=== PATIENT | female | born 1945 | race African-American/Black ===

== ENCOUNTER 2017-11-04 08:04 | Day surgery (SDC) | payer OTHER, BC, MEDICARE ==
--- NOTE | 2017-10-29 10:33 | RAD REPORT ---
EXAM DESCRIPTION: RADOP - Outpt Chest Pa/Lat (2 Views) - 10/29/2017 10:19 am CLINICAL HISTORY: Preop for knee surgery COMPARISON: 2016 FINDINGS: The lungs appear clear of acute infiltrate. The heart is normal size. IMPRESSION: No acute abnormality is displayed
--- NOTE | 2017-10-29 11:24 | EKG ---
Test Date: 2017-10-29 Test Time: 10:21:08 Contact Worker: KARLA MEASUREMENT RESULTS: Intervals: Rate: 76 OH: 154 QRSD: 70 QT: 360 QTc: 405 [place]: P: 81 OH: 154 QRS: 48 T: 43 INTERPRETIVE STATEMENTS: Normal sinus rhythm Normal ECG Compared to ECG 04/16/2016 12:24:43 No significant changes Electronically Signed On 10-29-17 11:24:19 CDT by Stepan Boateng
[2017-10-29 12:06] LABS: Urine Appearance CLEAR; Urine Bilirubin NEGATIVE (NEG); Urine Blood NEGATIVE (NEG); Urine Color YELLOW; Urine Glucose NEGATIVE (NEG); Urine Protein NEGATIVE (NEG); Urine Specific Gravity >=1.030 (1.005-1.030); Urine Urobilinogen 0.2 mg/dL (0.2-1.0)
[2017-10-29 12:08] LABS: Urine Microscopic Reflex NO UMIC
[2017-10-29 12:13] LABS: Absolute Lymphocytes (CBC) 2.2 K/uL (0.7-4.9); Absolute Monocytes 0.7 K/uL (0.1-1.3); Absolute Neutrophil 2.1 K/uL (1.8-8.0); Basophils % 0.9 % (0-1.3); Eosinophils % 2.4 % (0-4.4); Hematocrit 37.1 % (36.0-45.0); Lymphocytes % 42.2 % (15.3-44.8); MCV 85.3 fL (80-100); MPV 9.5 fL (7.6-11.3); Monocytes % 13.4 % (3.3-12.3); RBC Red Blood Cell Count 4.35 M/uL (3.86-4.86)
[2017-10-29 12:19] LABS: Albumin 4.1 g/dL (3.2-5.5); Bilirubin Total 0.6 mg/dL (0.3-1.2); Protein, Total 7.1 g/dL (6.0-8.3)
[2017-10-29 12:58] LABS: A1c Component 0.47 mg/dL; Hemoglobin A1c 5.7 % (4-6.0)
[2017-11-04] MEDS ORDERED: CEFAZOLIN/SWI 1gm 1 GM/10 ML SYR ONE (08:07)
[2017-11-04] MEDS ORDERED: NA CHLORIDE 0.9% 1,000 ML ONE (08:07)
[2017-11-04] MEDS ORDERED: DEPO-MEDROL 40 MG/ML IM ONE (08:10)
[2017-11-04] MEDS ORDERED: BUPIVACAINE 0.25% PF 10 ML VIAL ONE (08:11)
[2017-11-04] MEDS ORDERED: FENTANYL CITR 100 MCG/2 ML ONE (08:30)
[2017-11-04] MEDS ORDERED: MIDAZOLAM HCL 2 MG/2 ML INJ ONE (08:30)
[2017-11-04] MEDS ORDERED: PROPOFOL 200 MG/20 ML VIAL IV ONE (08:30)
[2017-11-04] MEDS ORDERED: LIDOCAINE 2% MPF 5 ML VIAL ONE (08:30)
[2017-11-04] MEDS ORDERED: MORPHINE 10 MG/ML VIAL ONE (09:16)
[2017-11-04] MEDS ORDERED: KETOROLAC 30 MG/ML INJ ONE (09:41)
--- NOTE | 2017-11-04 09:59 | P.BOP ---
Preoperative diagnosis: RIGHT KNEE INTERNAL DERANGEMENT WITH COMPLEX MED.MENISC.TEAR Postoperative diagnosis: COMPLEX MED. MENISC.TEAR GRADE 3&4 MED.COMPARTMENT DJD Primary procedure: DIAGNOSTIC ARTHROSC.R.KNEEw/PARTIAL MED. MENISECTOMY&SHAVE G3 /4 Secondary procedure: CHONDROMALACIA MEDIAL COOMPARTMENT Regional Construction Manager: Lele Preciado Estimated blood loss: <5mL Specimen: SHAVINGS Findings: COMPLEX MED. MENISCAL TEAR ASSOC.w/GR.3/4CHONDROMAL. MED. COMPT. Anesthesia: General Complications: None Implants: NONE Fluids & blood products: INJ. 10 mL 0.25%MARCAINE PLAIN; 1mL [id number] Transferred to: Recovery Room Condition: Good
[2017-11-04] MEDS ORDERED: ONDANSETRON 4 MG/2 ML VIAL ONE (10:16)
[2017-11-04] MEDS ORDERED: HYDROCODONE/APAP 5/325 MG TAB ONE (11:13)
--- NOTE | 2017-11-06 05:55 | OP ---
Date of Procedure: 11/04/2017 Surgeon: Lele Preciado MD Managed Care Provider: Lele Preciado M.D. Preoperative Diagnosis: Right knee internal derangement with complex medial meniscal tear. Postoperative Diagnosis: Complex medial meniscal tear and grade 3 and 4 medial compartment degenerat dior joint disease. Primary Procedure: Diagnostic arthroscopy of the right knee with partial medial meniscectomy and sha ving of grade 3 and 4 chondromalacia, medial compartment. Indications: This patient has had intense and limiting symptoms since early June of last year. 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 She describes right knee mechanical symptoms of frequent popping, occasional giving way episodes, recurrent episod es of swelling and most importantly frequent locking episodes when turning over in bed, which require d her to place a pillow under the knee and work it, twisting the foot and ankle until a pop would occ ur that allowed normal motion to resume. The patient after discussing risks and benefits at length w ith all questions answered, has elected to proceed with diagnostic arthroscopy and indicated procedur es for her left knee. Technique: The patient was taken to the operating room and given a general anesthesia. She was then placed on the operative table with a tourniquet for the proximal thigh and the limb hyaes around th e tourniquet approximately. The foot of the bed was dropped after prepping and draping and a support of a trough cushion was placed under the left proximal thigh to support that leg while the right kne e was allowed to dangle in the knee hayes. The limb was exsanguinated with an Esmarch bandage and t he tourniquet was elevated to 250 mmHg. This was kept up during the procedure, which involved releas e of the tourniquet 43 minutes later. The scope was introduced initially through the distal lateral portal and the instrumentation was inserted in the distal medial portal. The inspection of the track ing of the patella showed smooth surfaces and middle of the trochlear groove tracking for the patella . The scope was moved into the medial gutter, no loose bodies were encountered, and it was moved edgar n to the medial compartment where a large and very complex meniscal tear of the medial meniscus was n oted to extend from the mid body all the way around to the insertion of the posterior horn. The suct ion shaver and right biting basket forceps were used to trim and remove loose meniscal tissue until t here was a stable remnant extending from the posterior horn insertion all the way around to the anter ior aspect of the midbody. The transition to remaining normal meniscus was trimmed and smoothed to p revent clicking and popping and chondral surfaces that were noted to have grade 3 and 4 chondromalaci a mostly focused at the midportion of the tear where there was some eburnated bone. The chondromalac ia was smoothed and shaved as possible for the medial femoral condyle and medial tibial plateau. Ins pection in the intracondylar notch showed the ACL and origin of the PCL to be intact, passing the sco pe into the lateral compartment. There was mild fraying of the margin of the lateral meniscus, but i t was stable to probing and did not warrant any further action in that compartment as chondral surfac es were also smoothed and pristine. Passing into the suprapatellar pouch and lateral gutter, no jena tional loose bodies or problems were encountered. The knee was observed moving from extension into f ull flexion as the patella would seat itself and track in the trochlear groove. The knee was again i nspected in all compartments and the scope and other instrumentation was then withdrawn. The punctur e wounds were closed with interrupted sutures of 4-0 nylon. The puncture wounds were then injected w ith a total of 10 mL of 0.25% Marcaine plain and 1 mL of Depo-Medrol 40 mg was instilled into the int ra-articular space. The sterile bandage was applied using Xeroform gauze, 4x4 flats, and an ABD cove red with soft roll and an Roge bandage. The tourniquet was released at 43 minutes and the estimated b lood loss was less than 5 mL. Damage was concentrated in the medial compartment of this knee. It wa s expected that debridement of the meniscal tissues would allow the patient to proceed without lockin g and severe pain symptoms with effusions. HONORIO/EARL Voice ID: [id number] Report ID: [id number]
== END 2017-11-04 12:45 | disposition home or self-care (01) ==
LOC: OR 08:04
PROVIDERS: ATTEND Orthopaedic Surgery
PROC: 0SBC4ZZ Excision of Right Knee Joint, Percutaneous Endoscopic Approach (ICD-10-PCS; principal; 2017-11-04 11:45)
DX: S83.231A Complex tear of medial meniscus, current injury, right knee, initial encounter (principal); M17.11 Unilateral primary osteoarthritis, right knee; M94.261 Chondromalacia, right knee; M54.31 Sciatica, right side; I10 Essential (primary) hypertension; Z83.3 Family history of diabetes mellitus
CPT/HCPCS: 29881; 36415; 71046; 80053; 81003; 83036; 85025; 88304; 93005; J0690; J1030; J2250; J2405; J3010; J7030; 88305; 88311

== ENCOUNTER 2019-05-17 07:34 | Emergency (ER) | payer OTHER, BC, MEDICARE ==
--- NOTE | 2019-05-17 09:40 | RAD REPORT ---
EXAM DESCRIPTION: RADTib Fib Left05/17/2019 8:41 am CLINICAL HISTORY: Left leg pain FINDINGS: No fracture is seen. Bones appear osteoporotic.
--- NOTE | 2019-05-17 10:12 | ER ---
Nurse's Notes [facility] Name: Laila Haddad Age: 73 yrs Sex: Female : 1945 Arrival Date: 05/17/2019 Time: 07:37 Bed 8 Private MD: Stevie Hollingsworth R Diagnosis: Pain in left leg;Osteoarthritis, unspecified site;Osteoporosis without current pathological fracture Presentation: 05/17 07:52 Presenting complaint: Patient states: Left ankle pain that radiates to left knee, jl7 started this morning. Transition of care: patient was not received from another setting of care. Onset of symptoms was May 17, 2019. Risk Assessment: Do you want to hurt yourself or someone else? Patient reports no desire to harm self or others. Initial Sepsis Screen: Does the patient meet any 2 criteria? No. Patient's initial sepsis screen is negative. Does the patient have a suspected source of infection? No. Patient's initial sepsis screen is negative. Care prior to arrival: None. 07:52 Method Of Arrival: Ambulatory jl7 07:52 Acuity: HENRY 4 jl7 Triage Assessment: 07:54 General: Appears in no apparent distress. uncomfortable, Behavior is calm, cooperative, jl7 appropriate for age. Pain: Complains of pain in left ankle Pain radiates to left knee Pain currently is 10 out of 10 on a pain scale. Quality of pain is described as sharp, Pain began 1 hour ago. Is continuous. Neuro: Level of Consciousness is awake, alert, obeys commands, Oriented to person, place, time, situation. Cardiovascular: Patient's skin is warm and dry. Respiratory: Airway is patent Respiratory effort is even, unlabored, Respiratory pattern is regular, symmetrical. Derm: Skin is pink, warm \T\ dry. Musculoskeletal: Range of motion: limited in left knee. Historical: - Allergies: 07:54 No Known Allergies; jl7 - Home Meds: 07:54 lisinopril Oral [Active]; jl7 - PMHx: 07:54 Hypertension; jl7 - PSHx: 07:54 wisdom teeth; ; Hernia repair; jl7 - Immunization history:: Adult Immunizations up to date. - Social history:: Smoking status: Patient/guardian denies using tobacco. - Ebola Screening: : No symptoms or risks identified at this time. - Family history:: not pertinent. - Hospitalizations: : No recent hospitalization is reported. Screenin:58 Abuse screen: Denies threats or abuse. Denies injuries from another. Nutritional jl7 screening: No deficits noted. Tuberculosis screening: No symptoms or risk factors identified. Fall Risk No fall in past 12 months (0 pts). No secondary diagnosis (0 pts). No IV (0 pts). Ambulatory Aid- Crutches/Cane/Walker (15 pts). Gait- Impaired (20 pts.). Mental Status- Oriented to own ability (0 pts). Total Pantoja Fall Scale indicates Low Risk Score (25-44 pts). Fall prevention measures have been instituted. Side Rails Up X 2 Placed close to Nursing Station Frequent Obs/Assesments occuring As available Patient and Family Educated on Fall Prevention Program and strategies. Assessment: 07:58 General: See triage assessment. jl7 08:49 Reassessment: Patient appears in no apparent distress at this time. No changes from 7 previously documented assessment. Patient and/or family updated on plan of care and expected duration. Pain level reassessed. Patient is alert, oriented x 3, equal unlabored respirations, skin warm/dry/pink. 09:35 Reassessment: Patient appears in no apparent distress at this time. No changes from 7 previously documented assessment. Patient and/or family updated on plan of care and expected duration. Pain level reassessed. Patient is alert, oriented x 3, equal unlabored respirations, skin warm/dry/pink. 10:15 Reassessment: Patient appears in no apparent distress at this time. Patient and/or sg family updated on plan of care and expected duration. Pain level reassessed. at bedside upating pt on results and discharge instructions, pt stated understanding, will continue to monitor. Vital Signs: 07:54 BP 128 / 65; Pulse 79; Resp 17 S; Temp 97.1(TE); Pulse Ox 100% on R/A; Pain 10/10; jl7 09:35 BP 116 / 68; Pulse 75; Resp 16 S; Pulse Ox 100% on R/A; jl7 ED Course: 07:37 Patient arrived in ED. rg4 07:37 Stevie Hollingsworth MD is Private Physician. rg4 07:40 Juan Mazariegos MD is Attending Physician. rn 07:52 Castillo Feldman, RN is Primary Nurse. jl7 07:53 Triage completed. jl7 07:54 Arm band placed on right wrist. jl7 07:58 Patient has correct armband on for positive identification. Bed in low position. Call robbin light in reach. Side rails up X 1. Pulse ox on. NIBP on. Warm blanket given. 08:30 Assisted to bathroom. jl7 08:42 XRAY Tib Fib LEFT In Process Unspecified. EDMS 09:00 Awaiting: Ultra Sound. jl7 09:48 Primary Nurse role handed off by Castillo Feldman, RN sg 09:48 Javier Cr, RN is Primary Nurse. sg 10:10 Extremity Venous Uni Ltd US In Process Unspecified. EDMS Administered Medications: No medications were administered Outcome: 10:12 Discharge ordered by . rn 10:33 Patient left the ED. Signatures: Dispatcher [employer] EDMS Javier Cr, LUIS ALBERTO SAHU Lilliana Da Silva RN RN Juan Mazariegos MD MD rn Garcia, Rubi rg4 Castillo Feldman, RN RN [facility]
--- NOTE | 2019-05-17 10:12 | EDPHYS ---
Physician Documentation [facility] Name: Laila Hadadd Age: 73 yrs Sex: Female : 1945 Arrival Date: 05/17/2019 Time: 07:37 Bed 8 Private MD: Stevie Hollingsworth R ED Physician Juan Mazariegos HPI: 05/17 08:32 This 73 yrs old Black Female presents to ER via Ambulatory with complaints of Leg Pain. rn 08:32 The patient presents with pain, that is acute. The complaints affect the left knee and rn left bowers. Onset: The symptoms/episode began/occurred this morning. Modifying factors: The symptoms are alleviated by OTC meds, the symptoms are aggravated by weight bearing. Severity of symptoms: At their worst the symptoms were mild, in the emergency department the symptoms are unchanged. The patient has experienced similar episodes in the past. Reports has a bad right knee has been taking care of her , lifting and caring for him, is supposed to have surgery on right knee soon, now left knee bothering her at times, but worse this morning. No injury. Reports pain from knee down tibia. No foot or ankle pain. No fever. Reports worse with weight bearing, no swelling or discoloration.. Historical: - Allergies: 07:54 No Known Allergies; jl7 - Home Meds: 07:54 lisinopril Oral [Active]; jl7 - PMHx: 07:54 Hypertension; jl7 - PSHx: 07:54 wisdom teeth; ; Hernia repair; jl7 - Immunization history:: Adult Immunizations up to date. - Social history:: Smoking status: Patient/guardian denies using tobacco. - Ebola Screening: : No symptoms or risks identified at this time. - Family history:: not pertinent. - Hospitalizations: : No recent hospitalization is reported. ROS: 08:32 Constitutional: Negative for fever, chills, and weight loss, Eyes: Negative for injury, rn pain, redness, and discharge, Neck: Negative for injury, pain, and swelling, Cardiovascular: Negative for chest pain, palpitations, and edema, Respiratory: Negative for shortness of breath, cough, wheezing, and pleuritic chest pain, Abdomen/GI: Negative for abdominal pain, nausea, vomiting, diarrhea, and constipation, Back: Negative for injury and pain, MS/Extremity: Negative for injury and deformity, Skin: Negative for injury, rash, and discoloration, Neuro: Negative for headache, weakness, numbness, tingling, and seizure. Exam: 08:32 Constitutional: This is a well developed, well nourished patient who is awake, alert, rn and in no acute distress. Skin: Warm, dry with normal turgor. Normal color with no rashes, no lesions, and no evidence of cellulitis. MS/ Extremity: Pulses equal, no cyanosis. Neurovascular intact. Full, normal range of motion. Equal circumference. No knee effusion. No focal tenderness. Neuro: Awake and alert, GCS 15. Motor strength 5/5 in all extremities. Sensory grossly intact. Cerebellar exam normal. Vital Signs: 07:54 BP 128 / 65; Pulse 79; Resp 17 S; Temp 97.1(TE); Pulse Ox 100% on R/A; Pain 10/10; jl7 09:35 BP 116 / 68; Pulse 75; Resp 16 S; Pulse Ox 100% on R/A; jl7 MDM: 07:40 Patient medically screened. rn 09:03 Test interpretation: by ED physician or midlevel provider: plain radiologic studies, rn Xray left tib/fib neg for acute fracture/dislocation.. 09:04 ED course: Delay due to radiology, ultrasound still has not been performed. . rn 10:10 Differential diagnosis: tendonitis, arthritis, over-compensation and stress due to rn right knee pain. Data reviewed: vital signs, nurses notes, radiologic studies, doppler, plain films, and as a result, I will discharge patient. Counseling: I had a detailed discussion with the patient and/or guardian regarding: the historical points, exam findings, and any diagnostic results supporting the discharge/admit diagnosis, radiology results, the need for outpatient follow up, to return to the emergency department if symptoms worsen or persist or if there are any questions or concerns that arise at home. Special discussion: I discussed with the patient/guardian in detail that at this point there is no indication for admission to the hospital. It is understood, however, that if the symptoms persist or worsen the patient needs to return immediately for re-evaluation. Based on the history and exam findings, there is no indication for further emergent testing or inpatient evaluation. I discussed with the patient/guardian the need to see the orthopedic surgeon for further evaluation of the symptoms. 10:10 ED course: U/S neg for DVT as well, Recommend continuation of brace, OTC pain meds, and rn invasive f/u. . 05/17 07:59 Order name: XRAY Tib Fib LEFT; Complete Time: 10:10 rn 05/17 07:59 Order name: Extremity Venous Uni Ltd US rn Administered Medications: No medications were administered Disposition: 05/17/19 10:12 Discharged to Home. Impression: Pain in left leg, Osteoarthritis, unspecified site, Osteoporosis without current pathological fracture. - Condition is Stable. - Discharge Instructions: Arthritis, Musculoskeletal Pain. - Medication Reconciliation Form, Thank You Letter, Antibiotic Education, Prescription Opioid Use form. - Follow up: Private Physician; When: As needed; Reason: Recheck today's complaints, Re-evaluation by your physician. - Problem is an ongoing problem. - Symptoms have improved. Signatures: Dispatcher [employer] EDMS Lilliana Da Silva RN RN iw Juan Mazariegos MD MD rn Leal, Jahala, RN RN jl7 Corrections: (The following items were deleted from the chart) 08:34 08:32 Constitutional: Negative for fever, chills, and weight loss, Eyes: Negative for rn injury, pain, redness, and discharge, Neck: Negative for injury, pain, and swelling, Cardiovascular: Negative for chest pain, palpitations, and edema, Respiratory: Negative for shortness of breath, cough, wheezing, and pleuritic chest pain, Abdomen/GI: Negative for abdominal pain, nausea, vomiting, diarrhea, and constipation, MS/Extremity: Negative for injury and deformity, Skin: Negative for injury, rash, and discoloration, Neuro: Negative for headache, weakness, numbness, tingling, and seizure, rn 10:33 10:12 05/17/2019 10:12 Discharged to Home. Impression: Pain in left leg; iw Osteoarthritis, unspecified site; Osteoporosis without current pathological fracture. Condition is Stable. Forms are Medication Reconciliation Form, Thank You Letter, Antibiotic Education, Prescription Opioid Use. Follow up: Private Physician; When: As needed; Reason: Recheck today's complaints, Re-evaluation by your physician. Problem is an ongoing problem. Symptoms have improved. rn
[2019-05-17 10:38] VITALS: TEMP 97.1; O2SAT 100
[2019-05-17 10:40] VITALS: BP 116/68
--- NOTE | 2019-05-17 10:45 | RAD REPORT ---
[facility] DES[facility]/17/2019 10:30 am CLINICAL HISTORY: left leg pain COMPARISON: None. FINDINGS: Left common femoral, superficial femoral, popliteal and posterior tibial veins are compre ssible and demonstrate augmentation. Doppler demonstrates good flow. IMPRESSION: No evidence of deep venous thrombosis involving the left lower extremity.
== END 2019-05-17 10:33 | disposition home or self-care (01) ==
LOC: ER 07:34
DX: M19.90 Unspecified osteoarthritis, unspecified site (principal); M81.0 Age-related osteoporosis without current pathological fracture; I10 Essential (primary) hypertension
CPT/HCPCS: 93971; 99283

== ENCOUNTER 2019-12-04 06:16 | Emergency (ER) | payer OTHER, BC, MEDICARE ==
--- OUTSIDE RECORDS SUMMARY | 2019-12-04 06:18 | XMS REPORT | Summary of Care ---
:1945 Author Organization [facility] Address [address] [place] [address] Care Team Providers Name Role Phone Pcp, Does Not Have A Primary Care Provider Encounter Details Date Type Department Care Team Description 09/07/2019 [facility] Rad[facility] [address] [place] [address] [place], [place] [phone] Allergies No Known Allergiesdocumented as of this encounter (statuses as of 09/08/2019) Medications Medication Sig Dispensed Refills Start Date End Date Status pravastatin Take 40 mg by 0 Acti ve (PRAVACHOL) 40 mg mouth. tablet Fluocinolone-Hydroq.- Apply to area(s) 2 30 g 1 06/22/20 14 Active Tretinoin (TRI-ALEXIA) (two) times daily. 0.01-4-0.05 % For 8 weeks then CreaIndications: discontinue Protect Other dyschromia skin from sun mometasone (NASONEX) Use 2 Sprays in 1 Bottle 5 10/02/2015 Active 50 mcg/actuation each nostril daily. nasal spray lisinopril-hydrochlor 0 12/22/2015 Active othiazide (PRINZIDE,ZESTORETIC) 20-25 mg per tablet triamcinolone 0 11/23/2015 Activ e (KENALOG) 0.025 % cream lisinopril-hydrochlor TAKE 1 TABLET BY 0 04/27/2019 Active othiazide 20-12.5 mg MOUTH ONCE DAILY IN per tablet THE MORNING acetaminophen-codeine Take 1 tablet by 40 tablet 0 08/24/2019 Active (TYLENOL-CODEINE #3) mouth every 4 300-30 mg (four) hours as tabletIndications: needed for Pain Status post total (scale 4-6) or Pain right knee (scale 7-10). replacement documented as of this encounter (statuses as of 09/08/2019) Active Problems Problem Noted Date Total knee replacement status 08/23/2019 Primary osteoarthritis of right knee 06/07/2019 Overview: Added automatically from request for henry knott [id number] Dental caries 12/07/2013 Overview: ICD10 Diagnosis Term Purchasing Intern Utility documented as of this encounter (statuses as of 09/08/2019) Social History Tobacco Use Types Packs/Day Years Used Date Never Smoker Smokeless Tobacco: Never Used Alcohol Use Drinks/Week oz/Week Comments No Sex Assigned at Date Recorded Not on file Job Start Date Occupation Industry Not on file Not on file Not on file Travel History Travel Start Travel End No recent travel history available. documented as of this encounter Last Filed Vital Signs Not on filedocumented in this encounter Plan of Treatment Date Type Specialty Care Team Description 10/06/2019 Office Visit Orthopedic Surgery Glenn Villasenor S, PAC [address] [phone] Health Maintenance Due Date Last Done Comments HEPATITIS C (HCV) SCREEN 1945 DTaP,Tdap,and Td Vaccines (1 - Tdap) 1956 COLONOSCOPY 10/25/1995 Zoster Recombinant Vaccine (SHINGRIX) (1 10/25/1995 of 2) Medicare Wellness Visit 2010 Osteoporosis Screening 2010 PNEUMOCOCCAL VACCINES 65+ (1 of 2 - PCV13) 2010 Breast Cancer Screening (MAMMOGRAM) 08/31/2016 08/31/2015, 08/17/2014 INFLUENZA VACCINE (#1) 2019 documented as of this encounter Implants Implanted Type Area Drycleaner Device Shelf Model / Identifier Expiration Serial / Date Lot Cement Simplex Hv #[id number] - S0 CEMENT Right: Sam 09/24/2020 [id number] / Implanted: Qty: 2 on 08/23/2019 by Cayden Hamilton MD at [facility] Knee 0 / [id number] Bearing Tibial 12 X 71/75 Mm #[id number] - S0 KNEE Right: Biomet 07/02/2024 [id number] / Implanted: Qty: 1 on 08/23/2019 by Cayden Hamilton MD at [facility] Knee 0 / [id number] Tibial Tray Cemented 71mm Biomet #[id number] - S0 Knee Insert Right: Biomet 06/28/2029 [id number] / Implanted: Qty: 1 on 08/23/2019 by Cayden Hamilton MD at [facility] Knee 0 / [id number] Component Cr Femoral - Right 71mm Biomet Ref#[id number] Knee Stem Right: Biomet 04/08/2029 [id number] / Implanted: Qty: 1 on 08/23/2019 by Cayden Hamilton MD at [facility] Knee 0 / [id number] Patella 8 X 31mm Biomet#[id number] - S0 PATELLA Right: Biomet 07/14/2024 [id number] / Implanted: Qty: 1 on 08/23/2019 by Cayden Hamilton MD at [facility] Knee 0 / [id number] documented as of this encounter Procedures Procedure Name Priority Date/Time Associated Diagnosis Comme nts XR KNEE <3 VW Routine 09/07/2019 2:08 Primary osteoarthritis Results for this RIGHT PM LEAD OPERATOR of right knee procedure are in the results section. documented in this encounter Results XR KNEE <3 VW RIGHT (09/07/2019 2:08 PM LEAD OPERATOR) Specimen Narrative Performed At This result has an attachment that is no t available. Status post total knee replacement implants in good alignment cemented PACS femur and tibia Performing Organization Address City/State/Zipcode Phone Number PACS documented in this encounter Visit Diagnoses Diagnosis Primary osteoarthritis of right knee Primary localized osteoarthrosis, lower leg documented in this encounter Insurance Payer Benefit Plan / Subscriber ID Effective Dates Phone Addre ss Type Group MEDICARE MEDICARE PART xxxxxxxxxxx 2010-Paola [phone] Medicare A & B t 2 [id number] [place] [id number] [phone] [id number] (Work) documented as of this encounter
--- OUTSIDE RECORDS SUMMARY | 2019-12-04 06:18 | XMS REPORT ---
:1945 Author Organization [facility] t Address [address] [place] [address] Dr. Encinas [address] [place] [id number] Care Team Providers Name Role Phone Unavailable Unavailable Unavailable Problems This patient has no known problems. Allergies, Adverse Reactions, Alerts This patient has no known allergies or adverse reactions. Medications This patient has no known medications.
--- OUTSIDE RECORDS SUMMARY | 2019-12-04 06:19 | XMS REPORT | Summary of Care ---
:1945 Author Organization [facility] - Health Address [address] [place] [address] Care Team Providers Name Role Phone Pcp, Does Not Have A Primary Care Provider Encounter Details Date Type Department Care Team Description 07/29/2019 Orders Only [facility] Doctor Unassigned, No [address] [facility] [place] [address] [address] [place] [address] Allergies No Known Allergiesdocumented as of this encounter (statuses as of 08/11/2019) Medications Medication Sig Dispensed Refills Start Date [...] 11/23/2015 Activ e (KENALOG) 0.025 % cream ibuprofen (MOTRIN) Take 1 tab PO every 50 tablet 0 02/19/2016 Active 600 mg tablet 8 hours x 7 days then PRN pain acetaminophen-codeine Take 1 tablet by 0 10/28/2016 Active 300-30 mg tablet mouth every 6 (six) hours as needed. 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 documented as of this encounter (statuses as of 08/11/2019) Social History Tobacco Use Types Packs/Day Years [...] Treatment Date Type Specialty Care Team Description 08/23/2019 Prep For Surgery Orthopedic Surgery Gayatri Cordovaa ry osteoarthritis of right knee (Primary Dx); Cayden Villanueva MD Congestive heart failure, unspecified HF chronicity, unspecified heart failure type [address] [place] [address] [phone] 08/23/2019 Hospital Encounter Surgery Art, Primary o steoarthritis Cayden Villanueva MD of right knee [address] [place] [address] [phone] 08/23/2019 Surgery Surgery Art, TOTAL KNEE ARTH ROPLASTY Cayden Villanueva MD [address] [place] [address] [phone] Health Maintenance Due Date Last Done Comments HEPATITIS C (HCV) SCREEN 1945 DTaP,Tdap,and Td Vaccines (1 - Tdap) 1956 COLONOSCOPY 10/25/1995 Zoster Recombinant Vaccine (SHINGRIX) (1 10/25/1995 of 2) Medicare Wellness Visit 2010 Osteoporosis Screening 2010 PNEUMOCOCCAL VACCINES 65+ (1 of 2 - PCV13) 2010 Breast Cancer Screening (MAMMOGRAM) 08/31/2016 08/31/2015, 08/17/2014 INFLUENZA VACCINE (#1) 2019 documented as of this encounter Procedures Procedure Name Priority Date/Time Associated Diagnosis Comme nts MEDICAL Routine 07/29/2019 12:01 AM 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 Medicare A & B nt 82 [id number] ZACHARY SILVERIO [id number] DELTA DELTA DENTAL [id number] 2012-Prese [phone] DENTAL-[facility] nt [id number] [address] [place] [id number] DELTA DELTA DENTAL [id number] 2012-Prese [phone] DENTAL-[facility] nt [id number] [address] [place] [id number] documented as of this encounter
--- OUTSIDE RECORDS SUMMARY | 2019-12-04 06:19 | XMS REPORT | Summary of Care ---
:1945 Author Organization [facility] Address [address] [place] [id number] Care Team Providers Name Role Phone Pcp, Does Not Have A Primary Care Provider Reason for Visit Reason Comments LAB WORK Auth/Cert Status Reason Specialty Diagnoses / Referred By Referred To Procedures Contact Contact Clinical Medical Diagnoses Unilateral primary osteoarthritis, right knee Unilateral primary osteoarthritis, right knee [M17.11] [facility] Laboratory Procedures URINALYSIS COMP. 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 [facility] Cayden Cordova MD [address] [place] [address] Congestive heart failure, unspecified HF chronicity, unspecified heart failure type ; Phlebotomy 1, [facility] Primary osteoarthritis of right knee Lab-Carlotta [address] [facility] [place] [address] Allergies No Known Allergiesdocumented as of this encounter (statuses as of 08/19/2019) Medications Medication Sig Dispensed Refills Start Date [...] ONCE DAILY IN per tablet THE MORNING ibuprofen (ADVIL) 200 Take 200 mg by 0 Active mg tablet mouth as needed. 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 documented as of this encounter (statuses as of 08/19/2019) Social History Tobacco Use Types Packs/Day Years [...] Treatment Date Type Specialty Care Team Description 08/19/2019 Hospital Encounter [facility] Jayda Cordova MD [address] [place] [phone] [facility] 08/23/2019 Prep For Surgery Orthopedic Surgery Cayden Cordova Pr imary osteoarthritis of right knee (Primary Dx); MD Rich Congestive heart failure, unspecified HF chronicity, unspecified heart failure type [address] [place] [address] 08/23/2019 Hospital Encounter Surgery Cayden Cordova Primar y osteoarthritis MD Rich of right knee [address] [place] [address] 08/23/2019 Anesthesia Event Surgery KochMelvin R, PHOTOENGRAVING PRINTER [address] [place] [address] 08/23/2019 Surgery Surgery Cayden Cordova TOTAL KNEE MD Rich ARTHROPLASTY [address] [place] [address] Name Type Priority Associated Diagnoses Date/Ti me aPTT LAB Routine Congestive heart failure, 8:42 AM unspecified HF chronicity, C ST unspecified heart failure type Primary osteoarthritis of right knee PT / INR LAB Routine Congestive heart failure, 8:42 AM unspecified HF chronicity, C ST unspecified heart failure type Primary osteoarthritis of right knee COMP. 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 Health Maintenance Due Date Last Done Comments HEPATITIS C (HCV) SCREEN 1945 DTaP,Tdap,and Td Vaccines (1 - Tdap) 1956 COLONOSCOPY 10/25/1995 Zoster Recombinant Vaccine (SHINGRIX) (1 10/25/1995 of 2) Medicare Wellness Visit 2010 Osteoporosis Screening 2010 PNEUMOCOCCAL VACCINES 65+ (1 of 2 - PCV13) 2010 Breast Cancer Screening (MAMMOGRAM) 08/31/2016 08/31/2015, 08/17/2014 INFLUENZA VACCINE (#1) 2019 documented as of this encounter Results Not on filedocumented in this encounter Visit Diagnoses Diagnosis Congestive heart failure, unspecified HF chronicity, unspecified heart failure type Primary osteoarthritis of right knee Primary localized osteoarthrosis, lower leg documented in this encounter Insurance Payer Benefit Plan / Subscriber ID Effective Dates Phone Addre ss Type Group MEDICARE MEDICARE PART xxxxxxxxxxx 2010-Paola [phone] Medicare A & B t 2 [id number] ZACHARY SILVERIO [id number] [phone] [id number] (Work) documented as of this encounter
--- OUTSIDE RECORDS SUMMARY | 2019-12-04 06:19 | XMS REPORT | Summary of Care ---
:1945 Author Organization [facility] - Health Address [address] [place] [address] Care Team Providers Name Role Phone Pcp, Does Not Have A Primary Care Provider Encounter Details Date Type Department Care Team Description 08/04/2019 Orders Only [facility] Doctor Unassigned, No 301 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 documented as of this encounter (statuses [...] Description 08/23/2019 Prep For Surgery Orthopedic Surgery Cayden Cordova Pr imary osteoarthritis of right knee (Primary Dx); MD Rich Congestive heart failure, unspecified HF chronicity, unspecified heart failure type [address] [place] [address] [phone] 08/23/2019 Hospital Encounter Surgery Cayden Cordova Primar y osteoarthritis MD Rich of right knee [address] [place] [address] [phone] 08/23/2019 Anesthesia Event Surgery KochMelvin siegel, FAN ENGINE ENGINEER [address] [place] [address] 08/23/2019 Surgery Surgery Cayden Cordova TOTAL KNEE MD Rich ARTHROPLASTY [address] [place] [address] Health Maintenance Due Date Last Done Comments [...] Name Priority Date/Time Associated Diagnosis Comme nts DISCLOSURE AND CONSENT, Routine 08/04/2019 12:01 AM 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 Medicare A & B nt 82 [id number] ZACHARY SILVERIO [id number] DELTA DELTA DENTAL [id number] 2012-Prese [phone] DENTAL-[facility] nt [id number] [address] [place] [id number] DELTA DELTA DENTAL [id number] 2012-Prese [phone] DENTAL-[facility] nt [id number] [address] [place] [id number] documented as of this encounter
--- OUTSIDE RECORDS SUMMARY | 2019-12-04 06:20 | XMS REPORT | Summary of Care ---
:1945 Author Organization [facility] Address [address] [place] [address] Care Team Providers Name Role Phone Pcp, Does Not Have A Primary Care Provider Reason for Referral (Routine) Status Reason Specialty Diagnoses / Referred By Referred To Procedures Contact Contact New Request Location Physical Diagnoses Status post total right knee replacement Glenn Villasenor Preference Therapy Procedures CONSULT/REFERRAL PHYSICAL THERAPY S, PAC [address] [place] [address] (Routine) Status Reason Specialty Diagnoses / Referred By Referred To Procedures Contact Contact New Request ORT-ORTHOPAEDIC Diagnoses Status post total right knee replacement Glenn Villasenor S, SURGERY Procedures Discharge Follow-Up: Specialty Service ORT-ORTHOPAEDIC SURGERY; 2 Weeks PAC [address] [place] [address] Radiology Services (SHERI) Status Reason Specialty Diagnoses / Referred By Referred To Procedures Contact Contact New Request Diagnostic Diagnoses Status post total right knee replacement Cayden Cordova Radiology Procedures XR KNEE <3 VW RIGHT Rich MD [address] [place] [address] Reason for Visit Auth/Cert Status Reason Specialty Diagnoses / Procedures Referred By Homar eferred To Contact Contact Surgery Diagnoses Unilateral primary osteoarthritis, right knee Primary osteoarthritis of right knee [M17.11] Adc Pre/ Pacu/Post Procedures [place] TOTAL KNEE ARTHROPLASTY TOTAL KNEE ARTHROPLASTY [id number] - [place] TOTAL KNEE ARTHROPLASTY [address] [facility] [address] [place], [place] [phone] Fax: Encounter Details Date Type Department Care Team Description 08/23/2019 - Hospital Encounter ADC Intensive Care Ahsly Cordova osteoarthritis 08/24/2019 Unit Cayden Villanueva MD of right knee [address] [facility] [facility] [address] [place] [address] [address] [phone] [place] [address] Allergies No Known Allergiesdocumented as of this encounter (statuses as of 08/24/2019) Medications Medication Sig Dispensed Refills Start Date End Date Status pravastatin Take 40 mg by 0 Acti ve (PRAVACHOL) 40 mg mouth. tablet Fluocinolone-Hydroq Apply to 30 g 1 06/22/2014 Active .-Tretinoin area(s) 2 (two) (TRI-ALEXIA) times daily. For 0.01-4-0.05 % 8 weeks then CreaIndications: discontinue Other dyschromia Protect skin from sun mometasone Use 2 Sprays in 1 Bottle 5 10/02/2015 Ac tive (NASONEX) 50 each nostril mcg/actuation nasal daily. spray lisinopril-hydrochl 0 12/22/2015 Active orothiazide (PRINZIDE,ZESTORETI C) 20-25 mg per tablet triamcinolone 0 11/23/2015 Activ e (KENALOG) 0.025 % cream lisinopril-hydrochl TAKE 1 TABLET BY 0 04/27/2019 Active orothiazide 20-12.5 MOUTH ONCE DAILY mg per tablet IN THE MORNING acetaminophen-codei Take 1 tablet by 40 tablet 0 08/24/2019 Active ne (TYLENOL-CODEINE mouth every 4 #3) 300-30 mg (four) hours as tabletIndications: needed for Pain Status post total (scale 4-6) or right knee Pain (scale replacement 7-10). rivaroxaban Take 1 tablet by 10 tablet 0 08/24/2019 Active (XARELTO) mouth daily for 0 tabletIndications: 10 days. knee replacement Indications: deep vein deep vein thrombosis thrombosis prevention prevention in knee replacement ibuprofen (MOTRIN) Take 1 tab PO 50 tablet 0 02/19/2016 Discontinued 600 mg tablet every 8 hours x 0 7 days then PRN pain acetaminophen-codei Take 1 tablet by 0 10/28/2016 Discontinued ne 300-30 mg tablet mouth every 6 0 (six) hours as needed. ibuprofen (ADVIL) Take 200 mg by 0 02 Discontinued 200 mg tablet mouth as needed. 0 documented as of this encounter (statuses as of 08/24/2019) Active Problems Problem Noted Date Total knee replacement status 08/23/2019 Primary osteoarthritis of right knee 06/07/2019 Overview: Added automatically from request for henry knott [id number] Dental caries 12/07/2013 Overview: ICD10 Diagnosis Term Rivet Hole Puncher Utility documented as of this encounter (statuses as of 08/24/2019) Social History Tobacco Use Types Packs/Day Years Used Date Never Smoker Smokeless Tobacco: Never Used Alcohol Use Drinks/Week oz/Week Comments No Sex Assigned at Date Recorded Not on file Job Start Date Occupation Industry Not on file Not on file Not on file Travel History Travel Start Travel End No recent travel history available. documented as of this encounter Last Filed Vital Signs Vital Sign Reading Time Taken Comments Blood Pressure 118/57 08/24/2019 12:00 PM BINDERY PRODUCTION MANAGER Pulse 91 08/24/2019 12:00 PM BINDERY PRODUCTION MANAGER Temperature 36.9 C (98.4 F) 08/24/2019 12:00 PM BINDERY PRODUCTION MANAGER Respiratory Rate 18 08/24/2019 8:00 AM BINDERY PRODUCTION MANAGER Oxygen Saturation 100% 08/24/2019 12:00 PM BINDERY PRODUCTION MANAGER Inhaled Oxygen Concentration - - Weight 62.1 kg (137 lb) 08/11/2019 2:00 PM BINDERY PRODUCTION MANAGER Height 157.5 cm (5' 2") 08/11/2019 2:00 PM BINDERY PRODUCTION MANAGER Body Mass Index 25.06 08/11/2019 2:00 PM BINDERY PRODUCTION MANAGER documented in this encounter Discharge Instructions AttachmentsThe following attachments cannot be sent through Care Everywhere.Knee Replacement, Total (Kosovan)Wound Care, Discharge Instructions (Kosovan) Incision Care (Kosovan)Acetaminophen; Codeine tablets (Kosovan)Rivaroxaban oral tablets (Kosovan)documented in this encounter Progress Notes Hardy Fonseca RN - 08/24/2019 2:45 PM BINDERY PRODUCTION MANAGER Care Management Social Functional Assessment Patient Name: Laila Haddad Age: [age] year old Sex: female Previous admit date: N/A Current diagnosis and co-morbidities: Primary osteoarthritis of right knee [M17.11] Readmission Questions: Was patient discharged from any acute care hospital within the last 30 days: No Social Functional Assessment: Primary language spoken/preferred: Kosovan Mental Status: Alert & Oriented to Person,Place & Time Information given by: Self Patient's support system: Child Name and number of support system: Taylor Sabillon son [phone] Primary Mercantile Agent: Self MPOA: Same as support system Living Arrangement: Home Address of living arrangement : [id number] [place] [address] Persons living in home: Same as support system Barriers to returning home: None Baseline functional status- ambulation: Independent Functional status-baseline personal care: Independent Baseline functional status- driving: Independent Baseline functional status- grocery shopping: Independent Functional status-baseline housekeeping: Independent Functional status-baseline meal prep: Independent Current functional status same as prior: No Current functional status- ambulation: Requires minimal to moderate assistance Current functional status- personal care: Requires minimal to moderate assistance Current functional status- driving: Dependent Current functional status- grocery shopping: Requires minimal to moderate assistance Current functional status-house keeping: Requires minimal to moderate assistance Current functional status- meal preparation: Requires minimal to moderate assistance Do you have a PCP?: Yes Name of PCP: [facility] Agency: No Provider Services: No DME Company: No Equipment: Rollator;Walker;Crutches;Bedside Commode Hemodialysis: No Community resources utilized: None Funding Resources: Medicare A & B Prescription coverage plan: Medicare Part D Pharmacy where meds are filled: Other Other pharmacy: [facility] Anticipated services prior to disharge: None Expected mode of discharge transportation: Same as support system Additional Recommendations for DC: no Additional info required for discharge planning: Pending medical evaluation Recommended discharge plan: Home with new Home Health SFA Complete: Social Functional Assessment complete: Yes Alcohol Use Screening (AUDIT-C) How often do you have a drink containing alcohol?: Never SCORE: 0 Actions taken: Provided support Role of Care Management explained. Yes Any issues or concerns with obtaining/affording your medications at home: no. Are you or your support system able to molded goods spot picker medications at discharge: yes. Describe: Hardy Fonseca RN, BSN [facility] Roll Mill Operator O [phone] Hardy Obrien RN - 08/24/2019 2:30 PM CSTCare Management Social Functional Assessment Patient Name: Laila Haddad Age: [age] year old Sex: female Previous admit date: N/A Current diagnosis and co-morbidities: Primary osteoarthritis of right knee [M17.11] Readmission Questions: Was patient discharged from any acute care hospital within the last 30 days: No Social Functional Assessment: Primary language spoken/preferred: Kosovan Mental Status: Alert & Oriented to Person,Place & Time Information given by: Self Patient's support system: Child Name and number of support system: Kamlesh Haddad child [phone] Primary Mercantile Agent: Self MPOA: Same as support system Living Arrangement: Apartment: [facility] Address of living arrangement : [address] [place] [address] Persons living in home: Same as support system Barriers to returning home: None Baseline functional status- ambulation: Independent Functional status-baseline personal care: Independent Baseline functional status- driving: Independent Baseline functional status- grocery shopping: Independent Functional status-baseline housekeeping: Independent Functional status-baseline meal prep: Independent Current functional status same as prior: No Current functional status- ambulation: Requires minimal to moderate assistance Current functional status- personal care: Requires minimal to moderate assistance Current functional status- driving: Dependent Current functional status- grocery shopping: Requires minimal to moderate assistance Current functional status-house keeping: Requires minimal to moderate assistance Current functional status- meal preparation: Requires minimal to moderate assistance Do you have a PCP?: Yes Name of PCP: [facility] Agency: No Provider Services: No DME Company: No Equipment: CPAP;Walker;Cane Hemodialysis: No Community resources utilized: None Funding Resources: Medicare A & B;Supplement/Secondary Prescription coverage plan: Medicare Part D Pharmacy where meds are filled: [facility] Anticipated services prior to disharge: None Expected mode of discharge transportation: Same as support system Additional info required for discharge planning: Pending medical evaluation Recommended discharge plan: Home with new Home Health SFA Complete: Social Functional Assessment complete: No Alcohol Use Screening (AUDIT-C) How often do you have a drink containing alcohol?: Never SCORE: 0 Actions taken: Provided support Role of Care Management explained. Yes Any issues or concerns with obtaining/affording your medications at home: no. Are you or your support system able to molded goods spot picker medications at discharge: yes. Describe: Hardy Fonseca RN, BSN [facility] Roll Mill Operator O [phone] F [phone] Hardy Obrien RN - 08/24/2019 2:17 PM BINDERY PRODUCTION MANAGER Care Management Discharge Disposition Note (DCDN) -2-1 Interventions: Teach back -2-1 Providers: Roll Mill Operator/Recovery Analyst -2-1 Patient Capacity Improvements: Transportation arrangements Discharge Plan for ongoing care and services: Home Health (HH) Is this a new referral: Yes Patient Choice completed for referred services: Yes DME location: Other DME location: Durable Medical Equipment: Home Health location: Other Discharge location(s): Home Health location: Other Other Home Health location: [facility] Patient choice completed for referred services: Yes Discussed with patient/patients family involved in decision making: Yes Patient or family caregiver understands, and agrees with discharge plan. Community resources/referrals made or provided to patient: No Resources/Referrals: Transportation: Private Vehicle Mental Status: Alert & Oriented to Person,Place & Time Living Arrangement: Home Other living arrangement: Address of living arrangement: Funding Resources: Medicare A & B Nursing informed of discharge plan: Yes Name of RN informed: Mary Estimated discharge date: 08/24/19 Time: 1445 Additional Information: no CM/SW Name & Contact number: Hardy Fonseca RN Ph. Hardy Fonseca RN, BSN [facility] Roll Mill Operator O [phone] F [phone] The following information has been provided to the facility noted above: reason for the patient discharge or transfer; patients physical and psychosocial status; summary of care, treatment, servicesprovided to patient; and the patient progress toward goals. Karen Nova FNP - 08/24/2019 12:34 PM CST [facility] Hospitalist Progress Note SUBJECTIVE: Patient sitting up to chair no distress, all questions answered patient with an uneventful night CURRENT MEDICATIONS - reviewed. Current Facility-Administered Medications Medication Dose Route Frequency Last Rate Last Dose docusate (COLACE) capsule 100 mg 100 mg Oral Q12H 100 mg at 08/24/19 0845 enoxaparin (LOVENOX) injection 30 mg 30 mg Subcutaneous Q12H 30 mg at 08/24/19 0845 HYDROcodone-acetaminophen (NORCO 5) 5-325 mg tablet 1 tablet 1 tablet Oral Q6HPRN HYDROcodone-acetaminophen (NORCO) 10-325 mg tablet 1 tablet 1 tablet Oral Q4HPRN 1 tablet at 08/24/19 0848 morpHINE 30 mg/30 mL (fixed dose) PIE CUTTER injection IV Infusion TITRATE 30 mg at 08/23/19 1304 naloxone (NARCAN) injection 0.4 mg 0.4 mg Slow IV Push SEE-INSTRUCTIONS ondansetron (ZOFRAN (PF)) injection 4 mg 4 mg Slow IV Push Q6HPRN PHYSICAL EXAM: BP 118/57 | Pulse 91 | Temp 36.9 C (98.4 F) (Temporal Artery) | Resp 18 | Ht 1.575 m (5' 2") | Wt 62.1 kg (137 lb) | SpO2 100% | BMI 25.06 kg/m General: NAD HEENT: Anicteric sclerae, NCAT Lungs: CTAB Cardio: RRR, strong symmetric pulses Abdomen: Soft, NTND Genitourinary: No lesions Musculoskeletal: Normal muscle mass except right knee with dressing in place Skin: No rash or lesions, normal turgor Neuro: AAOx3, no focal deficits Psych: Normal affect LABS/IMAGING - reviewed, pertinent results as below: CBC BMP PT/INR WBC (10*3/L) Date Value 08/24/2019 12.64 (H) NA (mmol/L) Date Value 08/24/2019 137 No results found for: PT RBC (10*6/L) Date Value 08/24/2019 3.51 (L) K (mmol/L) Date Value 08/24/2019 4.0 INR (no units) Date Value 08/19/2019 1.0 PLT (10*3/L) Date Value 08/24/2019 196 CALCIUM (mg/dL) Date Value 08/24/2019 9.0 HGB (g/dL) Date Value 08/24/2019 9.7 (L) CL (mmol/L) Date Value 08/24/2019 105 aPTT HCT (%) Date Value 08/24/2019 29.5 (L) BUN (mg/dL) Date Value 08/24/2019 21 APTT Patient (Seconds) Date Value 08/19/2019 31 CREATININE (mg/dL) Date Value 08/24/2019 1.16 (H) IMAGING- Hospital Encounter on 08/23/19 XR KNEE <3 VW RIGHT Narrative EXAM: XR KNEE <3 VW RIGHT HISTORY: post op COMPARISON: R KNEE 3 VW BILATERAL, 05/20/2019. FINDINGS: Radiographs of the right knee demonstrate postsurgical changes of right knee total arthroplasty and patellar resurfacing. No guy hardware lucency or acute combination are noted. Overlying soft tissue swelling, gini, and subcutaneous gas are noted, consistent with postsurgical changes. Alignment is within normal limits. Impression Post surgical changes of right knee total arthroplasty and patellar resurfacing without acute complications. Preliminary Report Dictated by Resident: Lele Patrick I, Giacomo Graham MD., have reviewed this study and agree with the above report. ASSESSMENT/PLAN Laila Haddad is a 73 year old female with PMH as listed above, admitted to the hospital with: S/p right knee arthroplasty by Dr. Cordova on 08/23/2019 Discharge instructions, DVT prophylaxis, orthro pain management will be done by Dr. Cordova in his team. Hypertension Continue lisinopril/ HCTZ 20/12.5 as per home dose Monitor closely Keep followup appointments Hyperlipidemia patient doesn't take any statins at this time was discontinued over 3 to 4 years ago stated patient Mild AK I likely reactive, encourage fluids and no NSIADS Patient receiving mild hydration Will trend BMP Prophylaxis: DVT- enoxaparin Stress Ulcer: no indication for prophylaxis Code Status: addressed: full code DAISHA Burton ERY PRODUCTION MANAGER Associated attestation - Jacky Gonzalez MD - 08/24/2019 3:03 PM CSTPatient was seen and physically examined. I agree with the findings and documentation provided in the above note from the nurse practitioner, Karen Davis. Medicine team will continue to provide daily care. Glenn Villasenor PAC - 08/24/2019 9:44 AM CST Orthopedic Surgery Post Operative Note Date of Service: 08/24/2019 Procedure: Patient Active Problem List Diagnosis Dental caries Primary osteoarthritis of right knee Total knee replacement status Post-operative Day: 1 Patient is resting comfortably. Patient Range of motion is unchanged. Vitals: BP (!) 142/75 | Pulse 99 | Temp 36.6 C (97.9 F) (Temporal Artery) | Resp 18 | Ht 1.575 m (5'2") | Wt 62.1 kg (137 lb) | SpO2 99% | BMI 25.06 kg/m Wound status: clean, dry and intact Neovascular status: neurovascularly intact Labs: CBC BMP PT/INR WBC (10*3/L) Date Value 08/24/2019 12.64 (H) NA (mmol/L) Date Value 08/24/2019 137 No results found for: PT RBC (10*6/L) Date Value 08/24/2019 3.51 (L) K (mmol/L) Date Value 08/24/2019 4.0 INR (no units) Date Value 08/19/2019 1.0 PLT (10*3/L) Date Value 08/24/2019 196 CALCIUM (mg/dL) Date Value 08/24/2019 9.0 HGB (g/dL) Date Value 08/24/2019 9.7 (L) CL (mmol/L) Date Value 08/24/2019 105 aPTT HCT (%) Date Value 08/24/2019 29.5 (L) BUN (mg/dL) Date Value 08/24/2019 21 APTT Patient (Seconds) Date Value 08/19/2019 31 CREATININE (mg/dL) Date Value 08/24/2019 1.16 (H) Assessment and Plan: Laila Haddad is a 73 year old female with PMH as listed above, admitted to the hospital on 08/23/2019 with: Principal Problem: Active Problems: Total knee replacement status (08/23/2019) POA: Yes Assessment: doing well Plan: d/c home this evening Zeynep William MD - 08/23/2019 4:40 PM CSTUTILIZATION REVIEW COMMITTEE PHYSICIAN ADVISOR NOTE After reviewing this case and the PSYCHIATRIC chart information, it has been determined that this case doesnot meet medical necessity guidelines for an inpatient admission. I concur with the resident care manager rn and attending physician review that this episode of care should be changed to outpatient status using Medicare Condition Code 44. This decision is made by one of the Physician Advisors on the [facility] Utilization Review Committee. Decision of the attending physician is/will be documented in the patient's medical record. Zeynep Bacon MD 08/23/2019 4:41 PM Horse Racer, Dept of Internal Medicine Soledad Figueroa RN - 08/23/2019 4:24 PM CSTCARE MANAGEMENT CONDITION CODE 44 After reviewing this case with the Roll Mill Operator it has been determined that this case doesnot meet medical necessity guidelines for an inpatient admission. I concur that this case should bechanged to outpatient, using Medicare Condition Code 44. Patient name: Laila Haddad Service: [facility] Attending:Cayden Cordova MD Dx: medical management Hospital Course: HTN, HLD who presents with s/p total right knee arthroplasty by Dr. Cordova on 08/23/2019. Patient denies pain at this time. Patient also denies chest pain, shortness of breath, abdominal pain, dysuria, hematuria, hallucinations, fever or chills SKIN DIVING TEACHER spoke with Dr. Cordova , who agrees with status change. Soledad Hamilton, RN, BSN Utilization Review [facility] Office: [phone] Argentina Wilson, PT - 08/23/2019 12:08 PM CST08/23/2019 12:29 PM CPM Initial Set-up S: Orders received. Pt asleep but able to wake up when called. Patient reports pain but no number given, RN aware and already administered medication. O: CPM adjusted for proper fit and padded for comfort. Set-up for R knee with ROM at 0-30 degrees. A: Patient tolerated ROM without adverse reaction. P: Therapy will monitor CPM and will increase ROM of CPM while patient is in the hospital per MD orders as patient tolerates. PT will return for functional evaluation later today or early tomorrow. Thank you. Argentina Recinos, PT [place] PT License [id number] Counts include 234 beds at the [facility] Rehabilitation Services Department (phone) (fax) Total Timed Treatment Codes in Minutes: 15 Total Treatment Time in Minutes: 15 ERY PRODUCTION MANAGER documented in this encounter Plan of Treatment Date Type Specialty Care Team Description 09/07/2019 Office Visit Orthopedic Surgery Glenn Villasenor S, PAC [address], [place] [phone] Name Type Priority Associated Diagnoses Order S chedule CBC WITH DIFF LAB Routine EVERY MORNING AT 0400 for 2 Days starting 2019 until 08/25/2019, 1 c ompleted Health Maintenance Due Date Last Done Comments [...] of this encounter Implants Implanted Type Area Marketing Research Coordinator Device Shelf Model / Identifier Expiration Serial / Date Lot Cement Simplex Hv #[id number] - S0 CEMENT Right: Sam 09/24/2020 [id number] / Implanted: Qty: 2 on 08/23/2019 by Cayden Hamilton MD at [facility] Knee 0 / [id number] Bearing Tibial 12 X 71/75 Mm #[id number] - S0 KNEE Right: Biomet 07/02/2024 [id number] / Implanted: Qty: 1 on 08/23/2019 by Cayden Hamilton MD at [facility] Knee 0 / [id number] Tibial Tray Cemented 71mm Biomet #[id number] - S0 Knee Insert Right: Biomet 06/28/2029 [id number] / Implanted: Qty: 1 on 08/23/2019 by Cayden Hamilton MD at [facility] Knee 0 / [id number] Component Cr Femoral - Right 71mm Biomet Ref#[id number] Knee Stem Right: Biomet 04/08/2029 [id number] / Implanted: Qty: 1 on 08/23/2019 by Cayden Hamilton MD at [facility] Knee 0 / [id number] Patella 8 X 31mm Biomet#[id number] - S0 PATELLA Right: Biomet 07/14/2024 [id number] / Implanted: Qty: 1 on 08/23/2019 by Cayden Hamilton MD at [facility] Knee 0 / [id number] documented as of this encounter Procedures Procedure Name Priority Date/Time Associated Diagnosis Comme nts CBC WITH Routine 08/24/2019 5:42 Results for DIFFERENTIAL AM BINDERY PRODUCTION MANAGER this procedure are in the results section. CBC WITH Routine 08/24/2019 5:42 Results for DIFFERENTIAL AM BINDERY PRODUCTION MANAGER this procedure are in the results section. BASIC METABOLIC Routine 08/24/2019 5:42 Results for PANEL (NA, K, CL, AM BINDERY PRODUCTION MANAGER this proce dure CO2, GLUCOSE, BUN, are in th e CREATININE, CA) results section. XR KNEE <3 VW RIGHT SHERI 08/23/2019 12:13 Status post total Results for PM BINDERY PRODUCTION MANAGER right knee this procedure replacement are in the results section. TOTAL KNEE Level 5 08/23/2019 9:09 Primary ARTHROPLASTY (greater than 5 AM BINDERY PRODUCTION MANAGER osteoarthritis of days) right knee Special Needs biomet notified 08/07/2019 (s m) ABORH CONFIRMATION Routine 08/23/2019 7:17 AM BINDERY PRODUCTION MANAGER HB ABO GROUPING Routine 08/23/2019 7:09 AM BINDERY PRODUCTION MANAGER R esults for this procedure are in the results section. documented in this encounter Results CBC WITH DIFFERENTIAL (08/24/2019 5:42 AM BINDERY PRODUCTION MANAGER) [facility] nature WBC 12.64 (H) 4.30 - 11.10 [facility] 10*3/L [facility] RBC 3.51 (L) 3.93 - 5.25 [facility] 10*6/L [facility] HGB 9.7 (L) 11.6 - 15.0 [facility] g/dL [facility] HCT 29.5 (L) 35.7 - 45.2 % [facility] MCV 84.0 80.6 - 95.5 fL [facility] MCH 27.6 25.9 - 32.8 pg [facility] MCHC 32.9 31.6 - 35.1 [facility] g/dL [facility] RDW-SD 42.4 39.0 - 49.9 fL [facility] RDW-CV 13.7 12.0 - 15.5 % [facility] PLT 196 166 - 358 [facility] 10*3/L [facility] MPV 10.5 9.5 - 12.9 fL [facility] NRBC/100 WBC 0.0 0.0 - 10.0 /100 [facility] WBCs [facility] NRBC x10^3 <0.01 10*3/L [facility] GRAN MAT (NEUT) % 79.3 % [facility] IMM GRAN % 0.60 % [facility] LYMPH % 11.7 % [facility] MONO % 8.2 % [facility] EOS % 0.0 % [facility] BASO % 0.2 % [facility] GRAN MAT x10^3(ANC) 10.01 (H) 1.88 - 7.09 [facility] 10*3/uL HOSPITAL LABORATORY IMM GRAN x10^3 0.08 (H) 0.00 - 0.06 [facility] 10*3/uL HOSPITAL LABORATORY LYMPH x10^3 1.48 1.32 - 3.29 [facility] 10*3/uL HOSPITAL LABORATORY MONO x10^3 1.04 (H) 0.33 - 0.92 [facility] 10*3/uL HOSPITAL LABORATORY EOS x10^3 <0.03 (L) 0.03 - 0.39 [facility] 10*3/uL HOSPITAL LABORATORY BASO x10^3 0.03 0.01 - 0.07 [facility] 10*3/uL [facility] Specimen Blood - ARM, RIGHT Performing Organization Address City/State/Zipcode Phone Number [facility] CLIA: [id number], [address] [place], [place] [address] BASIC METABOLIC PANEL (NA, K, CL, CO2, GLUCOSE, BUN, CREATININE, CA) (08/24/2019 5:42 AM BINDERY PRODUCTION MANAGER) NA 137 135 - 145 [facility] mmol/L [facility] K 4.0 3.5 - 5.0 [facility] mmol/L [facility] CL 105 98 - 108 mmol/L [facility] CO2 TOTAL 26 23 - 31 mmol/L [facility] AGAP 6 2 - 16 [facility] BUN 21 7 - 23 mg/dL [facility] GLUCOSE 106 70 - 110 mg/dL [facility] CREATININE 1.16 (H) 0.50 - 1.04 [facility] mg/dL [facility] CALCIUM 9.0 8.6 - 10.6 [facility] mg/dL [facility] eGFR Calculation 45.8 mL/min/1.73m2 [facility] (Non[facility] LABORATORY Macedonian) eGFR Calculation 55.5 mL/min/1.73m2 [facility] () [facility] Specimen Blood - ARM, RIGHT Narrative Performed At Association of Glomerular Filtration Rate (GFR) [facility] and Staging of Kidney Disease* + + +- + | GFR (mL/min/1.73 m2) | With Kidney Damage | Without Kidney Damage + + +- + | >90 | Stage one | Normal + + +- + | 60-89 | Stage two | Decreased GFR + + +- + | 30-59 | Stage three | Stage three + + +- + | 15-29 | Stage four | Stage four + + +- + | <15 (or dialysis) | Stage five | Stage five + + +- + *Each stage assumes the associated GFR level has been in effect for at least three months. Stages 1 to 5, with or without kidney disease, indicate chronic kidney disease. Notes: Determination of stages one and two (with eGFR >59mL/min/1.73 m2) requires estimation of kidney damage for at least three months as defined by structural or functional abnormalities of the kidney, manifested by either: Pathological abnormalities or Markers of kidney damage (including abnormalities in the composition of the blood or urine or abnormalities in imaging tests). Performing Organization Address City/State/Zipcode Phone Number [facility] CLIA: [id number], [address] XR KNEE <3 VW RIGHT (08/23/2019 12:13 PM BINDERY PRODUCTION MANAGER) Specimen Impressions Performed At PACS/VR/DOSE Post surgical changes of right knee tota l arthroplasty and patellar resurfacing without acute complications. Preliminary Report Dictated by Resident: Giacomo Salazar MD., have reviewed this study and agree with the above report. Narrative Performed At EXAM: XR KNEE <3 VW RIGHT PACS/VR/DOSE HISTORY: post op COMPARISON: R KNEE 3 VW BILATERAL, 05/20. FINDINGS: Radiographs of the right knee demonstrat e postsurgical changes of right knee total arthroplasty and patellar resurfacing. No p barbara hardware lucency or acute combination are noted. Overlyin g soft tissue swelling, gini, and subcutaneous gas are noted, consiste nt with postsurgical changes. Alignment is within normal limits. Procedure Note [facility], Radiant Results Inft User - 2019 1:09 PM BINDERY PRODUCTION MANAGER EXAM: XR KNEE <3 VW RIGHT HISTORY: post op COMPARISON: R KNEE 3 VW BILATERAL, 05/20. FINDINGS: Radiographs of the right knee demonstrat e postsurgical changes of right knee total arthroplasty and patellar res urfacing. No guy hardware lucency or acute combination are noted. Overlyin g soft tissue swelling, gini, and subcutaneous gas are noted, consiste nt with postsurgical changes. Alignment is within normal limits. IMPRESSION Post surgical changes of right knee tota l arthroplasty and patellar resurfacing without acute complications. Preliminary Report Dictated by Resident: Giacomo Salazar MD., have reviewed th is study and agree with the above report. Performing Organization Address City/State/Zipcode Phone Number PACS/VR/DOSE ABORH CONFIRMATION (08/23/2019 7:17 AM BINDERY PRODUCTION MANAGER) Pathologist Sig nature ABO & RH O Positive LAB Comment: Performed at [facility] Laboratory Services - [facility] [address] [place], [place] [address] Toll Free: [phone] CLIA No. [id number] Specimen Performing Organization Address City/State/Zipcode Phone Number [facility] Type and Screen - The Type and Screen expires at midnight on the 3rd day after it was drawn. A current Type and Screen is required when RBCs are requested. For all other blood products, a Type and Screen performed during the current hospitalizati... (08/23/2019 7:09 AM BINDERY PRODUCTION MANAGER) Pathologist Jean koch ABO & RH O Positive LAB Comment: Performed at [facility] Laboratory Services - [facility] Blood Bank [address] [place] [address] Toll Free: [phone] CLIA No. [id number] IAT Negative LAB Comment: Performed at [facility] Laboratory [facility] Blood Bank [address] [place], [place] [phone] Toll Free: [phone] CLIA No. [id number] Specimen Blood - VENOUS Performing Organization Address City/[facility] Phone Number [facility] documented in this encounter Visit Diagnoses Diagnosis Status post total right knee replacement - Primary Primary osteoarthritis of right knee Primary localized osteoarthrosis, lower leg documented in this encounter Administered Medications Medication Order MAR Action Action Date Dose Rate Site docusate (COLACE) capsule 100 mg Given 08/24/2019 8:45 AM BINDERY PRODUCTION MANAGER 100 mg 100 mg, Oral, Q12H, First dose on Fri08/23/19 at 0800, Until Discontinued, Routine Given 08/23/2019 6:37 PM BINDERY PRODUCTION MANAGER 100 mg enoxaparin (LOVENOX) injection 30 mg Given 08/24/2019 8:45 AM BINDERY PRODUCTION MANAGER 30 mg Abdo men 30 mg, Subcutaneous, Q12H, First dose on Fri08/24/19 at 0900, Until Discontinued, Routine HYDROcodone-acetaminophen (NORCO) 10-325 Given 08/24/2019 1 :30 PM BINDERY PRODUCTION MANAGER 1 tablet mg tablet 1 tablet 1 tablet, Oral, Q4HPRN, Starting Fri08/23/19 at 0739, Until Discontinued, Routine, Pain (scale 7-10) Given 08/24/2019 8:48 AM BINDERY PRODUCTION MANAGER 1 tablet morpHINE 30 mg/30 mL (fixed dose) PIE CUTTER New Bag 08/23/2019 1:04 PM BINDERY PRODUCTION MANAGER 30 mg injection Medication Order MAR Action Action Date Dose Rate Site ceFAZolin (ANCEF) 1 g in NaCl 0.9% Given 08/24/2019 1:24 AM BINDERY PRODUCTION MANAGER 1 g (NS) 50 mL MINI-BAG 1 g, IV Piggyback, Q8H ABX, 2 doses, First dose on Fri08/23/19 at 1730, Last dose on Fri08/24/19 at 0130, 50 mL, Reason for Anti-Infective: Surgical Prophylaxis, Surgical Prophylaxis: Orthopaedic, Duration of therapy: within 24 hours of surgery Given 08/23/2019 6:37 PM BINDERY PRODUCTION MANAGER 1 g celecoxib (CELEBREX) capsule 400 mg Given 08/23/2019 7:14 AM BINDERY PRODUCTION MANAGER 400 mg 400 mg, Oral, ONCE, 1 dose, Fri08/23/19 at 0700, Routine, DSU Pre-op FENTanyl PF (SUBLIMAZE (PF)) injection 50 Given 08/23/2019 12:03 PM BINDERY PRODUCTION MANAGER 50 mcg mcg 50 mcg, Slow IV Push, Q5MIN PRN, 2 doses, Starting Fri08/23/19 at 1139, Until Fri08/23/19 at 1203, Routine, Pain (scale 4-6), PACU Given 08/23/2019 11:56 AM BINDERY PRODUCTION MANAGER 50 mcg gabapentin (NEURONTIN) capsule 300 mg Given 08/23/2019 7:13 AM BINDERY PRODUCTION MANAGER 300 mg 300 mg, Oral, ONCE, 1 dose, Fri08/23/19 at 0700, Routine, DSU Pre-op lactated ringers IV infusion New Bag 08/23/2019 7:13 AM BINDERY PRODUCTION MANAGER 1,000 mL 20 mL/hr 1,000 mL at 20 mL/hr, 1,000 mL, IV Infusion, ONCE, 1 dose, Fri08/23/19 at 0700, Routine, DSU Pre-op oxyCODONE-acetaminophen (PERCOCET) 5-325 Given 020 7:14 AM BINDERY PRODUCTION MANAGER 2 tablets mg per tablet 2 tablet 2 tablet, Oral, ONCE, 1 dose, Fri08/23/19 at 0730, Routine, DSU Pre-op documented in this encounter Insurance Payer Benefit Plan / Subscriber ID Effective Dates Phone Addre ss Type Group MEDICARE MEDICARE PART xxxxxxxxxxx 2010-Paola [phone] [facility] Medicare A & B t 2 [id number] ZACHARY SILVERIO [id number] [phone] [id number] (Work) documented as of this encounter
--- OUTSIDE RECORDS SUMMARY | 2019-12-04 06:20 | XMS REPORT | Summary of Care ---
:1945 Author Organization [facility] Address [address] [place] [address] Care Team Providers Name Role Phone Pcp, Does Not Have A Primary Care Provider Reason for Visit Auth/Cert Status Reason Specialty Diagnoses / Referred By Referred To Procedures Contact Contact Clinical Medical Diagnoses Unilateral primary osteoarthritis, right knee Unilateral primary osteoarthritis, right knee [M17.11] [facility] Laboratory Procedures URINALYSIS COMP. METABOLIC PANEL (67488) BASIC METABOLIC PANEL (NA, K, CL, CO2, GLUCOSE, BUN, CREATININE, CA) PROTHROMBIN TIME / INR EKG-12 LEAD UA CMP BMP PT/INR EKG 12 LEAD [address] [facility] [place] [address] Encounter Details Date Type Department Care Team Description 08/19/2019 Hospital Encounter formerly [facility] Miah Cordova Unilateral primary Beatrice Mira Villanueva MD osteoarthritis, 132 [facility] [address] right knee [place], [place] [address] [address] [place], [place] [phone] Allergies No Known Allergiesdocumented as of this encounter (statuses as of 08/20/2019) Medications Medication Sig Dispensed Refills Start Date [...] as of this encounter (statuses as of 08/20/2019) Active Problems Problem Noted Date Primary osteoarthritis of right knee 06/07/2019 Overview: Added automatically from request for henry knott [id number] Dental caries 12/07/2013 Overview: ICD10 Diagnosis Term 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 Utility documented as of this encounter (statuses as of 08/20/2019) Social History Tobacco Use Types Packs/Day Years [...] chronicity, unspecified heart failure type [address] [place] [phone] 08/23/2019 Hospital Encounter Surgery Cayden Cordova Primar y osteoarthritis MD Rich of right knee [address] [place] [phone] 08/23/2019 Anesthesia Event Surgery KochMelvin, PIPELINE TECHNICIAN [address] [place] [address] 08/23/2019 Surgery Surgery Cayden Cordova TOTAL KNEE MD Rich ARTHROPLASTY [address] [place] [phone] Health Maintenance Due Date Last Done Comments [...] Priority Date/Time Associated Diagnosis Comme nts XR CHEST 1 VW Routine 08/19/2019 9:08 Primary osteoarthritis Results for this AM SENIOR ELECTRICAL PROJECT MANAGER of right knee procedure are in the results section. CONSENT/REFUSAL FOR Routine 08/19/2019 8:25 DIAGNOSIS AND AM SENIOR ELECTRICAL PROJECT MANAGER TREATMENT ASSIGNMENT OF Routine 08/19/2019 8:24 BENEFITS AM SENIOR ELECTRICAL PROJECT MANAGER documented in this encounter Results XR CHEST 1 VW (08/19/2019 9:08 AM SENIOR ELECTRICAL PROJECT MANAGER) Specimen Narrative Performed At HISTORY: Surgery. PACS/VR/DOSE FINDINGS: AP view of the chest showed normal appearance of the cardiomediastinal silhouette. Mild hyper inflation of the lungs noted. No acute pneumonia, pleural effusion, pulmo nary congestion detected. CONCLUSIONS: No radiographic signs of ac michelle cardiopulmonary disease. Procedure Note [facility], Radiant Results Inft User - 2019 9:11 AM SENIOR ELECTRICAL PROJECT MANAGER HISTORY: Surgery. FINDINGS: AP view of the chest showed n ormal appearance of the cardiomediastinal silhouette. Mild hyper inflation of the lungs noted. No acute pneumonia, pleural effusion, pulmo nary congestion detected. CONCLUSIONS: No radiographic signs of ac michelle cardiopulmonary disease. Performing Organization Address City/State/Zipcode Phone Number PACS/VR/DOSE documented in this encounter Visit Diagnoses Diagnosis Primary osteoarthritis of right knee Primary localized osteoarthrosis, lower leg documented in this encounter Insurance Payer Benefit Plan / Subscriber ID Effective Dates Phone Addre ss Type Group MEDICARE MEDICARE PART xxxxxxxxxxx 2010-Paola [phone] [address] Medicare A & B t 2 [id number] ZACHARY SILVERIO [phone] [phone] (Home) [place], [place] [phone] [id number] (Work) documented as of this encounter
--- OUTSIDE RECORDS SUMMARY | 2019-12-04 06:21 | XMS REPORT | Summary of Care ---
:1945 Author Organization [facility] Address [address] [place] [address] Care Team Providers Name Role Phone Pcp, Does Not Have A Primary Care Provider Reason for Referral (Routine) Status Reason Specialty Diagnoses / Referred By Referred To Procedures Contact Contact New Request Location Physical Diagnoses S/P TKR (total knee replacement) using cement, right Glenn Villasenor Preference Therapy Procedures CONSULT/REFERRAL PHYSICAL THERAPY S, PAC [address] [place] [address] Radiology Services (Routine) Status Reason Specialty Diagnoses / Referred By Referred To Procedures Contact Contact New Request Diagnostic Diagnoses S/P TKR (total knee replacement) using cement, right Glenn Villasenor, Radiology Procedures XR KNEE <3 VW RIGHT PAC [address] [place] [address] Reason for Visit Reason Comments POST-OP 1st Post Op Right TKR DOS: - 15 days out. removal of gini in office. (Routine) Status Reason Specialty Diagnoses / Referred By Referred To Procedures Contact Contact Closed ORT-ORTHOPAEDIC Diagnoses Status post total right knee replacement Glenn Villasenor, SURGERY / Procedures Discharge Follow-Up: Specialty Service ORT-ORTHOPAEDIC SURGERY; 2 Weeks PAC Orthopedic Surgery [address] [place] [address] Encounter Details Date Type Department Care Team Description 09/07/2019 Office Visit [facility] Orthopaedic Glenn Villasenor S, S /P TKR (total knee Surgery- [place] PAC replacement) using [address], [address] cement, right (Primary [address] [place]) [place] [address] [place], [place] [phone] Allergies No Known Allergiesdocumented as of this encounter (statuses as of 09/07/2019) Medications Medication Sig Dispensed Refills Start Date [...] as of this encounter (statuses as of 09/07/2019) Active Problems Problem Noted Date Total knee replacement status 08/23/2019 Primary osteoarthritis of right knee 06/07/2019 Overview: Added automatically from request for henry knott [id number] Dental caries 12/07/2013 Overview: ICD10 Diagnosis Term Reading Teacher Utility documented as of this encounter (statuses as of 09/07/2019) Social History Tobacco Use Types Packs/Day Years [...] Sign Reading Time Taken Comments Blood Pressure - - Pulse - - Temperature - - Respiratory Rate - - Oxygen Saturation - - Inhaled Oxygen Concentration - - Weight 62.1 kg (137 lb) 09/07/2019 2:07 PM PARALEGAL LEGAL SECRETARY Height 157.5 cm (5' 2") 09/07/2019 2:07 PM PARALEGAL LEGAL SECRETARY Body Mass Index 25.06 09/07/2019 2:07 PM PARALEGAL LEGAL SECRETARY documented in this encounter Progress Notes Glenn Villasenor, PAC - 09/07/2019 2:45 PM CST Cc: Chief Complaint Patient presents with POST-OP 1st Post Op Right TKR DOS:08/23/2019 - 15 days out. removal of gini in office. Laila Haddad is a 73 year old female. Follow-up status post right total knee replacement 08/23/2019 Allergies Laila has No Known Allergies. Medications Outpatient Medications Prior to Visit Medication Sig Dispense Refill acetaminophen-codeine (TYLENOL-CODEINE #3) 300-30 mg tablet Take 1 tablet by mouth every 4 (four) hours as needed for Pain (scale 4-6) or Pain (scale 7-10). 40 tablet 0 lisinopril-hydrochlorothiazide 20-12.5 mg per tablet TAKE 1 TABLET BY MOUTH ONCE DAILY IN THE MORNING 0 lisinopril-hydrochlorothiazide (PRINZIDE,ZESTORETIC) 20-25 mg per tablet triamcinolone (KENALOG) 0.025 % cream mometasone (NASONEX) 50 mcg/actuation nasal spray Use 2 Sprays in each nostril daily. 1 Bottle 5 Fluocinolone-Hydroq.-Tretinoin (TRI-ALEXIA) 0.01-4-0.05 % Crea Apply to area(s) 2 (two) times daily. For 8 weeks then discontinue Protect skin from sun 30 g 1 pravastatin (PRAVACHOL) 40 mg tablet Take 40 mg by mouth. No facility-administered medications prior to visit. Histories Past Medical History: Diagnosis Date HTN (hypertension) Hyperlipidemia Past Surgical History: Procedure Laterality Date SECTION HERNIA REPAIR 2012 TOTAL KNEE ARTHROPLASTY Right 08/23/2019 Surgeon: Cayden Cordova MD; [place] [facility] [place] Socioeconomic History Marital status: Spouse name: Not on file Number of children: Not on file Years of education: Not on file Highest education level: Not on file Occupational History Not on file Social Needs Financial resource strain: Not on file Food insecurity: Worry: Not on file Inability: Not on file Transportation needs: Medical: Not on file Non-medical: Not on file Tobacco Use Smoking status: Never Smoker Smokeless tobacco: Never Used Substance and Sexual Activity Alcohol use: No Drug use: Never Sexual activity: Not on file Lifestyle Physical activity: Days per week: Not on file Minutes per session: Not on file Stress: Not on file Relationships Social connections: Talks on phone: Not on file Gets together: Not on file Attends adventism service: Not on file Active member of club or organization: Not on file Attends meetings of clubs or organizations: Not on file Relationship status: Not on file Intimate partner violence: Fear of current or ex partner: Not on file Emotionally abused: Not on file Physically abused: Not on file Forced sexual activity: Not on file Other Topics Concern Not on file Social History Narrative Not on file Family History Problem Relation Age of Onset Diabetes Maternal Grandmother Asthma Maternal Grandfather Cancer Mother Stroke Father Review of Systems Constitutional: Negative. HENT: Negative. Eyes: Negative. Respiratory: Negative. Breasts: Negative. Cardiovascular: Negative. Gastrointestinal: Negative. Genitourinary: Negative. Musculoskeletal: Negative. Skin: Negative. Neurological: Negative. Psychiatric/Behavioral: Negative. Endocrine: Endocrine negative Vital Signs Ht 62" (157.5 cm) | Wt 62.1 kg (137 lb) | BMI 25.06 kg/m Physical Exam Musculoskeletal: Wound is well approximated there is no erythema edema or ecchymosis there is no drainage. Assessment/Plan Diagnosis: 1. Primary osteoarthritis of right knee XR KNEE <3 VW RIGHT Plan: We will give her prescription for outpatient physical therapy today and she can follow-up in one month She can wash her knee with plain soap and water as of tomorrow vitamin E oil as needed for scar cosmesis. LEGAL LEGAL SECRETARY documented in this encounter Plan of Treatment Health Maintenance Due Date Last Done Comments [...] of this encounter Implants Implanted Type Area Chalk Cutter Device Shelf Model / Identifier Expiration Serial / Date Lot Cement Simplex Hv #[id number] - S0 CEMENT Right: Sam 09/24/2020 [id number] / Implanted: Qty: 2 on 08/23/2019 by Cayden Hamilton MD at [facility] Knee 0 / [id number] Bearing Tibial 12 X 71/75 Mm #[id number] - S0 KNEE Right: Biomet 07/02/2024 [id number] / Implanted: Qty: 1 on 08/23/2019 by Cayden Hamilton MD at [facility] Knee 0 / [id number] Tibial Tray Cemented 71mm [employer] #[id number] - S0 Knee Insert Right: [employer] 06/28/2029 [id number] / Implanted: Qty: 1 on 08/23/2019 by Cayden Hamilton MD at [facility] Knee 0 / [id number] Component Cr Femoral - Right 71mm [employer]omet Ref#[id number] Knee Stem Right: [employer] 04/08/2029 [id number] / Implanted: Qty: 1 on 08/23/2019 by Cayden Hamilton MD at [facility] Knee 0 / [id number] Patella 8 X 31mm Biomet#[id number] - S0 PATELLA Right: Biomet 07/14/2024 [id number] / Implanted: Qty: 1 on 08/23/2019 by Cayden Hamilton MD at [facility] Knee 0 / [id number] documented as of this encounter Results XR KNEE <3 VW RIGHT (09/07/2019 2:08 PM PARALEGAL LEGAL SECRETARY) Specimen Narrative Performed At This result has an attachment that is no t available. Status post total knee replacement implants in good alignment cemented PACS femur and tibia Performing Organization Address City/State/Zipcode Phone Number PACS documented in this encounter Visit Diagnoses Diagnosis S/P TKR (total knee replacement) using c ement, right - Primary documented in this encounter Insurance Payer Benefit Plan / Subscriber ID Effective Dates Phone Addre ss Type Group MEDICARE MEDICARE PART xxxxxxxxxxx 2010-Paola [phone] [address] Medicare A & B t 2 [id number] ZACHARY SILVERIO [phone] (Work) documented as of this encounter
--- OUTSIDE RECORDS SUMMARY | 2019-12-04 06:21 | XMS REPORT | Summary of Care ---
:1945 Author Organization [facility] Address [address] [place] [address] Care Team Providers Name Role Phone Pcp, Does Not Have A Primary Care Provider Reason for Referral (Routine) Status Reason Specialty Diagnoses / Referred By Referred To Procedures Contact Contact New Request Location Physical Diagnoses S/P TKR (total knee replacement) using cement, right Glenn Villasenor Preference Therapy Procedures CONSULT/REFERRAL PHYSICAL THERAPY S, PAC [address] [place] [phone] Radiology Services (Routine) Status Reason Specialty Diagnoses / Referred By Referred To Procedures Contact Contact New Request Diagnostic Diagnoses S/P TKR (total knee replacement) using cement, right Glenn Villasenor, Radiology Procedures XR KNEE <3 VW RIGHT PAC [address] [place] [address] Reason for Visit Reason Comments POST-OP 1st Post Op Right TKR DOS: - 15 days out. removal of gini in office. (Routine) Status Reason Specialty Diagnoses / Referred By Referred To Procedures Contact Contact Closed ORT-ORTHOPAEDIC Diagnoses Status post total right knee replacement Glenn Villasenor, SURGERY / Procedures Discharge Follow-Up: Specialty Service ORT-ORTHOPAEDIC SURGERY; 2 Weeks PAC Orthopedic Surgery [address] [place] [address] Encounter Details Date Type Department Care Team Description 09/07/2019 Office Visit [facility] Orthopaedic Glenn Villasenor S, S /P TKR (total knee Surgery- [place] PAC replacement) using [address], [address], right (Primary [address]) [place] [address] [address], [place] [phone] Allergies No Known Allergiesdocumented as of this [...] Added automatically from request for henry knott [id number] Dental caries 12/07/2013 Overview: ICD10 Diagnosis Term Director Of Oncology Utility documented as of this encounter (statuses [...] 62.1 kg (137 lb) 09/07/2019 2:07 PM [facility] Height 157.5 cm (5' 2") 09/07/2019 2:07 PM [facility] Body Mass Index 25.06 09/07/2019 2:07 PM [facility] documented in this encounter Progress Notes Glenn [...] Right 08/23/2019 Surgeon: Cayden Cordova MD; Location: [facility] [place] Social History Socioeconomic History [...] file Gets together: Not on file Attends quaker service: Not on file Active member of [...] E oil as needed for scar cosmesis. ITAL COOK documented in this encounter Plan of Treatment [...] of this encounter Implants Implanted Type Area Blood Bank Manager Device Shelf Model / Identifier Expiration Serial / Date Lot Cement Simplex Hv #6194-1-001 - S0 CEMENT Right: Sam 09/24/2020 6194-1-001 / Implanted: Qty: 2 on 08/23/2019 by Cayden Hamilton MD at [facility] Knee 0 / [id number] Bearing Tibial 12 X 71/75 Mm #[id number] - S0 KNEE Right: Biomet 07/02/2024 [id number] / Implanted: Qty: 1 on 08/23/2019 by Cayden Hamilton MD at [facility] Knee 0 / [id number] Tibial Tray Cemented 71mm Biomet #[id number] - S0 Knee Insert Right: Biomet 06/28/2029 [id number] / Implanted: Qty: 1 on 08/23/2019 by Cayden Hamilton MD at [facility] Knee 0 / [id number] Component Cr Femoral - Right 71mm Biomet Ref#[id number] Knee Stem Right: Biomet 04/08/2029 [id number] / Implanted: Qty: 1 on 08/23/2019 by Cayden Hamilton MD at [facility] Knee 0 / [id number] Patella 8 X 31mm Biomet#[id number] - S0 PATELLA Right: Biomet 07/14/2024 [id number] / Implanted: Qty: 1 on 08/23/2019 by Cayden Hamilton MD at [facility] Knee 0 / [id number] documented as of this encounter Results XR KNEE <3 VW RIGHT (09/07/2019 2:08 PM [facility]) Specimen Narrative Performed At This result has [...] BOX Medicare A & B t 2 [id number] ZACHARY SILVERIO [address] (Work) documented as of this encounter
--- OUTSIDE RECORDS SUMMARY | 2019-12-04 06:21 | XMS REPORT | Summary of Care ---
:1945 Author Organization [facility] - Health Address [address] [place] [address] Care Team Providers Name Role Phone Pcp, Does Not Have A Primary Care Provider Encounter Details Date Type Department Care Team Description 08/23/2019 Orders Only [facility] Doctor Unassigned, No [address] [facility] [place] [facility] [place] [address] [address] [place] [address] Allergies No Known Allergiesdocumented as of this encounter (statuses as of 08/25/2019) Medications Medication Sig Dispensed Refills Start Date End Date Status pravastatin Take 40 mg by 0 Acti ve (PRAVACHOL) 40 mg mouth. tablet Fluocinolone-Hydroq. Apply to area(s) 30 g 1 06/22/2014 Active -Tretinoin 2 (two) times (TRI-ALEXIA) daily. For 8 weeks 0.01-4-0.05 % then discontinue CreaIndications: Protect skin from Other dyschromia sun mometasone (NASONEX) Use 2 Sprays in 1 Bottle 5 10/02/2015 Active 50 mcg/actuation each nostril nasal spray daily. lisinopril-hydrochlo 0 12/22/2015 Active rothiazide (PRINZIDE,ZESTORETIC ) 20-25 mg per tablet triamcinolone 0 11/23/2015 Activ e (KENALOG) 0.025 % cream lisinopril-hydrochlo TAKE 1 TABLET BY 0 04/27/2019 Active rothiazide 20-12.5 MOUTH ONCE DAILY mg per tablet IN THE MORNING acetaminophen-codein Take 1 tablet by 40 tablet 0 08/24/2019 Active e (TYLENOL-CODEINE mouth every 4 #3) 300-30 mg (four) hours as tabletIndications: needed for Pain Status post total (scale 4-6) or right knee Pain (scale 7-10). replacement rivaroxaban Take 1 tablet by 10 tablet 0 08/24/2019 09/03/2019 Active (XARELTO) mouth daily for 10 tabletIndications: days. 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 documented as of this encounter (statuses as of 08/25/2019) Social History Tobacco Use Types Packs/Day Years [...] Description 09/07/2019 Office Visit Orthopedic Surgery Glenn Villasenor, PAC [address] [phone] Health Maintenance Due Date Last Done [...] of this encounter Implants Implanted Type Area Burlap Roll Coverer Device Shelf Model / Identifier Expiration Serial / Date Lot Cement Simplex Hv #6194-1-001 - S0 CEMENT Right: Sam 09/24/2020 6194-1-001 / Implanted: Qty: 2 on 08/23/2019 by Cayden Hamilton MD at [facility] Knee 0 / [id number] Bearing Tibial 12 X 71/75 Mm #[id number] - S0 KNEE Right: Biomet 07/02/2024 [id number] / Implanted: Qty: 1 on 08/23/2019 by Cayden Hamilton MD at [facility] Knee 0 / [id number] Tibial Tray Cemented 71mm Biomet #[id number] - S0 Knee Insert Right: Biomet 06/28/2029 [id number] / Implanted: Qty: 1 on 08/23/2019 by Cayden Hamilton MD at [facility] Knee 0 / [id number] Component Cr Femoral - Right 71mm Biomet Ref#[id number] Knee Stem Right: Biomet 04/08/2029 [id number] / Implanted: Qty: 1 on 08/23/2019 by Cayden Hamilton MD at [facility] Knee 0 / [id number] Patella 8 X 31mm Biomet#[id number] - S0 PATELLA Right: Biomet 07/14/2024 [id number] / Implanted: Qty: 1 on 08/23/2019 by Cayden Hamilton MD at [facility] Knee 0 / [id number] documented as of this encounter Procedures Procedure Name Priority Date/Time Associated Diagnosis Comme nts HOSPITAL ADMISSION Routine 08/23/2019 12:01 AM LIQUEFIER documented in this encounter Results Not on filedocumented in this encounter Insurance Payer Benefit Plan Subscriber ID Effective Phone Address Typ e / Group Dates MEDICARE MEDICARE PART xxxxxxxxxxx 2010-Prese [phone] [address] Medicare A & B nt 82 [id number] ZACHARY SILVERIO [address] [place] [employer] [id number] 2012-Prese [phone] DENTAL-[facility] nt [address] [id number] [address] [place] [id number] [place] [employer] [id number] 2012-Prese [phone] DENTAL-[facility] nt 23 [id number] [address] [place], [place] [id number] documented as of this encounter
--- OUTSIDE RECORDS SUMMARY | 2019-12-04 06:21 | XMS REPORT | Summary of Care ---
:1945 Author Organization [facility] - Health Address [address] [place] [address] Care Team Providers Name Role Phone Pcp, Does Not Have A Primary Care Provider Reason for Visit Auth/Cert Status Reason Specialty Diagnoses / Procedures Referred By R eferred To Contact Contact Surgery Diagnoses Unilateral primary osteoarthritis, right knee Primary osteoarthritis of right knee [M17.11] Adc Pre/ Pacu/Post Procedures IN TOTAL KNEE ARTHROPLASTY TOTAL KNEE ARTHROPLASTY [id number] - IN TOTAL KNEE ARTHROPLASTY [address] [place] [address] [place], [place] 1 [address] Fax: Encounter Details Date Type Department Care Team Description 08/23/2019 Anesthesia [facility] Ledy Vo CRNA [address] [place], [place] [id number] [facility] Melvin Koch CRNA [address] [place] [address] [place] [address] [phone] [place] [address] Dr [place], [place] [phone] Allergies No Known Allergiesdocumented as of this encounter (statuses as of 08/23/2019) Medications Medication Sig Dispensed Refills Start Date End Date Status pravastatin Take 40 mg by 0 Susp ended (PRAVACHOL) 40 mg mouth. tablet Fluocinolone-Hydroq Apply to area(s) 30 g 1 06/22/2014 Suspended .-Tretinoin 2 (two) times (TRI-ALEXIA) daily. For 8 weeks 0.01-4-0.05 % then discontinue CreaIndications: Protect skin from Other dyschromia sun Additional information mometasone (NASONEX) 50 Use 2 Sprays in each 1 Bottle 5 10/01 Suspended mcg/actuation nasal spray nostril daily. Additional information lisinopril-hydrochlorothiazide 0 6 Suspended (PRINZIDE,ZESTORETIC) 20-25 mg per tablet triamcinolone (KENALOG) 0.025 % cream 0 Suspended ibuprofen (MOTRIN) 600 mg tablet Take 1 tab 50 tablet 0 2015 Suspended PO every 8 hours x 7 days then PRN pain Additional information acetaminophen-codeine 300-30 mg Take 1 tablet by mouth 0 10/28/2016 Suspended tablet every 6 (six) hours as needed. lisinopril-hydrochlorothiazide TAKE 1 TABLET BY MOUTH 0 04/27/2019 Suspended 20-12.5 mg per tablet ONCE DAILY IN THE MORNING ibuprofen (ADVIL) 200 mg tablet Take 200 mg by mouth 0 Suspended as needed. 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 documented as of this encounter (statuses as of 08/23/2019) Social History Tobacco Use Types Packs/Day Years [...] filedocumented in this encounter Plan of Treatment Health [...] of this encounter Implants Implanted Type Area Back Shoe Cutter Device Shelf Model / Identifier Expiration Serial / Date Lot Cement Simplex Hv #6194-1-001 - S0 CEMENT Right: Sam 09/24/2020 6194-1-001 / Implanted: Qty: 2 on 08/23/2019 by Cayden Hamilton MD at [facility] Knee 0 / [id number] Bearing Tibial 12 X 71/75 Mm #[id number] - S0 KNEE Right: Biomet 07/02/2024 [id number] / Implanted: Qty: 1 on 08/23/2019 by Cayden Hamilton MD at [facility] Knee 0 / [id number] Tibial Tray Cemented 71mm Biomet #[id number] - S0 Knee Insert Right: Biomet 06/28/2029 [id number] / Implanted: Qty: 1 on 08/23/2019 by Cayden Hamilton MD at [facility] Knee 0 / [id number] Cr Femoral - Right Knee Stem Right: Biomet 04/08/2029 [id number] / Implanted: Qty: 1 on 08/23/2019 by Cayden Hamilton MD at [facility] Knee 0 / [id number] Patella 8 X 31mm Biomet#[id number] - S0 PATELLA Right: Biomet 07/14/2024 [id number] / Implanted: Qty: 1 on 08/23/2019 by Cayden Hamilton MD at [facility] Knee 0 / [id number] documented as of this encounter Procedures Procedure Name Priority Date/Time Associated Diagnosis Comme nts NERVE BLOCK Routine 08/23/2019 8:39 AM Results for this CONSULTING PROPERTY MANAGER procedure are i n the results section . documented in this encounter Results Right Adductor Canal/iPACK Block (08/23/2019 8:39 AM CONSULTING PROPERTY MANAGER) Narrative Performed At Melvin Koch CRNA 08/23/2019 8:45 AM Nerve Block Laterality: Right Surgical Anesthesia: no Start Time: 08/23/2019 8:20 AM End Time: 08/23/2019 8:37 AM Post Op Pain Management requested by surgeon per surgi katherine: Other (Post op pain management requested by surgeon per surgical Pre Anesthesia Consult) Resident/EHS MANAGER: Melvin Koch CRNAPerformed by: sage her anesthesia staff and resident/EHS MANAGER Preanesthetic timeout completed prior to procedure: mansoor stephens identified,IV checked, site marked, risks and benefits discussed, surgical consent, monitors and equipment checked, pre-op e valuation, timeout performed Informed consent obtained patient wishes to proceed: yes Patient position: Supine. Sterile Prep/Drape: Yes Monitoring: continuous pulse ox, blood p ressure and ECG Injection Technique: single-shot Needle Type: Stimuplex Nerve Block Needle Gauge: 20 GA. Needle Length: 4.0 Number of Attempts: 1 Technique: Ultrasound guided, Negative a spiration and Intermittent aspiration during injection Sensory Effect: Adequate Events: Patient tolerated procedure well , Negative Aspiration, No paresthesia on incremental injection, No symptoms of intraneural or IV injection and Local anesthetic solution visualized around nerve Medications Given: Regional: Ropiv 0.5% 30 mL Ropiv 0.2% 30 mL Sedation: Midazolam 2 mg Additional Notes:Right Adductor Canal Block performed by Last Koch CRNA, assisted by Ledy Bailon CRNA. Informed consent obtained from patient w ith risks, benefits and options explained.. Time out was performed at bedside. Stand kathleen ASA monitors were placed and patient was sedated as needed . Relevant structures/landmarks were located and visualized using ultrasound (Sartoriu s, vastus medialis and adductor longus muscles clearly visu alized) n relationship to the saphenous nerve. Skin prepped with alc ohol/betadine/CHG. Skin localized with 2 ml 1% Lido plain. A 20 Ga 4 inch stimuplex needle was used and advanced under hubert nuous ultrasound guidance to visualize the needle in close proxity to the Saphenous nerve(s). A mixture of 20 ml 0.5% Ropivacaine and 10 ml 0.2% Ropia ziggy with Decadron 5 mg injected slowly and incrementally with negative r epeated aspiration every 5ml. U/S was used to visualize excellent sprea d of local anesthetic in close proximity to the above nerves s beck. Negative paresthesia, negative heme, negative pain on injection, or other co mplications noted. Aseptic technique maintained. Tolerate d well with no subsequent side effects noted after procedure. VSS. A permanent before and after image was taken and attached to document the above information. Right iPACK Block performed by Last Koch CRNA, assist ed by Ledy Veliz CRNA Informed consent obtained from patient w ith risks, benefits and options explained.. Time out was performed at bedside. Stand kathleen ASA monitors were placed and patient was sedated as needed. Relevant structures/landmarks were located and visualized using ultrasound (Vastus m edialis, intermedius and lateralis muscles and the hyperechoi c surface of the femur). Skin prepped with alcohol/betadine/CHG. Pt in supine position with operative leg externally ro tated and slightly flexed at the knee (frog leg position). Curved Transducer placed in a trensverse position along the medial aspect of the thi gh, just above the medial condyle of the femur. The pulsating popliteal artery and the femur were identified. Surface of femur appearing hyperechoi c linearly deep to the popliteal artery. Lidocaine 1% 2 ml used for ski n anesthesia about 2 cm medially to the transducer. A 20 GA 4 inch Stimuplex needle was inserted through the skinand advanced in plane using a medial to lateral direction. The needle was advanced withi n the interspace between the popliteal artery and femur until needle tip was visualized about 2 cm beyond the lateral border of the artery. After negat dior aspiration, began injecting local anesthetic and slowly withdrawing need le. A total of 30 ml (20 ml .2% Naropin + 10 ml .5% Naropin, Dexamethasone 5 mg) injected with negative aspiration every 3-5 ml of inje ction. Patient tolerated procedure well, no signs of local toxicity noted. VSS throughout procedure ___ __ documented in this encounter Administered Medications Medication Order MAR Action Action Date Dose Rate Site dexamethasone sod phos PF Given 08/23/2019 8:30 AM CONSULTING PROPERTY MANAGER 10 mg injection ONCE INTRA PROCEDURE, Starting Fri08/23/19 at 0830, Until Fri08/23/19 at 1646, Routine, Intra-op lidocaine 1% (XYLOCAINE) 100 mg/10 mL (1 %) Given 08/23/2019 8: 30 AM CONSULTING PROPERTY MANAGER 5 mL injection ONCE INTRA PROCEDURE, Starting 08/23/19 at 0830, Until Fri08/23/19 at 1646, Routine, Intra-op midazolam (VERSED) injection Given 08/23/2019 8:27 AM CONSULTING PROPERTY MANAGER 2 mg IV Push, ONCE INTRA PROCEDURE, Starting Fri08/23/19 at 0827, Until Fri08/23/19 at 1646, Routine, Intra-op ropivacaine 0.2 % (NAROPIN (PF)) epidural Given 08/23/2019 8:30 AM CONSULTING PROPERTY MANAGER 30 mL infusion ONCE INTRA PROCEDURE, Starting Fri08/23/19 at 0830, Until Fri08/23/19 at 1646, Routine, Intra-op ropivacaine 0.5 % (NAROPIN (PF)) injecti on Given 08/23/2019 8:30 AM CONSULTING PROPERTY MANAGER 30 mL ONCE INTRA PROCEDURE, Starting Fri08/23/19 at 0830, Until Fri08/23/19 at 1646, Routine, Intra-op documented in this encounter Insurance Payer Benefit Plan / Subscriber ID Effective Dates Phone Addre ss Type Group MEDICARE MEDICARE PART xxxxxxxxxxx 2010-Paola [phone] [address] Medicare A & B t 2 [id number] [place] SILVERIO [address] (Work) documented as of this encounter
--- OUTSIDE RECORDS SUMMARY | 2019-12-04 06:22 | XMS REPORT | Summary of Care ---
:1945 Author Organization [facility] Address [address] [place] [address] Care Team Providers Name Role Phone Pcp, Does Not Have A Primary Care Provider Reason for Visit Reason Comments Follow-up S/P Right TKR DOS:08/23/2019 Encounter Details Date Type Department Care Team Description 10/06/2019 Office Visit [facility] Orthopaedic Glenn Villasenor S, S /P TKR (total knee Surgery- [place] PAC replacement) using [address], [address] cement, right (Primary [address]) [place] [address] [address] [place], [place] [phone] Allergies No Known Allergiesdocumented as of this encounter (statuses as of 10/06/2019) Medications Medication Sig Dispensed Refills Start Date [...] as of this encounter (statuses as of 10/06/2019) Active Problems Problem Noted Date Total knee replacement status 08/23/2019 Primary osteoarthritis of right knee 06/07/2019 Overview: Added automatically from request for henry knott [id number] Dental caries 12/07/2013 Overview: ICD10 Diagnosis 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 as of this encounter (statuses as of 10/06/2019) Social History Tobacco Use Types Packs/Day Years [...] Sign Reading Time Taken Comments Blood Pressure 108/69 10/06/2019 8:46 AM CDT Pulse 92 10/06/2019 8:46 AM CDT Temperature - - Respiratory Rate - - Oxygen Saturation - - Inhaled Oxygen Concentration - - Weight 62.1 kg (137 lb) 10/06/2019 8:46 AM CDT Height 157.5 cm (5' 2") 10/06/2019 8:46 AM CDT Body Mass Index 25.06 10/06/2019 8:46 AM CDT documented in this encounter Progress Notes Glenn Villasenor S, PAC - 10/06/2019 9:00 AM CDT Cc: Chief Complaint Patient presents with Follow-up S/P Right TKR DOS:08/23/2019 Laila aHddad is a 73 year old female. Status post right total knee replacement 08/23/2019, Allergies Laila has No Known Allergies. Medications [...] Right 08/23/2019 Surgeon: Cayden Cordova MD; [place] [facility] [place] Social History Socioeconomic [...] file Gets together: Not on file Attends mormonism service: Not on file Active member of [...] Review of Systems Constitutional: Negative. HENT: Negative. Respiratory: Negative. Cardiovascular: Negative. Gastrointestinal: Negative. Genitourinary: Negative. Musculoskeletal: Positive for joint swelling. Skin: Negative. Neurological: Negative. Psychiatric/Behavioral: Negative. Endocrine: Endocrine negative Vital Signs BP 108/69 | Pulse 92 | Ht 62" (157.5 cm) | Wt 62.1 kg (137 lb) | BMI 25.06 kg/m Physical Exam Musculoskeletal: Physical Exam Constitutional: oriented to person, place, and time. appears well-developed and well-nourished. HENT: Head: Normocephalic and atraumatic. Right Ear: External ear normal. Left Ear: External ear normal. Eyes: Conjunctivae are normal. Neck: Normal range of motion. No strabismus Neck supple. Cardiovascular: Normal rate and regular rhythm. Pulmonary/Chest: Normal respiratory rate equal chest rise and fall in no apparent distress Abdominal: Abdomen nondistended nontender Neurological: alert and oriented to person, place, and time. No asymmetry Skin: Skin is warm and dry. Psychiatric: normal mood and affect. behavior is normal. Judgment and thought content normal. Nursing note and vitals reviewed. Her incision is nicely healed she has full range of motion flexion 123 full extension Assessment/Plan 1. S/P TKR (total knee replacement) using cement, right Follow up every 3 years for x-rays documented in this encounter Plan of Treatment [...] of this encounter Implants Implanted Type Area Supervisor Mechanic Boilermaking Device Shelf Model / Identifier Expiration Serial / Date Lot Cement Simplex Hv #6194-1-001 - S0 CEMENT Right: Asm 09/24/2020 6194-1-001 / Implanted: Qty: 2 on 08/23/2019 by Cayden Hamilton MD at [facility] Knee 0 / [id number] Bearing Tibial 12 X 71/75 Mm #[id number] - S0 KNEE Right: Biomet 07/02/2024 [id number] / Implanted: Qty: 1 on 08/23/2019 by Cayden Hamilton MD at [facility] Knee 0 / [id number] Tibial Tray Cemented 71mm Biomet #[id number] - S0 Knee Insert Right: Biomet 06/28/2029 [id number] / Implanted: Qty: 1 on 08/23/2019 by Cayden Hamilton MD at [facility] Knee 0 / [id number] Component Cr Femoral - Right 71mm Biomet Ref#[id number] Knee Stem Right: Biomet 04/08/2029 [id number] / Implanted: Qty: 1 on 08/23/2019 by Cayden Hamilton MD at [facility] Knee 0 / [id number] Patella 8 X 31mm Biomet#[id number] - S0 PATELLA Right: Biomet 07/14/2024 [id number] / Implanted: Qty: 1 on 08/23/2019 by Cayden Hamilton MD at [facility] Knee 0 / [id number] documented as of this encounter Results Not on filedocumented in this encounter Visit Diagnoses Diagnosis S/P TKR (total knee replacement) using c ement, right - Primary documented in this encounter Insurance Payer Benefit Plan / Subscriber ID Effective Dates Phone Addre ss Type Group MEDICARE MEDICARE PART xxxxxxxxxxx 2010-Paola [phone] [facility] Medicare A & B t 2 [id number] ZACHARY SILVERIO [id number] [phone] [id number] (Work) documented as of this encounter
--- OUTSIDE RECORDS SUMMARY | 2019-12-04 06:22 | XMS REPORT | Summary of Care ---
:1945 Author Organization [facility] Address [address] [place] [address] Care Team Providers Name Role Phone Pcp, Does Not Have A Primary Care Provider Reason for Visit Reason Comments Follow-up S/P Right TKR DOS:08/23/2019 Encounter Details Date Type Department Care Team Description 10/06/2019 Office Visit [facility] Glenn Villasenor S, S /P TKR (total knee Surgery- [place] PAC replacement) using [address], [address] cement, right (Primary [address]) [place] [address] [address] [place], [place] [phone] Allergies No Known Allergiesdocumented as of this [...] Added automatically from request for henry knott [id number] Dental caries 12/07/2013 Overview: ICD10 Diagnosis 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 Status [...] Right 08/23/2019 Surgeon: Cayden Cordova MD; Location: [facility] Social History Socioeconomic History Marital status: Spouse [...] file Gets together: Not on file Attends druze service: Not on file Active member of [...] of this encounter Implants Implanted Type Area Simonizer Device Shelf Model / Identifier Expiration Serial / Date Lot Cement Simplex Hv #6194-1-001 - S0 CEMENT Right: Sam 09/24/2020 6194-1-001 / Implanted: Qty: 2 on 08/23/2019 by Cayden Hamilton MD at [facility] Knee 0 / [id number] Bearing Tibial 12 X 71/75 Mm #[id number] - S0 KNEE Right: Biomet 07/02/2024 [id number] / Implanted: Qty: 1 on 08/23/2019 by Cayden Hamilton MD at [facility] Knee 0 / [id number] Tibial Tray Cemented 71mm Biomet #[id number] - S0 Knee Insert Right: Biomet 06/28/2029 [id number] / Implanted: Qty: 1 on 08/23/2019 by Cayden Hamilton MD at [facility] Knee 0 / [id number] Component Cr Femoral - Right 71mm Biomet Ref#[id number] Knee Stem Right: Biomet 04/08/2029 [id number] / Implanted: Qty: 1 on 08/23/2019 by Cayden Hamilton MD at [facility] Knee 0 / [id number] Patella 8 X 31mm Biomet#[id number] - S0 PATELLA Right: Biomet 07/14/2024 [id number] / Implanted: Qty: 1 on 08/23/2019 by Cayden Hamilton MD at [facility] Knee 0 / [id number] documented as of this encounter Results Not on filedocumented in this encounter Visit Diagnoses Diagnosis S/P TKR (total knee replacement) using c ement, right - Primary documented in this encounter Insurance Payer Benefit Plan / Subscriber ID Effective Dates Phone Addre ss Type Group MEDICARE MEDICARE PART xxxxxxxxxxx 2010-Paola [phone] [facility] Medicare A & B t 2 [id number] [place] [id number] [phone] [id number] (Work) documented as of this encounter
--- OUTSIDE RECORDS SUMMARY | 2019-12-04 06:22 | XMS REPORT | Summary of Care ---
:1945 Author Organization [facility] - Health Address [address] [place] [address] Care Team Providers Name Role Phone Pcp, Does Not Have A Primary Care Provider Encounter Details Date Type Department Care Team Description 09/20/2019 Orders Only [facility] Doctor Unassigned, No [address] [facility] [address] [address] [place] [address] Allergies No Known Allergiesdocumented as of this encounter (statuses as of 10/19/2019) Medications Medication Sig Dispensed Refills Start Date [...] as of this encounter (statuses as of 10/19/2019) Active Problems Problem Noted Date Total knee replacement status 08/23/2019 Primary osteoarthritis of right knee 06/07/2019 Overview: Added automatically from request for henry knott [id number] Dental caries 12/07/2013 Overview: ICD10 Diagnosis 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 documented as of this encounter (statuses as of 10/19/2019) Social History Tobacco Use Types Packs/Day Years [...] of this encounter Implants Implanted Type Area Overnight Caregiver Device Shelf Model / Identifier Expiration Serial / Date Lot Cement Simplex Hv #6194-1-001 - S0 CEMENT Right: Sam 09/24/2020 6194-1-001 / Implanted: Qty: 2 on 08/23/2019 by Cyaden Hamilton MD at [facility] Knee 0 / [id number] Bearing Tibial 12 X 71/75 Mm #[id number] - S0 KNEE Right: Biomet 07/02/2024 [id number] / Implanted: Qty: 1 on 08/23/2019 by Cayden Hamilton MD at [facility] Knee 0 / [id number] Tibial Tray Cemented 71mm Biomet #[id number] - S0 Knee Insert Right: Biomet 06/28/2029 [id number] / Implanted: Qty: 1 on 08/23/2019 by Cayden Hamilton MD at [facility] Knee 0 / [id number] Component Cr Femoral - Right 71mm Biomet Ref#[id number] Knee Stem Right: Biomet 04/08/2029 [id number] / Implanted: Qty: 1 on 08/23/2019 by Cayden Hamilton MD at [facility] Knee 0 / [id number] Patella 8 X 31mm Biomet#877693 - S0 PATELLA Right: Biomet 07/14/2024 [id number] / Implanted: Qty: 1 on 08/23/2019 by Cayden Hamilton MD at [facility] Knee 0 / [id number] documented as of this encounter Procedures Procedure Name Priority Date/Time Associated Diagnosis Comme nts HOME HEALTH - OTHER Routine 09/20/2019 12:01 AM 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 Medicare A & B nt 82 [id number] [place] [id number] DELTA DELTA DENTAL [id number] 2012-Prese [phone] DENTAL-[facility] nt [id number] [place] [id number] DEL[place] DEL[place] DENTAL [id number] 2012-Prese [phone] DENTAL-[facility] nt [id number] [address] [place] [id number] documented as of this encounter
--- OUTSIDE RECORDS SUMMARY | 2019-12-04 06:23 | XMS REPORT | Summary of Care ---
:1945 Author Organization [facility] - Health Address [address] [place] [address] Care Team Providers Name Role Phone Pcp, Does Not Have A Primary Care Provider Encounter Details Date Type Department Care Team Description 11/11/2019 Orders Only [facility] Doctor Unassigned, No 301 [facility] [place] [address] [address] [place] [address] Allergies No Known Allergiesdocumented as of this encounter (statuses as of 11/29/2019) Medications Medication Sig Dispensed Refills Start Date [...] as of this encounter (statuses as of 11/29/2019) Active Problems Problem Noted Date Total knee replacement status 08/23/2019 Primary osteoarthritis of right knee 06/07/2019 Overview: Added automatically from request for henry knott [id number] Dental caries 12/07/2013 Overview: ICD10 Diagnosis 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 documented as of this encounter (statuses as of 11/29/2019) Social History Tobacco Use Types Packs/Day Years [...] of this encounter Implants Implanted Type Area Military Nurse Device Shelf Model / Identifier Expiration Serial / Date Lot Cement Simplex Hv #6194-1-001 - S0 CEMENT Right: Sam 09/24/2020 6194-1-001 / Implanted: Qty: 2 on 08/23/2019 by Cayden Hamilton MD at [facility] Knee 0 / [id number] Bearing Tibial 12 X 71/75 Mm #[id number] - S0 KNEE Right: Biomet 07/02/2024 [id number] / Implanted: Qty: 1 on 08/23/2019 by Cayden Hamilton MD at [facility] Knee 0 / [id number] Tibial Tray Cemented 71mm Biomet #[id number] - S0 Knee Insert Right: Biomet 06/28/2029 [id number] / Implanted: Qty: 1 on 08/23/2019 by Cayden Hamilton MD at [facility] Knee 0 / [id number] Component Cr Femoral - Right 71mm Biomet Ref#[id number] Knee Stem Right: Biomet 04/08/2029 [id number] / Implanted: Qty: 1 on 08/23/2019 by Cayden Hamilton MD at [facility] Knee 0 / [id number] Patella 8 X 31mm Biomet#193830 - S0 PATELLA Right: Biomet 07/14/2024 [id number] / Implanted: Qty: 1 on 08/23/2019 by Cayden Hamilton MD at [facility] Knee 0 / [id number] documented as of this encounter Procedures Procedure Name Priority Date/Time Associated Diagnosis Comme nts HOME HEALTH - OTHER Routine 11/11/2019 12:01 AM CDT documented in this encounter Results Not on filedocumented in this encounter Insurance Payer Benefit Plan Subscriber ID Effective Phone Address Typ e / Group Dates MEDICARE MEDICARE PART xxxxxxxxxxx 2010-Prese [phone] [address] X Medicare A & B nt 82 [id number] [place] [id number] DELTA DELTA DENTAL [id number] 2012-Prese [phone] DENTAL-[facility] nt [id number] [place] [id number] DELTA DELTA DENTAL [id number] 2012-Prese [phone] [address] DENTAL-[facility] nt 23 [id number] [address] [place] [id number] documented as of this encounter
--- OUTSIDE RECORDS SUMMARY | 2019-12-04 06:23 | XMS REPORT | Summary of Care ---
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 (statuses [...] of this encounter Implants Implanted Type Area Building Maintenance Worker Device Shelf Model / Identifier Expiration Serial / Date Lot Cement Simplex Hv #6194-1-001 - S0 CEMENT Right: Sam 09/24/2020 6194-1-001 / Implanted: Qty: 2 on 08/23/2019 by Cayden Hamiltno MD at [facility] Knee 0 / [id number] Bearing Tibial 12 X 71/75 Mm #[id number] - S0 KNEE Right: Biomet 07/02/2024 [id number] / Implanted: Qty: 1 on 08/23/2019 by Cayden Hamilton MD at [facility] Knee 0 / [id number] Tibial Tray Cemented 71mm Biomet #954559 - S0 Knee Insert Right: Biomet 06/28/2029 [id number] / Implanted: Qty: 1 on 08/23/2019 by Cayden Hamilton MD at [facility] Knee 0 / [id number] Component Cr Femoral - Right 71mm Biomet Ref#212509 Knee Stem Right: Biomet 04/08/2029 226340 / Implanted: Qty: 1 on 08/23/2019 by Cayden Hamilton MD at [facility] Knee 0 / [id number] Patella 8 X 31mm Biomet#254511 - S0 PATELLA Right: Biomet 07/14/2024 [id number] / Implanted: Qty: 1 on 08/23/2019 by Cayden Hamilton MD at [facility] Knee 0 / [id number] documented as of this encounter Procedures Procedure Name Priority Date/Time Associated Diagnosis Comme [facility] HOME HEALTH 485 Routine 08/25/2019 12: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 X Medicare A & B nt 82 [id number] [place] [id number] DELTA DELTA DENTAL [id number] 2012-Prese [phone] DENTAL-[facility] nt [id number] [place] [id number] DEL[place] DELTA DENTAL [id number] 2012-Prese [phone] DENTAL-[facility] nt 23 [id number] [address] [place] [id number] documented as of this encounter
--- OUTSIDE RECORDS SUMMARY | 2019-12-04 06:23 | XMS REPORT | Summary of Care ---
:1945 Author Organization [facility] - Health Address [address] [place] [address] Care Team Providers Name Role Phone Pcp, Does Not Have A Primary Care Provider Encounter Details Date Type Department Care Team Description 10/11/2019 Orders Only [facility] Doctor Unassigned, No 301 [facility] [place] [address] [address] [place] [address] Allergies No Known Allergiesdocumented as of this encounter (statuses as of 10/25/2019) Medications Medication Sig Dispensed Refills Start Date [...] as of this encounter (statuses as of 10/25/2019) Active Problems Problem Noted Date Total knee replacement status 08/23/2019 Primary osteoarthritis of right knee 06/07/2019 Overview: Added automatically from request for henry knott [id number] Dental caries 12/07/2013 Overview: ICD10 Diagnosis 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 documented as of this encounter (statuses as of 10/25/2019) Social History Tobacco Use Types Packs/Day Years [...] of this encounter Implants Implanted Type Area Fast Foods Worker Device Shelf Model / Identifier Expiration Serial / Date Lot Cement Simplex Hv #6194-1-001 - S0 CEMENT Right: Sam 09/24/2020 6194-1-001 / Implanted: Qty: 2 on 08/23/2019 by Cayden Hamilton MD at [facility] Knee 0 / [id number] Bearing Tibial 12 X 71/75 Mm #[id number] - S0 KNEE Right: Biomet 07/02/2024 [id number] / Implanted: Qty: 1 on 08/23/2019 by Cayden Hamilton MD at [facility] Knee 0 / [id number] Tibial Tray Cemented 71mm Biomet #467749 - S0 Knee Insert Right: Biomet 06/28/2029 448706 / Implanted: Qty: 1 on 08/23/2019 by Cayden Hamilton MD at [facility] Knee 0 / [id number] Component Cr Femoral - Right 71mm Biomet Ref#[id number] Knee Stem Right: Biomet 04/08/2029 164540 / Implanted: Qty: 1 on 08/23/2019 by Cayden Hamilton MD at [facility] Knee 0 / [id number] Patella 8 X 31mm Biomet#994527 - S0 PATELLA Right: Biomet 07/14/2024 [id number] / Implanted: Qty: 1 on 08/23/2019 by Cayden Hamilton MD at [facility] Knee 0 / [id number] documented as of this encounter Procedures Procedure Name Priority Date/Time Associated Diagnosis Comme nts REFERRAL- Routine 10/11/2019 12:01 AM CDT REQUEST/RESPONSE documented in this encounter Results Not on filedocumented in this encounter Insurance Payer Benefit Plan Subscriber ID Effective Phone Address Typ e / Group Dates MEDICARE MEDICARE PART xxxxxxxxxxx 2010-Prese [phone] [address] Medicare A & B nt 82 [id number] [place] [id number] DELTA DELTA DENTAL [id number] 2012-Prese [phone] DENTAL-[facility] nt 23 [id number] [address] [place] [id number] DEL[place] DELTA DENTAL [id number] 2012-Prese [phone] [address] DENTAL-[facility] [address] [id number] [place] [id number] documented as of this encounter
--- NOTE | 2019-12-04 06:44 | EDPHYS ---
Physician Documentation [facility] Name: Laila Haddad Age: 74 yrs Sex: Female : 1945 Arrival Date: 12/04/2019 Time: 06:20 Bed 7 Private MD: ED Physician Mingo Mazariegos HPI: 12/03 06:37 This 74 yrs old Black Female presents to ER via Ambulatory with complaints of Shoulder pm1 Pain, Hand Swelling, Rash. 06:37 The patient's rash thought to be caused by Contact allergy. The rash is located on the pm1 right forearm and right hand. The rash can be described as vesicular. Onset: The symptoms/episode began/occurred 1 week(s) ago. Associated signs and symptoms: Pertinent positives: itching, Pain swelling, Pertinent negatives: burning sensation, difficulty breathing, fever. Severity of symptoms: in the emergency department the symptoms are worse. Treatment given at home: OTC lotion/cream. It is unknown whether or not the patient has recently seen a physician. Patient with onset of rash after working on the yard. She initially felt some pain to right shoulder area. That pain has resolved. Patient with rash to right forearm and rash. Onset after working on the yard and fence. Historical: - Allergies: 06:33 No Known Allergies; lp1 - Home Meds: 06:33 lisinopril Oral [Active]; lp1 - PMHx: 06:33 Hypertension; lp1 - PSHx: 06:33 Knee surgery; lp1 - Immunization history:: Adult Immunizations up to date, Adult Immunizations up to date. - Social history:: Smoking status: Patient denies any tobacco usage or history of. Smoking status: unknown. ROS: 06:37 Constitutional: Negative for fever, chills, and weight loss, Cardiovascular: Negative pm1 for chest pain, palpitations, and edema, Respiratory: Negative for shortness of breath, cough, wheezing, and pleuritic chest pain, Abdomen/GI: Negative for abdominal pain, nausea, vomiting, diarrhea, and constipation, Back: Negative for injury and pain. 06:37 Neuro: Negative for headache, weakness, numbness, tingling, and seizure. 06:37 MS/extremity: Positive for swelling, of the right hand, Negative for decreased range of motion, deformity, pain, paresthesias. 06:37 Skin: Positive for rash, of the right hand and right forearm. Exam: 06:37 Constitutional: This is a well developed, well nourished patient who is awake, alert, pm1 and in no acute distress. Head/Face: Normocephalic, atraumatic. Chest/axilla: Normal chest wall appearance and motion. Nontender with no deformity. No lesions are appreciated. 06:37 Cardiovascular: Rate: normal, Rhythm: regular, Pulses: no pulse deficits are appreciated, Edema: is not appreciated. 06:37 Respiratory: Exam negative for acute changes, respiratory distress, shortness of breath. 06:37 Skin: Appearance: normal except for affected area, consistent with contact dermatitis, on the right forearm and right hand. 06:37 Neuro: Exam negative for acute changes, Orientation: is normal, Mentation: is normal, Motor: moves all fours, Gait: is steady, at a normal pace, without difficulty. Vital Signs: 06:31 BP 124 / 81; Pulse 93; Resp 18; Temp 97.6; Pulse Ox 100% on R/A; Weight 62.14 kg (R); lp1 Height 5 ft. 2 in. (157.48 cm); Pain 8/10; 06:31 Body Mass Index 25.06 (62.14 kg, 157.48 cm) lp1 MDM: 06:25 Patient medically screened. pm1 06:41 Data reviewed: vital signs. Data interpreted: Pulse oximetry: on room air is 100 %. pm1 Interpretation: normal. Counseling: I had a detailed discussion with the patient and/or guardian regarding: the historical points, exam findings, and any diagnostic results supporting the discharge/admit diagnosis, the need for outpatient follow up, for definitive care, a family practitioner, to return to the emergency department if symptoms worsen or persist or if there are any questions or concerns that arise at home. 06:41 Differential diagnosis: Contact dermatitis due to plant - poison marivel/sumac/oak, pm1 herpetic jalyn, shingles. Administered Medications: 06:57 Drug: predniSONE 60 mg Route: PO; ea 06:59 Follow up: Response: No adverse reaction ea Disposition: 06:47 Co-signature as Attending Physician, Mingo Mazariegos MD. yuliya Disposition: 12/04/19 06:43 Discharged to Home. Impression: Allergic contact dermatitis. - Condition is Stable. - Discharge Instructions: Contact Dermatitis, Poison [place] Dermatitis. - Prescriptions for Keflex 500 mg Oral Capsule - take 1 capsule by ORAL route every 8 hours for 10 days; 30 capsule. Medrol (Melvin) 4 mg Oral Tablets, Dose Pack - take 1 tablet by ORAL route as directed - follow package instructions; 1 packet. - Medication Reconciliation Form, Thank You Letter, Antibiotic Education, Prescription Opioid Use form. - Follow up: Emergency Department; When: As needed; Reason: Worsening of condition. Follow up: Private Physician; When: 2 - 3 days; Reason: Recheck today's complaints, Continuance of care, Re-evaluation by your physician. - Problem is new. - Symptoms have improved. Signatures: Mingo Mazariegos MD MD pkl Neha Ferrell RN RN lp1 Fran Mejia NP PALS NURSE pm1 Ute Champion RN RN ea Corrections: (The following items were deleted from the chart) 06:59 06:43 12/04/2019 06:43 Discharged to Home. Impression: Allergic contact dermatitis. ea Condition is Stable. Forms are Medication Reconciliation Form, Thank You Letter, Antibiotic Education, Prescription Opioid Use. Follow up: Emergency Department; When: As needed; Reason: Worsening of condition. Follow up: Private Physician; When: 2 - 3 days; Reason: Recheck today's complaints, Continuance of care, Re-evaluation by your physician. Problem is new. Symptoms have improved. pm1
--- NOTE | 2019-12-04 06:44 | ER ---
Nurse's Notes [facility] Name: Laila Haddad Age: 74 yrs Sex: Female : 1945 Arrival Date: 12/04/2019 Time: 06:20 Bed 7 Private MD: Diagnosis: Allergic contact dermatitis Presentation: 12/03 06:31 Chief complaint: Patient states: Right shoulder pain after working in her yard last lp1 week; States rash to right forearm x 1 week that has not resolved after using OTC creams, has now spread to right hand causing some swelling to fingers. Coronavirus screen: Proceed with normal triage. Ebola Screen: No symptoms or risks identified at this time. Initial Sepsis Screen: Does the patient meet any 2 criteria? No. Patient's initial sepsis screen is negative. Does the patient have a suspected source of infection? No. Patient's initial sepsis screen is negative. Risk Assessment: Do you want to hurt yourself or someone else? Patient reports no desire to harm self or others. Onset of symptoms was December 04, 2019. 06:31 Method Of Arrival: Ambulatory lp1 06:31 Acuity: HENRY 4 lp1 Historical: - Allergies: 06:33 No Known Allergies; lp1 - Home Meds: 06:33 lisinopril Oral [Active]; lp1 - PMHx: 06:33 Hypertension; lp1 - PSHx: 06:33 Knee surgery; lp1 - Immunization history:: Adult Immunizations up to date, Adult Immunizations up to date. - Social history:: Smoking status: Patient denies any tobacco usage or history of. Smoking status: unknown. Screenin:33 Abuse screen: Denies threats or abuse. Tuberculosis screening: No symptoms or risk ea factors identified. Fall Risk None identified. 06:33 Nutritional screening: No deficits noted. ea Assessment: 06:32 General: Appears uncomfortable, Behavior is appropriate for age. Pain: Complains of ea pain in right arm. Neuro: Level of Consciousness is awake, alert, obeys commands, Oriented to person, place, time, situation. Cardiovascular: Patient's skin is warm and dry. Respiratory: Airway is patent Respiratory effort is even, unlabored, Respiratory pattern is regular, symmetrical. Derm: Rash noted that is raised. Vital Signs: 06:31 BP 124 / 81; Pulse 93; Resp 18; Temp 97.6; Pulse Ox 100% on R/A; Weight 62.14 kg (R); lp1 Height 5 ft. 2 in. (157.48 cm); Pain 8/10; 06:31 Body Mass Index 25.06 (62.14 kg, 157.48 cm) lp1 ED Course: 06:20 Patient arrived in ED. bp1 06:24 Fran Mejia NP is PHCP. pm1 06:24 Mingo Mazariegos MD is Attending Physician. pm1 06:32 Triage completed. lp1 06:32 Arm band placed on. lp1 06:33 Patient has correct armband on for positive identification. Bed in low position. Call ea light in reach. Side rails up X 1. 06:57 No provider procedures requiring assistance completed. Patient did not have IV access ea during this emergency room visit. Administered Medications: 06:57 Drug: predniSONE 60 mg Route: PO; ea 06:59 Follow up: Response: No adverse reaction ea Outcome: 06:43 Discharge ordered by . pm1 06:57 Discharged to home ambulatory. ea 06:57 Condition: stable 06:57 Discharge instructions given to patient, Instructed on discharge instructions, follow up and referral plans. medication usage, Demonstrated understanding of instructions, follow-up care, medications, Prescriptions given X 2. 06:59 Patient left the ED. ea Signatures: Neha Ferrell RN RN lp1 Fran Mejia NP OPERATIONS SUPERVISOR CHEMICAL CLEANING pm1 Ute Champion RN RN ea [place], Brittany bp1
[2019-12-04] MEDS ORDERED: predniSONE 20 MG TAB ONE (06:57)
[2019-12-04 07:06] VITALS: BP 124/81; TEMP 97.6; O2SAT 100
== END 2019-12-04 06:59 | disposition home or self-care (01) ==
LOC: ER 06:16
DX: L23.9 Allergic contact dermatitis, unspecified cause (principal); M25.511 Pain in right shoulder; I10 Essential (primary) hypertension
CPT/HCPCS: 99283; J7512

== ENCOUNTER 2021-09-04 13:51 | Emergency (ER) | payer OTHER, BC ==
--- OUTSIDE RECORDS SUMMARY | 2021-09-04 13:54 | XMS REPORT | Continuity of Care Document ---
:1945 Author Organization [facility] t Address [address] [place] [address] [address] [place] [address] Care Team Providers Name Role Phone PCP, DOES NOT HAVE A Primary Care Physician Unavailable Rich BRYANT Attending Clinician Unavailable Cindy BALLARD Attending Clinician Unavailable PENNY FRANCE Attending Clinician Unavailable THUAN Attending Clinician Unavailable Elio OLVERA, K.H. Attending Clinician Doctor Unassigned, Name Attending Clinician Unavailable DONNA Attending Clinician Unavailable JUAN Attending Clinician Unavailable PACO Attending Clinician Unavailable Duy ANDRES Attending Clinician Unavailable Dalton DE LA TORRE Attending Clinician Unavailable Rich BRYANT Admitting Clinician Unavailable PENNY FRANCE Admitting Clinician Unavailable Payers Payer Name Policy Type Policy Number Effective Date Expiration Date Duy bland MEDICARE PART A [id number] 2010 \T\ B 00:00:00 [facility] [id number] 2019 00:00:00 [employer]BS [facility] [id number] 2019 EMPLOYEE PLAN 00:00:00 Problems Condition Condition Condition Status Onset Resolution Last Treating Co mments Source Name Details Category Date Date Treatment Clinician Date 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 Added automatic ally from request for surgery [id number] Total knee Total knee Disease Active U nivers replacemen replacemen 4-05 it y of t status, [place], [place] 00 [facility] [place] Primary Primary Disease Active Overview: Univ ers osteoarthr osteoarthr 3-24 Formattin ity of itis of itis of 00:00: g of this [place] left knee left knee 00 note [facility] katherine might be Branch different from the original. Added automatic ally from request for surgery [id number] Total knee Total knee Disease Active U nivers replacemen replacemen 1-27 it y of t status t status 00:00: [place] 00 [facility] Primary Primary Disease Active 2018-07 Overview: Univ ers osteoarthr osteoarthr 1-11 Formattin ity of itis of itis of 00:00: g of this [place] right knee right knee 00 note Me dical might be Branch different from the original. Added automatic ally from request for surgery [id number] Dental Dental Disease Active Overview: Univer s caries caries 5-13 Formattin ity of 00:00: g of this [place] 00 note Medical might be Branch different from the original. 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 Allergies, Adverse Reactions, Alerts Allergy Allergy Status Severity Reaction(s) Onset Inactive Treating Comm ents Source Name Type Date Date Clinician NO KNOWN Drug Active Univers ALLERGIE Class ity of S [facility] Social History Social Habit Start Date Stop Date Quantity Comments Source Alcohol intake 2021-05-03 2021-05-03 Current [facility] 00:00:00 00:00:00 non-drinker of [facility] alcohol Branch (finding) Sex Ass[birth year] Universit y of 00:00:00 00:00:00 [facility] Smoking Status Start Date Stop Date Source Never smoker [facility] Medications Ordered Filled Start Stop Current Ordering Indication Dosage Frequency Signature Comments Components Source Medication Medication Date Date Medication? Clinician (SIG) Name Name prednisoLON Yes [id number] 1[drp] Place 1 Univers E acetate 1 8- 9108 Drop in ity o f % 00:00: left eye 4 [place] ophthalmic 00 (four) Medical suspension times Branch drops daily. ketorolac Yes [id number] 1[drp] Place 1 Univers (ACULAR) 8- 9108 Drop in ity of 0.5 % 00:00: left eye 4 [place] ophthalmic 00 (four) Medical solution times Branch daily. moxifloxaci Yes [id number] 1[drp] Place 1 Univers n (VIGAMOX) 8-19 9108 Drop in ity o f 0.5 % 00:00: left eye 4 [place] ophthalmic 00 (four) Medical drops times Branch daily. prednisoLON Yes [id number] 1[drp] Place 1 Univers E acetate 1 8-19 9108 Drop in ity o f % 00:00: left eye 4 [place] ophthalmic 00 (four) Medical suspension times Branch drops daily. ketorolac Yes [id number] 1[drp] Place 1 Univers (ACULAR) 8-19 9108 Drop in ity of 0.5 % 00:00: left eye 4 [place] ophthalmic 00 (four) Medical solution times Branch daily. moxifloxaci Yes [id number] 1[drp] Place 1 Univers n (VIGAMOX) 8-19 9108 Drop in ity o f 0.5 % 00:00: left eye 4 [place] ophthalmic 00 (four) Medical drops times Branch daily. pravastatin Yes 40mg Take 40 mg Univers (PRAVACHOL) 7-19 by mouth. ity of 40 mg 10:21: [place] tablet 13 Medical Branch pravastatin Yes 40mg Take 40 mg Univers (PRAVACHOL) 7-19 by mouth. ity of 40 mg 10:21: [place] tablet 13 Medical Branch lisinopril- Yes Univer s hydrochloro 5-27 ity of thiazide 00:00: [place] (PRINZIDE,Z 00 Medical ESTORETIC) Branch 20-25 mg per tablet lisinopril- Yes Univer s hydrochloro 5-27 ity of thiazide 00:00: [place] (PRINZIDE,Z 00 Medical ESTORETIC) Branch 20-25 mg per tablet Immunizations Ordered Filled Immunization Date Status Comments [facility] e Immunization Name Name SARS-COV-2 COVID-19 2020-10-26 Completed Unive rsity of MODERNA VACCINE 00:00:00 [facility] ical Branch SARS-COV-2 COVID-19 2020-10-26 Completed Unive rsity of MODERNA VACCINE 00:00:00 [facility] Branch SARS-COV-2 COVID-19 2020-09-25 Completed Unive rsity of MODERNA VACCINE 00:00:00 [facility] SARS-COV-2 COVID-19 2020-09-25 Completed Unive rsity of MODERNA VACCINE 00:00:00 [facility] Zoster Vaccine 2019-12-26 Completed University of Recombinant 00:00:00 [facility] Zoster Vaccine 2019-12-26 Completed University of Recombinant 00:00:00 [facility] Vital Signs Vital Name Observation Time Observation Value Comments Source Systolic blood 2021-05-03 18:01:00 110 mm[Hg] Univer sity [facility] [place] [facility] pressure [facility] Diastolic blood 2021-05-03 18:01:00 69 mm[facility]Hg] [facility] [place] Heart rate 2021-05-03 18:01:00 82 /min [facility] Body height 2021-05-03 18:01:00 157.5 cm [facility] Body weight 2021-05-03 18:01:00 61.236 kg [facility] BMI 2021-05-03 18:01:00 24.69 kg/m2 [facility] Oxygen saturation 2021-05-03 18:01:00 98 /min [facility] in Arterial blood [facility] by Pulse oximetry Procedures Procedure Date / Time Performing Clinician Source Performed AUTHORIZATION TO RELEASE 2021-05-03 05:01:00 Doctor Unassigned, No [facility] PHI TO [facility] Name [facility] Branch Encounters Start End Encounter Admission Attending Care Care Encounter Source Date/Time Date/Time Type Type Clinicians Facility Department ID 2021-05-27 Inpatient R MANNY [facility] SOR [id number] Univers 08:17:10 CATRINA [facility] 2021-05-24 Emergency [facility] [id number] Univers 20:51:27 [facility] 2021-11-01 2021-11-01 Outpatient R ELIO [facility] [id number] Univers 10:30:00 10:30:00 SENDIL [id number] [facility] 2021-07-12 2021-07-12 Outpatient R ROMÁN [facility] [id number] Univers 13:00:00 13:00:00 AISDEMETRIUS [facility] 2021-07-12 2021-07-12 Outpatient R ROMÁN [facility] [id number] Univers 10:15:00 10:15:00 AIST [id number] [facility] 2021-07-12 2021-07-12 Outpatient R ROMÁN [facility] [id number] Univers 10:15:00 10:15:00 [facility] 2021-07-03 2021-07-03 Outpatient R ROMÁN [facility] [id number] Univers 13:00:00 13:00:00 [facility] 2021-07-03 2021-07-03 Outpatient R ROMÁN [facility] [id number] Univers 10:15:00 10:15:00 [facility] [id number] [facility] 2021-07-03 2021-07-03 Outpatient R ROMÁN, [facility] [id number] Univers 10:15:00 10:15:00 [facility] 2021-07-02 2021-07-02 Outpatient R ROMÁN [facility] OPH [id number] Univers 08:29:00 08:29:00 [facility] 2021-05-31 2021-05-31 Outpatient R THUAN [facility] [id number] Univers 14:15:00 14:15:00 [facility] [id number] [facility] 2021-05-31 2021-05-31 Outpatient R THUAN [facility] [id number] Univers 14:15:00 14:15:00 DILLAN [facility] 2021-05-03 2021-05-03 Outpatient R ELIO [facility] [id number] Univers 14:30:00 14:30:00 SENDIL [id number] [facility] 2021-05-03 2021-05-03 Outpatient R ELIO [facility] [id number] Univers 14:30:00 14:30:00 SENDIL [facility] 2021-05-03 2021-05-03 [facility] [id number] Univers 12:52:40 13:16:27 Visit Sebastian WanValJaysonVal Jordan [id number] ity of [place] [id number] [place] Profess[id number] [place] [facility] 2021-05-03 2021-05-03 Orders Doctor BLAIR [id number] Univers 00:00:00 00:00:00 Only Unassigned, JENY [id number] ity of [facility] [id number] Brigido as [id number] [address] 2021-04-25 2021-04-25 Outpatient R ROMÁN [facility] [id number] Univers 10:00:00 10:00:00 AISHAT [id number] ity [facility] 2021-04-18 2021-04-18 Outpatient R ROMÁN [facility] [id number] Univers 13:00:00 13:00:00 AISHAT [id number] ity [facility] 2021-03-15 2021-03-15 Outpatient R ROMÁN [facility] [id number] Univers 13:45:00 13:45:00 AISHAT [id number] ity [facility] 2021-03-15 2021-03-15 Outpatient R ROMÁN [facility] [id number] Univers 13:45:00 13:45:00 AISHAT ity [facility] 2021-02-21 2021-02-21 Outpatient R LUIS DANIEL THOMPSON [facility] [id number] Univers 09:40:00 09:40:00 [id number] ity [facility] 2021-02-21 2021-02-21 Outpatient R LUIS DANIEL THOMPSON [facility] [id number] Univers 00:00:00 00:00:00 ity [facility] 2021-02-19 2021-02-19 Outpatient R LUIS DANIEL THOMPSON [facility] [id number] Univers 10:00:00 10:00:00 [id number] ity [facility] 2021-02-19 2021-02-19 Outpatient R LUIS DANIEL THOMPSON [facility] [id number] Univers 10:00:00 10:00:00 ity [facility] 2021-02-12 2021-02-12 Outpatient R LUIS DANIEL THOMPSON [facility] [id number] Univers 10:00:00 10:00:00 [id number] ity [facility] 2021-02-12 2021-02-12 Outpatient R LUIS DANIEL THOMPSON [facility] [id number] Univers [facility]:00[facility] 2021-02-07 2021-02-07 Outpatient R JUAN [facility] [id number] Univers 13:45:00 13:45:00 NAWAF [id number] [facility] 2021-02-07 2021-02-07 Outpatient R JUAN [facility] [id number] Univers 13:45:00 13:45:00 NAWAF [facility] 2021-01-12 2021-01-12 Outpatient R ROMÁN [facility] [id number] Univers 13:45:00 13:45:00 AISHAT [id number] [facility] 2021-01-12 2021-01-12 Outpatient R ROMÁN, [facility] [id number] Univers 13:45:00 13:45:00 AISHAT [facility] 2020-12-15 2020-12-15 Outpatient R ROMÁN, [facility] [id number] Univers 13:45:00 13:45:00 AISHAT [id number] [facility] 2020-12-15 2020-12-15 Outpatient R ROMÁN [facility] [id number] Univers 13:45:00 13:45:00 AISHAT [facility] 2020-12-13 2020-12-13 Outpatient R ROMÁN [facility] [id number] Univers 09:30:00 09:30:00 AISHAT [id number] [facility] 2020-11-29 2020-11-29 Outpatient R THUAN [facility] [id number] Univers 11:15:00 11:15:00 DILLAN [id number] [facility] 2020-11-29 2020-11-29 Outpatient R THUAN [facility] [id number] Univers 11:15:00 11:15:00 DILLAN [facility] 2020-11-29 2020-11-29 Outpatient R THUAN [facility] [id number] Univers 10:15:00 10:15:00 DILLAN [facility] 2020-11-24 2020-11-24 Outpatient R PACO [facility] [id number] Univers 15:00:00 15:00:00 MARK [id number] [facility] 2020-11-24 2020-11-24 Outpatient R PACO [facility] [id number] Univers 15:00:00 15:00:00 MARK [facility] 2020-11-14 2020-11-14 Outpatient R MCKENNA [facility] [id number] Univers 10:00:00 10:00:00 MITESH [facility] 2020-10-27 2020-10-27 Outpatient R [facility] [id number] Univers 09:45:00 09:45:00 [id number] [facility] 2020-10-27 2020-10-27 Outpatient R MANNY [facility] [id number] Univers [facility]:45[facility] 2020-10-26 Outpatient R [facility] [id number] Univers 13:00:00 13:00:00 [id number] [facility] 2020-10-26 2020-10-26 [facility] [id number] Univers 13:00:00 13:00:00 CATRINA [facility] 2020-10-23 2020-10-23 Outpatient R MANNY [facility] [id number] Univers 14:00:00 14:00:00 CATRINA [id number] [facility] 2020-10-23 2020-10-23 Outpatient R MANNY [facility] [id number] Univers 14:00:00 14:00:00 CATRINA [facility] 2020-09-22 2020-09-22 [facility] [id number] Univers 10:00:00 10:00:00 CATRINA [id number] [facility] 2020-09-22 2020-09-22 Outpatient Homar MANNY [facility] [id number] Univers 10:00:00 10:00:00 CATRINA myers [facility] 2019-12-29 2019-12-29 Outpatient Homar BRITT [facility] [id number] Univers 14:45:00 14:45:00 MICHELLE [id number] [facility] 2019-12-29 2019-12-29 Outpatient Homar BRITT [facility] [id number] Univers 14:45:00 14:45:00 MICHELLE josef [facility] 2019-12-03 2019-12-03 Outpatient Homar PACO [facility] [id number] Univers 16:15:00 16:15:00 MARK [id number] [facility] 2019-12-03 2019-12-03 [facility] [id number] Univers 16:15:00 16:15:00 MARK [facility] 2019-10-06 2019-10-06 [facility] [id number] Univers 09:00:00 09:00:00 MITESH [facility] 2019-09-07 2019-09-07 Outpatient Norbert ANDRES [facility] [id number] Univers 14:08:12 23:59:00 MITESH [facility] 2019-08-19 2019-08-19 [facility] [id number] Univers 08:45:00 08:45:00 CATRINA josef [facility] 2019-06-07 2019-06-07 [facility] [id number] Univers 10:45:00 10:45:00 [facility] Results This patient has no known results.
[2021-09-04 16:23] LABS: Urine Blood Negative (Negative); Urine Glucose Negative (Negative); Urine Protein Negative (Negative); Urine Specific Gravity >=1.030 (1.005-1.030); Urine pH 5.5 (5.0-7.0)
[2021-09-04 16:29] LABS: Absolute Lymphocytes (CBC) 1.3 K/uL (0.7-4.9); Hematocrit 37.9 % (36.0-45.0); Lymphocytes % 22.4 % (15.3-44.8); MPV 7.8 fL (7.6-11.3); RBC Red Blood Cell Count 4.55 M/uL (3.86-4.86)
[2021-09-04 16:47] LABS: Urine Bacteria <20 /HPF (<20); Urine Mucus LIGHT /HPF (NONE SEEN); Urine RBC NONE SEEN /HPF (NONE SEEN)
[2021-09-04 16:50] LABS: ALT/SGPT 32 U/L (12-78); AST/SGOT 30 U/L (15-37); Albumin 3.5 g/dL (3.4-5.0); Alkaline Phosphatase 121 U/L (45-117); BUN Blood Urea Nitrogen 17 mg/dL (7-18); Bicarbonate 27 mmol/L (21-32); Bilirubin Direct < 0.1 mg/dL (0-0.2); Bilirubin Total 0.2 mg/dL (0.2-1.0); Glucose Level 98 mg/dL (74-106); Lipase 182 U/L (73-393); Potassium 3.9 mmol/L (3.5-5.1); Protein, Total 7.6 g/dL (6.4-8.2); Sodium Level 140 mmol/L (136-145)
--- NOTE | 2021-09-04 17:32 | RAD REPORT ---
EXAM DESCRIPTION: CT - Abdomen Pelvis W Contrast - 09/04/2021 5:06 pm CLINICAL HISTORY: FLANK PAIN COMPARISON: No comparisons TECHNIQUE: Biphasic, helical CT imaging of the abdomen and pelvis was performed following 100 ml non -ionic IV contrast. No oral contrast administered. All CT scans are performed using dose optimization technique as appropriate and may include automated exposure control or mA/KV adjustment according to patient size. FINDINGS: No suspicious findings in the lung bases. Liver size is normal. There are few small 10 mm or less round fluid attenuation masses. These are dif ficult to fully characterize but are believed to be incidental hepatic cysts. Spleen and pancreas gelacio w no suspicious findings. Gallbladder and biliary tree are also without suspicious finding. Symmetric renal function is seen with no hydronephrosis or suspicious renal mass. An 8 mm right renal cortex calcification is present. No pyelonephritis or acute parenchymal process. No bladder abnormal ities. No adrenal abnormalities. Several phleboliths are identifiable. Uterine size within normal range for patient age. No ovarian or adnexal suspicious finding. Endometri al thickness in the fundus is greater than expected for age. CT sensitivity is limited in regards to endometrial evaluation. No gastric dilatation or wall thickening. No gastric mass identified. No acute small bowel findings. Appendix within range of normal. No acute colon process seen. Diverticulosis is minimal. No free air , free fluid or inflammatory stranding. No hernia, mass or bulky lymphadenopathy. No suspicious bony findings. IMPRESSION: No pyelonephritis, hydronephrosis or other acute finding. Appendix within range of normal with no acute GI process seen. Endometrium in the fundal portion of the uterus appears prominent for age. CT sensitivity is limited. No ovarian or adnexal abnormality. Follow-up outpatient pelvic ultrasound could be performed to all ow for more sensitive assessment.
--- NOTE | 2021-09-04 17:47 | ER ---
Nurse's Notes [facility] Name: Laila Haddad Age: 75 yrs Sex: Female : 1945 Arrival Date: 09/04/2021 Time: 13:55 Bed 14 Private MD: Diagnosis: Low back pain Presentation: 09/04 14:05 Chief complaint: Patient states: Right flank pain x 3 days, denies urinary symptoms. jl7 Coronavirus screen: At this time, the client does not indicate any symptoms associated with coronavirus-19. Ebola Screen: No symptoms or risks identified at this time. Initial Sepsis Screen: Does the patient meet any 2 criteria? No. Patient's initial sepsis screen is negative. Does the patient have a suspected source of infection? No. Patient's initial sepsis screen is negative. Risk Assessment: Do you want to hurt yourself or someone else? Patient reports no desire to harm self or others. Onset of symptoms was September 01, 2021. 14:05 Method Of Arrival: Ambulatory [facility] 14:05 Acuity: HENRY 3 jl7 Triage Assessment: 14:07 General: Appears in no apparent distress. uncomfortable, Behavior is calm, cooperative, jl7 appropriate for age. Pain: Complains of pain in right flank Pain currently is 7 out of 10 on a pain scale. GI: Patient currently denies constipation, diarrhea, nausea, vomiting. Historical: - Allergies: 14:07 Aspirin; jl7 - Home Meds: 14:07 lisinopril Oral [Active]; jl7 - PMHx: 14:07 Hypertension; jl7 - Immunization history:: Client reports receiving the 2nd dose of the Covid vaccine, Moderna. - Social history:: Smoking status: Patient denies any tobacco usage or history of. Screenin:08 Abuse screen: Denies threats or abuse. Denies injuries from another. Nutritional jg9 screening: No deficits noted. Tuberculosis screening: No symptoms or risk factors identified. Fall Risk None identified. Assessment: 16:00 General: Appears in no apparent distress. Behavior is calm. Pain: Complains of pain in jg9 back-r hip/flank pain. 17:15 GI: Bowel sounds present X 4 quads. Abd is soft and non tender X 4 quads. jg9 Vital Signs: 14:05 BP 151 / 83; Pulse 88; Resp 17; Temp 97.3; Pulse Ox 100% ; Weight 62.14 kg; Height 5 jl7 ft. 2 in. (157.48 cm); Pain 7/10; 16:30 BP 120 / 66; Pulse 72; Resp 18 S; Pulse Ox 95% on R/A; jg9 17:00 BP 133 / 68; Pulse 64; Resp 17 S; Pulse Ox 96% on R/A; jg9 14:05 Body Mass Index 25.06 (62.14 kg, 157.48 cm) jl7 ED Course: 13:55 Patient arrived in ED. as 14:07 Triage completed. jl7 14:07 Arm band placed on right wrist. Patient placed in waiting room, Patient notified of [facility] wait time. 16:00 Fran Mejia NP is PHCP. pm1 16:01 Ramiro Stewart MD is Attending Physician. pm1 16:09 India Thomason RN is Primary Nurse. jg9 16:15 Inserted saline lock: 20 gauge in right antecubital area, using aseptic technique. jg9 Blood collected. 16:23 Urine Microscopic Only Sent. 5 16:23 Basic Metabolic Panel Sent. 5 16:23 CBC with Diff Sent. 5 16:23 Hepatic Function Sent. 5 16:23 Lipase Sent. 5 16:23 Initial lab(s) drawn, by ED staff, sent to lab. Urine collected: clean catch specimen, mh5 clear. 16:30 No apparent distress. Resting quietly. jg9 17:00 Patient has correct armband on for positive identification. Bed in low position. Call jg9 light in reach. Side rails up X 1. 17:06 CT Abd/Pelvis - IV Contrast Only In Process Unspecified. EDMS 18:00 No provider procedures requiring assistance completed. jg9 18:01 IV discontinued. jg9 Administered Medications: No medications were administered Outcome: 17:46 Discharge ordered by . pm1 18:00 Discharged to home ambulatory. jg9 18:00 Condition: stable 18:00 Discharge instructions given to patient, Instructed on discharge instructions, follow up and referral plans. Demonstrated understanding of instructions, follow-up care. 18:01 Patient left the ED. jg9 Signatures: Dispatcher [employer] EDIN Sofia Ramesh as Fran Mejia NP [employer] pm1 Eulalia Ramesh mh5 Castillo Feldman, RN RN jl7 India Thomason, RN RN jg9
--- NOTE | 2021-09-04 17:47 | EDPHYS ---
Physician Documentation [facility] Name: Laila Haddad Age: 75 yrs Sex: Female : 1945 Arrival Date: 09/04/2021 Time: 13:55 Bed 14 Private MD: ED Physician Ramiro Stewart HPI: 09/04 16:04 This 75 yrs old Black Female presents to ER via Ambulatory with complaints of Right pm1 flank pain. 16:04 The patient complains of pain in the right low back. The pain does not radiate. Onset: pm1 The symptoms/episode began/occurred 3 day(s) ago. Modifying factors: The symptoms are alleviated by nothing. the symptoms are aggravated by lying flat on her bed. Associated signs and symptoms: The patient has no apparent associated signs or symptoms, Pertinent negatives: diarrhea, dysuria, fever, nausea, vomiting. Severity of pain: in the emergency department the pain has resolved. The patient has not experienced similar symptoms in the past. The patient has not recently seen a physician. Historical: - Allergies: 14:07 Aspirin; jl7 - Home Meds: 14:07 lisinopril Oral [Active]; jl7 - PMHx: 14:07 Hypertension; jl7 - Immunization history:: Client reports receiving the 2nd dose of the Covid vaccine, Moderna. - Social history:: Smoking status: Patient denies any tobacco usage or history of. ROS: 16:06 Constitutional: Negative for fever, chills, and weight loss, Cardiovascular: Negative pm1 for chest pain, palpitations, and edema, Respiratory: Negative for shortness of breath, cough, wheezing, and pleuritic chest pain, Abdomen/GI: Negative for abdominal pain, nausea, vomiting, diarrhea, and constipation, : Negative for injury, bleeding, discharge, and swelling. 16:06 MS/Extremity: Negative for injury and deformity, Skin: Negative for injury, rash, and discoloration, Neuro: Negative for headache, weakness, numbness, tingling, and seizure. 16:06 Back: Positive for flank pain, on the right. 16:06 All other systems are negative. Exam: 16:06 Constitutional: This is a well developed, well nourished patient who is awake, alert, pm1 and in no acute distress. Head/Face: Normocephalic, atraumatic. 16:06 Back: No spinal tenderness. No costovertebral tenderness. Full range of motion. Skin: Warm, dry with normal turgor. Normal color with no rashes, no lesions, and no evidence of cellulitis. MS/ Extremity: Pulses equal, no cyanosis. Neurovascular intact. Full, normal range of motion. Neuro: Awake and alert, GCS 15, oriented to person, place, time, and situation. Cranial nerves II-XII grossly intact. Motor strength 5/5 in all extremities. Sensory grossly intact. Cerebellar exam normal. Normal gait. 16:06 Eyes: Exam is negative for acute changes. 16:06 ENT: Exam is negative for acute changes, Mouth: no acute changes, Lips: normal, moist, Oral mucosa: normal, pink and intact, moist. 16:06 Cardiovascular: Exam negative for acute changes, Rate: normal, Rhythm: regular, Pulses: no pulse deficits are appreciated. 16:06 Respiratory: Exam negative for acute changes, respiratory distress, shortness of breath. Vital Signs: 14:05 BP 151 / 83; Pulse 88; Resp 17; Temp 97.3; Pulse Ox 100% ; Weight 62.14 kg; Height 5 jl7 ft. 2 in. (157.48 cm); Pain 7/10; 16:30 BP 120 / 66; Pulse 72; Resp 18 S; Pulse Ox 95% on R/A; jg9 17:00 BP 133 / 68; Pulse 64; Resp 17 S; Pulse Ox 96% on R/A; jg9 14:05 Body Mass Index 25.06 (62.14 kg, 157.48 cm) jl7 MDM: 16:01 Patient medically screened. pm1 17:42 Data reviewed: vital signs. Data interpreted: Pulse oximetry: on room air is 96 %. pm1 Interpretation: normal. Counseling: I had a detailed discussion with the patient and/or guardian regarding: the historical points, exam findings, and any diagnostic results supporting the discharge/admit diagnosis, lab results, radiology results, the need for outpatient follow up, an OB/Gyne specialist, to return to the emergency department if symptoms worsen or persist or if there are any questions or concerns that arise at home. 09/04 16:04 Order name: Basic Metabolic Panel; Complete Time: 16:56 pm1 09/04 16:04 Order name: CBC with Diff; Complete Time: 16:46 pm1 09/04 16:04 Order name: Hepatic Function; Complete Time: 16:56 pm1 09/04 16:04 Order name: Lipase; Complete Time: 16:56 pm1 09/04 16:04 Order name: Urine Microscopic Only; Complete Time: 16:56 pm1 09/04 16:23 Order name: Urine Dipstick-Ancillary; Complete Time: 16:46 EDMS 02 16:04 Order name: IV Saline Lock; Complete Time: 16:23 pm1 02 16:04 Order name: Labs collected and sent; Complete Time: 16:23 pm1 02 16:04 Order name: Urine Dipstick-Ancillary (obtain specimen); Complete Time: 16:23 pm1 09/04 16:04 Order name: CT Abd/Pelvis - IV Contrast Only; Complete Time: 17:39 pm1 Administered Medications: No medications were administered Disposition Summary: 09/04/21 17:46 Discharge Ordered Location: Home pm1 Problem: new pm1 Symptoms: have improved pm1 Condition: Stable pm1 Diagnosis - Low back pain pm1 Followup: pm1 - With: Emergency Department - When: As needed - Reason: Worsening of condition Followup: pm1 - With: Private Physician - When: 2 - 3 days - Reason: Recheck today's complaints, Continuance of care, Re-evaluation by your physician Discharge Instructions: - Discharge Summary Sheet pm1 - Flank Pain, Adult pm1 Forms: - Medication Reconciliation Form pm1 - Thank You Letter pm1 - Antibiotic Education pm1 - Prescription Opioid Use pm1 Signatures: Dispatcher [employer] Fran Bonds, JONO HR RECEPTIONIST pm1 Castillo Feldman, RN RN jl7
[2021-09-04 18:20] VITALS: TEMP 97.3
[2021-09-04 18:23] VITALS: BP 133/68; O2SAT 96
== END 2021-09-04 18:01 | disposition home or self-care (01) ==
LOC: ER 13:51
DX: M54.50 Low back pain, unspecified (principal); I10 Essential (primary) hypertension; Z88.6 Allergy status to analgesic agent
CPT/HCPCS: 85025; 80048; 36415; 80076; 83690; 74177; Q9967; 81003; 81015; 99283

== ENCOUNTER 2023-04-29 03:58 | Observation (INO) | payer MEDICARE, OTHER ==
--- OUTSIDE RECORDS SUMMARY | 2023-04-29 04:08 | XMS REPORT | Continuity of Care Document ---
:1945 Author Organization [facility] t Address [address] [place] [id number] Care Team Providers Name Role Phone Lc Parekh Primary Care Physician CATRINA BRYANT Attending Clinician Unavailable CUCO VALDEZ Attending Clinician Unavailable CUCO VALDEZ Attending Clinician Unavailable UYEN RICHARDSON Attending Clinician Unavailable LC SHEN Attending Clinician Unavailable LINDSAY FRANCE Attending Clinician Unavailable LIZZETTE HARRISON Attending Clinician Unavailable PETRONA DONNELLY Attending Clinician Unavailable YENIFER BRIONES Attending Clinician Unavailable Yenifer Garcia Attending Clinician Uyen Goff Attending Clinician Lab, Ang - Db Attending Clinician Unavailable Doctor Unassigned, [place] Attending Clinician Unavailable Lc Parekh Attending Clinician Lindsay France MD Attending Clinician [phone] Martha Maloney LVN Attending Clinician Unavailable Elio OLVERA, Sebastian K.H. Attending Clinician RAMIRO RICHARDSON Attending Clinician Unavailable STANLEY SIMON Attending Clinician Unavailable Stanley Simon MD Attending Clinician SEBASTIAN BALLARD K.HVal Attending Clinician Unavailable Petrona Santiago Attending Clinician Luis Daniel Evans MD Attending Clinician LUIS DANIEL EVANS Attending Clinician Unavailable EVELYN PRO Attending Clinician Unavailable Evelyn Pro DO Attending Clinician KELLI LAROSE Attending Clinician Unavailable Yannick Nathan Attending Clinician Kelli Larose PA-C Attending Clinician Catrina Bryant MD Attending Clinician NAWAF MARTINEZ Attending Clinician Unavailable MARK ANTONIO Attending Clinician Unavailable Mitesh Arora S Attending Clinician MITESH ANDRES Attending Clinician Unavailable Pob, Adc Lab Main Attending Clinician Unavailable Only, Adc Test Attending Clinician Unavailable Robert Ferrell PTA F Attending Clinician Unavailable Michelle De La Torre OD Attending Clinician MICHELLE DE LA TORRE Attending Clinician Unavailable Stanislav Parson F Attending Clinician Melvin Koch CRNA Attending Clinician Ledy Veliz CRNA Attending Clinician 1, Ad[facility] Lab Attending Clinician Unavailable CATRINA BRYANT Admitting Clinician Unavailable UYEN RICHARDSON Admitting Clinician Unavailable LINDSAY FRANCE Admitting Clinician Unavailable Lindsay France MD Admitting Clinician [phone] LC SHEN Admitting Clinician Unavailable Catrina Bryant MD Admitting Clinician Payers Payer Name Policy Type Policy Number Effective Date Expiration Date S [facility] MEDICARE PART A [id number] 2010 \\T\\ B 00:00:[address] [id number] 2019 00:00:00 [facility] [id number] 2022 PPO 00:00:00 Problems Condition Condition Condition Status Onset Resolution Last Treating Co mments Source Name Details Category Date Date Treatment Clinician Date Screening Screening Disease Active Uni vers mammogram mammogram 04-01 [place]y of [place] 00 Medical Branch Asymptomat Asymptomat Disease Active U nivers ic ic 9-05 ity of postmenopa postmenopa 00:00: [place] usal state usal state 00 Me dical Branch Essential Essential Disease Active Uni vers hypertensi hypertensi 03-24 it y of on on 00:00: [place] [facility] Dyslipidem Dyslipidem Disease Active U nivers ia ia 03-24 ity of 00:00: [place] [facility] Chronic Chronic Disease Active Univers kidney kidney 03-24 ity of disease disease 00:00: [place] (CKD) (CKD) 00 Medical stage stage Branch G3b/A1, G3b/A1, moderately moderately decreased decreased glomerular glomerular filtration filtration rate (GFR) rate (GFR) between between 30-44 30-44 mL/min/1.7 mL/min/1.7 3 square 3 square meter and meter and albuminuri albuminuri a a creatinine creatinine ratio less ratio less than 30 than 30 mg/g mg/g 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 Added automatic ally from request for surgery [id number] Total knee Total knee Disease Active U nivers replacemen replacemen 4-05 it y of t status, t [place], [place] 00 Medical [place] Primary Primary Disease Active Overview: Univ ers osteoarthr osteoarthr 3-24 Formattin ity of itis of itis of 00:00: g of this [place] left knee left knee 00 note Medi katherine might be Branch different from the original. Added automatic ally from request for surgery [id number] Total knee Total knee Disease Active U nivers replacemen replacemen 1-27 it y of t status t status 00:00: [place] [facility] Primary Primary Disease Active 2018-07 Overview: Univ ers osteoarthr osteoarthr 1-11 Formattin ity of itis of itis of 00:00: g of this [place] right knee right knee 00 note Me dical might be Branch different from the original. Added automatic ally from request for surgery [id number] Dental Dental Disease Active Overview: [facility] caries caries 5-13 Formattin ity of 00:00: g of this [place] 00 note Medical might be Branch different from the original. 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 Utility Allergies, Adverse Reactions, Alerts Allergy Allergy Status Severity Reaction(s) Onset Inactive Treating Comm ents Source Name Type Date Date Clinician NO KNOWN Drug Active Univers ALLERGIE Class ity of S [facility] Social History Social Habit Start Date Stop Date Quantity Comments Source Gender identity [facility] intake 2023-04-25 2023-04-25 Current University of 00:00:00 00:00:00 non-drinker of [facility] alcohol [place] (finding) Exposure to 2022-10-12 2022-10-22 Not sure [facility] SARS-CoV-2 (event) 00:00:00 14:41:00 [facility] History of Social 2022-09-26 2022-09-26 Univers ity of function 00:00:00 00:00:00 [facility] Tobacco use and 2022-03-26 2022-03-26 Smokeless Universit y of exposure 00:00:00 00:00:00 tobacco non-user [facility] Sex [birth year] Universit y of 00:00:00 00:00:00 [facility] Smoking Status Start Date Stop Date Source Never smoked tobacco [facility] Medications Ordered Filled Start Stop Current Ordering Indication Dosage Frequency Signature Comments Components Source Medication Medication Date Date Medication? Clinician (SIG) Name Name lisinopriL Yes [id number] 2.5mg Take 1 Univers 2.5 mg 9-28 tablet by ity of tablet 00:00: mouth in [place] 00 the Medical morning. Branch lisinopriL Yes [id number] 2.5mg Take 1 Univers 2.5 mg 9-28 tablet by ity of tablet 00:00: mouth in [place] 00 the Medical morning. Branch lisinopriL Yes [id number] 2.5mg Take 1 Univers 2.5 mg 9-28 tablet by ity of tablet 00:00: mouth in [place] 00 the Medical morning. Branch lisinopriL Yes [id number] 2.5mg Take 1 Univers 2.5 mg - tablet by ity of tablet 00:00: mouth in [place] 00 the Medical morning. Branch lisinopriL 2023-0 2023- No [id number] 2.5mg Take 0.5 Univers 5 mg tablet 04-24 tablets by i ty of 00:00: 00:00 mouth in [place] 00 :00 the Medical morning. Branch lisinopriL 2023-0 2023- No [id number] 2.5mg Take 0.5 Univers 5 mg tablet 04-24 tablets by i ty of 00:00: 00:00 mouth in [place] 00 :00 the Medical morning. Branch lisinopriL 2023-0 Yes [id number] 5mg Take 1 U nivers 5 mg tablet 8-22 tablet by ity of 00:00: mouth in [place] the Medical morning. Branch lisinopriL 2023-0 Yes [id number] 5mg Take 1 U nivers 5 mg tablet 8-22 tablet by ity of 00:00: mouth in [place] the Medical morning. Branch lisinopriL 2023-0 Yes [id number] 5mg Take 1 U nivers 5 mg tablet 8-22 tablet by ity of 00:00: mouth in [place] the Medical morning. Branch lisinopriL 2023-0 Yes [id number] 5mg Take 1 U nivers 5 mg tablet 8-22 tablet by ity of 00:00: mouth in [place] the Medical morning. Branch lisinopriL 3-0 Yes [id number] 5mg Take 1 U nivers 5 mg tablet 8-22 tablet by ity of 00:00: mouth in [place] the Medical morning. Branch lisinopriL 2023-0 Yes [id number] 5mg Take 1 U nivers 5 mg tablet 8-22 tablet by ity of 00:00: mouth in [place] the Medical morning. Branch lisinopriL 2023-0 Yes [id number] 5mg Take 1 U nivers 5 mg tablet 8-22 tablet by ity of 00:00: mouth in [place] the Medical morning. Branch lisinopriL 2023-0 Yes [id number] 5mg Take 1 U nivers 5 mg tablet 8-22 tablet by ity of 00:00: mouth in [place] the Medical morning. Branch lisinopriL 2023-0 Yes [id number] 5mg Take 1 U nivers 5 mg tablet 8-22 tablet by ity of 00:00: mouth in [place] 00 the Medical morning. Branch lisinopriL 2023-0 Yes [id number] 5mg Take 1 U nivers 5 mg tablet 8-22 tablet by ity of 00:00: mouth in [place] 00 the Medical morning. Branch lisinopriL 2023-0 2023- No [id number] 5mg Take 1 Univers 5 mg tablet 8-28 tablet by it y of 00:00: 00:00 mouth in [place] 00 :00 the Medical morning. Branch lisinopriL 2023-0 2023- No [id number] 5mg Take 1 Univers 5 mg tablet 8-28 tablet by it y of 00:00: 00:00 mouth in [place] 00 :00 the Medical morning. Branch lisinopriL 2023-0 Yes 5mg Take 1 Unive rs 5 mg tablet 3-28 tablet by ity of 00:00: mouth in [place] the Medical morning. Branch lisinopriL 2023-0 Yes 5mg Take 1 Unive rs 5 mg tablet 3-28 tablet by ity of 00:00: mouth in [place] the Medical morning. Branch lisinopriL 2023-0 Yes 5mg Take 1 Unive rs 5 mg tablet 3-28 tablet by ity of 00:00: mouth in [place] the Medical morning. Branch lisinopriL 2023-0 Yes 5mg Take 1 Unive rs 5 mg tablet 3-28 tablet by ity of 00:00: mouth in [place] the Medical morning. Branch lisinopriL 2023-0 Yes 5mg Take 1 Unive rs 5 mg tablet 3-28 tablet by ity of 00:00: mouth in [place] the Medical morning. Branch lisinopriL 2023-0 Yes 5mg Take 1 Unive rs 5 mg tablet 3-28 tablet by ity of 00:00: mouth in [place] 00 the Medical morning. Branch lisinopriL 2023-0 Yes 5mg Take 1 Unive rs 5 mg tablet 3-28 tablet by ity of 00:00: mouth in [place] 00 the Medical morning. Branch lisinopriL 2023-0 Yes 5mg Take 1 Unive rs 5 mg tablet 3-28 tablet by ity of 00:00: mouth in [place] the Medical morning. Branch lisinopriL 2023-0 Yes 5mg Take 1 Unive rs 5 mg tablet 10-22 tablet by ity of 00:00: mouth in [place] 00 the Medical morning. Branch lisinopriL 2022- No 5mg Take 1 Univ ers 5 mg tablet 10-22 tablet by it y of 00:00: 00:00 mouth in [place] 00 :00 the Medical morning. Branch lisinopriL 0 2022- No 5mg Take 1 Univ ers 5 mg tablet 10-22 tablet by it y of 00:00: 00:00 mouth in [place] 00 :00 the Medical morning. Branch lisinopriL 2022- No 5mg Take 1 Univ ers 5 mg tablet 10-22 tablet by it y of 00:00: 00:00 mouth in [place] 00 :00 the Medical morning. Branch timolol 2022- No PRN, Univers (TIMOPTIC) 09-26 Starting ity of 0.5 % 19:34: 19:58 on [place] ophthalmic 00 :33 23 at [facility] katherine solution 1334, Branch Until [place] 09/26/22 at 1358, Routine, Intra-op tetracaine 2022- No PRN, Univer s (PONTOCAINE 09-26 Starting ity of ) 0.5 % 19:34: 19:58 on [place] ophthalmic 00 :33 /23 at [facility] katherine drops 1334, Branch Until [place] 09/26/22 at 1358, Routine, Intra-op prednisoLON 2022- No PRN, Unive rs E acetate 09-26 Starting ity o f (PRED-FORTE 19:28: 19:58 on [place]andra [place] as ) 1 % 00 :33 23 at [facility] ophthalmic 1328, Branch suspension Until [place] drops 09/26/22 at 1358, Routine, Intra-op povidone-io 2022- No PRN, Unive rs dine 09-26 Starting ity of (BETADINE) 19:28: 19:58 on [facility] [place] 5 % 00 :33 09/26/22 at [facility] ophthalmic 1328, Branch drops Until [place] 3/2/23 at 1358, Routine, Intra-op moxifloxaci 2022- No PRN, Unive rs n (VIGAMOX) 09-26 Starting ity of 0.5 % 19:27: 19:58 on [place] ophthalmic 00 :33 3/2/23 at [facility] drops 1327, Branch Until [place] 3/2/23 at 1358, Routine, Intra-op lidocaine-p 2022- No PRN, Unive rs henylephrin 09-26 Starting ity of -BSS(PF) 19:27: 19:58 on [place] (COMPOUNDED 00 :33 3//23 at [facility] ical ) 1-1.5 % 1327, Branch ophthalmic Until [place] injection 3/09/19 at 1358, Routine, Intra-op EPINEPHrine 2022- No PRN, Unive rs (PF) 09-26 Starting ity of 1:1,000 (1 19:27: 19:58 [place] mg/mL) 00 :33 3/2/23 at [facility] (ADRENALIN 1327, Branch (PF)) Until [place] injection 3/2/23 at 1358, Routine, Intra-op chondroitin 2022- No PRN, Unive rs sulf-sod 09-26 Starting ity of hyaluronate 19:27: 19:58 on [place] (DUOVISC 00 :33 3/2/23 at Medica l VISCO 1327, Branch ELASTIC) Until [place] intraocular 3/2/23 at injection 1358, Routine, Intra-op balanced 2022- No PRN, Univers salt soln 09-26 Starting ity o f no.2 irrig. 19:26: 19:58 on [place] (BSS) 00 :33 3/2/23 at [facility] ophthalmic 1326, Branch solution Until [place] 3/2/23 at 1358, Routine, Intra-op balanced 2022- No PRN, Univers salt irrig 09-26 Starting ity of soln comb1 19:26: 19:58 [place] (BSS PLUS) 00 :33 3/2/23 at [facility] ophthalmic 1326, Branch solution Until [place]andra 500 mL bag 09/26/22 at 1358, Routine, Intra-op moxifloxaci 2022- No 1[drp] 1 Drop, Univers n (VIGAMOX) 09-26 Left Eye, it y of 0.5 % 16:51: 17:47 Q5MIN PRN, [place] ophthalmic 00 :00 3 doses, Medic al drops 1 Starting Branch Drop on [place] 09/26/22 at 1051, Until Discontinu ed, Routine, Surgery/Pr ocedure, If Mydriatic #5 unavailabl e, DSU Pre-op cyclopent 2022- No .25mL 0.25 mL, Un kiarra 1%-tropic 09-26 Left Eye, ity of 1%-phenyl 16:51: 17:48 [place]N - [place] 2.5%-ketor 00 :00 INSTRUCTIO Med ical 0.5% NS, 2 Branch (MYDRIATIC doses, #5) Starting ophthalmic on [place] solution 09/26/22 at syringe 1051, 0.25 mL Until Discontinu ed, Routine, Surgery/Pr ocedure, DSU Pre-op moxifloxaci 2022- No 1[drp] 1 Drop, Univers n (VIGAMOX) 09-26 Left Eye, it y of 0.5 % 16:51: 17:47 Q5MIN PRN, [place] ophthalmic 00 :00 3 doses, Medic al drops 1 Starting Branch Drop on [place] 09/26/22 at 1051, Until Discontinu ed, Routine, Surgery/Pr ocedure, If Mydriatic #5 unavailabl e, DSU Pre-op cyclopent 2022- No .25mL 0.25 mL, Un kiarra 1%-tropic 09-26 Left Eye, ity of 1%-phenyl 16:51: 17:48 PRN - [place] 2.5%-ketor 00 :00 INSTRUCTIO Med ical 0.5% NS, 2 Branch (MYDRIATIC doses, #5) Starting ophthalmic on [place] solution 09/26/22 at syringe 1051, 0.25 mL Until Discontinu ed, Routine, Surgery/Pr ocedure, DSU Pre-op LISINOPRIL- 2022-0 Yes [id number] Take 1 Univers HYDROCHLORO 1-27 tablet by ity of THIAZIDE 00:00: mouth once [place] 10-12.5 mg 00 daily Medical per tablet Branch LISINOPRIL- 2022-0 Yes [id number] Take 1 Univers HYDROCHLORO 1-27 tablet by ity of THIAZIDE 00:00: mouth once [place] 10-12.5 mg 00 daily Medical per tablet Branch LISINOPRIL- 2022-0 Yes [id number] Take 1 Univers HYDROCHLORO 1-27 tablet by ity of THIAZIDE 00:00: mouth once [place] 10-12.5 mg 00 daily Medical per tablet Branch LISINOPRIL- 2022-0 Yes [id number] Take 1 Univers HYDROCHLORO 1-27 tablet by ity of THIAZIDE 00:00: mouth once [place] 10-12.5 mg 00 daily Medical per tablet Branch LISINOPRIL- 2022-0 Yes [id number] Take 1 Univers HYDROCHLORO 1-27 tablet by ity of THIAZIDE 00:00: mouth once [place] 10-12.5 mg 00 daily Medical per tablet Branch LISINOPRIL- 2022-0 Yes [id number] Take 1 Univers HYDROCHLORO 1-27 tablet by ity of THIAZIDE 00:00: mouth once [place] 10-12.5 mg 00 daily Medical per tablet Branch LISINOPRIL- 2022-0 Yes [id number] Take 1 Univers HYDROCHLORO 1-27 tablet by ity of THIAZIDE 00:00: mouth once [place] 10-12.5 mg 00 daily Medical per tablet Branch LISINOPRIL- 2022-0 Yes [id number] Take 1 Univers HYDROCHLORO 1-27 tablet by ity of THIAZIDE 00:00: mouth once [place] 10-12.5 mg 00 daily Medical per tablet Branch LISINOPRIL- 2022-0 Yes [id number] Take 1 Univers HYDROCHLORO 1-27 tablet by ity of THIAZIDE 00:00: mouth once [place] 10-12.5 mg 00 daily Medical per tablet Branch LISINOPRIL- 2022-0 Yes [id number] Take 1 Univers HYDROCHLORO 1-27 tablet by ity of THIAZIDE 00:00: mouth once [place] 10-12.5 mg 00 daily Medical per tablet Branch LISINOPRIL- 2023-0 Yes [id number] Take 1 Univers HYDROCHLORO 1-27 tablet by ity of THIAZIDE 00:00: mouth once [place] 10-12.5 mg 00 daily Medical per tablet Branch LISINOPRIL- 0 Yes [id number] Take 1 Univers HYDROCHLORO 1-27 tablet by ity of THIAZIDE 00:00: mouth once [place] 10-12.5 mg 00 daily Medical per tablet Branch LISINOPRIL- 0 Yes [id number] Take 1 Univers HYDROCHLORO 1-27 tablet by ity of THIAZIDE 00:00: mouth once [place] 10-12.5 mg 00 daily Medical per tablet Branch LISINOPRIL- 0 Yes [id number] Take 1 Univers HYDROCHLORO 1-27 tablet by ity of THIAZIDE 00:00: mouth once [place] 10-12.5 mg 00 daily Medical per tablet Branch LISINOPRIL- 0 Yes [id number] Take 1 Univers HYDROCHLORO 1-27 tablet by ity of THIAZIDE 00:00: mouth once [place] 10-12.5 mg 00 daily Medical per tablet Branch LISINOPRIL- 0 Yes [id number] Take 1 Univers HYDROCHLORO 1-27 tablet by ity of THIAZIDE 00:00: mouth once [place] 10-12.5 mg 00 daily Medical per tablet Branch LISINOPRIL- 0 2022- No [id number] Take 1 Univers HYDROCHLORO 1-27 03-28 tablet by it y of THIAZIDE 00:00: 00:00 mouth [place] 10-12.5 mg 00 :00 daily Medical per tablet Branch LISINOPRIL- 2022-0 2022- No [id number] Take 1 Univers HYDROCHLORO 1-27 03-28 tablet by it y of THIAZIDE 00:00: 00:00 mouth [place] 10-12.5 mg 00 :00 daily Medical per tablet Branch LISINOPRIL- 2022-0 2022- No [id number] Take 1 Univers HYDROCHLORO 1-27 03-28 tablet by it y of THIAZIDE 00:00: 00:00 mouth once [place] 10-12.5 mg 00 :00 daily Medical per tablet Branch prednisoLON 0 Yes [id number] 1[drp] Place 1 Univers E acetate 1 1-06 9108 Drop in ity o f % 00:00: right eye [place] ophthalmic 00 4 (four) Medic al suspension times Branch drops daily. ketorolac 2022-0 Yes [id number] 1[drp] Place 1 Univers 0.4 % 1-06 9108 Drop in ity of ophthalmic 00:00: [place] solution 00 4 (four) Medical times Branch daily. moxifloxaci 2022-0 Yes [id number] 1[drp] Place 1 Univers n (VIGAMOX) 1-06 9108 Drop in ity o f 0.5 % 00:00: right eye [place] ophthalmic 00 4 (four) Medic al drops times Branch daily. prednisoLON 2022-0 Yes [id number] 1[drp] Place 1 Univers E acetate 1 1-06 9108 Drop in ity o f % 00:00: right eye [place] ophthalmic 00 4 (four) Medic al suspension times Branch drops daily. ketorolac 2022-0 Yes [id number] 1[drp] Place 1 Univers 0.4 % 1-06 9108 Drop in ity of ophthalmic 00:00: right eye [place] solution 00 4 (four) Medical times Branch daily. moxifloxaci 2022-0 Yes [id number] 1[drp] Place 1 Univers n (VIGAMOX) 1-06 9108 Drop in ity o f 0.5 % 00:00: right eye [place] ophthalmic 00 4 (four) Medic al drops times Branch daily. prednisoLON 2022-0 Yes [id number] 1[drp] Place 1 Univers E acetate 1 1-06 9108 Drop in ity o f % 00:00: right eye [place] ophthalmic 00 4 (four) Medic al suspension times Branch drops daily. ketorolac 2022-0 Yes [id number] 1[drp] Place 1 Univers 0.4 % 1-06 9108 Drop in ity of ophthalmic 00:00: right [place] solution 00 4 (four) Medical times Branch daily. moxifloxaci 2022-0 Yes [id number] 1[drp] Place 1 Univers n (VIGAMOX) 1-06 9108 Drop in ity o f 0.5 % 00:00: right eye [place] ophthalmic 00 4 (four) Medic al drops times Branch daily. prednisoLON 2022-0 Yes [id number] 1[drp] Place 1 Univers E acetate 1 1-06 9108 Drop in ity o f % 00:00: right eye [place] ophthalmic 00 4 (four) Medic al suspension times Branch drops daily. ketorolac 2022-0 Yes [id number] 1[drp] Place 1 Univers 0.4 % 1-06 9108 Drop in ity of ophthalmic 00:00: right [place] solution 00 4 (four) Medical times Branch daily. moxifloxaci 2022-0 Yes [id number] 1[drp] Place 1 Univers n (VIGAMOX) 1-06 9108 Drop in ity o f 0.5 % 00:00: right eye [place] ophthalmic 00 4 (four) Medic al drops times Branch daily. prednisoLON 2022-0 Yes [id number] 1[drp] Place 1 Univers E acetate 1 1-06 9108 Drop in ity o f % 00:00: right eye [place] ophthalmic 00 4 (four) Medic al suspension times Branch drops daily. ketorolac 2022-0 Yes [id number] 1[drp] Place 1 Univers 0.4 % 1-06 9108 Drop in ity of ophthalmic 00:00: right [place] solution 00 4 (four) Medical times Branch daily. moxifloxaci 2022-0 Yes [id number] 1[drp] Place 1 Univers n (VIGAMOX) 1-06 9108 Drop in ity o f 0.5 % 00:00: right eye [place] ophthalmic 00 4 (four) Medic al drops times Branch daily. prednisoLON 2022-0 Yes [id number] 1[drp] Place 1 Univers E acetate 1 1-06 9108 Drop in ity o f % 00:00: right eye [place] ophthal[facility] 00 4 (four) Medic al suspension times Branch drops daily. ketorolac 2022-0 Yes [id number] 1[drp] Place 1 Univers 0.4 % 1-06 9108 Drop in ity of ophthalmic 00:00: right [place] solution 00 4 (four) Medical times Branch daily. moxifloxaci 2022-0 Yes [id number] 1[drp] Place 1 Univers n (VIGAMOX) 1-06 9108 Drop in ity o f 0.5 % 00:00: right eye [place] ophthalmic 00 4 (four) Medic al drops times Branch daily. prednisoLON 2023-0 Yes [id number] 1[drp] Place 1 Univers E acetate 1 1-06 9108 Drop in ity o f % 00:00: right eye [place] ophthal[facility] 00 4 (four) Medic al suspension times Branch drops daily. ketorolac 2022-0 Yes [id number] 1[drp] Place 1 Univers 0.4 % 1-06 9108 Drop in ity of ophthalmic 00:00: [place] solution 00 4 (four) Medical times Branch daily. moxifloxaci 2022-0 Yes [id number] 1[drp] Place 1 Univers n (VIGAMOX) 1-06 9108 Drop in ity o f 0.5 % 00:00: right eye [place] ophthalmic 00 4 (four) Medic al drops times Branch daily. prednisoLON 2022-0 Yes [id number] 1[drp] Place 1 Univers E acetate 1 1-06 9108 Drop in ity o f % 00:00: right eye [place] ophthalmic 00 4 (four) Medic al suspension times Branch drops daily. ketorolac 2022-0 Yes [id number] 1[drp] Place 1 Univers 0.4 % 1-06 9108 Drop in ity of ophthalmic 00:00: [place] solution 00 4 (four) Medical times Branch daily. moxifloxaci 2022-0 Yes [id number] 1[drp] Place 1 Univers n (VIGAMOX) 1-06 9108 Drop in ity o f 0.5 % 00:00: right eye [place] ophthalmic 00 4 (four) Medic al drops times Branch daily. prednisoLON 2022-0 Yes [id number] 1[drp] Place 1 Univers E acetate 1 1-06 9108 Drop in ity o f % 00:00: right eye [place] ophthalmic 00 4 (four) Medic al suspension times Branch drops daily. ketorolac 2022-0 Yes [id number] 1[drp] Place 1 Univers 0.4 % 1-06 9108 Drop in ity of ophthalmic 00:00: [place] solution 00 4 (four) Medical times Branch daily. moxifloxaci 2022-0 Yes [id number] 1[drp] Place 1 Univers n (VIGAMOX) 1-06 9108 Drop in ity o f 0.5 % 00:00: right eye [place] ophthalmic 00 4 (four) Medic al drops times Branch daily. prednisoLON 2022-0 Yes [id number] 1[drp] Place 1 Univers E acetate 1 1-06 9108 Drop in ity o f % 00:00: right eye [place] ophthalmic 00 4 (four) Medic al suspension times Branch drops daily. ketorolac 2022-0 Yes [id number] 1[drp] Place 1 Univers 0.4 % 1-06 9108 Drop in ity of ophthalmic 00:00: [place] solution 00 4 (four) Medical times Branch daily. moxifloxaci 2022-0 Yes [id number] 1[drp] Place 1 Univers n (VIGAMOX) 1-06 9108 Drop in ity o f 0.5 % 00:00: right eye [place] ophthalmic 00 4 (four) Medic al drops times Branch daily. prednisoLON 2022-0 Yes [id number] 1[drp] Place 1 Univers E acetate 1 1-06 9108 Drop in ity o f % 00:00: right eye [place] ophthal[facility] 00 4 (four) Medic al suspension times Branch drops daily. ketorolac 2022-0 Yes [id number] 1[drp] Place 1 Univers 0.4 % 1-06 9108 Drop in ity of ophthalmic 00:00: [place] solution 00 4 (four) Medical times Branch daily. moxifloxaci 2022-0 Yes [id number] 1[drp] Place 1 Univers n (VIGAMOX) 1-06 9108 Drop in ity o f 0.5 % 00:00: right eye [place] ophthalmic 00 4 (four) Medic al drops times Branch daily. prednisoLON 2022-0 Yes [id number] 1[drp] Place 1 Univers E acetate 1 1-06 9108 Drop in ity o f % 00:00: right eye [place] ophthalmic 00 4 (four) Medic al suspension times Branch drops daily. ketorolac 3-0 Yes [id number] 1[drp] Place 1 [facility] 0.4 % 1-06 9108 Drop in ity of ophthalmic 00:00: right eye [place] solution 00 4 (four) Medical times Branch daily. moxifloxaci 2022-0 Yes [id number] 1[drp] Place 1 [facility] n (VIGAMOX) 1-06 9108 Drop in ity o f 0.5 % 00:00: right eye [place] ophthalmic 00 4 (four) Medic al drops times Branch daily. prednisoLON 2022-0 Yes [id number] 1[drp] Place 1 [facility] E acetate 1 1-06 9108 Drop in ity o f % 00:00: right eye [place] ophthalmic 00 4 (four) Medic al suspension times Branch drops daily. ketorolac 2022-0 Yes [id number] 1[drp] Place 1 [facility] 0.4 % 1-06 9108 Drop in [facility]y of ophthalmic 00:00: [place] eye [place] solution 00 4 (four) Medical times Branch daily. moxifloxaci 2022-0 Yes [id number] 1[drp] Place 1 [facility] n (VIGAMOX) 1-06 9108 Drop in ity o f 0.5 % 00:00: right eye [place] ophthalmic 00 4 (four) Medic al drops times Branch daily. prednisoLON 2022-0 Yes [id number] 1[drp] Place 1 [facility] E acetate 1 1-06 9108 Drop in ity o f % 00:00: right eye [place] ophthalmic 00 4 (four) Medic al suspension times Branch drops daily. ketorolac 2022-0 Yes [id number] 1[drp] Place 1 [facility] 0.4 % 1-06 9108 Drop in ity of ophthalmic 00:00: right eye [place] solution 00 4 (four) Medical times Branch daily. moxifloxaci 2022-0 Yes [id number] 1[drp] Place 1 [facility] n (VIGAMOX) 1-06 9108 Drop in ity o f 0.5 % 00:00: right eye [place] ophthalmic 00 4 (four) Medic al drops times Branch daily. prednisoLON 2022-0 Yes [id number] 1[drp] Place 1 [facility] E acetate 1 1-06 9108 Drop in ity o f % 00:00: right eye [place] ophthalmic 00 4 (four) Medic al suspension times Branch drops daily. ketorolac 2022-0 Yes [id number] 1[drp] Place 1 [facility] 0.4 % 1-06 9108 Drop in ity of ophthalmic 00:00: right eye [place] solution 00 4 (four) Medical times Branch daily. moxifloxaci 2022-0 Yes [id number] 1[drp] Place 1 [facility] n (VIGAMOX) 1-06 9108 Drop in ity o f 0.5 % 00:00: right eye [place] ophthalmic 00 4 (four) Medic al drops times Branch daily. prednisoLON 2022-0 Yes [id number] 1[drp] Place 1 [facility] E acetate 1 1-06 9108 Drop in ity o f % 00:00: right eye [place] ophthalmic 00 4 (four) Medic al suspension times Branch drops daily. ketorolac 2022-0 Yes [id number] 1[drp] Place 1 [facility] 0.4 % 1-06 9108 Drop in ity of ophthalmic 00:00: right eye [place] solution 00 4 (four) Medical times Branch daily. moxifloxaci 2022-0 Yes [id number] 1[drp] Place 1 [facility] n (VIGAMOX) 1-06 9108 Drop in ity o f 0.5 % 00:00: right eye [place] ophthalmic 00 4 (four) Medic al drops times Branch daily. prednisoLON 2022-0 Yes [id number] 1[drp] Place 1 [facility] E acetate 1 1-06 9108 Drop in ity o f % 00:00: right eye [place] ophthalmic 00 4 (four) Medic al suspension times Branch drops daily. ketorolac 2022-0 Yes [id number] 1[drp] Place 1 [facility] 0.4 % 1-06 9108 Drop in ity of ophthalmic 00:00: right eye [place] solution 00 4 (four) Medical times Branch daily. moxifloxaci 2022-0 Yes [id number] 1[drp] Place 1 [facility] n (VIGAMOX) 1-06 9108 Drop in ity o f 0.5 % 00:00: right eye [place] ophthalmic 00 4 (four) Medic al drops times Branch daily. prednisoLON 2022-0 Yes [id number] 1[drp] Place 1 [facility] E acetate 1 1-06 9108 Drop in ity o f % 00:00: right eye [place] ophthalmic 00 4 (four) Medic al suspension times Branch drops daily. ketorolac 2022-0 Yes [id number] 1[drp] Place 1 [facility] 0.4 % 1-06 9108 Drop in ity of ophthalmic 00:00: right eye [place] solution 00 4 (four) Medical times Branch daily. prednisoLON 2022-0 Yes [id number] 1[drp] Place 1 [facility] E acetate 1 1-06 9108 Drop in ity o f % 00:00: right eye [place] ophthalmic 00 4 (four) Medic al suspension times Branch drops daily. ketorolac 2022-0 Yes [id number] 1[drp] Place 1 [facility] 0.4 % 1-06 9108 Drop in ity of ophthalmic 00:00: right eye [place] solution 00 4 (four) Medical times Branch daily. prednisoLON 2022-0 Yes [id number] 1[drp] Place 1 [facility] E acetate 1 1-06 9108 Drop in ity o f % 00:00: right eye [place] ophthalmic 00 4 (four) Medic al suspension times Branch drops daily. ketorolac 2022-0 Yes [id number] 1[drp] Place 1 [facility] 0.4 % 1-06 9108 Drop in ity of ophthalmic 00:00: right eye [place] solution 00 4 (four) Medical times Branch daily. prednisoLON 2022-0 Yes [id number] 1[drp] Place 1 [facility] E acetate 1 1-06 9108 Drop in ity o f % 00:00: right eye [place] ophthalmic 00 4 (four) Medic al suspension times Branch drops daily. ketorolac 2022-0 Yes [id number] 1[drp] Place 1 [facility] 0.4 % 1-06 9108 Drop in ity of ophthalmic 00:00: right eye [place] solution 00 4 (four) Medical times Branch daily. prednisoLON 2022-0 Yes [id number] 1[drp] Place 1 [facility] E acetate 1 1-06 9108 Drop in ity o f % 00:00: right eye [place] ophthalmic 00 4 (four) Medic al suspension times Branch drops daily. ketorolac 2022-0 Yes [id number] 1[drp] Place 1 [facility] 0.4 % 1-06 9108 Drop in ity of ophthalmic 00:00: right eye [place] solution 00 4 (four) Medical times Branch daily. prednisoLON 2022-0 Yes [id number] 1[drp] Place 1 [facility] E acetate 1 1-06 9108 Drop in ity o f % 00:00: right eye [place] ophthalmic 00 4 (four) Medic al suspension times Branch drops daily. ketorolac Yes [id number] 1[drp] Place 1 [facility] 0.4 % 08-02 9108 Drop in ity of ophthalmic 00:00: right eye [place] solution 00 4 (four) Medical times Branch daily. prednisoLON 2022- No [id number] 1[drp] Place 1 [facility] E acetate 1 08-02 9108 Drop in ity of % 00:00: 00:00 right eye [place] ophthalmic 00 :00 4 (four) Medic al suspension times Branch drops daily. ketorolac 2022- No [id number] 1[drp] Place 1 [facility] 0.4 % 08-02 9108 Drop in ity of ophthalmic 00:00: 00:00 right eye [place] solution 00 :00 4 (four) Medical times Branch daily. prednisoLON 2022- No [id number] 1[drp] Place 1 [facility] E acetate 1 08-02 9108 Drop in ity of % 00:00: 00:00 right eye [place] ophthalmic 00 :00 4 (four) Medic al suspension times Branch drops daily. ketorolac 2022- No [id number] 1[drp] Place 1 [facility] 0.4 % 08-02 9108 Drop in ity of ophthalmic 00:00: 00:00 right eye [place] solution 00 :00 4 (four) Medical times Branch daily. prednisoLON 2022- No [id number] 1[drp] Place 1 [facility] E acetate 1 08-02 9108 Drop in ity of % 00:00: 00:00 right eye [place] ophthalmic 00 :00 4 (four) Medic al suspension times Branch drops daily. ketorolac 2022- No [id number] 1[drp] Place 1 [facility] 0.4 % 08-02 9108 Drop in ity of ophthalmic 00:00: 00:00 [place] solution 00 :00 4 (four) Medical times Branch daily. moxifloxaci 2022- No [id number] 1[drp] Place 1 Univers n (VIGAMOX) 08-02- 9108 Drop in ity of 0.5 % 00:00: 00:00 right eye [place] ophthalmic 00 :00 4 (four) Medic al drops times Branch daily. moxifloxaci 2022- No [id number] 1[drp] Place 1 Univers n (VIGAMOX) 08-02 03-09 9108 Drop in ity of 0.5 % 00:00: 00:00 right eye [place] ophthalmic 00 :00 4 (four) Medic al drops times Branch daily. HYDROcodone 0 Yes 1{tbl} 1 tablet, Univers -acetaminop 1-05 Oral, PRN, it y of [place] (NORCO 17:48: 1 [place] 5) 5-325 mg 15 Starting Medi [place] tablet 1 on [place] Branch tablet 08/01/22 at 1148, Until Discontinu ed, Routine, Pain (scale 7-10), DSU Recovery acetaminoph 0 Yes 1{tbl} 1 tablet, Univers en-codeine 1-05 Oral, PRN, ity of (TYLENOL 17:48: 1 dose, [place] #3) 300-30 15 Starting Medic al mg tablet 1 on [place] Branch tablet 08/01/22 at 1148, Until Discontinu ed, Routine, Pain (scale 4-6), DSU Recovery acetaminoph Yes 500mg 500 mg, Un kiarra en 1-05 Oral, PRN, ity of (TYLENOL) 17:48: 1 dose, [place] tablet 500 15 Starting Medic al mg on [place] Branch 08/01/22 at 1148, Until Discontinu ed, Routine, Pain (scale 1-3), DSU Recovery HYDROcodone 2022- No 1{tbl} 1 tablet, Univers -acetaminop -05 -06 Oral, PRN, i ty of hen (NORCO 17:48: 00:53 1 dose, [place] 5) 5-325 mg 15 :20 Starting Medi katherine tablet 1 on [place] Branch tablet 08/01/22 at 1148, Until [place] 08/01/22 at 1853, Routine, Pain (scale 7-10), DSU Recovery acetaminoph 2022- No 1{tbl} 1 tablet, Univers en-codeine -11 25-06 Oral, PRN, it y of (TYLENOL 17:48: 00:53 1 dose, [place] #3) 300-30 15 :20 Starting Medic al mg tablet 1 on [place] Branch tablet 08/01/22 at 1148, Until [place] 08/01/22 at 1853, Routine, Pain (scale 4-6), DSU Recovery acetaminoph 2022- No 500mg 500 mg, U nivers en 08-01 Oral, PRN, ity of (TYLENOL) 17:48: 00:53 1 dose, [place] tablet 500 15 :20 Starting Medic al mg on [place] Branch 08/01/22 at 1148, Until [place] 08/01/22 at 1853, Routine, Pain (scale 1-3), DSU Recovery sodium 2022- No PRN, Univers hyaluronate 08-01 Starting ity of (PROVISC) 17:34: 17:46 on [place] injection 00 :15 08/01/22 at Medic al 1134, Branch Until [place] 08/01/22 at 1146, Routine, Intra-op timolol 2022- No PRN, Univers (TIMOPTIC) 08-01 Starting ity of 0.5 % 17:33: 17:46 on [facility] ophthalmic 00 :15 08/01/22 at Medi katherine solution 1133, Branch Until [place] 08/01/22 at 1146, Routine, Intra-op tetracaine 2022- No PRN, Univer s (PONTOCAINE 08-01 Starting ity of ) 0.5 % 17:33: 17:46 on [facility] ophthalmic 00 :15 08/01/22 at Medi katherine drops 1133, Branch Until [place] 08/01/22 at 1146, Routine, Intra-op prednisoLON 2022- No PRN, Unive rs E acetate 08-01 Starting ity o f (PRED-FORTE 17:32: 17:46 on [place] ) 1 % 00 :15 08/01/22 at Medical ophthalmic 1132, Branch suspension Until [place] drops 08/01/22 at 1146, Routine, Intra-op povidone-io 2022- No PRN, Unive rs dine 08-01 Starting ity of (BETADINE) 17:32: 17:46 [place] 5 % 00 :15 08/01/22 at [facility] ophthalmic 1132, Branch drops Until [place] 08/01/22 at 1146, Routine, Intra-op moxifloxaci 2022- No PRN, Unive rs n (VIGAMOX) 08-01 Starting ity of 0.5 % 17:32: 17:46 on [facility] [place] ophthalmic 00 :15 08/01/22 at [facility] drops 1132, Branch Until [place] 08/01/22 at 1146, Routine, Intra-op lidocaine-p 2022- No PRN, Unive rs henylephrin 08-01 Starting ity of -BSS(PF) 17:31: 17:46 on [place] (COMPOUNDED 00 :15 08/01/22 at [facility] ical ) 1-1.5 % 1131, Branch ophthalmic Until [place] injection 08/01/22 at 1146, Routine, Intra-op EPINEPHrine 2022- No PRN, Unive rs (PF) 08-01 Starting ity of 1:1,000 (1 17:31: 17:46 on [facility] [place] mg/mL) 00 :15 08/01/22 at [facility] (ADRENALIN 1131, Branch (PF)) Until [place] injection 08/01/22 at 1146, Routine, Intra-op chondroitin 2022- No PRN, Unive rs sulf-sod 08-01 Starting ity of hyaluronate 17:31: 17:46 on [place] (DUOVISC 00 :15 08/01/22 at Medica l VISCO 1131, Branch ELASTIC) Until [place] intraocular 08/01/22 at injection 1146, Routine, Intra-op balanced 2022-2022- No PRN, Univers salt irrig 08-01 Starting ity of soln comb1 17:30: 17:46 [place] (BSS PLUS) 00 :15 08/01/22 at [facility] ophthalmic 1130, Branch solution Until [place] 500 mL bag 08/01/22 at 1146, Routine, Intra-op moxifloxaci 2022-2022- No 1[drp] 1 Drop, Univers n (VIGAMOX) 08-01 Right Eye, i ty of 0.5 % 15:06: 15:29 Q5MIN PRN, [place] ophthalmic 16 :00 3 doses, Medic al drops 1 Starting Branch Drop on [place] 08/01/22 at 0906, Until Discontinu ed, Routine, Surgery/Pr ocedure, If Mydriatic #5 unavailabl e, DSU Pre-op cyclopent 2022- No .25mL 0.25 mL, Un kiarra 1%-tropic 08-01 Right Eye, ity of 1%-phenyl 15:06: 15:29 PRN - [place] 2.5%-ketor 16 :00 INSTRUCTIO Med ical 0.5% NS, 2 Branch (MYDRIATIC doses, #5) Starting ophthalmic on [place] solution 08/01/22 at syringe 0906, 0.25 mL Until Discontinu ed, Routine, Surgery/Pr ocedure, DSU Pre-op moxifloxaci 2022- No 1[drp] 1 Drop, Univers n (VIGAMOX) 08-01 Right Eye, i ty of 0.5 % 15:06: 15:29 Q5MIN PRN, [place] ophthalmic 16 :00 3 doses, Medic al drops 1 Starting Branch Drop on [place] 08/01/22 at 0906, Until Discontinu ed, Routine, Surgery/Pr ocedure, If Mydriatic #5 unavailabl e, DSU Pre-op cyclopent 2022- No .25mL 0.25 mL, Un kiarra 1%-tropic 08-01 Right Eye, ity of 1%-phenyl 15:06: 15:29 PRN - [place] 2.5%-ketor 16 :00 INSTRUCTIO Med ical 0.5% NS, 2 Branch (MYDRIATIC doses, #5) Starting ophthalmic on [place] solution 08/01/22 at syringe 0906, 0.25 mL Until Discontinu ed, Routine, Surgery/Pr ocedure, DSU Pre-op prednisoLON 2021-07 Yes [id number] 1[drp] Place 1 [facility] E acetate 1 08-13 Drop in ity o f % 00:00: right eye [place] ophthalmic 00 4 (four) Medic al suspension times Branch drops daily. ketorolac 2021-07 Yes [id number] 1[drp] Place 1 Univers 0.4 % 1-17 9108 Drop in ity of ophthalmic 00:00: right eye [place] solution 00 4 (four) Medical times Branch daily. moxifloxaci 2021-07 Yes [id number] 1[drp] Place 1 Univers n (VIGAMOX) 1-17 9108 Drop in ity o f 0.5 % 00:00: right eye [place] ophthalmic 00 4 (four) Medic al drops times Branch daily. prednisoLON 2021-07 Yes [id number] 1[drp] Place 1 [facility] E acetate 1 1-17 9108 Drop in ity o f % 00:00: right eye [place] ophthalmic 00 4 (four) Medic al suspension times Branch drops daily. ketorolac 2021-07 Yes [id number] 1[drp] Place 1 Univers 0.4 % 1-17 9108 Drop in ity of ophthalmic 00:00: right eye [place] solution 00 4 (four) Medical times Branch daily. moxifloxaci 2021-07 Yes [id number] 1[drp] Place 1 Univers n (VIGAMOX) 1-17 9108 Drop in ity o f 0.5 % 00:00: right eye [place] ophthalmic 00 4 (four) Medic al drops times Branch daily. prednisoLON 2021-07 Yes [id number] 1[drp] Place 1 [facility] E acetate 1 1-17 9108 Drop in ity o f % 00:00: right eye [place] ophthalmic 00 4 (four) Medic al suspension times Branch drops daily. ketorolac 2021-07 Yes [id number] 1[drp] Place 1 Univers 0.4 % 1-17 9108 Drop in ity of ophthalmic 00:00: right eye [place] solution 00 4 (four) Medical times Branch daily. moxifloxaci 2021-07 Yes [id number] 1[drp] Place 1 Univers n (VIGAMOX) 1-17 9108 Drop in ity o f 0.5 % 00:00: right eye [place] ophthalmic 00 4 (four) Medic al drops times Branch daily. prednisoLON 2021-07 Yes [id number] 1[drp] Place 1 [facility] E acetate 1 1-17 9108 Drop in ity o f % 00:00: right eye [place] ophthalmic 00 4 (four) Medic al suspension times Branch drops daily. ketorolac 2021-07 Yes [id number] 1[drp] Place 1 Univers 0.4 % 1-17 9108 Drop in ity of ophthalmic 00:00: right eye [place] solution 00 4 (four) Medical times Branch daily. moxifloxaci 2021-07 Yes [id number] 1[drp] Place 1 Univers n (VIGAMOX) 1-17 9108 Drop in ity o f 0.5 % 00:00: right eye [place] ophthalmic 00 4 (four) Medic al drops times Branch daily. prednisoLON 2021-07 Yes [id number] 1[drp] Place 1 [facility] E acetate 1 1-17 9108 Drop in ity o f % 00:00: right eye [place] ophthalmic 00 4 (four) Medic al suspension times Branch drops daily. ketorolac 2021-07 Yes [id number] 1[drp] Place 1 Univers 0.4 % 1-17 9108 Drop in ity of ophthalmic 00:00: right eye [place] solution 00 4 (four) Medical times Branch daily. moxifloxaci 2021-07 Yes [id number] 1[drp] Place 1 Univers n (VIGAMOX) 1-17 9108 Drop in ity o f 0.5 % 00:00: right eye [place] ophthalmic 00 4 (four) Medic al drops times Branch daily. prednisoLON 2021-07 Yes [id number] 1[drp] Place 1 [facility] E acetate 1 1-17 9108 Drop in ity o f % 00:00: right eye [place] ophthalmic 00 4 (four) Medic al suspension times Branch drops daily. ketorolac 2021-07 Yes [id number] 1[drp] Place 1 Univers 0.4 % 1-17 9108 Drop in ity of ophthalmic 00:00: right eye [place] solution 00 4 (four) Medical times Branch daily. moxifloxaci 2021-07 Yes [id number] 1[drp] Place 1 Univers n (VIGAMOX) 1-17 9108 Drop in ity o f 0.5 % 00:00: right eye [place] ophthalmic 00 4 (four) Medic al drops times Branch daily. prednisoLON 2021-07 Yes [id number] 1[drp] Place 1 Univers E acetate 1 -17 9108 Drop in ity o f % 00:00: right eye [place] ophthalmic 00 4 (four) Medic al suspension times Branch drops daily. ketorolac 2021-07 Yes [id number] 1[drp] Place 1 Univers 0.4 % 17 9108 Drop in ity of ophthalmic 00:00: right eye [place] solution 00 4 (four) Medical times Branch daily. moxifloxaci 2021-07 Yes [id number] 1[drp] Place 1 Univers n (VIGAMOX) -17 9108 Drop in ity o f 0.5 % 00:00: right eye [place] ophthalmic 00 4 (four) Medic al drops times Branch daily. prednisoLON 2021-07 Yes [id number] 1[drp] Place 1 [facility] E acetate 1 08-13 9108 Drop in ity o f % 00:00: right eye [place] ophthalmic 00 4 (four) Medic al suspension times Branch drops daily. ketorolac 2021-07 Yes [id number] 1[drp] Place 1 Univers 0.4 % 17 9108 Drop in ity of ophthalmic 00:00: right eye [place] solution 00 4 (four) Medical times Branch daily. moxifloxaci 2021-07 Yes [id number] 1[drp] Place 1 Univers n (VIGAMOX) 17 9108 Drop in ity o f 0.5 % 00:00: right eye [place] ophthalmic 00 4 (four) Medic al drops times Branch daily. prednisoLON 2021-07- No [id number] 1[drp] Place 1 [facility] E acetate 1 17 -06 9108 Drop in ity of % 00:00: 00:00 right eye [place] ophthalmic 00 :00 4 (four) Medic al suspension times Branch drops daily. ketorolac 2021-07- No [id number] 1[drp] Place 1 Univers 0.4 % 17 -06 9108 Drop in ity of ophthalmic 00:00: 00:00 right eye [place] solution 00 :00 4 (four) Medical times Branch daily. moxifloxaci 2021-07- No [id number] 1[drp] Place 1 Univers n (VIGAMOX) 08-13 9108 Drop in ity of 0.5 % 00:00: 00:00 right eye [place] ophthalmic 00 :00 4 (four) Medic al drops times Branch daily. prednisoLON 2021-07- No [id number] 1[drp] Place 1 [facility] E acetate 1 08-13 9108 Drop in ity of % 00:00: 00:00 right eye [place] ophthalmic 00 :00 4 (four) Medic al suspension times Branch drops daily. ketorolac 2021-07- No [id number] 1[drp] Place 1 Univers 0.4 % 08-13 9108 Drop in ity of ophthalmic 00:00: 00:00 right eye [place] solution 00 :00 4 (four) Medical times Branch daily. moxifloxaci 2021-07- No [id number] 1[drp] Place 1 Univers n (VIGAMOX) 08-13 9108 Drop in ity of 0.5 % 00:00: 00:00 right eye [place] ophthalmic 00 :00 4 (four) Medic al drops times Branch daily. amoxicillin 2021-07 Yes [id number] 500mg Take 1 Univers 500 mg 1-12 capsule by ity of capsule 00:00: mouth in [place] [address] the Medical morning Branch and 1 capsule at noon and 1 capsule in the evening. amoxicillin 2021-07 Yes [id number] 500mg Take 1 Univers 500 mg 1-12 capsule by ity of capsule 00:00: mouth in [address] morning Branch and 1 capsule at noon and 1 capsule in the evening. amoxicillin 2021-07 Yes [id number] 500mg Take 1 Univers 500 mg 1-12 capsule by ity of capsule 00:00: mouth in [place] [address] the Medical morning Branch and 1 capsule at noon and 1 capsule in the evening. amoxicillin 2021-07 Yes [id number] 500mg Take 1 Univers 500 mg 1-12 capsule by ity of capsule 00:00: mouth in [place] [address] the [facility] morning Branch and 1 capsule at noon and 1 capsule in the evening. amoxicillin 2021-07 Yes [id number] 500mg Take 1 Univers 500 mg 1-12 capsule by ity of capsule 00:00: mouth in [address] morning [place] and 1 capsule at noon and 1 capsule in the evening. amoxicillin 2021-07 Yes [id number] 500mg Take 1 Univers 500 mg 1-12 capsule by ity of capsule 00:00: mouth in [address] morning [place] and 1 capsule at noon and 1 capsule in the evening. amoxicillin 2021-07 Yes [id number] 500mg Take 1 Univers 500 mg 1-12 capsule by ity of capsule 00:00: mouth in [place] [address] the [facility] morning [place] and 1 capsule at noon and 1 capsule in the evening. amoxicillin 2021-07 Yes [id number] 500mg Take 1 Univers 500 mg 1-12 capsule by ity of capsule 00:00: mouth in [address] morning [place] and 1 capsule at noon and 1 capsule in the evening. amoxicillin 2021-07 Yes [id number] 500mg Take 1 Univers 500 mg 1-12 capsule by ity of capsule 00:00: mouth in [address] morning [place] and 1 capsule at noon and 1 capsule in the evening. amoxicillin 2021-07 Yes [id number] 500mg Take 1 Univers 500 mg 1-12 capsule by ity of capsule 00:00: mouth in [address] morning [place] and 1 capsule at noon and 1 capsule in the evening. amoxicillin 2021-07 Yes [id number] 500mg Take 1 Univers 500 mg 1-12 capsule by ity of capsule 00:00: mouth in [address] morning [place] and 1 capsule at noon and 1 capsule in the evening. amoxicillin 2021-07 Yes [id number] 500mg Take 1 Univers 500 mg 1-12 capsule by ity of capsule 00:00: mouth in [address] morning [place] and 1 capsule at noon and 1 capsule in the evening. amoxicillin 2021-07 Yes [id number] 500mg Take 1 Univers 500 mg 1-12 capsule by ity of capsule 00:00: mouth in [address] morning [place] and 1 capsule at noon and 1 capsule in the evening. amoxicillin 2021-07 Yes [id number] 500mg Take 1 Univers 500 mg 1-12 capsule by ity of capsule 00:00: mouth in [address] morning [place] and 1 capsule at noon and 1 capsule in the evening. amoxicillin 2021-07 Yes [id number] 500mg Take 1 [facility] 500 mg 1-12 capsule by ity of capsule 00:00: mouth in [address] morning [place] and 1 capsule at noon and 1 capsule in the evening. amoxicillin 2021-07 Yes [id number] 500mg Take 1 Univers 500 mg 1-12 capsule by ity of capsule 00:00: mouth in [address] morning [place] and 1 capsule at noon and 1 capsule in the evening. amoxicillin 2021-07 Yes [id number] 500mg Take 1 Univers 500 mg 1-12 capsule by ity of capsule 00:00: mouth in [place] [address] the [facility] morning [place] and 1 capsule at noon and 1 capsule in the evening. amoxicillin 2021-07 Yes [id number] 500mg Take 1 Univers 500 mg 1-12 capsule by ity of capsule 00:00: mouth in [address] morning [place] and 1 capsule at noon and 1 capsule in the evening. amoxicillin 2021-07 Yes [id number] 500mg Take 1 Univers 500 mg 1-12 capsule by ity of capsule 00:00: mouth in [address] morning [place] and 1 capsule at noon and 1 capsule in the evening. amoxicillin 2021-07 Yes [id number] 500mg Take 1 Univers 500 mg 1-12 capsule by ity of capsule 00:00: mouth in [address] morning [place] and 1 capsule at noon and 1 capsule in the evening. amoxicillin 2021-07 Yes [id number] 500mg Take 1 Univers 500 mg 1-12 capsule by ity of capsule 00:00: mouth in [address] morning [place] and 1 capsule at noon and 1 capsule in the evening. amoxicillin 2021-07 Yes [id number] 500mg Take 1 [facility] 500 mg 1-12 capsule by ity of capsule 00:00: mouth in [address] morning [place] and 1 capsule at noon and 1 capsule in the evening. amoxicillin 2021-07 Yes [id number] 500mg Take 1 Univers 500 mg 1-12 capsule by ity of capsule 00:00: mouth in [address] morning [place] and 1 capsule at noon and 1 capsule in the evening. amoxicillin 2021-07 Yes [id number] 500mg Take 1 [facility] 500 mg 1-12 capsule by ity of capsule 00:00: mouth in [address] morning [place] and 1 capsule at noon and 1 capsule in the evening. amoxicillin 2021-07 Yes [id number] 500mg Take 1 [facility] 500 mg 1-12 capsule by ity of capsule 00:00: mouth in [address] morning [place] and 1 capsule at noon and 1 capsule in the evening. amoxicillin 2021-07 Yes [id number] 500mg Take 1 [facility] 500 mg 1-12 capsule by ity of capsule 00:00: mouth in [address] morning [place] and 1 capsule at noon and 1 capsule in the evening. amoxicillin 2021-07 Yes [id number] 500mg Take 1 Univers 500 mg 1-12 capsule by ity of capsule 00:00: mouth in [place] [address] the [facility] morning [place] and 1 capsule at noon and 1 capsule in the evening. amoxicillin 2021-07 Yes [id number] 500mg Take 1 [facility] 500 mg 1-12 capsule by ity of capsule 00:00: mouth in [address] morning [place] and 1 capsule at noon and 1 capsule in the evening. amoxicillin 2021-07 Yes [id number] 500mg Take 1 [facility] 500 mg 1-12 capsule by ity of capsule 00:00: mouth in [address] morning [place] and 1 capsule at noon and 1 capsule in the evening. amoxicillin 2021-07 Yes [id number] 500mg Take 1 [facility] 500 mg 1-12 capsule by ity of capsule 00:00: mouth in [address] morning [place] and 1 capsule at noon and 1 capsule in the evening. amoxicillin 2021-07 Yes [id number] 500mg Take 1 [facility] 500 mg 1-12 capsule by ity of capsule 00:00: mouth in [address] morning [place] and 1 capsule at noon and 1 capsule in the evening. amoxicillin 2021-07 Yes [id number] 500mg Take 1 [facility] 500 mg 1-12 capsule by ity of capsule 00:00: mouth in [address] morning [place] and 1 capsule at noon and 1 capsule in the evening. amoxicillin 2021-07 Yes [id number] 500mg Take 1 [facility] 500 mg 1-12 capsule by ity of capsule 00:00: mouth in [address] morning [place] and 1 capsule at noon and 1 capsule in the evening. amoxicillin 2021-07 Yes [id number] 500mg Take 1 [facility] 500 mg 1-12 capsule by ity of capsule 00:00: mouth in [address] morning [place] and 1 capsule at noon and 1 capsule in the evening. amoxicillin 2021-07 Yes [id number] 500mg Take 1 [facility] 500 mg 1-12 capsule by ity of capsule 00:00: mouth in [address] morning [place] and 1 capsule at noon and 1 capsule in the evening. amoxicillin 2021-07 Yes [id number] 500mg Take 1 [facility] 500 mg 1-12 capsule by ity of capsule 00:00: mouth in [place] [address] the Medical morning [place] and 1 capsule at noon and 1 capsule in the evening. amoxicillin 2021-07 Yes [id number] 500mg Take 1 [facility] 500 mg 1-12 capsule by ity of capsule 00:00: mouth in [place] [address] the Medical morning [place] and 1 capsule at noon and 1 capsule in the evening. amoxicillin 2021-07 Yes [id number] 500mg Take 1 [facility] 500 mg 1-12 capsule by ity of capsule 00:00: mouth in [place] [address] the Medical morning [place] and 1 capsule at noon and 1 capsule in the evening. amoxicillin 2021-07 Yes [id number] 500mg Take 1 [facility] 500 mg 1-12 capsule by ity of capsule 00:00: mouth in [address] morning [place] and 1 capsule at noon and 1 capsule in the evening. amoxicillin 2021-07 Yes [id number] 500mg Take 1 [facility] 500 mg 1-12 capsule by ity of capsule 00:00: mouth in [address] morning [place] and 1 capsule at noon and 1 capsule in the evening. amoxicillin 2021-07 Yes [id number] 500mg Take 1 [facility] 500 mg 1-12 capsule by ity of capsule 00:00: mouth in [address] morning [place] and 1 capsule at noon and 1 capsule in the evening. amoxicillin 2021-07 Yes [id number] 500mg Take 1 [facility] 500 mg 1-12 capsule by ity of capsule 00:00: mouth in [address] morning [place] and 1 capsule at noon and 1 capsule in the evening. amoxicillin 2021-07 Yes [id number] 500mg Take 1 [facility] 500 mg 1-12 capsule by ity of capsule 00:00: mouth in [address] morning [place] and 1 capsule at noon and 1 capsule in the evening. amoxicillin 2021-07 Yes [id number] 500mg Take 1 [facility] 500 mg 1-12 capsule by ity of capsule 00:00: mouth in [address] morning [place] and 1 capsule at noon and 1 capsule in the evening. amoxicillin 2021-07- No [id number] 500mg Take 1 [facility] 500 mg 1-12 03-03 capsule by ity of capsule 00:00: 00:00 mouth in [place] 00 :00 [facility] morning [place] and 1 capsule at noon and 1 capsule in the evening. amoxicillin 2021-07- No [id number] 500mg Take 1 [facility] 500 mg 08-08 capsule by ity of capsule 00:00: 00:00 mouth in [place] 00 :00 the [facility] and 1 capsule at noon and 1 capsule in the evening. amoxicillin 2021-07- No [id number] 500mg Take 1 [facility] 500 mg 08-08 capsule by ity of capsule 00:00: 00:00 mouth in [place] 00 :00 the [facility] and 1 capsule at noon and 1 capsule in the evening. amoxicillin 2021-07- No [id number] 500mg Take 1 [facility] 500 mg 08-08 capsule by ity of capsule 00:00: 00:00 mouth in [place] 00 :00 [facility] and 1 capsule at noon and 1 capsule in the evening. amoxicillin 2021-07- No [id number] 500mg Take 1 [facility] 500 mg 08-08 capsule by ity of capsule 00:00: 00:00 mouth in [place] 00 :00 [facility] and 1 capsule at noon and 1 capsule in the evening. amoxicillin 2021-07- No [id number] 500mg Take 1 [facility] 500 mg 08-08 capsule by ity of capsule 00:00: 00:00 mouth in [place] 00 :00 [facility] and 1 capsule at noon and 1 capsule in the evening. amoxicillin 2021-07- No [id number] 500mg Take 1 [facility] 500 mg 08-08 capsule by ity of capsule 00:00: 00:00 mouth in [place] 00 :00 [facility] and 1 capsule at noon and 1 capsule in the evening. amoxicillin 2021-073- No [id number] 500mg Take 1 [facility] 500 mg 08-08 capsule by ity of capsule 00:00: 00:00 mouth in [place] 00 :00 [facility] and 1 capsule at noon and 1 capsule in the evening. naproxen 2021-072- No [id number] 500mg Take 1 [facility] 500 mg 08-0823 tablet by ity of tablet 00:00: 05:59 mouth in [place] 00 :00 [facility] and 1 tablet in the evening. Take with meals. Do all this for 10 days. naproxen 2021-07- No [id number] 500mg Take 1 [facility] 500 mg 08-08-23 tablet by ity of tablet 00:00: 05:59 mouth in [place] 00 :00 the [facility] morning Branch and 1 tablet in the evening. Take with meals. Do all this for 10 days. naproxen 2021-07- No [id number] 500mg Take 1 [facility] 500 mg 08-08-23 tablet by ity of tablet 00:00: 05:59 mouth in [place] 00 :00 the [facility] morning [place] and 1 tablet in the evening. Take with meals. Do all this for 10 days. naproxen 2021-07- No [id number] 500mg Take 1 [facility] 500 mg 08-08- tablet by ity of tablet 00:00: 05:59 mouth in [place] 00 :00 the [facility] and 1 tablet in the evening. Take with meals. Do all this for 10 days. naproxen 2021-07- No [id number] 500mg Take 1 [facility] 500 mg 08-08-23 tablet by ity of tablet 00:00: 05:59 mouth in [place] 00 :00 the [facility] and 1 tablet in the evening. Take with meals. Do all this for 10 days. naproxen 2021-07- No [id number] 500mg Take 1 [facility] 500 mg 08-08-23 tablet by ity of tablet 00:00: 05:59 mouth in [place] 00 :00 the [facility] and 1 tablet in the evening. Take with meals. Do all this for 10 days. pravastatin 202-0 Yes [id number] 40mg Take 1 [facility] 40 mg 8-08 tablet by ity of tablet 00:00: mouth at [place] 00 bedtime. Medical Recommend Branch labs to done as ordered in 2 months. pravastatin 2022-0 Yes [id number] 40mg Take 1 [facility] 40 mg 8-08 tablet by ity of tablet 00:00: mouth at [place] 00 bedtime. Medical Recommend Branch labs to done as ordered in 2 months. pravastatin 2022-0 Yes [id number] 40mg Take 1 [facility] 40 mg 8-08 tablet by ity of tablet 00:00: mouth at [place] 00 bedtime. Medical Recommend Branch labs to done as ordered in 2 months. pravastatin 2022-0 Yes [id number] 40mg Take 1 [facility] 40 mg 8-08 tablet by ity of tablet 00:00: mouth at [place] 00 bedtime. Medical Recommend Branch labs to done as ordered in 2 months. pravastatin 2022-0 Yes [id number] 40mg Take 1 [facility] 40 mg 8-08 tablet by ity of tablet 00:00: mouth at [place] 00 bedtime. Medical Recommend Branch labs to done as ordered in 2 months. pravastatin 2022-0 Yes [id number] 40mg Take 1 [facility] 40 mg 8-08 tablet by ity of tablet 00:00: mouth at [place] 00 bedtime. Medical Recommend Branch labs to done as ordered in 2 months. pravastatin 2022-0 Yes [id number] 40mg Take 1 [facility] 40 mg 8-08 tablet by ity of tablet 00:00: mouth at [place] 00 bedtime. Medical Recommend Branch labs to done as ordered in 2 months. pravastatin 2022-0 Yes [id number] 40mg Take 1 [facility] 40 mg 8-08 tablet by ity of tablet 00:00: mouth at [place] 00 bedtime. Medical Recommend Branch labs to done as ordered in 2 months. pravastatin 2022-0 Yes [id number] 40mg Take 1 [facility] 40 mg 8-08 tablet by ity of tablet 00:00: mouth at [place] 00 bedtime. Medical Recommend Branch labs to done as ordered in 2 months. pravastatin 2022-0 Yes [id number] 40mg Take 1 [facility] 40 mg 8-08 tablet by ity of tablet 00:00: mouth at [place] 00 bedtime. Medical Recommend Branch labs to done as ordered in 2 months. pravastatin 2022-0 Yes [id number] 40mg Take 1 [facility] 40 mg 8-08 tablet by ity of tablet 00:00: mouth at [place] 00 bedtime. Medical Recommend Branch labs to done as ordered in 2 months. pravastatin 2022-0 Yes [id number] 40mg Take 1 [facility] 40 mg 8-08 tablet by ity of tablet 00:00: mouth at [place] 00 bedtime. Medical Recommend Branch labs to done as ordered in 2 months. pravastatin 2022-0 Yes [id number] 40mg Take 1 [facility] 40 mg 8-08 tablet by ity of tablet 00:00: mouth at [place] 00 bedtime. Medical Recommend Branch labs to done as ordered in 2 months. pravastatin 2022-0 Yes [id number] 40mg Take 1 [facility] 40 mg 8-08 tablet by ity of tablet 00:00: mouth at [place] 00 bedtime. Medical Recommend Branch labs to done as ordered in 2 months. pravastatin 2022-0 Yes [id number] 40mg Take 1 [facility] 40 mg 8-08 tablet by ity of tablet 00:00: mouth at [place] 00 bedtime. Medical Recommend Branch labs to done as ordered in 2 months. pravastatin 2022-0 Yes [id number] 40mg Take 1 [facility] 40 mg 8-08 tablet by ity of tablet 00:00: mouth at [place] 00 bedtime. Medical Recommend Branch labs to done as ordered in 2 months. pravastatin 2022-0 Yes [id number] 40mg Take 1 [facility] 40 mg 8-08 tablet by ity of tablet 00:00: mouth at [place] 00 bedtime. Medical Recommend Branch labs to done as ordered in 2 months. pravastatin 2022-0 Yes [id number] 40mg Take 1 [facility] 40 mg 8-08 tablet by ity of tablet 00:00: mouth at [place] 00 bedtime. Medical Recommend Branch labs to done as ordered in 2 months. pravastatin 2022-0 Yes [id number] 40mg Take 1 [facility] 40 mg 8-08 tablet by ity of tablet 00:00: mouth at [place] 00 bedtime. Medical Recommend Branch labs to done as ordered in 2 months. pravastatin 2022-0 Yes [id number] 40mg Take 1 [facility] 40 mg 8-08 tablet by ity of tablet 00:00: mouth at [place] 00 bedtime. Medical Recommend Branch labs to done as ordered in 2 months. pravastatin 2022-0 Yes [id number] 40mg Take 1 [facility] 40 mg 8-08 tablet by ity of tablet 00:00: mouth at [place] 00 bedtime. Medical Recommend Branch labs to done as ordered in 2 months. pravastatin 2022-0 Yes [id number] 40mg Take 1 [facility] 40 mg 8-08 tablet by ity of tablet 00:00: mouth at [place] 00 bedtime. Medical Recommend Branch labs to done as ordered in 2 months. pravastatin 2022-0 Yes [id number] 40mg Take 1 [facility] 40 mg 8-08 tablet by ity of tablet 00:00: mouth at [place] 00 bedtime. Medical Recommend Branch labs to done as ordered in 2 months. pravastatin 2022-0 Yes [id number] 40mg Take 1 [facility] 40 mg 8-08 tablet by ity of tablet 00:00: mouth at [place] 00 bedtime. Medical Recommend Branch labs to done as ordered in 2 months. pravastatin 2022-0 Yes [id number] 40mg Take 1 [facility] 40 mg 8-08 tablet by ity of tablet 00:00: mouth at [place] 00 bedtime. Medical Recommend Branch labs to done as ordered in 2 months. pravastatin 2022-0 Yes [id number] 40mg Take 1 [facility] 40 mg 8-08 tablet by ity of tablet 00:00: mouth at [place] 00 bedtime. Medical Recommend Branch labs to done as ordered in 2 months. pravastatin 2022-0 Yes [id number] 40mg Take 1 [facility] 40 mg 8-08 tablet by ity of tablet 00:00: mouth at [place] 00 bedtime. Medical Recommend Branch labs to done as ordered in 2 months. pravastatin 2022-0 Yes [id number] 40mg Take 1 [facility] 40 mg 8-08 tablet by ity of tablet 00:00: mouth at [place] 00 bedtime. Medical Recommend Branch labs to done as ordered in 2 months. pravastatin 2022-0 Yes [id number] 40mg Take 1 [facility] 40 mg 8-08 tablet by ity of tablet 00:00: mouth at [place] 00 bedtime. Medical Recommend Branch labs to done as ordered in 2 months. pravastatin 2022-0 Yes [id number] 40mg Take 1 [facility] 40 mg 8-08 tablet by ity of tablet 00:00: mouth at [place] 00 bedtime. Medical Recommend Branch labs to done as ordered in 2 months. pravastatin 2022-0 Yes [id number] 40mg Take 1 [facility] 40 mg 8-08 tablet by ity of tablet 00:00: mouth at [place] 00 bedtime. Medical Recommend Branch labs to done as ordered in 2 months. pravastatin 2022-0 Yes [id number] 40mg Take 1 [facility] 40 mg 8-08 tablet by ity of tablet 00:00: mouth at [place] 00 bedtime. Medical Recommend Branch labs to done as ordered in 2 months. pravastatin 2022-0 Yes [id number] 40mg Take 1 [facility] 40 mg 8-08 tablet by ity of tablet 00:00: mouth at [place] 00 bedtime. Medical Recommend Branch labs to done as ordered in 2 months. pravastatin 2022-0 Yes [id number] 40mg Take 1 [facility] 40 mg 8-08 tablet by ity of tablet 00:00: mouth at [place] 00 bedtime. Medical Recommend Branch labs to done as ordered in 2 months. pravastatin 2022-0 Yes [id number] 40mg Take 1 [facility] 40 mg 8-08 tablet by ity of tablet 00:00: mouth at [place] 00 bedtime. Medical Recommend Branch labs to done as ordered in 2 months. pravastatin 2022-0 Yes [id number] 40mg Take 1 [facility] 40 mg 8-08 tablet by ity of tablet 00:00: mouth at [place] 00 bedtime. Medical Recommend Branch labs to done as ordered in 2 months. pravastatin 2022-0 Yes [id number] 40mg Take 1 [facility] 40 mg 8-08 tablet by ity of tablet 00:00: mouth at [place] 00 bedtime. Medical Recommend Branch labs to done as ordered in 2 months. pravastatin 2-0 Yes [id number] 40mg Take 1 [facility] 40 mg 8-08 tablet by ity of tablet 00:00: mouth at [place] 00 bedtime. Medical Recommend Branch labs to done as ordered in 2 months. pravastatin 2-0 Yes [id number] 40mg Take 1 [facility] 40 mg 8-08 tablet by ity of tablet 00:00: mouth at [place] 00 bedtime. Medical Recommend Branch labs to done as ordered in 2 months. pravastatin 2-0 2023- No [id number] 40mg Take 1 [facility] 40 mg 8-08 03-28 tablet by ity of tablet 00:00: 00:00 mouth at [place] 00 :00 bedtime. Medical Recommend Branch labs to done as ordered in 2 months. pravastatin 2022-0 2023- No [id number] 40mg Take 1 [facility] 40 mg 8-08 03-28 tablet by ity of tablet 00:00: 00:00 mouth at [place] 00 :00 bedtime. Medical Recommend Branch labs to done as ordered in 2 months. pravastatin 2022-0 2023- No [id number] 40mg Take 1 [facility] 40 mg 8-08 03-28 tablet by ity of tablet 00:00: 00:00 mouth at [place] 00 :00 bedtime. Medical Recommend Branch labs to done as ordered in 2 months. lisinopriL- 2-0 Yes [id number] 1{tbl} Take 1 [facility] hydrochloro 4-07 tablet by ity of thiazide 00:00: mouth [place] 10-12.5 mg 00 daily. Medical per tablet Branch lisinopriL- 2021-0 Yes [id number] 1{tbl} Take 1 [facility] hydrochloro 4-07 tablet by ity of thiazide 00:00: mouth [place] 10-12.5 mg 00 daily. Medical per tablet Branch lisinopriL- 2021-0 Yes [id number] 1{tbl} Take 1 [facility] hydrochloro 4-07 tablet by ity of thiazide 00:00: mouth [place] 10-12.5 mg 00 daily. Medical per tablet Branch lisinopriL- 0 Yes [id number] 1{tbl} Take 1 [facility] hydrochloro 4-07 tablet by ity of thiazide 00:00: mouth [place] 10-12.5 mg 00 daily. Medical per tablet Branch lisinopriL- 0 Yes [id number] 1{tbl} Take 1 [facility] hydrochloro 4-07 tablet by ity of thiazide 00:00: mouth [place] 10-12.5 mg 00 daily. Medical per tablet Branch lisinopriL- 0 Yes [id number] 1{tbl} Take 1 [facility] hydrochloro 4-07 tablet by ity of thiazide 00:00: mouth [place] 10-12.5 mg 00 daily. Medical per tablet Branch lisinopriL- 0 Yes [id number] 1{tbl} Take 1 [facility] hydrochloro 4-07 tablet by ity of thiazide 00:00: mouth [place] 10-12.5 mg 00 daily. Medical per tablet Branch lisinopriL- 2021-0 Yes [id number] 1{tbl} Take 1 [facility] hydrochloro 4-07 tablet by ity of thiazide 00:00: mouth [place] 10-12.5 mg 00 daily. Medical per tablet Branch lisinopriL- 2021-0 Yes [id number] 1{tbl} Take 1 [facility] hydrochloro 4-07 tablet by ity of thiazide 00:00: mouth [place] 10-12.5 mg 00 daily. Medical per tablet Branch lisinopriL- 2021-0 Yes [id number] 1{tbl} Take 1 [facility] hydrochloro 4-07 tablet by ity of thiazide 00:00: mouth [place] 10-12.5 mg 00 daily. Medical per tablet Branch lisinopriL- 2021-0 Yes [id number] 1{tbl} Take 1 [facility] hydrochloro 4-07 tablet by ity of thiazide 00:00: mouth [place] 10-12.5 mg 00 daily. Medical per tablet Branch lisinopriL- 2021-0 Yes [id number] 1{tbl} Take 1 [facility] hydrochloro 4-07 tablet by ity of thiazide 00:00: mouth [place] 10-12.5 mg 00 daily. Medical per tablet Branch lisinopriL- 2021-0 Yes [id number] 1{tbl} Take 1 [facility] hydrochloro 4-07 tablet by ity of thiazide 00:00: mouth [place] 10-12.5 mg 00 daily. Medical per tablet Branch lisinopriL- 2021-0 Yes [id number] 1{tbl} Take 1 [facility] hydrochloro 4-07 tablet by ity of thiazide 00:00: mouth [place] 10-12.5 mg 00 daily. Medical per tablet Branch lisinopriL- 2021-0 Yes [id number] 1{tbl} Take 1 [facility] hydrochloro 4-07 tablet by ity of thiazide 00:00: mouth [place] 10-12.5 mg 00 daily. Medical per tablet Branch lisinopriL- 2021-0 Yes [id number] 1{tbl} Take 1 [facility] hydrochloro 4-07 tablet by ity of thiazide 00:00: mouth [place] 10-12.5 mg 00 daily. Medical per tablet Branch lisinopriL- 2021-0 Yes [id number] 1{tbl} Take 1 [facility] hydrochloro 4-07 tablet by ity of thiazide 00:00: mouth [place] 10-12.5 mg 00 daily. Medical per tablet Branch lisinopriL- 2021-0 Yes [id number] 1{tbl} Take 1 [facility] hydrochloro 4-07 tablet by ity of thiazide 00:00: mouth [place] 10-12.5 mg 00 daily. Medical per tablet Branch lisinopriL- 2021-0 Yes [id number] 1{tbl} Take 1 [facility] hydrochloro 4-07 tablet by ity of thiazide 00:00: mouth [place] 10-12.5 mg 00 daily. Medical per tablet Branch lisinopriL- 2022-0 Yes [id number] 1{tbl} Take 1 [facility] hydrochloro 4-07 tablet by ity of thiazide 00:00: mouth [place] 10-12.5 mg 00 daily. Medical per tablet Branch lisinopriL- Yes [id number] 1{tbl} Take 1 [facility] hydrochloro 4-07 tablet by ity of thiazide 00:00: mouth [place] 10-12.5 mg 00 daily. Medical per tablet Branch lisinopriL- 2023- No [id number] 1{tbl} Take 1 [facility] hydrochloro 4-07 01-27 tablet by it y of thiazide 00:00: 00:00 mouth [place] 10-12.5 mg 00 :00 daily. Medical per tablet Branch Immunizations Ordered Filled Date Status Comments Source Immunization Name Immunization Name Influenza High Dose 2022-04-19 Completed Unive rsity of Quad 00:00:00 [facility] Pneumococcal 20 2022-04-19 Completed Universit y of Conjugate, PCV20 00:00:00 [facility] dical (Prevnar 20) Branch [facility] 2022-04-19 Completed University of 00:00:00 [facility] Zoster Vaccine 2022-04-19 Completed University of Recombinant 00:00:00 [facility] Influenza High Dose 2022-04-19 Completed Unive rsity of Quad 00:00:00 [facility] Pneumococcal 20 2022-04-19 Completed Universit y of Conjugate, PCV20 00:00:00 [facility] dical (Prevnar 20) Branch [facility] 2022-04-19 Completed University of 00:00:00 [facility] Zoster Vaccine 2022-04-19 Completed University of Recombinant 00:00:00 [facility] Influenza High Dose 2022-04-19 Completed Unive rsity of Quad 00:00:00 [facility] Pneumococcal 20 2022-04-19 Completed Universit y of Conjugate, PCV20 00:00:00 [facility] dical (Prevnar 20) Branch [facility] 2022-04-19 Completed University of 00:00:00 [facility] Zoster Vaccine 2022-04-19 Completed University of Recombinant 00:00:00 [facility] Influenza High Dose 2022-04-19 Completed Unive rsity of Quad 00:00:00 [facility] Pneumococcal 20 2022-04-19 Completed Universit y of Conjugate, PCV20 00:00:00 [facility] (Prevnar 20) Branch [facility] 2022-04-19 Completed University of 00:00:00 [facility] Zoster Vaccine 2022-04-19 Completed University of Recombinant 00:00:00 [facility] Influenza High Dose 2022-04-19 Completed Unive rsity of Quad 00:00:00 [facility] Pneumococcal 20 2022-04-19 Completed Universit y of Conjugate, PCV20 00:00:00 [facility] (Prevnar 20) Branch [facility] 2022-04-19 Completed University of 00:00:00 [facility] Zoster Vaccine 2022-04-19 Completed University of Recombinant 00:00:00 [facility] Influenza High Dose 2022-04-19 Completed Unive rsity of Quad 00:00:00 [facility] Pneumococcal 20 2022-04-19 Completed Universit y of Conjugate, PCV20 00:00:00 [facility] (Prevnar 20) Branch [facility] 2022-04-19 Completed University of 00:00:00 [facility] Zoster Vaccine 2022-04-19 Completed University of Recombinant 00:00:00 [facility] Influenza High Dose 2022-04-19 Completed Unive rsity of Quad 00:00:00 [facility] Pneumococcal 20 2022-04-19 Completed Universit y of Conjugate, PCV20 00:00:00 [facility] (Prevnar 20) Branch [facility] 2022-04-19 Completed University of 00:00:00 [facility] Zoster Vaccine 2022-04-19 Completed University of Recombinant 00:00:00 [facility] Influenza High Dose 2022-04-19 Completed Unive rsity of Quad 00:00:00 [facility] Pneumococcal 20 2022-04-19 Completed Universit y of Conjugate, PCV20 00:00:00 [facility] (Prevnar 20) Branch [facility] 2022-04-19 Completed University of 00:00:00 [facility] Zoster Vaccine 2022-04-19 Completed University of Recombinant 00:00:00 [facility] Influenza High Dose 2022-04-19 Completed Unive rsity of [facility] 00:00:00 [facility] Pneumococcal 20 2022-04-19 Completed Universit y of Conjugate, PCV20 00:00:00 [facility] (Prevnar 20) Branch [facility] 2022-04-19 Completed University of 00:00:00 [facility] Zoster Vaccine 2022-04-19 Completed University of Recombinant 00:00:00 [facility] Influenza High Dose 2022-04-19 Completed Unive rsity of Quad 00:00:00 [facility] Pneumococcal 20 2022-04-19 Completed Universit y of Conjugate, PCV20 00:00:00 [facility] (Prevnar 20) Branch TD 2022-04-19 Completed University of 00:00:00 [facility] Zoster Vaccine 2022-04-19 Completed University of Recombinant 00:00:00 [facility] Influenza High Dose 2022-04-19 Completed Unive rs[facility] of Quad 00:00:00 [facility] Pneumococcal 20 2022-04-19 Completed Universit y of Conjugate, PCV20 00:00:00 [facility] (Prevnar 20) Branch [facility] 2022-04-19 Completed University of 00:00:00 [facility] Zoster Vaccine 2022-04-19 Completed University of Recombinant 00:00:00 [facility] Influenza High Dose 2022-04-19 Completed [facility]ive [facility] of [facility] 00:00:00 [facility] Pneumococcal 20 2022-04-19 Completed Universit y of Conjugate, PCV20 00:00:00 [facility] (Prevnar 20) Branch [facility] 2022-04-19 Completed University of 00:00:00 [facility] Zoster Vaccine 2022-04-19 Completed University of Recombinant 00:00:00 [facility] Influenza High Dose 2022-04-19 Completed [facility]ive [facility] of [facility] 00:00:00 [facility] Pneumococcal 20 2022-04-19 Completed Universit y of Conjugate, PCV20 00:00:00 [facility] (Prevnar 20) Branch [facility] 2022-04-19 Completed University of 00:00:00 [facility] Zoster Vaccine 2022-04-19 Completed University of Recombinant 00:00:00 [facility] Influenza High Dose 2022-04-19 Completed [facility]ive [facility] of [facility] 00:00:00 [facility] Pneumococcal 20 2022-04-19 Completed Universit y of Conjugate, PCV20 00:00:00 [place] [facility] (Prevnar 20) Branch [facility] 2022-04-19 Completed University of 00:00:00 [facility] Zoster Vaccine 2022-04-19 Completed University of Recombinant 00:00:00 [facility] Influenza High Dose 2022-04-19 Completed [facility]ive [facility] of [facility] 00:00:00 [facility] Pneumococcal 20 2022-04-19 Completed Universit y of Conjugate, PCV20 00:00:00 [place] [facility] (Prevnar 20) Branch AP 2022-04-19 Completed University of 00:00:00 [facility] Zoster Vaccine 2022-04-19 Completed University of Recombinant 00:00:00 [facility] Influenza High Dose 2022-04-19 Completed [facility] of [facility] 00:00:00 [facility] Pneumococcal 20 2022-04-19 Completed Universit y of Conjugate, PCV20 00:00:00 [facility] (Prevnar 20) Branch [facility] 2022-04-19 Completed University of 00:00:00 [facility] Zoster Vaccine 2022-04-19 Completed University of Recombinant 00:00:00 [facility] Influenza High Dose 2022-04-19 Completed Unive [facility] of [facility] 00:00:00 [facility] Pneumococcal 20 2022-04-19 Completed Universit y of Conjugate, PCV20 00:00:00 [facility] (Prevnar 20) Branch [facility] 2022-04-19 Completed University of 00:00:00 [facility] Zoster Vaccine 2022-04-19 Completed [facility] of Recombinant 00:00:00 [facility] Influenza High Dose 2022-04-19 Completed [facility]ive [facility] Quad 00:00:00 [facility] Pneumococcal 20 2022-04-19 Completed [facility]it [facility] of Conjugate, PCV20 00:00:00 [facility] (Prevnar 20) Branch [facility] 2022-04-19 Completed [facility] of 00:00:00 [facility] Zoster Vaccine 2022-04-19 Completed [facility] of Recombinant 00:00:00 [facility] Influenza High Dose 2022-04-19 Completed [facility] 00:00:00 [facility] Pneumococcal 20 2022-04-19 Completed [facility] Conjugate, PCV20 00:00:00 [facility] [place] [facility] (Prevnar 20) [facility] 2022-04-19 Completed [facility] of 00:00:00 [facility] Zoster Vaccine 2022-04-19 Completed [facility] of Recombinant 00:00:00 [facility] Influenza High Dose 2022-04-19 Completed [facility] 00:00:00 [facility] Pneumococcal 20 2022-04-19 Completed [facility]it [facility] Conjugate, PCV20 00:00:00 [facility] (Prevnar 20) [facility] 2022-04-19 Completed [facility] of 00:00:00 [facility] Zoster Vaccine 2022-04-19 Completed [facility] of Recombinant 00:00:00 [facility] Influenza High Dose 2022-04-19 Completed [facility] 00:00:00 [facility] Pneumococcal 20 2022-04-19 Completed [facility] Conjugate, PCV20 00:00:00 [facility] (Prevnar 20) [facility] 2022-04-19 Completed [facility] of 00:00:00 [facility] Zoster Vaccine 2022-04-19 Completed [facility] of Recombinant 00:00:00 [facility] Influenza High Dose 2022-04-19 Completed [facility] 00:00:00 [facility] Pneumococcal 20 2022-04-19 Completed [facility] Conjugate, PCV20 00:00:00 [facility] (Prevnar 20) [facility] 2022-04-19 Completed [facility] of 00:00:00 [facility] Zoster Vaccine 2022-04-19 Completed [facility] Recombinant 00:00:00 [facility] Influenza High Dose 2022-04-19 Completed [facility] 00:00:00 [facility] Pneumococcal 20 2022-04-19 Completed [facility] Conjugate, PCV20 00:00:00 [facility] (Prevnar 20) [facility] 2022-04-19 Completed [facility] 00:00:00 [facility] Zoster Vaccine 2022-04-19 Completed [facility] of Recombinant 00:00:00 [facility] Influenza High Dose 2022-04-19 Completed [facility] 00:00:00 [facility] Pneumococcal 20 2022-04-19 Completed [facility]it [facility] of Conjugate, PCV20 00:00:00 [facility] (Prevnar 20) [facility] 2022-04-19 Completed [facility] of 00:00:00 [facility] Zoster Vaccine 2022-04-19 Completed [facility] of Recombinant 00:00:00 [facility] Influenza High Dose 2022-04-19 Completed [facility] 00:00:00 [facility] Pneumococcal 20 2022-04-19 Completed [facility] Conjugate, PCV20 00:00:00 [place] [facility] (Prevnar 20) [facility] 2022-04-19 Completed [facility] 00:00:00 [facility] Zoster Vaccine 2022-04-19 Completed [facility] Recombinant 00:00:00 [facility] Influenza High Dose 2022-04-19 Completed [facility] 00:00:00 [facility] Pneumococcal 20 2022-04-19 Completed [facility] Conjugate, PCV20 00:00:00 [facility] [place] [facility] (Prevnar 20) [facility] 2022-04-19 Completed [facility] 00:00:00 [facility] Zoster Vaccine 2022-04-19 Completed [facility] of Recombinant 00:00:00 [facility] Influenza High Dose 2022-04-19 Completed [facility] 00:00:00 [facility] Pneumococcal 20 2022-04-19 Completed [facility] Conjugate, PCV20 00:00:00 [facility] (Prevnar 20) [facility] 2022-04-19 Completed [facility] of 00:00:00 [facility] Zoster Vaccine 2022-04-19 Completed [facility] Recombinant 00:00:00 [facility] Influenza High Dose 2022-04-19 Completed [facility] 00:00:00 [facility] Pneumococcal 20 2022-04-19 Completed [facility] Conjugate, PCV20 00:00:00 [facility] (Prevnar 20) [facility] 2022-04-19 Completed [facility] of 00:00:00 [facility] Zoster Vaccine 2022-04-19 Completed [facility] Recombinant 00:00:00 [facility] Influenza High Dose 2022-04-19 Completed [facility] 00:00:00 [facility] Pneumococcal 20 2022-04-19 Completed [facility] Conjugate, PCV20 00:00:00 [facility] [place] [facility] (Prevnar 20) [facility] 2022-04-19 Completed [facility] of 00:00:00 [facility] Zoster Vaccine 2022-04-19 Completed [facility] of Recombinant 00:00:00 [facility] Influenza High Dose 2022-04-19 Completed [facility] 00:00:00 [facility] Pneumococcal 20 2022-04-19 Completed [facility] Conjugate, PCV20 00:00:00 [facility] [place] [facility] (Prevnar 20) [facility] 2022-04-19 Completed [facility] of 00:00:00 [facility] Zoster Vaccine 2022-04-19 Completed [facility] Recombinant 00:00:00 [facility] Influenza High Dose 2022-04-19 Completed [facility] 00:00:00 [facility] Pneumococcal 20 2022-04-19 Completed [facility] of Conjugate, PCV20 00:00:00 [facility] [place] [facility] (Prevnar 20) [facility] 2022-04-19 Completed [facility] of 00:00:00 [facility] Zoster Vaccine 2022-04-19 Completed [facility] of Recombinant 00:00:00 [facility] Influenza High Dose 2022-04-19 Completed [facility] 00:00:00 [facility] Pneumococcal 20 2022-04-19 Completed [facility]it [facility] of Conjugate, PCV20 00:00:00 [facility] (Prevnar 20) [facility] 2022-04-19 Completed [facility] of 00:00:00 [facility] Zoster Vaccine 2022-04-19 Completed [facility] Recombinant 00:00:00 [facility] Influenza High Dose 2022-04-19 Completed [facility] 00:00:00 [facility] Pneumococcal 20 2022-04-19 Completed [facility] Conjugate, PCV20 00:00:00 [facility] (Prevnar 20) [facility] 2022-04-19 Completed [facility] of 00:00:00 [facility] Zoster Vaccine 2022-04-19 Completed [facility] of Recombinant 00:00:00 [facility] Influenza High Dose 2022-04-19 Completed [facility] 00:00:00 [facility] Pneumococcal 20 2022-04-19 Completed [facility] Conjugate, PCV20 00:00:00 [facility] (Prevnar 20) [facility] 2022-04-19 Completed [facility] of 00:00:00 [facility] Zoster Vaccine 2022-04-19 Completed [facility] of Recombinant 00:00:00 [facility] Influenza High Dose 2022-04-19 Completed [facility] 00:00:00 [facility] Pneumococcal 20 2022-04-19 Completed [facility] Conjugate, PCV20 00:00:00 [place] [facility] (Prevnar 20) [facility] 2022-04-19 Completed [facility] of 00:00:00 [facility] Zoster Vaccine 2022-04-19 Completed [facility] of Recombinant 00:00:00 [facility] 2022-03-26 Completed University of 00:00:00 [facility] Pneumococcal 20 2022-03-26 Completed [facility]it [facility] of Conjugate, PCV20 00:00:00 [facility] (Prevnar 20) [facility] 2022-03-26 Completed [facility] of 00:00:00 [facility] Pneumococcal 20 2022-03-26 Completed [facility]it [facility] of Conjugate, PCV20 00:00:00 [facility] (Prevnar 20) [facility] 2022-03-26 Completed [facility] of 00:00:00 [facility] Pneumococcal 20 2022-03-26 Completed [facility]it [facility] of Conjugate, PCV20 00:00:00 [facility] (Prevnar 20) [facility] 2022-03-26 Completed [facility] of 00:00:00 [facility] Pneumococcal 20 2022-03-26 Completed [facility]it y of Conjugate, PCV20 00:00:00 [facility] (Prevnar 20) Branch [facility] 2022-03-26 Completed [facility] 00:00:00 [facility] Pneumococcal 20 2022-03-26 Completed [facility]it [facility] of Conjugate, PCV20 00:00:00 [facility] (Prevnar 20) [facility] 2022-03-26 Completed [facility] of 00:00:00 [facility] Pneumococcal 20 2022-03-26 Completed [facility] of Conjugate, PCV20 00:00:00 [facility] (Prevnar 20) [facility] 2022-03-26 Completed [facility] of 00:00:00 [facility] Pneumococcal 20 2022-03-26 Completed [facility] of Conjugate, PCV20 00:00:00 [facility] (Prevnar 20) [facility] 2022-03-26 Completed [facility] of 00:00:00 [facility] Pneumococcal 20 2022-03-26 Completed [facility] of Conjugate, PCV20 00:00:00 [facility] (Prevnar 20) [facility] 2022-03-26 Completed [facility] 00:00:00 [facility] Pneumococcal 20 2022-03-26 Completed [facility]it [facility] of Conjugate, PCV20 00:00:00 [facility] (Prevnar 20) [facility] 2022-03-26 Completed [facility] 00:00:00 [facility] Pneumococcal 20 2022-03-26 Completed [facility] of Conjugate, PCV20 00:00:00 [facility] (Prevnar 20) [facility] 2022-03-26 Completed [facility] 00:00:00 [facility] Pneumococcal 20 2022-03-26 Completed [facility] of Conjugate, PCV20 00:00:00 [facility] (Prevnar 20) [facility] 2022-03-26 Completed [facility] 00:00:00 [facility] Pneumococcal 20 2022-03-26 Completed [facility] of Conjugate, PCV20 00:00:00 [facility] (Prevnar 20) [facility] 2022-03-26 Completed [facility] 00:00:00 [facility] Pneumococcal 20 2022-03-26 Completed [facility] of Conjugate, PCV20 00:00:00 [facility] (Prevnar 20) [facility] 2022-03-26 Completed [facility] 00:00:00 [facility] Pneumococcal 20 2022-03-26 Completed [facility] of Conjugate, PCV20 00:00:00 [facility] (Prevnar 20) [facility] 2022-03-26 Completed [facility] 00:00:00 [facility] Pneumococcal 20 2022-03-26 Completed [facility] of Conjugate, PCV20 00:00:00 [facility] (Prevnar 20) [facility] 2022-03-26 Completed [facility] 00:00:00 [facility] Pneumococcal 20 2022-03-26 Completed [facility] of Conjugate, PCV20 00:00:00 [facility] (Prevnar 20) Branch [facility] 2022-03-26 Completed [facility] 00:00:00 [facility] Pneumococcal 20 2022-03-26 Completed [facility] of Conjugate, PCV20 00:00:00 [facility] (Prevnar 20) [facility] 2022-03-26 Completed [facility] 00:00:00 [facility] Pneumococcal 20 2022-03-26 Completed [facility] of Conjugate, PCV20 00:00:00 [facility] (Prevnar 20) [facility] 2022-03-26 Completed [facility] of 00:00:00 [facility] Pneumococcal 20 2022-03-26 Completed [facility] of Conjugate, PCV20 00:00:00 [facility] (Prevnar 20) [facility] 2022-03-26 Completed [facility] 00:00:00 [facility] Pneumococcal 20 2022-03-26 Completed [facility] of Conjugate, PCV20 00:00:00 [facility] (Prevnar 20) Branch [facility] 2022-03-26 Completed [facility] 00:00:00 [facility] Pneumococcal 20 2022-03-26 Completed [facility] of Conjugate, PCV20 00:00:00 [facility] (Prevnar 20) [facility] 2022-03-26 Completed [facility] of 00:00:00 [facility] Pneumococcal 20 2022-03-26 Completed [facility] of Conjugate, PCV20 00:00:00 [facility] (Prevnar 20) [facility] 2022-03-26 Completed [facility] 00:00:00 [facility] Pneumococcal 20 2022-03-26 Completed [facility] of Conjugate, PCV20 00:00:00 [facility] (Prevnar 20) [facility] 2022-03-26 Completed [facility] 00:00:00 [facility] Pneumococcal 20 2022-03-26 Completed [facility] of Conjugate, PCV20 00:00:00 [facility] (Prevnar 20) [facility] 2022-03-26 Completed [facility] 00:00:00 [facility] Pneumococcal 20 2022-03-26 Completed [facility] of Conjugate, PCV20 00:00:00 [facility] (Prevnar 20) Branch [facility] 2022-03-26 Completed [facility] 00:00:00 [facility] Pneumococcal 20 2022-03-26 Completed [facility] of Conjugate, PCV20 00:00:00 [facility] (Prevnar 20) Branch [facility] 2022-03-26 Completed [facility] 00:00:00 [facility] Pneumococcal 20 2022-03-26 Completed [facility] of Conjugate, PCV20 00:00:00 [facility] (Prevnar 20) [facility] 2022-03-26 Completed [facility] of 00:00:00 [facility] Pneumococcal 20 2022-03-26 Completed [facility] of Conjugate, PCV20 00:00:00 [facility] (Prevnar 20) [facility] 2022-03-26 Completed [facility] 00:00:00 [facility] Pneumococcal 20 2022-03-26 Completed [facility] of Conjugate, PCV20 00:00:00 [facility] (Prevnar 20) [facility] 2022-03-26 Completed [facility] 00:00:00 [facility] Pneumococcal 20 2022-03-26 Completed [facility] of Conjugate, PCV20 00:00:00 [facility] (Prevnar 20) [facility] 2022-03-26 Completed [facility] 00:00:00 [facility] Pneumococcal 20 2022-03-26 Completed [facility] of Conjugate, PCV20 00:00:00 [facility] (Prevnar 20) [facility] 2022-03-26 Completed [facility] 00:00:00 [facility] Pneumococcal 20 2022-03-26 Completed [facility] of Conjugate, PCV20 00:00:00 [facility] (Prevnar 20) [facility] 2022-03-26 Completed [facility] 00:00:00 [facility] Pneumococcal 20 2022-03-26 Completed [facility] of Conjugate, PCV20 00:00:00 [facility] (Prevnar 20) [facility] 2022-03-26 Completed [facility] 00:00:00 [facility] Pneumococcal 20 2022-03-26 Completed [facility] of Conjugate, PCV20 00:00:00 [facility] (Prevnar 20) [facility] 2022-03-26 Completed [facility] 00:00:00 [facility] Pneumococcal 20 2022-03-26 Completed [facility] of Conjugate, PCV20 00:00:00 [facility] (Prevnar 20) [facility] 2022-03-26 Completed [facility] 00:00:00 [facility] Pneumococcal 20 2022-03-26 Completed [facility] of Conjugate, PCV20 00:00:00 [facility] (Prevnar 20) [facility] 2022-03-26 Completed [facility] 00:00:00 [facility] Pneumococcal 20 2022-03-26 Completed [facility] of Conjugate, PCV20 00:00:00 [facility] (Prevnar 20) [facility] 2022-03-26 Completed [facility] 00:00:00 [facility] Pneumococcal 20 2022-03-26 Completed [facility] of Conjugate, PCV20 00:00:00 [facility] (Prevnar 20) [facility] 2022-03-26 Completed [facility] 00:00:00 [facility] Pneumococcal 20 2022-03-26 Completed [facility] of Conjugate, PCV20 00:00:00 [facility] (Prevnar 20) [facility] 2022-03-26 Completed [facility] of 00:00:00 [facility] Pneumococcal 20 2022-03-26 Completed [facility] of Conjugate, PCV20 00:00:00 [facility] (Prevnar 20) [facility] 2022-03-26 Completed [facility] of 00:00:00 [facility] Pneumococcal 20 2022-03-26 Completed [facility] of Conjugate, PCV20 00:00:00 [facility] (Prevnar 20) [facility] 2022-03-26 Completed [facility] 00:00:00 [facility] Pneumococcal 20 2022-03-26 Completed [facility] of Conjugate, PCV20 00:00:00 [facility] (Prevnar 20) [facility] 2022-03-26 Completed [facility] of 00:00:00 [facility] Pneumococcal 20 2022-03-26 Completed [facility] of Conjugate, PCV20 00:00:00 [facility] (Prevnar 20) [facility] 2022-03-26 Completed [facility] 00:00:00 [facility] Pneumococcal 20 2022-03-26 Completed [facility] of Conjugate, PCV20 00:00:00 [facility] (Prevnar 20) [facility] 2022-03-26 Completed [facility] 00:00:00 [facility] Pneumococcal 20 2022-03-26 Completed [facility] of Conjugate, PCV20 00:00:00 [facility] (Prevnar 20) [facility] 2022-03-26 Completed [facility] 00:00:00 [facility] Pneumococcal 20 2022-03-26 Completed [facility] of Conjugate, PCV20 00:00:00 [facility] (Prevnar 20) [facility] 2022-03-26 Completed [facility] 00:00:00 [facility] Pneumococcal 20 2022-03-26 Completed [facility] of Conjugate, PCV20 00:00:00 [facility] (Prevnar 20) [facility] 2022-03-26 Completed [facility] 00:00:00 [facility] Pneumococcal 20 2022-03-26 Completed [facility] of Conjugate, PCV20 00:00:00 [facility] (Prevnar 20) [facility] 2022-03-26 Completed [facility] 00:00:00 [facility] Pneumococcal 20 2022-03-26 Completed [facility] of Conjugate, PCV20 00:00:00 [facility] (Prevnar 20) [facility] 2022-03-26 Completed [facility] 00:00:00 [facility] Pneumococcal 20 2022-03-26 Completed [facility] of Conjugate, PCV20 00:00:00 [facility] (Prevnar 20) [facility] 2022-03-26 Completed [facility] 00:00:00 [facility] Pneumococcal 20 2022-03-26 Completed [facility] of Conjugate, PCV20 00:00:00 [facility] (Prevnar 20) [facility] 2022-03-26 Completed [facility] 00:00:00 [facility] Pneumococcal 20 2022-03-26 Completed [facility] of Conjugate, PCV20 00:00:00 [facility] (Prevnar 20) [facility] 2022-03-26 Completed [facility] 00:00:00 [facility] Pneumococcal 20 2022-03-26 Completed [facility] of Conjugate, PCV20 00:00:00 [facility] (Prevnar 20) [facility] 2022-03-26 Completed [facility] 00:00:00 [facility] Pneumococcal 20 2022-03-26 Completed [facility] of Conjugate, PCV20 00:00:00 [facility] (Prevnar 20) [facility] 2022-03-26 Completed [facility] 00:00:00 [facility] Pneumococcal 20 2022-03-26 Completed [facility] of Conjugate, PCV20 00:00:00 [facility] (Prevnar 20) [facility] 2022-03-26 Completed [facility] 00:00:00 [facility] Pneumococcal 20 2022-03-26 Completed [facility] of Conjugate, PCV20 00:00:00 [facility] (Prevnar 20) [facility] 2022-03-26 Completed [facility] 00:00:00 [facility] Pneumococcal 20 2022-03-26 Completed [facility] of Conjugate, PCV20 00:00:00 [facility] (Prevnar 20) Branch SARS-COV-2 COVID-19 2020-11-30 Completed [facility]ive [facility] of VACCINE - (MODERNA) 00:00:00 [facility] SARS-COV-2 COVID-19 2020-11-30 Completed [facility] of VACCINE - (MODERNA) 00:00:00 [facility] SARS-COV-2 COVID-19 2020-11-30 Completed [facility] of VACCINE - (MODERNA) 00:00:00 [facility] SARS-COV-2 COVID-19 2020-11-30 Completed [facility] of VACCINE - (MODERNA) 00:00:00 [facility] SARS-COV-2 COVID-19 2020-11-30 Completed [facility] of VACCINE - (MODERNA) 00:00:00 [facility] SARS-COV-2 COVID-19 2020-11-30 Completed [facility] of VACCINE - (MODERNA) 00:00:00 [facility] SARS-COV-2 COVID-19 2020-11-30 Completed [facility] of VACCINE - (MODERNA) 00:00:00 [facility] SARS-COV-2 COVID-19 2020-11-30 Completed [facility] of VACCINE - (MODERNA) 00:00:00 [facility] SARS-COV-2 COVID-19 2020-11-30 Completed [facility] of VACCINE - (MODERNA) 00:00:00 [facility] SARS-COV-2 COVID-19 2020-11-30 Completed [facility] of VACCINE - (MODERNA) 00:00:00 [facility] SARS-COV-2 COVID-19 2020-11-30 Completed [facility] of VACCINE - (MODERNA) 00:00:00 [facility] SARS-COV-2 COVID-19 2020-11-30 Completed [facility] of VACCINE - (MODERNA) 00:00:00 [facility] SARS-COV-2 COVID-19 2020-11-30 Completed [facility] of VACCINE - (MODERNA) 00:00:00 [facility] SARS-COV-2 COVID-19 2020-11-30 Completed [facility] of VACCINE - (MODERNA) 00:00:00 [facility] SARS-COV-2 COVID-19 2020-11-30 Completed [facility] of VACCINE - (MODERNA) 00:00:00 [facility] SARS-COV-2 COVID-19 2020-11-30 Completed [facility] of VACCINE - (MODERNA) 00:00:00 [facility] SARS-COV-2 COVID-19 2020-11-30 Completed [facility] of VACCINE - (MODERNA) 00:00:00 [facility] SARS-COV-2 COVID-19 2020-11-30 Completed [facility] of VACCINE - (MODERNA) 00:00:00 [facility] SARS-COV-2 COVID-19 2020-11-30 Completed [facility] VACCINE - (MODERNA) 00:00:00 [facility] SARS-COV-2 COVID-19 2020-11-30 Completed [facility] of VACCINE - (MODERNA) 00:00:00 [facility] SARS-COV-2 COVID-19 2020-11-30 Completed [facility] of VACCINE - (MODERNA) 00:00:00 [facility] SARS-COV-2 COVID-19 2020-11-30 Completed [facility] VACCINE - (MODERNA) 00:00:00 [facility] SARS-COV-2 COVID-19 2020-11-30 Completed [facility] of VACCINE - (MODERNA) 00:00:00 [facility] SARS-COV-2 COVID-19 2020-11-30 Completed [facility] VACCINE - (MODERNA) 00:00:00 [facility] SARS-COV-2 COVID-19 2020-11-30 Completed [facility] of VACCINE - (MODERNA) 00:00:00 [facility] SARS-COV-2 COVID-19 2020-11-30 Completed [facility] VACCINE - (MODERNA) 00:00:00 [facility] SARS-COV-2 COVID-19 2020-11-30 Completed [facility] of VACCINE - (MODERNA) 00:00:00 [facility] SARS-COV-2 COVID-19 2020-11-30 Completed [facility] VACCINE - (MODERNA) 00:00:00 [facility] SARS-COV-2 COVID-19 2020-11-30 Completed [facility] VACCINE - (MODERNA) 00:00:00 [facility] SARS-COV-2 COVID-19 2020-11-30 Completed [facility] VACCINE - (MODERNA) 00:00:00 [facility] SARS-COV-2 COVID-19 2020-11-30 Completed [facility] VACCINE - (MODERNA) 00:00:00 [facility] SARS-COV-2 COVID-19 2020-11-30 Completed [facility] VACCINE - (MODERNA) 00:00:00 [facility] SARS-COV-2 COVID-19 2020-11-30 Completed [facility] VACCINE - (MODERNA) 00:00:00 [facility] SARS-COV-2 COVID-19 2020-11-30 Completed [facility] VACCINE - (MODERNA) 00:00:00 [facility] SARS-COV-2 COVID-19 2020-11-30 Completed [facility] VACCINE - (MODERNA) 00:00:00 [facility] SARS-COV-2 COVID-19 2020-11-02 Completed [facility] VACCINE - (MODERNA) 00:00:00 [facility] SARS-COV-2 COVID-19 2020-11-02 Completed [facility] VACCINE - (MODERNA) 00:00:00 [facility] SARS-COV-2 COVID-19 2020-11-02 Completed [facility] VACCINE - (MODERNA) 00:00:00 [facility] SARS-COV-2 COVID-19 2020-11-02 Completed [facility] VACCINE - (MODERNA) 00:00:00 [facility] SARS-COV-2 COVID-19 2020-11-02 Completed [facility] VACCINE - (MODERNA) 00:00:00 [facility] SARS-COV-2 COVID-19 2020-11-02 Completed [facility] VACCINE - (MODERNA) 00:00:00 [facility] [facility] COVID-19 2020-11-02 Completed [facility] VACCINE - (MODERNA) 00:00:00 [facility] SARS-COV-2 COVID-19 2020-11-02 Completed [facility] VACCINE - (MODERNA) 00:00:00 [facility] SARS-COV-2 COVID-19 2020-11-02 Completed [facility] VACCINE - (MODERNA) 00:00:00 [facility] SARS-COV-2 COVID-19 2020-11-02 Completed [facility] VACCINE - (MODERNA) 00:00:00 [facility] SARS-COV-2 COVID-19 2020-11-02 Completed [facility] VACCINE - (MODERNA) 00:00:00 [facility] SARS-COV-2 COVID-19 2020-11-02 Completed [facility] VACCINE - (MODERNA) 00:00:00 [facility] SARS-COV-2 COVID-19 2020-11-02 Completed [facility] VACCINE - (MODERNA) 00:00:00 [facility] SARS-COV-2 COVID-19 2020-11-02 Completed [facility] VACCINE - (MODERNA) 00:00:00 [facility] SARS-COV-2 COVID-19 2020-11-02 Completed [facility] VACCINE - (MODERNA) 00:00:00 [facility] SARS-COV-2 COVID-19 2020-11-02 Completed [facility] VACCINE - (MODERNA) 00:00:00 [facility] SARS-COV-2 COVID-19 2020-11-02 Completed [facility] VACCINE - (MODERNA) 00:00:00 [facility] SARS-COV-2 COVID-19 2020-11-02 Completed [facility] VACCINE - (MODERNA) 00:00:00 [facility] SARS-COV-2 COVID-19 2020-11-02 Completed [facility] VACCINE - (MODERNA) 00:00:00 [facility] SARS-COV-2 COVID-19 2020-11-02 Completed [facility] VACCINE - (MODERNA) 00:00:00 [facility] SARS-COV-2 COVID-19 2020-11-02 Completed [facility] VACCINE - (MODERNA) 00:00:00 [facility] SARS-COV-2 COVID-19 2020-11-02 Completed [facility] VACCINE - (MODERNA) 00:00:00 [facility] SARS-COV-2 COVID-19 2020-11-02 Completed [facility] VACCINE - (MODERNA) 00:00:00 [facility] SARS-COV-2 COVID-19 2020-11-02 Completed [facility] VACCINE - (MODERNA) 00:00:00 [facility] SARS-COV-2 COVID-19 2020-11-02 Completed [facility] VACCINE - (MODERNA) 00:00:00 [facility] SARS-COV-2 COVID-19 2020-11-02 Completed [facility] VACCINE - (MODERNA) 00:00:00 [facility] SARS-COV-2 COVID-19 2020-11-02 Completed [facility] VACCINE - (MODERNA) 00:00:00 [facility] SARS-COV-2 COVID-19 2020-11-02 Completed [facility] VACCINE - (MODERNA) 00:00:00 [facility] SARS-COV-2 COVID-19 2020-11-02 Completed [facility] VACCINE - (MODERNA) 00:00:00 [facility] SARS-COV-2 COVID-19 2020-11-02 Completed [facility] VACCINE - (MODERNA) 00:00:00 [facility] SARS-COV-2 COVID-19 2020-11-02 Completed [facility] VACCINE - (MODERNA) 00:00:00 [facility] SARS-COV-2 COVID-19 2020-11-02 Completed [facility] VACCINE - (MODERNA) 00:00:00 [facility] SARS-COV-2 COVID-19 2020-11-02 Completed [facility] VACCINE - (MODERNA) 00:00:00 [facility] SARS-COV-2 COVID-19 2020-11-02 Completed [facility] VACCINE - (MODERNA) 00:00:00 [facility] SARS-COV-2 COVID-19 2020-11-02 Completed [facility] VACCINE - (MODERNA) 00:00:00 [facility] SARS-COV-2 COVID-19 2020-10-26 Completed [facility] of MODERNA 12+ YRS 00:00:00 [place] [facility] SARS-COV-2 COVID-19 2020-10-26 Completed [facility] of MODERNA 12+ YRS 00:00:00 [place] [facility] SARS-COV-2 COVID-19 2020-10-26 Completed [facility] MODERNA 12+ YRS 00:00:00 [place] [facility] SARS-COV-2 COVID-19 2020-10-26 Completed [facility] MODERNA 12+ YRS 00:00:00 [place] [facility] SARS-COV-2 COVID-19 2020-10-26 Completed [facility] MODERNA 12+ YRS 00:00:00 [place] [facility] SARS-COV-2 COVID-19 2020-10-26 Completed [facility] MODERNA 12+ YRS 00:00:00 [place] [facility] SARS-COV-2 COVID-19 2020-10-26 Completed [facility] MODERNA 12+ YRS 00:00:00 [place] [facility] SARS-COV-2 COVID-19 2020-10-26 Completed [facility] MODERNA 12+ YRS 00:00:00 [place] [facility] SARS-COV-2 COVID-19 2020-10-26 Completed [facility] MODERNA 12+ YRS 00:00:00 [place] [facility] SARS-COV-2 COVID-19 2020-10-26 Completed [facility] MODERNA 12+ YRS 00:00:00 [place] [facility] SARS-COV-2 COVID-19 2020-10-26 Completed [facility] MODERNA 12+ YRS 00:00:00 [place] [facility] SARS-COV-2 COVID-19 2020-10-26 Completed [facility] MODERNA 12+ YRS 00:00:00 [place] [facility] SARS-COV-2 COVID-19 2020-10-26 Completed [facility] MODERNA 12+ YRS 00:00:00 [place] [facility] SARS-COV-2 COVID-19 2020-10-26 Completed [facility] of MODERNA 12+ YRS 00:00:00 [place] [facility] SARS-COV-2 COVID-19 2020-10-26 Completed [facility] MODERNA 12+ YRS 00:00:00 [place] [facility] SARS-COV-2 COVID-19 2020-10-26 Completed [facility] MODERNA 12+ YRS 00:00:00 [place] [facility] SARS-COV-2 COVID-19 2020-10-26 Completed [facility] MODERNA 12+ YRS 00:00:00 [place] [facility] SARS-COV-2 COVID-19 2020-10-26 Completed [facility] of MODERNA 12+ YRS 00:00:00 [place] [facility] SARS-COV-2 COVID-19 2020-10-26 Completed [facility] MODERNA 12+ YRS 00:00:00 [place] [facility] SARS-COV-2 COVID-19 2020-10-26 Completed [facility] MODERNA 12+ YRS 00:00:00 [place] [facility] SARS-COV-2 COVID-19 2020-10-26 Completed [facility] MODERNA 12+ YRS 00:00:00 [place] [facility] SARS-COV-2 COVID-19 2020-10-26 Completed [facility] MODERNA 12+ YRS 00:00:00 [place] [facility] SARS-COV-2 COVID-19 2020-10-26 Completed [facility] MODERNA 12+ YRS 00:00:00 [place] [facility] SARS-COV-2 COVID-19 2020-10-26 Completed [facility] MODERNA 12+ YRS 00:00:00 [place] [facility] SARS-COV-2 COVID-19 2020-10-26 Completed [facility] MODERNA 12+ YRS 00:00:00 [place] [facility] SARS-COV-2 COVID-19 2020-10-26 Completed [facility] MODERNA 12+ YRS 00:00:00 [place] [facility] SARS-COV-2 COVID-19 2020-10-26 Completed [facility] of MODERNA 12+ YRS 00:00:00 [place] [facility] SARS-COV-2 COVID-19 2020-10-26 Completed [facility] MODERNA 12+ YRS 00:00:00 [place] [facility] SARS-COV-2 COVID-19 2020-10-26 Completed [facility] MODERNA 12+ YRS 00:00:00 [place] [facility] SARS-COV-2 COVID-19 2020-10-26 Completed [facility] MODERNA 12+ YRS 00:00:00 [place] [facility] SARS-COV-2 COVID-19 2020-10-26 Completed [facility] MODERNA 12+ YRS 00:00:00 [place] [facility] SARS-COV-2 COVID-19 2020-10-26 Completed [facility] MODERNA 12+ YRS 00:00:00 [place] [facility] SARS-COV-2 COVID-19 2020-10-26 Completed [facility] of MODERNA 12+ YRS 00:00:00 [place] [facility] SARS-COV-2 COVID-19 2020-10-26 Completed [facility] of MODERNA 12+ YRS 00:00:00 [place] [facility] SARS-COV-2 COVID-19 2020-10-26 Completed [facility] of MODERNA 12+ YRS 00:00:00 [place] [facility] SARS-COV-2 COVID-19 2020-10-26 Completed [facility] MODERNA 12+ YRS 00:00:00 [place] [facility] SARS-COV-2 COVID-19 2020-10-26 Completed [facility] of MODERNA 12+ YRS 00:00:00 [place] [facility] SARS-COV-2 COVID-19 2020-10-26 Completed [facility] MODERNA 12+ YRS 00:00:00 [place] [facility] SARS-COV-2 COVID-19 2020-10-26 Completed [facility] of MODERNA 12+ YRS 00:00:00 [place] [facility] SARS-COV-2 COVID-19 2020-10-26 Completed [facility] of MODERNA 12+ YRS 00:00:00 [place] [facility] SARS-COV-2 COVID-19 2020-10-26 Completed [facility] of MODERNA 12+ YRS 00:00:00 [place] [facility] SARS-COV-2 COVID-19 2020-10-26 Completed [facility] of MODERNA 12+ YRS 00:00:00 [place] [facility] SARS-COV-2 COVID-19 2020-10-26 Completed [facility] of MODERNA 12+ YRS 00:00:00 [place] [facility] SARS-COV-2 COVID-19 2020-10-26 Completed [facility] of MODERNA 12+ YRS 00:00:00 [place] [facility] SARS-COV-2 COVID-19 2020-10-26 Completed [facility] of MODERNA 12+ YRS 00:00:00 [place] [facility] SARS-COV-2 COVID-19 2020-10-26 Completed [facility] of MODERNA 12+ YRS 00:00:00 [place] [facility] SARS-COV-2 COVID-19 2020-10-26 Completed [facility] of MODERNA 12+ YRS 00:00:00 [place] [facility] SARS-COV-2 COVID-19 2020-10-26 Completed [facility] of MODERNA 12+ YRS 00:00:00 [place] [facility] SARS-COV-2 COVID-19 2020-10-26 Completed [facility] of MODERNA 12+ YRS 00:00:00 [place] [facility] SARS-COV-2 COVID-19 2020-10-26 Completed [facility] of MODERNA 12+ YRS 00:00:00 [place] [facility] SARS-COV-2 COVID-19 2020-10-26 Completed [facility] of MODERNA 12+ YRS 00:00:00 [place] [facility] SARS-COV-2 COVID-19 2020-10-26 Completed [facility] of MODERNA 12+ YRS 00:00:00 [place] [facility] SARS-COV-2 COVID-19 2020-10-26 Completed [facility] of MODERNA 12+ YRS 00:00:00 [place] [facility] SARS-COV-2 COVID-19 2020-10-26 Completed [facility] MODERNA 12+ YRS 00:00:00 [place] [facility] SARS-COV-2 COVID-19 2020-10-26 Completed [facility] MODERNA 12+ YRS 00:00:00 [place] [facility] SARS-COV-2 COVID-19 2020-10-26 Completed [facility] of MODERNA 12+ YRS 00:00:00 [place] [facility] SARS-COV-2 COVID-19 2020-10-26 Completed [facility] of MODERNA 12+ YRS 00:00:00 [place] [facility] SARS-COV-2 COVID-19 2020-10-26 Completed [facility] of MODERNA 12+ YRS 00:00:00 [place] [facility] SARS-COV-2 COVID-19 2020-09-25 Completed [facility] of MODERNA 12+ YRS 00:00:00 [place] [facility] SARS-COV-2 COVID-19 2020-09-25 Completed [facility] of MODERNA 12+ YRS 00:00:00 [place] [facility] SARS-COV-2 COVID-19 2020-09-25 Completed [facility] of MODERNA 12+ YRS 00:00:00 [place] [facility] SARS-COV-2 COVID-19 2020-09-25 Completed [facility] of MODERNA 12+ YRS 00:00:00 [place] [facility] SARS-COV-2 COVID-19 2020-09-25 Completed [facility] of MODERNA 12+ YRS 00:00:00 [place] [facility] SARS-COV-2 COVID-19 2020-09-25 Completed [facility] of MODERNA 12+ YRS 00:00:00 [place] [facility] SARS-COV-2 COVID-19 2020-09-25 Completed [facility] of MODERNA 12+ YRS 00:00:00 [place] [facility] SARS-COV-2 COVID-19 2020-09-25 Completed [facility] of MODERNA 12+ YRS 00:00:00 [place] [facility] SARS-COV-2 COVID-19 2020-09-25 Completed [facility] of MODERNA 12+ YRS 00:00:00 [place] [facility] SARS-COV-2 COVID-19 2020-09-25 Completed [facility] of MODERNA 12+ YRS 00:00:00 [place] [facility] SARS-COV-2 COVID-19 2020-09-25 Completed [facility] of MODERNA 12+ YRS 00:00:00 [place] [facility] SARS-COV-2 COVID-19 2020-09-25 Completed [facility] of MODERNA 12+ YRS 00:00:00 [place] [facility] SARS-COV-2 COVID-19 2020-09-25 Completed [facility] of MODERNA 12+ YRS 00:00:00 [place] [facility] SARS-COV-2 COVID-19 2020-09-25 Completed [facility] of MODERNA 12+ YRS 00:00:00 [place] [facility] SARS-COV-2 COVID-19 2020-09-25 Completed [facility] of MODERNA 12+ YRS 00:00:00 [place] [facility] SARS-COV-2 COVID-19 2020-09-25 Completed [facility] of MODERNA 12+ YRS 00:00:00 [place] [facility] SARS-COV-2 COVID-19 2020-09-25 Completed [facility] of MODERNA 12+ YRS 00:00:00 [place] [facility] SARS-COV-2 COVID-19 2020-09-25 Completed [facility] of MODERNA 12+ YRS 00:00:00 [place] [facility] SARS-COV-2 COVID-19 2020-09-25 Completed [facility] of MODERNA 12+ YRS 00:00:00 [place] [facility] SARS-COV-2 COVID-19 2020-09-25 Completed [facility] of MODERNA 12+ YRS 00:00:00 [place] [facility] SARS-COV-2 COVID-19 2020-09-25 Completed [facility] of MODERNA 12+ YRS 00:00:00 [place] [facility] SARS-COV-2 COVID-19 2020-09-25 Completed [facility] of MODERNA 12+ YRS 00:00:00 [place] [facility] SARS-COV-2 COVID-19 2020-09-25 Completed [facility] of MODERNA 12+ YRS 00:00:00 [place] [facility] SARS-COV-2 COVID-19 2020-09-25 Completed [facility] of MODERNA 12+ YRS 00:00:00 [place] [facility] SARS-COV-2 COVID-19 2020-09-25 Completed [facility] of MODERNA 12+ YRS 00:00:00 [place] [facility] SARS-COV-2 COVID-19 2020-09-25 Completed [facility] of MODERNA 12+ YRS 00:00:00 [place] [facility] SARS-COV-2 COVID-19 2020-09-25 Completed [facility] of MODERNA 12+ YRS 00:00:00 [place] [facility] SARS-COV-2 COVID-19 2020-09-25 Completed [facility] of MODERNA 12+ YRS 00:00:00 [place] [facility] SARS-COV-2 COVID-19 2020-09-25 Completed [facility] of MODERNA 12+ YRS 00:00:00 [place] [facility] SARS-COV-2 COVID-19 2020-09-25 Completed [facility] of MODERNA 12+ YRS 00:00:00 [place] [facility] SARS-COV-2 COVID-19 2020-09-25 Completed [facility] of MODERNA 12+ YRS 00:00:00 [place] [facility] SARS-COV-2 COVID-19 2020-09-25 Completed [facility] of MODERNA 12+ YRS 00:00:00 [place] [facility] SARS-COV-2 COVID-19 2020-09-25 Completed [facility] of MODERNA 12+ YRS 00:00:00 [place] [facility] SARS-COV-2 COVID-19 2020-09-25 Completed [facility] of MODERNA 12+ YRS 00:00:00 [place] [facility] SARS-COV-2 COVID-19 2020-09-25 Completed [facility] of MODERNA 12+ YRS 00:00:00 [place] [facility] SARS-COV-2 COVID-19 2020-09-25 Completed [facility] of MODERNA 12+ YRS 00:00:00 [place] [facility] SARS-COV-2 COVID-19 2020-09-25 Completed [facility] of MODERNA 12+ YRS 00:00:00 [place] [facility] SARS-COV-2 COVID-19 2020-09-25 Completed [facility] of MODERNA 12+ YRS 00:00:00 [place] [facility] SARS-COV-2 COVID-19 2020-09-25 Completed [facility] of MODERNA 12+ YRS 00:00:00 [place] [facility] SARS-COV-2 COVID-19 2020-09-25 Completed [facility] of MODERNA 12+ YRS 00:00:00 [place] [facility] SARS-COV-2 COVID-19 2020-09-25 Completed [facility] of MODERNA 12+ YRS 00:00:00 [place] [facility] SARS-COV-2 COVID-19 2020-09-25 Completed [facility] of MODERNA 12+ YRS 00:00:00 [place] [facility] SARS-COV-2 COVID-19 2020-09-25 Completed [facility] of MODERNA 12+ YRS 00:00:00 [place] [facility] SARS-COV-2 COVID-19 2020-09-25 Completed [facility] of MODERNA 12+ YRS 00:00:00 [place] [facility] SARS-COV-2 COVID-19 2020-09-25 Completed [facility] of MODERNA 12+ YRS 00:00:00 [place] [facility] SARS-COV-2 COVID-19 2020-09-25 Completed [facility] of MODERNA 12+ YRS 00:00:00 [place] [facility] SARS-COV-2 COVID-19 2020-09-25 Completed [facility] of MODERNA 12+ YRS 00:00:00 [place] [facility] SARS-COV-2 COVID-19 2020-09-25 Completed [facility] of MODERNA 12+ YRS 00:00:00 [place] [facility] SARS-COV-2 COVID-19 2020-09-25 Completed [facility] of MODERNA 12+ YRS 00:00:00 [place] [facility] SARS-COV-2 COVID-19 2020-09-25 Completed [facility] of MODERNA 12+ YRS 00:00:00 [place] [facility] SARS-COV-2 COVID-19 2020-09-25 Completed [facility] of MODERNA 12+ YRS 00:00:00 [place] [facility] SARS-COV-2 COVID-19 2020-09-25 Completed [facility] of MODERNA 12+ YRS 00:00:00 [place] [facility] SARS-COV-2 COVID-19 2020-09-25 Completed [facility] of MODERNA 12+ YRS 00:00:00 [place] [facility] SARS-COV-2 COVID-19 2020-09-25 Completed [facility] of MODERNA 12+ YRS 00:00:00 [place] [facility] SARS-COV-2 COVID-19 2020-09-25 Completed [facility] of MODERNA 12+ YRS 00:00:00 [facility] VACCINE Branch SARS-COV-2 COVID-19 2020-09-25 Completed [facility]ive rsity of MODERNA 12+ YRS 00:00:00 [facility] VACCINE Branch SARS-COV-2 COVID-19 2020-09-25 Completed [facility] rsity of MODERNA 12+ YRS 00:00:00 [facility] VACCINE Branch SARS-COV-2 COVID-19 2020-09-25 Completed [facility] rsity of MODERNA 12+ YRS 00:00:00 [facility] Zoster Vaccine 2019-12-26 Completed [facility] of Recombinant 00:00:00 [facility] Zoster Vaccine 2019-12-26 Completed [facility] of Recombinant 00:00:00 [facility] Zoster Vaccine 2019-12-26 Completed [facility] of Recombinant 00:00:00 [facility] Zoster Vaccine 2019-12-26 Completed [facility] of Recombinant 00:00:00 [facility] Zoster Vaccine 2019-12-26 Completed [facility] of Recombinant 00:00:00 [facility] Zoster Vaccine 2019-12-26 Completed [facility] Recombinant 00:00:00 [facility] Zoster Vaccine 2019-12-26 Completed [facility] of Recombinant 00:00:00 [facility] Zoster Vaccine 2019-12-26 Completed [facility] of Recombinant 00:00:00 [facility] Zoster Vaccine 2019-12-26 Completed [facility] Recombinant 00:00:00 [facility] Zoster Vaccine 2019-12-26 Completed [facility] Recombinant 00:00:00 [facility] Zoster Vaccine 2019-12-26 Completed [facility] Recombinant 00:00:00 [facility] Zoster Vaccine 2019-12-26 Completed [facility] Recombinant 00:00:00 [facility] Zoster Vaccine 2019-12-26 Completed [facility] Recombinant 00:00:00 [facility] Zoster Vaccine 2019-12-26 Completed [facility] of Recombinant 00:00:00 [facility] Zoster Vaccine 2019-12-26 Completed [facility] of Recombinant 00:00:00 [facility] Zoster Vaccine 2019-12-26 Completed [facility] of Recombinant 00:00:00 [facility] Zoster Vaccine 2019-12-26 Completed [facility] of Recombinant 00:00:00 [facility] Zoster Vaccine 2019-12-26 Completed [facility] Recombinant 00:00:00 [facility] Zoster Vaccine 2019-12-26 Completed [facility] Recombinant 00:00:00 [facility] Zoster Vaccine 2019-12-26 Completed [facility] Recombinant 00:00:00 [facility] Zoster Vaccine 2019-12-26 Completed [facility] of Recombinant 00:00:00 [facility] Zoster Vaccine 2019-12-26 Completed [facility] of Recombinant 00:00:00 [facility] Zoster Vaccine 2019-12-26 Completed [facility] of Recombinant 00:00:00 [facility] Zoster Vaccine 2019-12-26 Completed [facility] of Recombinant 00:00:00 [facility] Zoster Vaccine 2019-12-26 Completed [facility] of Recombinant 00:00:00 [facility] Zoster Vaccine 2019-12-26 Completed [facility] of Recombinant 00:00:00 [facility] Zoster Vaccine 2019-12-26 Completed [facility] of Recombinant 00:00:00 [facility] Zoster Vaccine 2019-12-26 Completed [facility] of Recombinant 00:00:00 [facility] Zoster Vaccine 2019-12-26 Completed [facility] of Recombinant 00:00:00 [facility] Zoster Vaccine 2019-12-26 Completed [facility] of Recombinant 00:00:00 [facility] Zoster Vaccine 2019-12-26 Completed [facility] of Recombinant 00:00:00 [facility] Zoster Vaccine 2019-12-26 Completed [facility] of Recombinant 00:00:00 [facility] Zoster Vaccine 2019-12-26 Completed [facility] of Recombinant 00:00:00 [facility] Zoster Vaccine 2019-12-26 Completed [facility] of Recombinant 00:00:00 [facility] Zoster Vaccine 2019-12-26 Completed [facility] of Recombinant 00:00:00 [facility] Zoster Vaccine 2019-12-26 Completed [facility] of Recombinant 00:00:00 [facility] Zoster Vaccine 2019-12-26 Completed [facility] of Recombinant 00:00:00 [facility] Zoster Vaccine 2019-12-26 Completed [facility] of Recombinant 00:00:00 [facility] Zoster Vaccine 2019-12-26 Completed [facility] Recombinant 00:00:00 [facility] Zoster Vaccine 2019-12-26 Completed [facility] of Recombinant 00:00:00 [facility] Zoster Vaccine 2019-12-26 Completed [facility] of Recombinant 00:00:00 [facility] Zoster Vaccine 2019-12-26 Completed [facility] of Recombinant 00:00:00 [facility] Zoster Vaccine 2019-12-26 Completed [facility] of Recombinant 00:00:00 [facility] Zoster Vaccine 2019-12-26 Completed [facility] of Recombinant 00:00:00 [facility] Zoster Vaccine 2019-12-26 Completed [facility] of Recombinant 00:00:00 [facility] Zoster Vaccine 2019-12-26 Completed [facility] of Recombinant 00:00:00 [facility] Zoster Vaccine 2019-12-26 Completed [facility] of Recombinant 00:00:00 [facility] Zoster Vaccine 2019-12-26 Completed [facility] Recombinant 00:00:00 [facility] Zoster Vaccine 2019-12-26 Completed [facility] Recombinant 00:00:00 [facility] Zoster Vaccine 2019-12-26 Completed [facility] of Recombinant 00:00:00 [facility] Zoster Vaccine 2019-12-26 Completed [facility] Recombinant 00:00:00 [facility] Zoster Vaccine 2019-12-26 Completed [facility] of Recombinant 00:00:00 [facility] Zoster Vaccine 2019-12-26 Completed [facility] Recombinant 00:00:00 [facility] Zoster Vaccine 2019-12-26 Completed [facility] Recombinant 00:00:00 [facility] Zoster Vaccine 2019-12-26 Completed [facility] Recombinant 00:00:00 [facility] Zoster Vaccine 2019-12-26 Completed [facility] of Recombinant 00:00:00 [facility] Zoster Vaccine 2019-12-26 Completed [facility] of Recombinant 00:00:00 [facility] Zoster Vaccine 2019-12-26 Completed [facility] of Recombinant 00:00:00 [facility] Zoster Vaccine Unknown Completed [facility] Recombinant [facility] SARS-COV-2 COVID-19 Unknown Completed Unive rsity of MODERNA 12+ YRS [facility] [place] ical VACCINE Branch SARS-COV-2 COVID-19 Unknown Completed Unive rsity of MODERNA 12+ YRS [facility] VACCINE Branch TDAP Unknown Completed [facility] Pneumococcal 20 Unknown Completed Universit y of Conjugate, PCV20 [facility] d[facility] (Prevnar 20) Branch SARS-COV-2 COVID-19 Unknown Completed Unive rsity of VACCINE - (MODERNA) [facility] SARS-COV-2 COVID-19 Unknown Completed [facility] rsity of VACCINE - (MODERNA) [facility] Influenza High Dose Unknown Completed Unive rsity of Quad [facility] Pneumococcal 20 Unknown Completed [facility] Conjugate, PCV20 [place] [facility] (Prevnar 20) Branch TDAP Unknown Completed [facility] Zoster Vaccine Unknown Completed [facility] of Recombinant [facility] Zoster Vaccine Unknown Completed [facility] Recombinant [facility] SARS-COV-2 COVID-19 Unknown Completed Unive rsity of MODERNA 12+ YRS [facility] [place] ical VACCINE Branch SARS-COV-2 COVID-19 Unknown Completed Unive rsity of MODERNA 12+ YRS [facility] [place] ical VACCINE Branch TDAP Unknown Completed [facility] Pneumococcal 20 Unknown Completed [facility] of Conjugate, PCV20 [place] [facility] (Prevnar 20) Branch SARS-COV-2 COVID-19 Unknown Completed [facility]ive rsity of VACCINE - (MODERNA) [facility] SARS-COV-2 COVID-19 Unknown Completed [facility] rsity of VACCINE - (MODERNA) [facility] Influenza High Dose Unknown Completed [facility] Pneumococcal 20 Unknown Completed [facility]it [facility] of Conjugate, PCV20 [place] [facility] (Prevnar 20) Branch TDAP Unknown Completed [facility] Zoster Vaccine Unknown Completed [facility] Zoster Vaccine Unknown Completed [facility] SARS-COV-2 COVID-19 Unknown Completed Unive rsity of MODERNA 12+ YRS [facility] ical VACCINE Branch SARS-COV-2 COVID-19 Unknown Completed Unive rsity of MODERNA 12+ YRS [facility] ical VACCINE Branch TDAP Unknown Completed [facility] Pneumococcal 20 Unknown Completed Universit y of Conjugate, PCV20 [facility] dical (Prevnar 20) Branch SARS-COV-2 COVID-19 Unknown Completed Unive rsity of VACCINE - (MODERNA) [facility] SARS-COV-2 COVID-19 Unknown Completed Unive rsity of VACCINE - (MODERNA) [facility] Influenza High Dose Unknown Completed Unive rsity of [facility] Pneumococcal 20 Unknown Completed Universit y of Conjugate, PCV20 [place] [facility] (Prevnar 20) Branch TDAP Unknown Completed [facility] Zoster Vaccine Unknown Completed [facility] Zoster Vaccine Unknown Completed [facility] SARS-COV-2 COVID-19 Unknown Completed Unive rsity of MODERNA 12+ YRS [facility] ical VACCINE Branch SARS-COV-2 COVID-19 Unknown Completed Unive rsity of MODER[place] 12+ YRS [facility] ical VACCINE Branch TDAP Unknown Completed [facility] Pneumococcal 20 Unknown Completed Universit y of Conjugate, PCV20 [facility] dical (Prevnar 20) Branch SARS-COV-2 COVID-19 Unknown Completed Unive rsity of VACCINE - (MODERNA) [facility] SARS-COV-2 COVID-19 Unknown Completed Unive rsity of VACCINE - (MODERNA) [facility] Influenza High Dose Unknown Completed Unive rsity of [facility] Pneumococcal 20 Unknown Completed Universit y of Conjugate, PCV20 [place] [facility] (Prevnar 20) Branch TDAP Unknown Completed [facility] Zoster Vaccine Unknown Completed [facility] Zoster Vaccine Unknown Completed [facility] SARS-COV-2 COVID-19 Unknown Completed Unive rsity of MODERNA 12+ YRS [facility] ical VACCINE Branch SARS-COV-2 COVID-19 Unknown Completed Unive rsity of MODERNA 12+ YRS [facility] ical VACCINE Branch TDAP Unknown Completed [facility] Pneumococcal 20 Unknown Completed Universit y of Conjugate, PCV20 [place] [facility] (Prevnar 20) Branch SARS-COV-2 COVID-19 Unknown Completed Unive rsity of VACCINE - (MODERNA) [facility] SARS-COV-2 COVID-19 Unknown Completed Unive rsity of VACCINE - (MODERNA) [facility] Influenza High Dose Unknown Completed Unive rsity of [facility] Pneumococcal 20 Unknown Completed Universit y of Conjugate, PCV20 [place] [facility] (Prevnar 20) Branch TDAP Unknown Completed [facility] Zoster Vaccine Unknown Completed [facility] Zoster Vaccine Unknown Completed [facility] SARS-COV-2 COVID-19 Unknown Completed Unive rsity of MODERNA 12+ YRS [facility] ical VACCINE Branch SARS-COV-2 COVID-19 Unknown Completed Unive rsity of MODERNA 12+ YRS [facility] ical VACCINE Branch TDAP Unknown Completed [facility] Pneumococcal 20 Unknown Completed Universit y of Conjugate, PCV20 [place] [facility] (Prevnar 20) Branch SARS-COV-2 COVID-19 Unknown Completed Unive rsity of VACCINE - (MODERNA) [facility] SARS-COV-2 COVID-19 Unknown Completed Unive rsity of VACCINE - (MODERNA) [facility] Influenza High Dose Unknown Completed Unive rsity of [facility] Pneumococcal 20 Unknown Completed Universit y of Conjugate, PCV20 [place] [facility] (Prevnar 20) Branch TDAP Unknown Completed [facility] Zoster Vaccine Unknown Completed [facility] Zoster Vaccine Unknown Completed [facility] SARS-COV-2 COVID-19 Unknown Completed Unive rsity of MODERNA 12+ YRS [facility] ical VACCINE Branch SARS-COV-2 COVID-19 Unknown Completed Unive rsity of MODERNA 12+ YRS [facility] ical VACCINE Branch TDAP Unknown Completed [facility] Pneumococcal 20 Unknown Completed Universit y of Conjugate, PCV20 [facility] dical (Prevnar 20) Branch SARS-COV-2 COVID-19 Unknown Completed Unive rsity of VACCINE - (MODERNA) [facility] SARS-COV-2 COVID-19 Unknown Completed Unive rsity of VACCINE - (MODERNA) [facility] Influenza High Dose Unknown Completed Unive rsity of Quad [facility] Pneumococcal 20 Unknown Completed Universit y of Conjugate, PCV20 [facility] dical (Prevnar 20) Branch TDAP Unknown Completed [facility] Zoster Vaccine Unknown Completed [facility] Vital Signs Vital Name Observation Time Observation Value Comments Source Systolic blood 2023-04-25 20:01:00 128 mm[Hg] Univer sity of [facility] Diastolic blood 2023-04-25 20:01:00 78 mm[Hg] Unive rsity of [facility] Heart rate 2023-04-25 20:01:00 86 /min [facility] Body temperature 2023-04-25 20:01:00 37 Iza [facility] height 2023-04-25 20:01:00 157.5 cm [facility] Body weight 2023-04-25 20:01:00 53.071 kg [facility] BMI 2023-04-25 20:01:00 21.40 kg/m2 [facility] Oxygen saturation in 2023-04-25 20:01:00 96 /min [facility] Arterial blood by [facility] Pulse oximetry Branch Systolic blood 2023-04-24 18:22:00 100 mm[Hg] Univer sity of [facility] Diastolic blood 2023-04-24 18:22:00 63 mm[Hg] Unive rsity of [facility] Heart rate 2023-04-24 18:22:00 112 /min [facility] Body temperature 2023-04-24 18:20:00 36 Iza [facility] 2023-04-24 18:20:00 157.5 cm [facility] Body weight 2023-04-24 18:20:00 53.343 kg [facility] BMI 2023-04-24 18:20:00 21.51 kg/m2 Universi ty of [facility] Oxygen saturation in 2023-04-24 18:20:00 98 /min University of Arterial blood by [facility] Pulse oximetry Branch Systolic blood 2023-04-01 15:36:00 132 mm[Hg] Univer sity of pressure [facility] Diastolic blood 2023-04-01 15:36:00 72 mm[Hg] Unive rsity of pressure [facility] Heart rate 2023-04-01 15:36:00 95 /min Universi ty [facility] Body temperature 2023-04-01 15:36:00 36.78 Iza Univ ersity of [facility] Respiratory rate 2023-04-01 15:36:00 16 /min Univ ersity of [facility] Body height 2023-04-01 15:36:00 157.5 cm Universi ty [facility] [place] [facility] Body weight 2023-04-01 15:36:00 56.7 kg [facility]i ty [facility] [place] [facility] BMI 2023-04-01 15:36:00 22.86 kg/m2 [facility] [place] [facility] Oxygen saturation in 2023-04-01 15:36:00 97 /min University of Arterial blood by [facility] Pulse oximetry Branch Systolic blood 2023-03-24 13:05:00 126 mm[Hg] Univer sity of pressure [facility] Diastolic blood 2023-03-24 13:05:00 71 mm[Hg] Unive rsity of pressure [facility] Heart rate 2023-03-24 13:05:00 84 /min Universi ty [facility] [place] [facility] Body height 2023-03-24 13:05:00 157.5 cm [facility]i ty [facility] [place] [facility] Body weight 2023-03-24 13:05:00 57.924 kg [facility]i [facility] [place] [facility] BMI 2023-03-24 13:05:00 23.36 kg/m2 [facility]i [facility] [place] [facility] Oxygen saturation in 2023-03-24 13:05:00 99 /min University of Arterial blood by [facility] Pulse oximetry Branch Systolic blood 2023-03-18 21:27:00 164 mm[Hg] Univer sity of pressure [facility] Diastolic blood 2023-03-18 21:27:00 82 mm[Hg] Unive rsity of pressure [place] [facility] [place] Heart rate 2023-03-18 21:27:00 72 /min [facility]i ty [facility] [place] [facility] Body temperature 2023-03-18 21:25:00 35.72 Iza Univ ersity of [facility] Body height 2023-03-18 21:25:00 157.5 cm [facility]i ty [facility] Body weight 2023-03-18 21:25:00 58.196 kg [facility] [place] [facility] BMI 2023-03-18 21:25:00 23.47 kg/m2 [facility] Oxygen saturation in 2023-03-18 21:25:00 99 /min University of Arterial blood by [employer] Pulse oximetry Branch Body weight 2022-11-14 15:48:00 60.782 kg [facility]i ty [facility] [place] [facility] BMI 2022-11-14 15:48:00 24.51 kg/m2 [facility] [place] [facility] Systolic blood 2022-10-22 20:48:00 144 mm[Hg] Univer sity of pressure [facility] Diastolic blood 2022-10-22 20:48:00 76 mm[Hg] Unive rsity of pressure [place] [facility] [place] Heart rate 2022-10-22 20:48:00 70 /min [facility]i ty [facility] [place] [facility] Body temperature 2022-10-22 19:52:00 36 Iza Univ ersity of [place] [facility] [place] Body height 2022-10-22 19:52:00 157.5 cm [facility]i ty [facility] [place] [facility] Body weight 2022-10-22 19:52:00 61.054 kg [facility]i [facility] [place] [facility] BMI 2022-10-22 19:52:00 24.62 kg/m2 [facility] [place] [facility] Oxygen saturation in 2022-10-22 19:52:00 100 /min University of Arterial blood by [employer] Pulse oximetry Branch Body weight 2022-10-03 15:48:00 60.328 kg [facility]i [facility] [place] [facility] BMI 2022-10-03 15:48:00 24.33 kg/m2 [facility] Body weight 2022-09-27 15:47:00 60.328 kg [facility] [place] [facility] BMI 2022-09-27 15:47:00 24.33 kg/m2 [facility] [place] [facility] Systolic blood 2022-09-26 19:58:00 128 mm[Hg] Univer sity of pressure [facility] Diastolic blood 2022-09-26 19:58:00 77 mm[Hg] Unive rsity of pressure [facility] Heart rate 2022-09-26 19:58:00 58 /min [facility]i ty [facility] Body temperature 2022-09-26 19:58:00 34.83 Iza Univ ersity of [facility] Respiratory rate 2022-09-26 19:58:00 18 /min Univ ersity of [facility] Oxygen saturation in 2022-09-26 19:58:00 100 /min University of Arterial blood by [place] [employer] katherine Pulse oximetry Branch Body height 2022-09-26 17:07:00 157.5 cm [facility]i ty [facility] Body weight 2022-09-26 17:07:00 60.7 kg [facility] BMI 2022-09-26 17:07:00 24.48 kg/m2 [facility] [place] [facility] Systolic blood 2022-09-26 17:07:00 141 mm[Hg] Univer sity of pressure [facility] Diastolic blood 2022-09-26 17:07:00 62 mm[Hg] Unive rsity of pressure [facility] Heart rate 2022-09-26 17:07:00 58 /min [facility] Body temperature 2022-09-26 17:07:00 35.06 Iza Univ ersity of [facility] Respiratory rate 2022-09-26 17:07:00 18 /min Univ ersity of [facility] Body height 2022-09-26 17:07:00 157.5 cm [facility] Body weight 2022-09-26 17:07:00 60.7 kg [facility] BMI 2022-09-26 17:07:00 24.48 kg/m2 [facility] Oxygen saturation in 2022-09-26 17:07:00 100 /min University of Arterial blood by [place] [employer] katherine Pulse oximetry Branch Systolic blood 2022-09-23 16:53:00 136 mm[Hg] Univer sity of pressure [facility] [place] [facility] Diastolic blood 2022-09-23 16:53:00 77 mm[Hg] Unive rsity of pressure [facility] Heart rate 2022-09-23 16:53:00 74 /min [facility] Body height 2022-09-23 16:53:00 157.5 cm [facility] [place] [facility] Body weight 2022-09-23 16:53:00 61.326 kg [facility] [place] [facility] BMI 2022-09-23 16:53:00 24.73 kg/m2 [facility] Oxygen saturation in 2022-09-23 16:53:00 97 /min University of Arterial blood by [place] [employer] katherine Pulse oximetry Branch Body weight 2022-08-08 15:20:00 61.689 kg [facility] BMI 2022-08-08 15:20:00 24.87 kg/m2 [facility] Systolic blood 2022-08-01 17:57:00 125 mm[Hg] Univer sity of pressure [facility] Diastolic blood 2022-08-01 17:57:00 64 mm[Hg] Unive rsity of pressure [facility] Heart rate 2022-08-01 17:57:00 68 /min [facility] Body temperature 2022-08-01 17:57:00 35.67 Iza Univ ersity of [facility] Oxygen saturation in 2022-08-01 17:57:00 99 /min University of Arterial blood by [place] [employer] katherine Pulse oximetry Branch Respiratory rate 2022-08-01 15:08:00 16 /min Univ ersity of [facility] Body height 2022-08-01 15:08:00 157.5 cm [facility] Body weight 2022-08-01 15:08:00 62.1 kg [facility] [place] [facility] BMI 2022-08-01 15:08:00 25.04 kg/m2 [facility] [place] [facility] Systolic blood 2022-08-01 15:08:00 142 mm[Hg] Univer sity of pressure [facility] Diastolic blood 2022-08-01 15:08:00 70 mm[Hg] Unive rsity of pressure [facility] Heart rate 2022-08-01 15:08:00 80 /min [facility] Body temperature 2022-08-01 15:08:00 35.28 Iza Univ ersity of [facility] Respiratory rate 2022-08-01 15:08:00 16 /min Univ ersity of [facility] Body height 2022-08-01 15:08:00 157.5 cm [facility] Body weight 2022-08-01 15:08:00 62.1 kg [facility] BMI 2022-08-01 15:08:00 25.04 kg/m2 [facility] Oxygen saturation in 2022-08-01 15:08:00 99 /min University of Arterial blood by [place] [employer] katherine Pulse oximetry Branch Body weight 2022-07-26 15:19:00 61.689 kg [facility] BMI 2022-07-26 15:19:00 24.87 kg/m2 [facility] [place] [facility] [place] Body height 2022-06-13 19:08:00 157.5 cm [facility] Body weight 2022-06-13 19:08:00 62.143 kg [facility] BMI 2022-06-13 19:08:00 25.06 kg/m2 [facility] BMI 2022-06-08 20:31:00 25.06 kg/m2 [facility] Oxygen saturation in 2022-06-08 20:31:00 100 /min University of Arterial blood by [place] [employer] katherine Pulse oximetry Branch Systolic blood 2022-06-08 20:31:00 160 mm[Hg] Univer sity of pressure [facility] Diastolic blood 2022-06-08 20:31:00 80 mm[Hg] Unive rsity of pressure [facility] Heart rate 2022-06-08 20:31:00 70 /min [facility] Body temperature 2022-06-08 20:31:00 36.67 Iza Univ ersity of [facility] Respiratory rate 2022-06-08 20:31:00 16 /min Univ ersity of [facility] Body height 2022-06-08 20:31:00 157.5 cm [facility] Body weight 2022-06-08 20:31:00 62.143 kg [facility] [place] [facility] Systolic blood 2022-05-08 19:11:00 128 mm[Hg] Univer sity of pressure [facility] Diastolic blood 2022-05-08 19:11:00 74 mm[Hg] Unive rsity of [facility] Heart rate 2022-05-08 19:11:00 63 /min Universi ty of [facility] Body weight 2022-05-08 19:11:00 63.05 kg Universi ty [facility] BMI 2022-05-08 19:11:00 25.42 kg/m2 Universi ty [facility] Oxygen saturation in 2022-05-08 19:11:00 99 /min [facility] Arterial blood by [facility] Pulse oximetry Branch Systolic blood 2022-03-28 19:56:00 123 mm[Hg] Univer sity of pressure [facility] Diastolic blood 2022-03-28 19:56:00 78 mm[Hg] Unive rsity of [facility] Heart rate 2022-03-28 19:56:00 67 /min Universi [facility] Body temperature 2022-03-28 19:56:00 36.72 Iza [facility] Respiratory rate 2022-03-28 19:56:00 18 /min [facility] Body height 2022-03-28 19:56:00 157.5 cm Universi [facility] Body weight 2022-03-28 19:56:00 63.05 kg Universi [facility] BMI 2022-03-28 19:56:00 25.42 kg/m2 [facility] Procedures Procedure Date / Time Performing Source Performed Clinician VACCINATIONS - CONSENTS, 2023-04-17 Doctor Unassigned, [facility] ELIGIBILITY, HISTORY 05:01:00 [place] [facility] RETROPERITONEAL LIMITED 2022-11-05 Uyen Richardson [facility] 17:33:21 Medical Branch PHACOEMULSIFICATION OF 2022-09-[address] [facility] CATARACT WITH INTRAOCULAR 19:02:00 [place] [facility] LENS IMPLANT ASSIGNMENT OF BENEFITS 2022-09-26 Doctor Unassigned, [facility] 16:36:37 [place] [facility] COMP. METABOLIC PANEL (12130) 2022-09-23 Lc Shen [facility] 17:29:00 Medical Branch CBC WITH DIFF 2022-09-23 Lc Shen [facility] xas 17:29:00 Medical Branch DISCLOSURE AND CONSENT, 2022-08-08 Doctor Fionassprakash, [facility] MEDICAL AND SURGICAL 06:01:00 [place] [facility] PROCEDURES DSU PRE-OP 2022-08-08 Doctor Fionassprakash, [facility] 06:01:00 [place] [facility] DISCLOSURE AND CONSENT, 2022-08-08 Doctor Unassprakash, [facility] MEDICAL AND SURGICAL 06:01:00 [place] [facility] PROCEDURES DSU PRE-OP 2022-08-08 Doctor Ayaz, [facility] 06:01:00 [place] [facility] OS IOL CALCULATIONS A SCAN, 2022-08-08 [facility] LEFT EYE 00:00:00 [facility] Medical Branch PHACOEMULSIFICATION OF 2022-08-01 [facility] [place] CATARACT WITH INTRAOCULAR 16:49:00 [place] [facility] LENS IMPLANT ADV BENEFICIARY NOTICE OF 2022-07-26 Doctor Ayaz [facility] NONCOVERAGE (ABN) 06:01:00 [place] [facility] DSU PRE-OP 2022-06-13 Doctor Ayaz, [facility] 06:01:00 [place] [facility] DSU PRE-OP 2022-06-13 Doctor Ayaz, [facility] 06:01:00 [place] [facility] OD IOL CALCULATIONS A SCAN, 2022-06-13 [facility] RIGHT EYE 00:00:00 [facility] [place] NOTICE OF PRIVACY PRACTICES 2022-06-08 Doctor Fionassprakash, [facility] 20:28:52 [place] [facility] CONSENT/REFUSAL FOR DIAGNOSIS 2022-06-08 Doctor Ayaz, [facility] AND TREATMENT 20:27:03 [place] [facility] POCT URINALYSIS W/O SPECIFIC 2022-03-28 NathanSean [facility] GRAVITY 00:00:00 Medical Branch HOME HEALTH [id number] 2020-11-02 [facility] 05:[facility]00 [place] [facility] Encounters Start End Encounter Admission Attending Care Care Encounter Source Date/Time Date/Time Type Type Clinicians Facility Department ID 2021-05-27 Inpatient R MANNY [facility] SOR [id number] Univers 08:17:10 CATRINA [facility] 2021-05-24 Emergency [facility] [id number] Univers [facility] 2024-04-06 2024-04-06 Outpatient R CUCO VALDEZ [facility] B [id number] Univers 10:30:00 10:30:00 CUCO VALDEZ [facility] 2023-06-05 2023-06-05 Outpatient R TIMMY [facility] [id number] Univers 13:30:00 13:30:00 LINDSAY [facility] 2023-04-28 2023-04-28 Outpatient R CUCO VALDEZ [facility] B [id number] Univers 00:00:00 00:00:00 CUCO VALDEZ [facility] 2023-04-25 2023-04-25 Outpatient R BUD [facility] [id number] Univers 15:00:00 16:05:47 YENIFER [facility] 2023-04-25 2023-04-25 [facility] [id number] Univers 15:00:00 16:05:47 [facility] [id number] i ty of [place] [id number] [place] [id number] [address] MEDICAL OFFICE BUILDING 2023-04-24 2023-04-24 Office [facility] [id number] Univers 13:30:00 14:00:00 Visit Uyen DILL [id number] ity [place] [id number] [place] [phone] [facility] AND [address] DIABETES CLINIC 2023-04-24 2023-04-24 Outpatient R DYLAN [facility] [id number] Univers 13:30:00 13:30:00 UYEN ity [facility] 2023-04-21 2023-04-21 Campaign Analyst Lab, Ang - Db [facility] [id number] Univers 16:00:00 16:15:00 Visit Uyen Richardson [facility] [id number] ity of [place] [id number] [place]ido as [place] [id number] [place] dical [address] MEDICAL OFFICE BUILDING 2023-04-21 2023-04-21 Outpatient R DYLAN [facility] [id number] Univers 16:00:00 13:39:13 [place] ity [facility] 2023-04-21 2023-04-21 [facility] [id number] Univers 13:00:00 [facility]00 [facility] 2023-04-17 2023-04-17 Orders Doctor BLAIR [id number] [facility] Univers 00:00:00 00:00:00 Only Unassigned, JENY [id number] ity of [place] [facility] [id number] Brigido as [phone] [facility] 009 Branch 2023-04-10 2023-04-10 Telephone Dylan [facility] [id number] Univers 00:00:00 00:00:00 Uyen MULTISPEC [id number] ity of [id number] [place] [id number] [facility] AND [place] [address] DIABETES CLINIC 2023-04-01 2023-04-01 Outpatient R CUCO VALDEZ [facility] B [id number] Univers 10:30:00 10:49:59 CUCO VALDZE ity [facility] 2023-04-01 2023-04-01 Office Dimitrios [facility] [id number] Univers 10:30:00 10:49:59 Visit Cuco TREVIÑO [id number] it y of WOMEN'S [id number] [facility] [id number] [facility] 134 Branch 2023-03-24 2023-03-24 Campaign Analyst Lab, Ang - Db [facility] 1.2.840.1 [id number] Univers 08:45:00 09:00:00 Visit Lc Shen HEALTH [id number] ity of [place] [id number] [place] [id number] [facility] [address] [facility] OFFICE [facility] 2023-03-24 2023-03-24 Outpatient [facility] [id number] Univers 08:45:00 08:45:00 LC ity [facility] 2023-03-24 2023-03-24 Office [facility] [id number] Univers 08:00:00 08:30:00 [facility] [id number] it y of [place] [id number] [place] [phone] [address] OFFICE [facility] 2023-03-24 2023-03-24 Outpatient R HERMELINDA [facility] [id number] Univers 08:00:00 08:00:00 LC ity [facility] 2023-03-18 2023-03-18 Office [facility] [id number] Univers 15:00:00 15:30:00 [facility] [id number] [id number] [id number] [address] DIABETES CLINIC 2023-03-18 2023-03-18 Outpatient R DYLAN [facility] [id number] Univers 15:00:00 15:00:00 UYEN ity [facility] 2023-03-14 2023-03-14 Campaign Analyst Lab, Ang - Db [facility] 1.2.840.1 14 [id number] Univers 10:45:00 10:45:00 Visit Uyen Richardson [facility] [id number] ity of [place] 4.2.7.2.686 Brigido as [place] [phone] [address] OFFICE [facility] 2023-03-14 2023-03-14 Outpatient R DYLAN [facility] [id number] Univers 10:45:00 10:35:13 UYEN ity [facility] 2023-03-14 2023-03-14 [facility] [id number] Univers 10:30:00 10:30:00 UYEN ity [facility] 2023-03-06 2023-03-06 [facility]phone [facility] 1..840.114 10 [id number] Univers 00:00:00 [facility] 350.1.13.10 [place] [phone] [address] [facility] 2022-12-10 2022-12-10 Outpatient R DYLAN [facility] [id number] Univers 16:00:00 16:00:00 UYEN ity [facility] 2022-11-29 2022-11-29 Telephone [facility] 1..840.114 10 [id number] Univers 00:00:00 00:00:00 [facility] 350.1.13.10 [place] [id number] [address] [facility]ES [facility]INIC 2022-11-14 2022-11-14 Outpatient R TIMMY [facility] [id number] Univers 10:15:00 11:47:05 AISHAT ity [facility] 2022-11-14 2022-11-14 Office ANIYAH [place] 1..840.114 101 [id number] Univers 10:15:00 11:47:05 Visit Aishachanel Y 350.1.13.10 it y of [facility] 4.2.7.2.686 [place] [facility] [phone] [facility] BLDG. [address] 2022-11-08 2022-11-08 Telephone [facility] 1.2.840.114 10 [id number] Univers 00:00:00 00:00:00 Uyen MULTISPEC 350.1.13.10 [place] [id number] [address] [facility]ES [facility]IC 2022-11-05 2022-11-05 [facility] [id number] Univers 11:36:33 23:59:00 UYEN ity [facility] 2022-11-05 2022-11-05 [facility] 1.2.840.114 [id number] Univers 11:36:33 23:59:00 Encounter Uyen BENDER 350.1.13.10 ity of [place] [id number] [facility] [address] 2022-10-22 2022-10-22 [facility] [id number] Univers 15:00:00 15:47:14 UYEN myers [facility] 2022-10-22 2022-10-22 Office [facility] 1.2.033.683 [id number] Univers 15:00:00 15:47:14 Visit [facility] 350.1.13.10 ity of [facility] 4.2.7.2.686 [facility] [phone] [address] DIABETES CLINIC 2022-10-17 2022-10-17 Campaign Analyst Lab, Ang - Db [facility] 1.2.840.1 14 [id number] Univers 10:00:00 10:15:00 Visit Lc Shen [facility] 350.1.13.10 ity of [place] 4.2.7.2.686 Brigido as [place]A [id number] Ok shikha [facility] [address] [place] MEDICAL OFFICE BUILDING 2022-10-17 2022-10-17 Outpatient R HERMELINDA [facility] [id number] Univers 10:00:00 10:00:00 LC ity [facility] 2022-10-17 2022-10-17 ANIYAH Gibson 1.2.840.114 [id number] Univers 00:00:00 00:00:00 Aishat Y 350.1.13.10 it y of [place].2.7.2.686 [place] BANK [phone] [facility] BLDG. [address] 2022-10-09 2022-10-09 Telephone [facility] 1.2.840.114 10 [id number] Univers 00:00:00 00:00:00 Uyen MULTISPEC 350.1.13.10 ity of [place] 4.2.7.2.686 [facility] [place] [phone] [address] DIABETES CLINIC 2022-10-03 2022-10-03 Office Timmy, UNIVERSIT 1.2.840.114 [id number] Univers 10:15:00 10:30:00 Visit Aishat Y 350.1.13.10 it y of [place].2.7.2.686 [place] BANK [phone] [facility] BLDG. [address] [place] 2022-10-03 2022-10-03 Outpatient R [facility] [id number] Univers 10:15:00 10:15:00 AISHAT ity of [facility] 2022-09-27 2022-09-27 Outpatient R [facility] [id number] Univers 10:15:00 10:40:13 AISHAT ity of [facility] 2022-09-27 2022-09-27 Office TimmyKAROLINAIT 1.2.840.114 [id number] Univers 10:15:00 10:40:13 Visit Aishat Y 350.1.13.10 it y of [place].7.2.686 [place] BANK [phone] [facility]. [address] 2022-09-27 2022-09-27 Telephone [facility] 1.2.840.114 10 [id number] Univers 00:00:00 00:00:00 Uyen MULTISPEC 350.1.13.10 ity of [place] 4.2.7.2.686 [facility] [phone] [facility] AND [address] DIABETES CLINIC 2022-09-26 2022-09-26 Outpatient R [facility] OPH [id number] Univers 11:02:00 14:33:00 AISHAT ity [facility] 2022-09-26 2022-09-26 [facility] TERESA [place] 1.2.156.140 [id number] Univers 11:02:00 14:33:00 Encounter Aishat JENY 350.1.13.10 ity of [facility] 4.2.7.2.686 [place] [phone] [facility] [address] 2022-09-26 2022-09-26 Surgery TERESA [place] 1.2.840.114 [id number] Univers 13:13:00 13:51:00 Aishat JENY 350.1.13.10 it y of [facility] 4.2.7.2.686 [place] [id number] [facility] [address] 2022-09-26 2022-09-26 Orders Doctor BLAIR 1.2.840.114 [id number] Univers 00:00:00 00:00:00 Only Unassigned, JENY 350.1.13.10 ity of [place] [facility] 4.2.7.2.686 Brigido as [phone] [facility] [address] 2022-09-23 2022-09-23 Campaign Analyst Lab, Ang - Yusef [facility] 1.2.840.1 14 [id number] Univers 11:30:00 11:45:00 Visit Hermelinda Lc HEALTH 350.1.13.10 ity of [place] 4.2.7.2.686 Brigido as [place]KE?BLEA [phone] [facility] [address] [place] MEDICAL OFFICE BUILDING 2022-09-23 2022-09-23 Outpatient R HERMELINDA [facility] [id number] Univers 11:00:00 11:18:30 LC ity of [facility] 2022-09-23 2022-09-23 Office Hermelinda [facility] 1.2.840.114 [id number] Univers 11:00:00 11:18:30 Visit Lc HEALTH 350.1.13.10 it y of [place] 4.2.7.2.686 Brigido as [place]?BLEA [id number] [facility] [address] [place] MEDICAL OFFICE BUILDING 2022-09-23 2022-09-23 Pre Visit BLAIR Maloney 1.2.956.971 [id number] Univers 00:00:00 00:00:00 Outreach Sherketha S JENY 350.1.13.10 ity of [facility] 4.2.7.2.686 Brig[place] as [phone] [facility] [address] 2022-08-22 2022-08-22 Refnellie [facility] 1.2.840.114 [id number] Univers 00:00:00 00:00:00 Sebastian GUTIERRESBIANCA 350.1.13.10 ity [facility] [place].2.[place].2.[place] [phone] Ok dical NAL 059 [facility] 2022-08-08 2022-08-08 [facility] [id number] Univers 09:45:00 13:03:49 AISHAT ity [facility] 2022-08-08 2022-08-08 Office [facility] 1.2.840.114 [id number] Univers 09:45:00 13:03:49 Visit Aishat Y 350.1.13.10 it y of [facility] 4.2.7.2.686 Te Captain Wises BANK [phone] [facility] [address] [place] 2022-08-08 2022-08-08 Outpatient R [facility] [id number] Univers 09:15:00 11:04:23 AISHAT ity [facility] 2022-08-08 2022-08-08 Office [facility], [facility] 1.2.840.114 [id number] Univers 09:15:00 09:30:00 Visit Aishat Y 350.1.13.10 it y of [facility] 4.2.7.2.686 [place] BANK [phone] [facility] [address] [place] 2022-08-08 2022-08-08 [facility] [id number] Univers 09:15:00 09:15:00 AISHAT ity [facility] 2022-08-08 2022-08-08 Outpatient R [facility] [id number] Univers 09:15:00 09:15:00 AISHAT ity [facility] 2022-08-02 2022-08-02 Office KAROLINA FranceIT 1.2.840.114 [id number] Univers 10:00:00 10:15:00 Visit Aishat Y 350.1.13.10 it y of [facility] 4.2.7.2.686 [place] BANK [phone] [facility] [address] 2022-08-02 2022-08-02 Outpatient R TIMMY [facility] [id number] Univers 10:00:00 10:00:00 AISHAT ity of [facility] 2022-08-01 2022-08-01 [facility] OPH [id number] Univers 09:04:00 12:00:00 AISHAT ity [facility] 2022-08-01 2022-08-01 Hospital TERESA [place] 1.2.070.196 [id number] Univers 09:04:00 12:00:00 Encounter Aishat JENY 350.1.13.10 ity of [facility] 4.2.7.2.686 [place] [phone] [facility] [address] 2022-08-01 2022-08-01 Surgery TERESA [place] 1.2.840.114 [id number] Univers 10:53:00 11:33:00 Aishat JENY 350.1.13.10 it y of [facility] 4.2.7.2.686 [place] [phone] [facility] [address] 2022-07-30 2022-07-30 Outpatient R DYLAN [facility] [id number] Univers 09:15:00 09:15:00 RAMIRO ity of [facility] 2022-07-26 2022-07-26 Office KAROLINA [place] 1.2.840.114 [id number] Univers 09:30:00 09:45:00 Visit Aishat Y 350.1.13.10 it y of [facility] 4.2.7.2.686 [place] BANK [phone] [facility] [address] 2022-07-26 2022-07-26 [facility] [id number] Univers 09:30:00 09:30:00 AISHAT ity of [facility] 2022-07-26 2022-07-26 Orders Doctor BLAIR 1.2.840.114 [id number] Univers 00:00:00 00:00:00 Only Unassigned, JENY 350.1.13.10 ity of [place] [facility] 4.2.7.2.686 Brigido as [phone] [facility] [address] 2022-06-13 2022-06-13 Office Timmy [facility] 1.2.840.114 [id number] Univers 13:15:00 14:28:49 Visit Aismelissa Y 350.1.13.10 it y of [facility] 4.2.7.2.686 Te [facility] [phone] [facility] BLDG. [address] [place] 2022-06-13 2022-06-13 Outpatient R TIMMY [facility] [id number] Univers 13:15:00 13:15:00 AISHAT ity [facility] 2022-06-08 2022-06-08 Emergency X [facility] ERT [id number] Univers 14:32:00 15:00:00 STANLEY [facility] 2022-06-08 2022-06-08 Emergency [facility] 1.2.524.027 [id number] Univers 14:32:00 15:00:00 Stanley BENDER 350.1.13.10 i ty [facility] [place]2.7.2.[place] [phone] [facility] [address] [place] 2022-05-14 2022-05-14 Telephone [facility] 1.2.484.891 [id number] Univers 00:00:00 00:00:00 Sendil Cindy BENDER 350.1.13.10 ity of [place] 4.2.7.2.686 [place] [phone] Ok dical NAL 059 [facility] 2022-05-08 2022-05-08 Outpatient R ELIO [facility] [id number] Univers 13:00:00 23:59:00 SENDIL louis [facility] 2022-05-08 2022-05-08 Office [facility] 1.2.840.114 [id number] Univers 14:20:00 14:36:13 Visit Petrona Villanueva [place] 350.1.13.10 i ty of [place] 4.2.7.2.[place] [phone] [address] 2022-05-08 2022-05-08 Outpatient R [facility] [id number] Univers 14:00:00 14:00:00 SENDIL ity [facility] 2022-05-08 2022-05-08 Outpatient [facility] [id number] Univers 14:00:00 14:00:00 SENDIL ity [facility] 2022-05-08 2022-05-08 [facility] [id number] Univers 14:00:00 14:00:00 SENDIL ity [facility] 2022-04-26 2022-04-26 [place] [facility] 1.2.522.913 [id number] Univers 00:00:00 00:00:00 Sendil Cindy BENDER 350.1.13.10 ity of [place] 4.2.7.2.[place] [phone] [address] 2022-04-18 2022-04-18 Outpatient [facility] [id number] Univers 14:40:55 23:59:00 LC ity [facility] 2022-04-18 2022-04-18 [facility] 1.2.840.114 [id number] Univers 14:00:00 23:59:00 Encounter Lc BNEDER 350.1.13.10 ity of [facility] 4.2.7.2.686 [place] C[place] [phone] [facility] [address] 2022-03-28 2022-03-28 Office Luis Daniel Evans [facility] LOZADA 1.2.840.114 [id number] Univers 15:00:00 15:44:27 Visit KAMILA 350.1.13.10 it y of [place] 4.2.7.2.[place] HEALTH [id number] [facility] [address] 2022-03-28 2022-03-28 Outpatient R LUIS DANIEL EVANS [facility] [id number] Univers 15:00:00 15:44:27 ity of [facility] 2022-03-28 2022-03-28 Outpatient R LUIS DANIEL EVANS [facility] [id number] Univers 15:00:00 15:00:00 ity of [facility] 2022-03-26 2022-03-26 Campaign Analyst Lab, Ang - Yusef [facility] 1.2.840.1 14 [id number] Univers 10:00:00 10:15:00 Visit Lc Shen 350.1.13.10 ity of [place] 4.2.7.2.686 Brigido as [place]?BLEA [phone] [facility] [address] MEDICAL OFFICE [facility] 2022-03-26 2022-03-26 Outpatient R [facility] [id number] Univers 10:00:00 10:00:00 LC itjosef [facility] 2022-03-26 2022-03-26 Office [facility] 1.2.840.114 [id number] Univers 09:00:00 09:48:40 [facility] 350.1.13.10 it y of [place] 4.2.7.2.686 Brigido as [place]?BLEA [id number] [facility] [address] [place] MEDICAL OFFICE [facility] 2022-03-26 2022-03-26 Outpatient R HERMELINDA [facility] [id number] Univers 09:00:00 09:48:40 LC ity [facility] 2022-03-01 2022-03-01 Telephone [facility] 1.2.646.881 [id number] Univers 00:00:00 00:00:00 Sebastian BENDER 350.1.13.10 ity of [facility] 4.2.7.2.[place] [phone] Ok [facility] 059 [facility] 2022-02-19 2022-02-19 Emergency X MORTEZA [facility] ERT [id number] Univers 08:30:00 10:38:00 EVELYN ity [facility] 2022-02-192022-02-19 Emergency [facility] 1.2.840.114 [id number] Univers 08:30:00 10:38:00 Evelyn BENDER 350.1.13.10 ity of [place] 4.2.7.2.686 [place] [phone] [facility] [address] [place] 2021-11-20 2021-11-20 Telephone [facility] 1.2.577.859 [id number] Univers 00:00:00 00:00:00 Sendil Cindy [facility] 350.1.13.10 ity of [place] 4.2.7.2.686 Brigido as [place] [phone] Ok dicmarty KNEY [address] MEDICAL OFFICE [facility] 2021-11-01 2021-11-01 Outpatient [facility] [id number] Univers 10:30:00 11:15:24 SENDIL ity of [facility] 2021-11-01 2021-11-01 Office [facility] 1.2.840.114 [id number] Univers 10:30:00 11:15:24 Visit Sendsander BENDER 350.1.13.10 ity of [place] 4.2.7.2.686 [place] [facility] [phone] Ok shikha XAVIER 059 [facility] 2021-11-01 2021-11-01 Outpatient [facility] [id number] Univers 10:30:00 11:15:24 SENDIL ity of [facility] 2021-11-01 2021-11-01 Orders Doctor PINTO 1.2.840.114 [id number] Univers 00:00:00 00:00:00 Only Unassigned, JENY 350.1.13.10 ity of [place] [facility] 4.2.7.2.686 Brigido as [phone] [facility] [address] [place] 2021-07-12 2021-07-12 Outpatient R TIMMY [facility] [id number] Univers 13:00:00 13:00:00 AISHAT ity of [facility] 2021-07-12 2021-07-12 [facility] [id number] Univers 10:15:00 10:15:00 AISHAT ity [facility] 2021-07-03 2021-07-03 Outpatient [facility] [id number] Univers 13:00:00 13:00:00 AISHAT ity [facility] 2021-07-03 2021-07-03 Outpatient [facility] [id number] Univers 10:15:00 10:15:00 AISHAT ity [facility] 2021-07-02 2021-07-02 Outpatient R TIMMY, [facility] OPH [id number] Univers 08:29:00 08:29:00 AISHAT ity [facility] 2021-05-31 2021-05-31 Outpatient [facility] [id number] Univers 14:15:00 14:15:00 [facility] 2021-05-03 2021-05-03 Outpatient [facility] [id number] Univers 14:30:00 14:30:00 SENDIL [facility] 2021-05-03 2021-05-03 Office [facility] 1.2.840.114 [id number] Univers 12:52:40 13:16:27 Visit Sebastian Bender 350.1.13.10 ity of [place]2.7.2.686 [place] Profess[place] [phone] Ok dical nal 059 [facility] 2021-05-03 2021-05-03 Orders Doctor BLAIR 1.2.840.114 [id number] Univers 00:00:00 00:00:00 Only Unassigned, JENY 350.1.13.10 ity of [place] [facility] 4.2.7.2.686 Brigido as [id number] [facility] [address] 2021-03-26 2021-03-26 Telephone ANIYAH [place] 1.2.840.114 [id number] Univers 00:00:00 00:00:00 Aishat Y 350.1.13.10 it y of [facility] 4.2.7.2.686 [place] BANK [phone] [facility] BLDG. [address] 2021-03-22 2021-03-22 Telephone Timmy, UNIVERSIT 1.2.840.114 [id number] Univers 00:00:00 00:00:00 Aishat Y 350.1.13.10 it y of [place] 4.2.7.2.686 [place] BANK [phone] [facility] [address] 2021-03-15 2021-03-15 Office Timmy, UNIVERSIT 1.2.840.114 [id number] Univers 14:04:05 14:19:05 Visit Lindsay Ramey 350.1.13.10 it y of [place] 4.2.7.2.686 [place] BANK [id number] [facility] [address] 2021-03-15 2021-03-15 Ancillary Diaz [facility] 1.2.840.114 [id number] Univers 13:14:15 14:16:07 Visit Yannick Ramey 350.1.13.10 it y of [place] 4.2.7.2.686 Brigido as BANK [phone] [facility] [address] 2021-03-15 2021-03-15 Outpatient [facility] [id number] Univers 13:45:00 13:45:00 AISHAT ity of [facility] 2021-03-15 2021-03-15 Office Josafat [facility] 1.2.600.867 [id number] Univers 12:53:25 13:23:25 Visit Kelli Josef 350.1.13.10 it y of [place] 4.2.7.2.686 Brigido as BANK [phone] [facility] [address] 2021-03-15 2021-03-15 Orders Doctor BLAIR 1.2.840.114 [id number] Univers 00:00:00 00:00:00 Only Unassigned, JENY 350.1.13.10 ity of [place] [facility] 4.2.7.2.686 Brigido as [phone] [facility] [address] 2021-03-01 2021-03-01 Telephone [facility] 1.2.840.114 [id number] Univers 00:00:00 00:00:[address] [facility] 350.1.13.10 it y of Surgical 4.2.7.2.686 [place] as Specialti [phone] Ok dical es 198 [facility] 2021-02-21 2021-02-21 [facility] Luis Daniel Evans [facility] 1.2.840.114 [id number] Univers 09:05:03 23:59:00 Encounter Crandall 350.1.13.10 ity of [place] 4.2.7.2.686 [place] [facility] [phone] [facility] [address] [place] 2021-02-21 2021-02-21 Outpatient R NATHAN LUIS DANIEL [facility] [id number] Univers 00:00:00 00:00:00 ity of [facility] 2021-02-19 2021-02-19 Outpatient R NATHAN LUIS DANIEL [facility] [id number] Univers 10:00:00 10:00:00 ity of [facility] 2021-02-12 2021-02-12 Outpatient R NATHAN LUIS DANIEL [facility] [id number] Univers 10:00:00 10:00:00 ity of [facility] 2021-02-07 2021-02-07 Outpatient R JUAN [facility] [id number] Univers 13:45:00 13:45:00 NAWAF ity [facility] 2021-01-12 2021-01-12 Outpatient R TIMMY [facility] [id number] Univers 13:45:00 13:45:00 AISHAT ity [facility] 2021-01-12 2021-01-12 Orders Doctor BLAIR 1.2.840.114 [id number] Univers 00:00:00 00:00:00 Only Unassigned, JENY 350.1.13.10 ity of [place] [facility] 4.2.7.2.686 Brigido as [phone] [facility] [address] [place] 2020-12-26 2020-12-26 Orders Doctor BLAIR Lemus2.840.114 [id number] Univers 00:00:00 00:00:00 Only Unassigned, JENY 350.1.13.10 ity of [place] [facility] 4.2.7.2.686 Brigido as [id number] [address] 2020-12-15 2020-12-15 Outpatient R TIMMY [facility] [id number] Univers 13:45:00 13:45:00 LINDSAY josef [facility] 2020-11-29 2020-11-29 [facility]patient [facility] [id number] Univers 11:15:00 11:15:00 KELLI josef [facility] 2020-11-29 2020-11-29 Outpatient R JOSAFAT [facility] [id number] Univers 10:15:00 10:15:00 KELLI [facility] 2020-11-24 2020-11-24 Outpatient [facility] [id number] Univers 15:00:00 15:00:00 MARK [facility] 2020-11-14 2020-11-14 Hospital [facility] 1.2.840.114 [id number] Univers 09:20:52 23:59:00 Encounter [facility] 350.1.13.10 ity of Surgical 4.2.7.2.686 Brigido as Specialti [phone] Me dical es 809 [facility] 2020-11-14 2020-11-14 [facility] [id number] Univers 10:00:00 10:00:00 [facility] 2020-11-14 2020-11-14 Office [facility] 1.2.840.114 [id number] Univers 09:04:51 09:19:51 Visit [facility] [id number] it y of Surgical 4.2.7.2.686 Brigido as Specialti [phone] Me dical es 198 [facility] 2020-11-02 2020-11-02 Orders Doctor BLAIR 1.2.840.114 [id number] Univers 00:00:00 00:00:00 Only Unassigned, JENY 350.1.13.10 ity of [place] [facility] 4.2.7.2.686 Brigido as [id number] [address] 2020-10-30 2020-10-31 [facility] 1.2.840.114 [id number] Univers 07:06:00 13:50:00 Encounter Catrina Bender 350.1.13.10 [place] [phone] [facility] [address] 2020-10-30 2020-10-30 [facility] 1.2.569.297 [id number] Univers 09:25:00 11:42:00 Catrina Bender 350.1.13.10 i [place] [id number] [facility] [address] 2020-10-30 2020-10-30 Orders Doctor BLAIR 1.2.840.114 [id number] Univers 00:00:00 00:00:00 Only Unassigned, JENY 350.1.13.10 ity of [place] [facility] 4.2.7.2.686 Brigido as [phone] [facility] [address] 2020-10-27 2020-10-27 [facility] 1.2.840.114 [id number] Univers 09:48:16 23:59:00 Encounter Catrina Bender 350.1.13.10 ity of [place] 4.2.7.2.686 [facility] [phone] [facility] [address] 2020-10-27 2020-10-27 Campaign Analyst Brianna, Charmaine Lab Main [facility] 1.2.8 40.114 [id number] Univers 09:45:14 10:00:14 Visit Catrina Bryant Rich Bender 350.1.13.10 [place] [phone] [place] dical nal [address] 2020-10-27 2020-10-27 Laboratory Only, Adc Test [facility] 1.2.840. 114 [id number] Univers 09:44:03 09:59:03 Only Catrina Bryant 350.1.13.10 [place] 4[place].2.[place] [phone] [facility] [address] 2020-10-27 2020-10-27 [facility] [id number] Univers 09:45:00 09:45:00 CATRINA myers [facility] 2020-10-26 2020-10-26 Ancillary Robert Ferrell [facility] 1.2.840. 114 [id number] Univers 13:01:42 14:01:42 Visit Catrina Bryant 350.1.13.10 [place] [phone] [place] dical nal 179 [facility] 2020-10-26 2020-10-26 [facility] [id number] Univers 13:00:00 13:00:00 CATRINA [facility] 2020-10-23 2020-10-23 [facility] [id number] Univers 13:06:14 16:16:55 Visit Catrina Carrillo 350.1.13.10 it y of Surgical 4.2.7.2.686 Brigido as Specialti [phone] Ok dical es 198 [facility] 2020-10-23 2020-10-23 [facility] [id number] Univers 14:00:00 14:00:00 CATRINA [facility] 2020-10-17 2020-10-17 Prep [facility] 1.2.840.114 [id number] Univers 00:00:00 00:00:00 Surgery Catrina Carrillo 350.1.13.10 it y of Surgical 4.2.7.2.686 Brigido as Specialti [phone] Ok dical es 198 [facility] 2020-10-12 2020-10-12 Telephone [facility] 1.2.840.114 [id number] Univers 00:00:00 00:00:00 Cat[facility] 350.1.13.10 it y of Surgical 4.2.7.2.686 Brigido as Specialti [phone] Ok dical es 198 [facility] 2020-09-22 2020-09-22 Hospital [facility] 1.2.840.114 [id number] Univers 10:10:46 23:59:00 Encounter Catrina [facility] 350.1.13.10 ity of Surgical 4.2.7.2.686 Brigido as Specialti [phone] Me dical es 809 [facility] 2020-09-22 2020-09-22 Office [facility] [id number] Univers 09:58:57 10:19:25 Visit Catrina Carrillo 350.1.13.10 it y of Surgical 4.2.7.2.686 Brigido as Specialti [phone] Ok dical es 198 [facility] 2020-09-22 2020-09-22 [facility] [id number] Univers 10:00:00 10:00:00 CATRINA [facility] 2020-02-14 2020-02-14 Orders Doctor PINTO 1.2.840.114 [id number] Univers 00:00:00 00:00:00 Only Unassigned, JENY 350.1.13.10 ity of [place] [facility] 4.2.7.2.686 Brigido as [phone] [address] 2019-12-29 2019-12-29 Office [facility] 1.2.840.114 [id number] Univers 14:16:45 16:05:27 Visit Michelle CARRILLO 350.1.13.10 ity of [place] 4[place]2.7.2.[address] [place] [facility] [phone] [facility] 2019-12-29 2019-12-29 Out[facility] [id number] Univers 14:45:00 14:45:00 MICHELLE [facility] 2019-12-29 2019-12-29 Orders Doctor PINTO 1.2.840.114 [id number] Univers 00:00:00 00:00:00 Only Unassigned, JENY 350.1.13.10 ity of [place] [facility] 4.2.7.2.686 Brigido as [phone] [address] 2019-12-16 2019-12-16 Orders Doctor PINTO 1.2.840.114 [id number] Univers 00:00:00 00:00:00 Only Unassigned, JENY 350.1.13.10 ity of [place] [facility] 4.2.7.2.686 Brigido as [phone] [address] 2019-12-08 2019-12-08 Emergency [facility] 1.2.840.114 [id number] Univers 12:57:09 14:49:00 Stanislav Corado Crandall 350.1.13.10 ity of [place].2.7.2.686 [place] [facility] [phone] [facility] [address] [place] 2019-12-03 2019-12-03 Outpatient Homar ANOTNIO [facility] [id number] Univers 16:15:00 16:15:00 MARK ity of [facility] 2019-11-11 2019-11-11 Orders Doctor BLAIR 1.2.840.114 [id number] Univers 00:00:00 00:00:00 Only Unassigned, JENY 350.1.13.10 ity of [place] [facility] 4.2.7.2.686 Brigido as [phone] [address] 2019-10-11 2019-10-11 Orders Doctor PINTO 1.2.840.114 [id number] Univers 00:00:00 00:00:00 Only Unassigned, JENY 350.1.13.10 ity of [place] [facility] 4.2.7.2.686 Brigido as [phone] [address] 2019-10-06 2019-10-06 Office [facility] 1.2.840.114 [id number] Univers 08:40:50 09:05:22 Visit [facility] 350.1.13.10 it y of Surgical 4.2.7.2.686 Brigido as Specialti [phone] Ok dical 198 [facility] 2019-10-06 2019-10-06 [facility] [id number] Univers 09:00:00 09:00:00 MITESH [facility] 2019-09-20 2019-09-20 Orders Doctor PINTO 1.2.840.114 [id number] Univers 00:00:00 00:00:00 Only Unassigned, JENY 350.1.13.10 ity of [place] [facility] 4.2.7.2.686 Brigido as [phone] [address] 2019-09-07 2019-09-07 Outpatient [facility] [id number] Univers 14:08:12 23:59:00 MITESH ity of [facility] 2019-09-07 2019-09-07 Hospital [facility] 1.2.840.114 [id number] Univers 14:08:00 23:59:00 Encounter [facility] 350.1.13.10 ity of Surgical 4.2.7.2.686 Brigido as Specialti [phone] Ok dical es 809 [facility] 2019-09-07 2019-09-07 Office [facility] 1.2.840.114 [id number] Univers 13:59:33 14:14:33 Visit [facility] 350.1.13.10 it y of Surgical 4.2.7.2.686 Brigido as Specialti [phone] Ok dical es 198 [facility] 2019-08-25 2019-08-25 Orders Doctor BLAIR 1.2.840.114 [id number] Univers 00:00:00 00:00:00 Only Unassigned, JENY 350.1.13.10 ity of [place] [facility] 4.2.7.2.686 Brigido as [phone] [facility] [address] [place] 2019-08-23 2019-08-24 [facility] 1.2.840.114 [id number] Univers 06:44:00 15:30:00 Encounter Catrina Bender 350.1.13.10 ity of [place]7.2.[place] [phone] [facility] [address] [place] 2019-08-23 2019-08-23 Anesthesia KochMelvin siegel [facility] 1.2.8 40.114 [id number] Univers 09:23:00 11:10:00 Ledy Veliz 350.1.13.10 ity of [place].2.[place] [phone] [facility] [address] [place] 2019-08-23 2019-08-23 Orders Doctor BLAIR 1.2.840.114 [id number] Univers 00:00:00 00:00:00 Only Unassigned, JENY 350.1.13.10 ity of [place] [facility] 4.2.7.2.686 Brigido as [phone] [facility] [address] [place] 2019-08-19 2019-08-19 Outpatient R MANNY [facility] [id number] Univers 08:45:00 08:45:00 CATRINA [facility] 2019-08-19 2019-08-19 Campaign Analyst 1, Adc Lab [facility] 1.2.840.114 [id number] Univers 08:23:54 08:38:54 Visit Catrina Bryant 350.1.13.10 ity of [place] 4.2.7.2.686 [facility] [phone] [facility] [address] 2019-08-19 2019-08-19 Hospital Manny [facility] 1.2.840.114 [id number] Univers 08:00:00 08:23:00 Encounter Catrina Rich Bender 350.1.13.10 ity of [place] 4.2.7.2.686 [facility] [phone] [facility] [address] 2019-08-04 2019-08-04 Orders Doctor BLAIR 1.2.840.114 [id number] Univers 00:00:00 00:00:00 Only Unassigned, JENY 350.1.13.10 ity of [place] [facility] 4.2.7.2.686 Brigido as [phone] [facility] [address] [place] 2019-07-29 2019-07-29 Orders Doctor BLAIR 1.2.840.114 [id number] Univers 00:00:00 00:00:00 Only Unassigned, JENY 350.1.13.10 ity of [place] [facility] 4.2.7.2.686 Brigido as [phone] [address] 2019-06-07 2019-06-07 Outpatient R MANNY [facility] [id number] Univers 10:45:00 10:45:00 CATRINA [facility] Results Test Description Test Time Test Comments Results Result Comments Source COMP. METABOLIC PANEL (48249) 2022-09-23 22:46:35 Test Item Value Reference Range Interpretation Comme nts NA (test code = 9305546603) 142 mmol/L 135-145 K (test code = 9154799055) 4.3 mmol/L 3.5-5.0 CL (test code = 8225082182) 110 mmol/L 98-108 H CO2 TOTAL (test code = 9990788162) 26 mmol/L 23-31 AGAP (test code = 9919287645) 6 2-16 BUN (test code = 8424722705) 23 mg/dL 7-23 GLUCOSE (test code = 1929326028) 101 mg/dL 70-110 CREATININE (test code = 1.10 mg/dL 0.50-1.04 H 2525121552) TOTAL BILI (test code = 0.5 mg/dL 0.1-1.9 9406191163) CALCIUM (test code = 0365900204) 9.0 mg/dL 8.6-10.6 T PROTEIN (test code = 8949415355) 7.1 g/dL 6.3-8.2 ALBUMIN (test code = 6882357499) 4.2 g/dL 3.5-5.0 ALK PHOS (test code = 1266508388) 96 U/L 34-122 ALTv (test code = 1742-6) 21 U/L 5-35 AST(SGOT) (test code = 2839556936) 37 U/L 13-40 eGFR (test code = 7899945228) 48.3 mL/min/1.73m2 BROWN (test code = BROWN) Association of Glomerular Filtration Rate (GFR) and Staging of Kidney Disease* + +-------- + ------+| GFR (mL/min/1.73 m2) ?| With Kidney Damage ?| ?Without Kidney Damage+ +-- + +| ?>90 ?| ?Stage one ?| ? Normal ?+ +------- + -------+| ?60-89 ?| ?Stage two ?| ? Decreased GFR ? + +-------- + ------+| ?30-59 ?| ?Stage three ?| ? Stage three ? + +-------- + ------+| ?15-29 ?| ?Stage four ? | ? Stage four ?+ +------- + -------+| ?<15 (or dialysis) ? ?| ?Stage five ? | ? Stage five ?+ +------- + -------+ *Each stage assumes the associated GFR level has been in effect for at least three months. ?Stages 1 to 5, with or without kidney disease, indicate chronic kidney disease. Notes: Determination of stages one and two (with eGFR >59mL/min/1.73 m2) requires estimation of kidney damage for at least three months as defined by structural or functional abnormalities of the kidney, manifested by either:Pathological abnormalities or Markers of kidney damage (including abnormalities in the composition of the blood or urine or abnormalities in imaging tests). Lab Interpretation (test code = Abnormal 92564-8) [facility] WITH [id number] 20:41:06 Test Item Value Reference Range Interpretation Comments WBC (test code = 3.85 See_Comment L [Automated 3390-2) message] The sy stem which generated this result transmitted reference range : 4.30 - 11.10 10*3/?L. The reference range was not used to interpret this result as normal/abnormal . RBC (test code = 4.12 See_Comment [Automated 299-8) message] The sy stem which generated this result transmitted reference range : 3.93 - 5.25 10*6/?L. The reference range was not used to interpret this result as normal/abnormal . HGB (test code = 11.6 g/dL 11.6-15.0 718-7) HCT (test code = 35.1 % 35.7-45.2 L 4544-3) MCV (test code = 85.2 fL 80.6-95.5 787-2) MCH (test code = 28.2 pg 25.9-32.8 785-6) MCHC (test code = 33.0 g/dL 31.6-35.1 786-4) RDW-SD (test code = 44.5 fL 39.0-49.9 59151-4) RDW-CV (test code = 14.4 % 12.0-15.5 788-0) PLT (test code = 208 See_Comment [Automated 777-3) message] The sy stem which generated this result transmitted reference range : 166 - 358 10*3/ ?L. The reference r shaan was not used to interpret this result as normal/abnormal . MPV (test code = 10.7 fL 9.5-12.9 86650-3) NRBC/100 WBC (test 0.0 See_Comment [Automat ed code = 7376210254) message] The system which generated this result transmitted reference range : 0.0 - 10.0 /100 WBCs. The refer ence range was not u sed to interpret th is result as normal/abnormal . NRBC x10^3 (test code See_Comment [Auto mated = 6635698575) message] The s ystem which generated this result transmitted reference range : 10*3/?L. The reference range was not used to interpret this result as normal/abnormal . GRAN MAT (NEUT) % 56.6 % (test code = 770-8) IMM GRAN % (test code 0.30 % = 6939793274) LYMPH % (test code = 27.0 % 736-9) MONO % (test code = 12.5 % 5905-5) EOS % (test code = 2.6 % 713-8) BASO % (test code = 1.0 % 706-2) GRAN MAT x10^3(ANC) 2.18 10*3/uL 1.88-7.09 (test code = 6687522721) IMM GRAN x10^3 (test 0.00-0.06 code = 6126294949) LYMPH x10^3 (test code 1.04 10*3/uL 1.32-3.29 L = 731-0) MONO x10^3 (test code 0.48 10*3/uL 0.33-0.92 = 742-7) EOS x10^3 (test code = 0.10 10*3/uL 0.03-0.39 711-2) BASO x10^3 (test code 0.04 10*3/uL 0.01-0.07 = 704-7) Lab Interpretation Abnormal (test code = 25272-6) [facility] URINALYSIS W/O SPECIFIC [id number] 21:02:00 Test Item Value Reference Range Interpretation Comments POCT PH U (test code = 3254) 6 mg/dl 5-8 POCT U LEUK EST (test code = Negative Negative - Negative 3263) POCT U NIT (test code = 3262) Negative Negative - Negative POCT U PROT (test code = 3259) Negative Negative - Negative POCT U GLU (test code = 3256) Negative Negative - Negative POCT U KETONE (test code = 3258) Negative Negative - Negative POCT U BLD (test code = 3257) Negative Negative - Negative [facility]"
[2023-04-29 05:06] LABS: Hematocrit 36.5 % (36.0-45.0); Lymphocytes % 21.6 % (15.3-44.8); MCV 83.8 fL (80-100); MPV 7.8 fL (7.6-11.3); Platelets 199 thou/uL (152-406); RBC Red Blood Cell Count 4.36 M/uL (3.86-4.86)
[2023-04-29 05:28] LABS: Albumin 3.8 g/dL (3.4-5.0); Bilirubin Direct 0.1 mg/dL (0-0.2); Bilirubin Indirect, Calculated 0.2 mg/dL (0.2-0.8); Bilirubin Total 0.3 mg/dL (0.2-1.0); Magnesium 2.4 mg/dL (1.6-2.4); Potassium 4.1 mEq/L (3.5-5.1); Protein, Total 7.5 g/dL (6.4-8.2)
--- NOTE | 2023-04-29 05:47 | ER ---
Nurse's Notes [facility] Name: Laila Haddad Age: 77 yrs Sex: Female : 1945 Arrival Date: 04/29/2023 Time: 03:58 Bed 5 Private MD: Diagnosis: Chest pain, unspecified Presentation: 04/29 04:12 Chief complaint: Patient states: dizziness and heart palpitations x2-3 weeks. as6 Coronavirus screen: At this time, the client does not indicate any symptoms associated with coronavirus-19. Ebola Screen: No symptoms or risks identified at this time. Initial Sepsis Screen: Does the patient meet any 2 criteria? No. Patient's initial sepsis screen is negative. Does the patient have a suspected source of infection? No. Patient's initial sepsis screen is negative. Risk Assessment: Do you want to hurt yourself or someone else? Patient reports no desire to harm self or others. Onset of symptoms is unknown. 04:12 Acuity: HENRY 3 as6 04:12 Method Of Arrival: Ambulatory as6 Historical: - Allergies: 04:12 Aspirin; as6 - PMHx: 04:12 Hypertension; Kidney disease; as6 - PSHx: 04:12 section; as6 - Immunization history:: Adult Immunizations up to date. - Social history:: Smoking status: Patient denies any tobacco usage or history of. Screenin:56 [facility] ED Fall Risk Assessment (Adult) History of falling in the last 3 months, lg3 including since admission No falls in past 3 months (0 pts). Abuse screen: Denies threats or abuse. Denies injuries from another. Nutritional screening: No deficits noted. Tuberculosis screening: No symptoms or risk factors identified. Assessment: 04:36 General: Appears in no apparent distress. comfortable, Behavior is calm, cooperative, jb4 appropriate for age. Pain: Denies pain. Neuro: Level of Consciousness is awake, alert, obeys commands, Oriented to person, place, time, situation. Cardiovascular: Patient's skin is warm and dry. Respiratory: Airway is patent Respiratory effort is even, unlabored, Respiratory pattern is regular, symmetrical. GI: No signs and/or symptoms were reported involving the gastrointestinal system. : No signs and/or symptoms were reported regarding the genitourinary system. EENT: No signs and/or symptoms were reported regarding the EENT system. Derm: Skin is intact, Skin is pink, warm \T\ dry. Musculoskeletal: Circulation, motion, and sensation intact. Range of motion: intact in all extremities. 05:30 Reassessment: Patient appears in no apparent distress at this time. Patient and/or jb4 family updated on plan of care and expected duration. Pain level reassessed. Patient is alert, oriented x 3, equal unlabored respirations, skin warm/dry/pink. 06:20 Reassessment: Patient appears in no apparent distress at this time. Patient and/or jb4 family updated on plan of care and expected duration. Pain level reassessed. Patient is alert, oriented x 3, equal unlabored respirations, skin warm/dry/pink. Vital Signs: 04:11 BP 127 / 63; Pulse 81; Resp 16 S; Temp 97.9(O); Pulse Ox 100% on R/A; Weight 53.07 kg as6 (R); Height 5 ft. 2 in. (R); Pain 0/10; 05:00 BP 111 / 67; Pulse 72; Resp 16; Pulse Ox 100% on R/A; jb4 05:00 BP 113 / 64; Pulse 67; Resp 16; Pulse Ox 100% on R/A; jb4 04:11 Body Mass Index 21.40 (53.07 kg, 157.48 cm) as6 04:11 Pain Scale: Adult as6 ED Course: 04:01 Patient arrived in ED. mr 04:11 Arm band placed on. as6 04:12 Dot Mcconnell MD is Attending Physician. sp3 04:14 Triage completed. as6 04:15 Johan Easton, RN is Primary Nurse. jb4 05:08 XRAY Chest (1 view) In Process Unspecified. EDMS 05:17 CT Head Brain wo Cont In Process Unspecified. EDMS 05:46 Raul Scott is Hospitalizing Provider. sp3 05:55 Inserted saline lock: 20 gauge in right antecubital area, using aseptic technique. kmf Blood collected. 05:56 Patient has correct armband on for positive identification. Placed in gown. Bed in low lg3 position. Call light in reach. Side rails up X 1. Client placed on continuous cardiac and pulse oximetry monitoring. NIBP monitoring applied. front desk monitor on. Door closed. Noise minimized. Warm blanket given. 05:56 No provider procedures requiring assistance completed. Patient admitted, IV remains in lg3 place. No redness/swelling at site. Administered Medications: No medications were administered Medication: 05:57 VIS not applicable for this client. lg3 Outcome: 05:47 Decision to Hospitalize by Provider. sp3 05:56 Admitted to ER Hold. Please see [facility] for further documentation. lg3 05:56 Condition: stable 05:56 Instructed on the need for admit, Demonstrated understanding of instructions, 16:06 Patient left the ED. ld1 Signatures: Dispatcher [employer] EDMS RachidYessica, Reg Reg mr Johan Easton, RN RN jb4 Erlinda Munoz, RN RN lg3 Aniya Higuera RN RN ld1 Dot Mcconnell MD MD sp3 Ryland Obrien RN RN as6 Idalia Davis [facility]
--- NOTE | 2023-04-29 05:47 | EDPHYS ---
Physician Documentation [facility] Name: Laila Haddad Age: 77 yrs Sex: Female : 1945 Arrival Date: 04/29/2023 Time: 03:58 Bed 5 Private MD: ED Physician Dot Mcconnell HPI: 04/29 04:48 This 77 yrs old Black Female presents to ER via Ambulatory with complaints of Dizziness.sp3 04:48 77-year-old female with history of hypertension, kidney disease now presents to the ED sp3 with chief complaint chest pain and dizziness its been off and on for 2 weeks. She states that today the chest pain has been greater than a dizziness is described as substernal. She did go to her PCP last week at [facility] who advised her to go to a saw setter but she has not had a chance to go yet. She denies any other symptoms including back pain, shortness of breath, abdominal pain, nausea, vomiting, diarrhea, syncope, near syncope, focal neurological deficit, trauma, headache, travel history, known sick contacts, or any other signs or symptoms on ROS at this time.. Historical: - Allergies: 04:12 Aspirin; as6 - PMHx: 04:12 Hypertension; Kidney disease; as6 - PSHx: 04:12 section; as6 - Immunization history:: Adult Immunizations up to date. - Social history:: Smoking status: Patient denies any tobacco usage or history of. ROS: 04:49 Constitutional: Negative for fever, chills, and weight loss, Eyes: Negative for injury, sp3 pain, redness, and discharge, ENT: Negative for injury, pain, and discharge, Neck: Negative for injury, pain, and swelling, Respiratory: Negative for shortness of breath, cough, wheezing, and pleuritic chest pain, Abdomen/GI: Negative for abdominal pain, nausea, vomiting, diarrhea, and constipation, Back: Negative for injury and pain, MS/Extremity: Negative for injury and deformity, Skin: Negative for injury, rash, and discoloration, Psych: Negative for depression, anxiety, suicide ideation, homicidal ideation, and hallucinations, Allergy/Immunology: Negative for hives, rash, and allergies, Endocrine: Negative for neck swelling, polydipsia, polyuria, polyphagia, and marked weight changes, Hematologic/Lymphatic: Negative for swollen nodes, abnormal bleeding, and unusual bruising, 04:49 All other systems are negative, Exam: 04:50 Constitutional: This is a well developed, well nourished patient who is awake, alert, sp3 and in no acute distress. Head/Face: Normocephalic, atraumatic. Eyes: Pupils equal round and reactive to light, extra-ocular motions intact. Lids and lashes normal. Conjunctiva and sclera are non-icteric and not injected. Cornea within normal limits. Periorbital areas with no swelling, redness, or edema. ENT: Nares patent. No nasal discharge, no septal abnormalities noted. External auditory canals are clear. Oropharynx with no redness, swelling, or masses, exudates, or evidence of obstruction, uvula midline. Mucous membranes moist. Neck: Trachea midline, no thyromegaly or masses palpated, and no cervical lymphadenopathy. Supple, full range of motion without nuchal rigidity, or vertebral point tenderness. No Meningismus. Chest/axilla: Normal chest wall appearance and motion. Nontender with no deformity. No lesions are appreciated. Cardiovascular: Regular rate and rhythm with a normal S1 and S2. No gallops, murmurs, or rubs. Normal PMI, no JVD. No pulse deficits. Respiratory: Lungs have equal breath sounds bilaterally, clear to auscultation and percussion. No rales, rhonchi or wheezes noted. No increased work of breathing, no retractions or nasal flaring. Abdomen/GI: Soft, non-tender, with normal bowel sounds. No distension or tympany. No guarding or rebound. No evidence of tenderness throughout. Back: No spinal tenderness. No costovertebral tenderness. Full range of motion. Skin: Warm, dry with normal turgor. Normal color with no rashes, no lesions, and no evidence of cellulitis. MS/ Extremity: Pulses equal, no cyanosis. Neurovascular intact. Full, normal range of motion. Neuro: Awake and alert, GCS 15, oriented to person, place, time, and situation. Cranial nerves II-XII grossly intact. Motor strength 5/5 in all extremities. Sensory grossly intact. Cerebellar exam normal. Normal gait. Psych: Awake, alert, with orientation to person, place and time. Behavior, mood, and affect are within normal limits. 05:00 ECG was reviewed by the Attending Physician. EKG demonstrates normal sinus rhythm at 72 sp3 bpm with normal intervals, normal QRS, normal axis, normal ST/T-segment's without evidence of acute ischemia. Vital Signs: 04:11 BP 127 / 63; Pulse 81; Resp 16 S; Temp 97.9(O); Pulse Ox 100% on R/A; Weight 53.07 kg as6 (R); Height 5 ft. 2 in. (R); Pain 0/10; 05:00 BP 111 / 67; Pulse 72; Resp 16; Pulse Ox 100% on R/A; jb4 05:00 BP 113 / 64; Pulse 67; Resp 16; Pulse Ox 100% on R/A; jb4 04:11 Body Mass Index 21.40 (53.07 kg, 157.48 cm) as6 04:11 Pain Scale: Adult as6 MDM: 04:12 Patient medically screened. sp3 04:50 Data reviewed: vital signs, nurses notes, lab test result(s), EKG, radiologic studies. sp3 ED course: 77-year-old female with dizziness and chest pain with high heart score given her age and comorbidities. Will obtain CT scan of the head, and full cardiac work-up and she will need cardiology consultation as well. Initial work-up is still pending and we will review findings and add any other intervention as indicated. She is currently stable with no significant pain in resting in no acute distress. Differential diagnosis includes acute coronary syndrome, electrolyte abnormalities, TIA/CVA spectrum though unlikely, vascular pathology, infection, among others.. 04/29 04:39 Order name: Basic Metabolic Panel; Complete Time: 05:32 sp3 04/29 04:39 Order name: CBC with Diff; Complete Time: 05:19 sp3 04/29 04:39 Order name: LFT's; Complete Time: 05:32 sp3 04/29 04:39 Order name: Magnesium; Complete Time: 05:32 sp3 04/29 04:39 Order name: NT PRO-BNP; Complete Time: 05:32 sp3 04/29 04:39 Order name: PT-INR; Complete Time: 05:19 sp3 04/29 04:39 Order name: Troponin HS; Complete Time: 05:32 sp3 04/29 14:19 Order name: Troponin High Sensitivity EDMS 04/29 14:19 Order name: Lipid Profile EDMS 04/29 04:39 Order name: XRAY Chest (1 view) sp3 04/29 04:49 Order name: CT Head Brain wo Cont sp3 04/29 04:39 Order name: EKG; Complete Time: 04:40 sp3 04/29 04:39 Order name: Cardiac monitoring; Complete Time: 05:25 sp3 04/29 04:39 Order name: EKG - Nurse/Tech; Complete Time: 05:03 sp3 04/29 04:39 Order name: IV Saline Lock; Complete Time: 05:25 sp3 04/29 04:39 Order name: Labs collected and sent; Complete Time: 05:25 sp3 04/29 04:39 Order name: O2 Per Protocol; Complete Time: 05: sp3 04/29 04:39 Order name: O2 Sat Monitoring; Complete Time: 05:25 sp3 Administered Medications: No medications were administered Disposition Summary: 04/29/23 05:47 Hospitalization Ordered Notes: Hospitalization Status: Observation sp3 Provider: Raul Scott sp3 Location: Telemetry/MedSurg (observation) sp3 Condition: Stable sp3 Problem: new sp3 Symptoms: are unchanged sp3 Bed/Room Type: Standard sp3 Room Assignment: 215(04/29/23 15:40) bd Diagnosis - Chest pain, unspecified sp3 Forms: - Medication Reconciliation Form sp3 - SBAR form sp3 - Leadership Thank You Letter sp3 Signatures: Dispatcher [employer] EDMS Radha Rascon bd Dot Mcconnell MD MD sp3 Ryland Obrien RN RN as6 Corrections: (The following items were deleted from the chart) 15:40 05:47 sp3 bd
--- NOTE | 2023-04-29 12:50 | EKG ---
Test Date: 2023-04-29 Test Time: 04:58:[address] Judge: SUSANNE MEASUREMENT RESULTS: Intervals: Rate: 72 AL: 142 QRSD: 68 QT: 364 QTc: 398 [place]: P: 81 AL: 142 QRS: 72 T: 56 INTERPRETIVE STATEMENTS: Normal sinus rhythm Normal ECG Compared to ECG 10/29/2017 10:21:08 No significant changes Electronically Signed On 04-29-23 12:48:08 CDT by Henrik Lozano
--- NOTE | 2023-04-29 12:57 | P.HP ---
Certification for Inpatient Patient admitted to: Observation With expected LOS: <2 Midnights Practitioner: I am a practitioner with admitting privileges, knowledge of patient current condition, hospital course, and medical plan of care. Services: Services provided to patient in accordance with Admission requirements found in Title 42 Section 412.3 of the Code of Federal Regulations Patient History Date of Service: 04/29/23 Reason for admission: Dizziness and chest tightness History of Present Illness: 77-year-old man with a history of hypertension presented to the emergency department due to complaint of dizziness for about 1 month duration. Patient states that she started experiencing chest tightness this morning. She fell while she was trying to answer the door [place]. She states that she felt dizzy and fell hitting her forehead when she got from the sitting position and was walking to the door. She denied any loss of conscious. She sustained a swelling to the forehead with a small skin opening. Patient reports recent low blood pressure readings at home. Initial troponin in the ED is negative. Head CT shows no acute disease. EKG showed normal sinus rhythm, no ischemic changes. Patient's symptoms likely related to orthostatic hypotension. She states that her PCP recently reduced her lisinopril dose to 2.5 mg. Patient is hospitalized for further evaluation and management. Allergies No Known Allergies Allergy (Verified 10/29/17 10:03) Home Medications: Lisinopril/Hydrochlorothiazide [Lisinopril-Hctz 10-12.5 mg Tab] 1 each PO DAILYPRN PRN 10/29/17 - Past Medical/Surgical History -: Hypertension -: Chronic kidney disease -: section - Family History Mother -: Cancer (Colon cancer) Father -: Other (see notes) (Sudden ) - Social History Smoking Status: Never smoker Alcohol use: No CD- Drugs: No Place of Residence: Home Review of Systems Other: Patient denied any fever. She denied any nausea vomiting or diarrhea. She denied any abdominal pain. Except as documented, all other systems reviewed and negative. Physical Examination - Physical Exam General: Alert, In no apparent distress, Oriented x3 HEENT: Atraumatic, Mucous membr. moist/pink, Sclerae nonicteric Neck: Supple, JVD not distended Respiratory: Clear to auscultation bilaterally, Normal air movement Cardiovascular: No edema, Regular rate/rhythm, Normal S1 S2, No murmurs Capillary refill: <2 Seconds Gastrointestinal: Normal bowel sounds, Soft and benign, Non-distended, No tenderness Musculoskeletal: No clubbing, No tenderness Integumentary: No rashes, No cyanosis Neurological: Normal strength at 5/5 x4 extr, Cranial nerves 3-12 intact Lymphatics: No axilla or inguinal lymphadenopathy - Studies Laboratory Data (last 24 hrs) 04/29/23 04/29/23 04/29/23 04:48 04:48 04:48 WBC 4.60 Hgb 12.4 Hct 36.5 Plt Count 199 PT 11.0 INR 1.00 Sodium 135 L Potassium 4.1 BUN 44 H Creatinine 2.37 H Glucose 110 H Magnesium 2.4 Total Bilirubin 0.3 AST 24 ALT 33 Alkaline Phosphatase 80 Assessment and Plan - Problems (Diagnosis) (1) Dizziness Current Visit: Yes Status: Acute (2) Chest pain Current Visit: Yes Status: Acute (3) Chronic kidney disease, stage III (moderate) Current Visit: Yes Status: Acute - Plan Place patient under observation. Trend troponin Patient with dizziness likely related to orthostatic hypotension. Check orthostatic vital Head CT negative. Discontinue home antihypertensives. CAD risk factor screening-check lipid profile Obtain echo. Heparin subcu for DVT prophylaxis. - Advance Directives Does patient have a Living Will: No Does patient have a Durable POA for Healthcare: No
[2023-04-29] MEDS ORDERED: ACETAMINOPHEN 500 MG TAB PO PRN (13:05)
[2023-04-29] MEDS: NA CHLORIDE 0.9% 1,000 ML IV SCH (13:05)
[2023-04-29 13:09] VITALS: BMI 19.2
[2023-04-29 14:19] LABS: Troponin High Sensitivity 15.5 pg/mL (<58.9)
[2023-04-29] MEDS ORDERED: NA CHLORIDE 0.9% 1,000 ML ONE (14:37)
--- NOTE | 2023-04-29 16:55 | RAD REPORT ---
EXAM DESCRIPTION: CT - Head Brain Wo Cont - 04/29/2023 6:46 am CLINICAL HISTORY: Dizziness COMPARISON: None. TECHNIQUE: Head/brain axial images acquired without contrast. Coronal and sagittal reformats created . Exam performed according to departmental dose-optimization program which includes automated exposur e control, adjustment of mA and/or kV according to patient size, and/or use of iterative reconstructi on technique. FINDINGS: No midline shift, mass effect, intracranial hemorrhage, or hydrocephalus. Brain parenchyma unremarkable. Paranasal sinuses clear. Mastoid air cells clear. No skull fracture or significant skull lesion. IMPRESSION: Unremarkable CT head/brain without contrast. Electronically signed by: Grayson Crowder MD 04/29/2023 5:37 AM CDT Due to temporary technical issues with the PACS/Fluency reporting system, reports are being signed by the in house radiologists without review as a courtesy to insure prompt reporting. The interpreting radiologist is fully responsible for the content of the report
[2023-04-29] MEDS: HEPARIN 5000 UNIT/ML 1 ML VIAL SQ SCH (16:56)
--- NOTE | 2023-04-29 16:57 | RAD REPORT ---
EXAM DESCRIPTION: RAD - Chest Single View - 04/29/2023 5:06 am CLINICAL HISTORY: Chest pain COMPARISON: None. FINDINGS: Single frontal radiograph view of the chest. Cardiomediastinal silhouette: Atherosclerotic calcification of the thoracic aorta. Heart is not enlar ged. Lungs: No consolidation, pneumothorax, or pleural effusion. Bones: Degenerative change of the spine and shoulders. Upper abdomen: No abnormality identified. IMPRESSION: 1. No acute pulmonary process identified. Electronically signed by: Bryce Arora 04/29/2023 5:17 AM CDT Due to temporary technical issues with the PACS/Fluency reporting system, reports are being signed by the in house radiologists without review as a courtesy to insure prompt reporting. The interpreting radiologist is fully responsible for the content of the report
[2023-04-30] MEDS: HEPARIN 5000 UNIT/ML 1 ML VIAL SQ SCH ×2 (01:14→08:14)
[2023-04-30] MEDS: NA CHLORIDE 0.9% 1,000 ML IV SCH (02:25)
[2023-04-30 05:37] LABS: Absolute Lymphocytes (CBC) 2.1 K/uL (0.7-4.9); Hematocrit 38.3 % (36.0-45.0); Lymphocytes % 44.9 % (15.3-44.8); MCV 84.6 fL (80-100); MPV 8.1 fL (7.6-11.3); Platelets 212 thou/uL (152-406); RBC Red Blood Cell Count 4.53 M/uL (3.86-4.86)
[2023-04-30 05:50] LABS: Potassium 4.4 mEq/L (3.5-5.1)
[2023-04-30 08:29] VITALS: O2SAT 98
[2023-04-30] MEDS ORDERED: ASPIRIN EC 81 MG TAB PO SCH (09:00)
[2023-04-30 12:34] VITALS: BP 133/61; TEMP 98.8
--- NOTE | 2023-04-30 13:43 | P.DS ---
Admission Date: 04/29/23 Discharge Date: 04/30/23 Reason for Admission: Dizziness and chest tightness - Problems (1) Dizziness Current Visit: Yes Status: Acute (2) Chest pain Current Visit: Yes Status: Acute (3) Chronic kidney disease, stage III (moderate) Current Visit: Yes Status: Acute Brief History of Present Illness: 77-year-old man with a history of hypertension presented to the emergency department due to complaint of dizziness for about 1 month duration. Patient states that she started experiencing chest tightness this morning. She fell while she was trying to answer the door [place]. She states that she felt dizzy and fell hitting her forehead when she got from the sitting position and was walking to the door. She denied any loss of conscious. She sustained a swelling to the forehead with a small skin opening. Patient reports recent low blood pressure readings at home. Initial troponin in the ED is negative. Head CT shows no acute disease. EKG showed normal sinus rhythm, no ischemic changes. Patient's symptoms likely related to orthostatic hypotension. She states that her PCP recently reduced her lisinopril dose to 2.5 mg. Patient is hospitalized for further evaluation and management. Hospital Course: Patient was placed under observation on the medical floor. Troponin trended negative. Patient blood pressure was borderline. Her dizziness is likely related to orthostasis given the nature of presentation. She has been taking lisinopril which has been discontinued. Patient was advised to keep a log of his blood pressure readings daily. Echocardiogram done and the result is pending to be followed as outpatient. ACS ruled out. Orthostatic precautions advised. Vital Signs/Physical Exam: Temp Pulse Resp BP Pulse Ox 98.8 F 64 18 133/61 98 04/30/23 12:00 04/30/23 12:00 04/30/23 12:00 04/30/23 12:00 04/30/23 12:00 General: Alert, In no apparent distress, Oriented x3 HEENT: Mucous membr. moist/pink Neck: Supple, JVD not distended Respiratory: Clear to auscultation bilaterally, Normal air movement Cardiovascular: No edema, Regular rate/rhythm, Normal S1 S2 Gastrointestinal: Normal bowel sounds, Soft and benign, Non-distended, No tenderness Musculoskeletal: No swelling, No tenderness Integumentary: No rashes, No cyanosis Neurological: Normal strength at 5/5 x4 extr Laboratory Data at Discharge: WBC 4.70 thou/uL (4.3-10.9) 04/30/23 05:01 Hgb 12.5 g/dL (12.0-15.0) 04/30/23 05:01 Hct 38.3 % (36.0-45.0) 04/30/23 05:01 Plt Count 212 thou/uL (152-406) 04/30/23 05:01 PT 11.0 SECONDS (9.5-12.5) 04/29/23 04:48 INR 1.00 04/29/23 04:48 Sodium 137 mEq/L (136-145) 04/30/23 05:01 Potassium 4.4 mEq/L (3.5-5.1) 04/30/23 05:01 BUN 32 mg/dL (7-18) H 04/30/23 05:01 Creatinine 1.51 mg/dL (0.55-1.02) H 04/30/23 05:01 Glucose 105 mg/dL (74-106) 04/30/23 05:01 Magnesium 2.4 mg/dL (1.6-2.4) 04/29/23 04:48 Total Bilirubin 0.3 mg/dL (0.2-1.0) 04/29/23 04:48 AST 24 U/L (15-37) 04/29/23 04:48 ALT 33 U/L (13-56) 04/29/23 04:48 Alkaline Phosphatase 80 U/L (45-117) 04/29/23 04:48 Triglycerides 42 mg/dL (<150) 04/29/23 13:53 Cholesterol 218 mg/dL (<200) H 04/29/23 13:53 HDL Cholesterol 90 mg/dL (40-60) H 04/29/23 13:53 Cholesterol/HDL Ratio 2.42 04/29/23 13:53 Home Medications: Aspirin [Adult Low Dose Aspirin EC] 81 mg PO DAILY #30 tab 04/30/23 New Medications: Aspirin [Adult Low Dose Aspirin EC] 81 mg PO DAILY #30 tab Followup: NONE,NONE [Primary Care Provider] - Time spent managing pt's care (in minutes): 28
--- NOTE | 2023-05-01 07:35 | ECHO ---
HEIGHT: 5 ft 6 in WEIGHT: 125 lb 10.616 oz DATE OF STUDY: 04/30/[address]: Raul Scott MD 2-DIMENSIONAL: YES M.MODE: YES DOPPLER: YES COLOR FLOW: YES TDS: PORTABLE: YES DEFINITY: BUBBLE STUDY: DIAGNOSIS: DIZZINESS, CHEST PAIN CARDIAC HISTORY: CATHERIZATION: NO SURGERY: NO PROSTHETIC VALVE: NO PACEMAKER: NO MEASUREMENTS (cm) DIASTOLIC (NORMALS) SYSTOLIC (NORMALS) IVSd 1.0 (0.6-1.2) LA Diam 2.2 (1.9-4.0) LVEF 65% LVIDd 3.8 (3.5-5.7) LVIDs 2.5 (2.0-3.5) %FS 35% LVPWd 1.0 (0.6-1.2) Ao Diam 2.7 (2.0-3.7) 2 DIMENSIONAL ASSESSMENT: RIGHT ATRIUM: NORMAL LEFT ATRIUM: NORMAL RIGHT VENTRICLE: NORMAL LEFT VENTRICLE: NORMAL TRICUSPID VALVE: MILD TRICUSPID REGURGITATION MITRAL VALVE: NORMAL PULMONIC VALVE: NORMAL AORTIC VALVE: NORMAL PERICARDIAL EFFUSION: NONE AORTIC ROOT: NORMAL LEFT VENTRICULAR WALL MOTION: NORMAL DOPPLER/COLOR FLOW: MILD TRICUSPID REGURGITATION COMMENTS: 1. NORMAL LEFT VENTRICULAR EJECTION FRACTION 60-65% 2. NORMAL WALL MOTION 3. GRADE I DIASTOLIC DYSFUNCTION 4. MILD TRICUSPID REGURGITATION TECHNOLOGIST: MEREDITH PRO
== END 2023-04-30 16:44 | disposition home or self-care (01) ==
LOC: ER 03:58 → ERHOLD 12:41 → 2ND 15:52
PROVIDERS: ADMIT Internal Medicine; ATTEND Internal Medicine
DX: R42 Dizziness and giddiness (principal); R07.9 Chest pain, unspecified; N18.30 Chronic kidney disease, stage 3 unspecified; I10 Essential (primary) hypertension; Z91.81 History of falling
CPT/HCPCS: 36415; 70450; 71045; 80048; 80061; 80076; 83735; 83880; 84484; 85025; 85610; 93005; 93306; 94760; 99285; G0378; J1644; J7030

== ENCOUNTER 2023-05-24 21:19 | Emergency (ER) | payer MEDICARE ==
--- OUTSIDE RECORDS SUMMARY | 2023-05-24 21:27 | XMS REPORT | Continuity of Care Document ---
:1945 Author Organization [facility] t Address [address] [place] [address] [place] [id number] Care Team Providers Name Role Phone LC SHEN Primary Care Physician Unavailable CATRINA BRYANT Attending Clinician Unavailable JEANETTE MCKAY Attending Clinician Unavailable CUCO VALDEZ Attending Clinician Unavailable CUCO VALDEZ Attending Clinician Unavailable UYEN RICHARDSON Attending Clinician Unavailable LC SHEN Attending Clinician Unavailable LINDSAY FRANCE Attending Clinician Unavailable Lab, Ang - Db Attending Clinician Unavailable Lc Parekh Attending Clinician Uyen Goff Attending Clinician Yenifer Garcia Attending Clinician YENIFER BRIONES Attending Clinician Unavailable LIZZETTE HARRISON Attending Clinician Unavailable PETRONA DONNELLY Attending Clinician Unavailable Doctor Unassigned, Barton Attending Clinician Unavailable Lindsay France MD Attending Clinician [phone] Martha Maloney LVN Attending Clinician Unavailable Elio OLVERA, Sebastian K.HVal Attending Clinician RAMIRO RICHARDSON Attending Clinician Unavailable STANLEY SIMON Attending Clinician Unavailable Stanley Simon MD Attending Clinician SEBASTIAN BALLARD K.HVal Attending Clinician Unavailable Petrona Santiago Attending Clinician Luis Daniel Evans MD Attending Clinician LUIS DANIEL EVANS Attending Clinician Unavailable EVELYN PRO Attending Clinician Unavailable Evelny Pro DO Attending Clinician KELLI LAROSE Attending Clinician Unavailable Yannick Nathan Attending Clinician Kelli Larose PA-C Attending Clinician Catrina Bryant MD Attending Clinician NAWAF MARTINEZ Attending Clinician Unavailable MARK ANTONIO Attending Clinician Unavailable Mitesh Arora Attending Clinician MITESH ANDRES Attending Clinician Unavailable Pob, Adc Lab Main Attending Clinician Unavailable Only, Adc Test Attending Clinician Unavailable Ghassan ADAMS, F Attending Clinician Unavailable Michelle De La Torre OD Attending Clinician MICHELLE DE LA TORRE Attending Clinician Unavailable Stanislav Parson F Attending Clinician Melvin Koch CRNA Attending Clinician Ledy Veliz CRNA Attending Clinician 1, Adc Lab Attending Clinician Unavailable CATRINA BRYANT Admitting Clinician Unavailable UYEN RICHARDSON Admitting Clinician Unavailable LINDSAY FRANCE Admitting Clinician Unavailable Lindsay France MD Admitting Clinician [phone] LC SHEN Admitting Clinician Unavailable Catrina Bryant MD Admitting Clinician Payers Payer Name Policy Type Policy Number Effective Date Expiration Date S edwina MEDICARE PART A [id number] 2010 \\T\\ B 00:00:00 [facility] [id number] 2019 00:00:00 [facility] [id number] 2022 PPO 00:00:00 Problems Condition Condition Condition Status Onset Resolution Last Treating Co mments Source Name Details Category Date Date Treatment Clinician Date Screening Screening Disease Active [facility] vers mammogram mammogram 04-01 [place] 00 Medical Branch Asymptomat Asymptomat Disease Active [facility] ic ic 9-05 it[place] of postmenopa [place]menopa [place] us[place] state usal state 00 Me dical Branch Essential Essential Disease Active Uni vers hypertensi hypertensi 03-24 it y of on on 00:00: Medical Branch Dyslipidem Dyslipidem Disease Active [facility] nivers ia ia 03-24 ity of 00:00: Medical Branch Chronic Chronic Disease Active [facility] kidney kidney 03-24 ity of disease disease 00:00: [place] (CKD) (CKD) 00 Medical stage stage Branch [...] of age-relate age-relate 00:00: g of this [place] d cataract d cataract 00 note Me dical of both of both might be Branch eyes eyes different from the original. Added automatic ally from request for surgery [id number] Total knee Total knee Disease Active [facility] nivers replacemen replacemen 4-05 it y of t status, [place], [place] 00 [place] Primary Primary Disease Active Overview: Univ ers osteoarthr osteoarthr 3-24 Formattin ity of itis of itis of 00:00: g of this [place] left knee left knee 00 note Medi katherine might be Branch different from the original. Added automatic ally from request for surgery [id number] Total knee Total knee Disease Active U nivers replacemen replacemen 1-27 it y of t status t status 00:00: [place] 00 Medical Branch Primary Primary Disease Active 2018-07 Overview: Univ ers osteoarthr osteoarthr 1-11 Formattin ity of itis of itis of 00:00: g of this [place] right knee right knee 00 note Me dical might be Branch different from the original. Added automatic ally from request for surgery [id number] Dental Dental Disease Active Overview: [facility] caries caries 5-13 Formattin ity of 00:00: g of this [place] 00 note Medical might be Branch different from the original. ICD10 Diagnosis Term Heating Element Repairer Utility Allergies, Adverse Reactions, Alerts Allergy Allergy Status Severity Reaction(s) Onset Inactive Treating Comm ents Source Name Type Date Date Clinician NO KNOWN Drug Active [facility] ALLERGIE Class ity of S [facility] Social History Social Habit Start Date Stop Date Quantity Comments Source Gender identity [facility]it y [facility] Alcohol intake 2023-05-22 2023-05-22 Current [facility] of 00:00:00 00:00:00 non-drinker of [facility] alcohol [place] (finding) Exposure to 2022-10-12 2022-10-22 Not sure [facility] SARS-CoV-2 (event) 00:00:00 14:41:00 [facility] History of Social 2022-09-26 2022-09-26 Univers ity of function 00:00:00 00:00:00 [facility] Tobacco use and 2022-03-26 2022-03-26 Smokeless Universit y of exposure 00:00:00 00:00:00 tobacco non-user [facility] Sex [birth year] Universit y of 00:00:00 00:00:00 [facility] Smoking Status Start Date Stop Date Source Never smoked tobacco [facility] Medications Ordered Filled Start Stop Current Ordering Indication Dosage Frequency Signature Comments Components Source Medication Medication Date Date Medication? Clinician (SIG) Name Name lisinopriL Yes [id number] 2.5mg Take 1 [facility] 2.5 mg 9-28 tablet by ity of tablet 00:00: mouth in [place] 00 the Medical morning. Branch lisinopriL Yes [id number] 2.5mg Take 1 [facility] 2.5 mg 9-28 tablet by ity of tablet 00:00: mouth in [place] 00 the Medical morning. Branch lisinopriL 0 Yes [id number] 2.5mg Take 1 [facility] 2.5 mg 9-28 tablet by ity of tablet 00:00: mouth in [place] 00 the Medical morning. Branch lisinopriL Yes [id number] 2.5mg Take 1 [facility] 2.5 mg 9-28 tablet by ity of tablet 00:00: mouth in [place] 00 the Medical morning. Branch lisinopriL 2023-0 Yes [id number] 2.5mg Take 1 [facility] 2.5 mg 9-28 tablet by ity of tablet 00:00: mouth in [place] 00 the Medical morning. Branch lisinopriL 2023-0 Yes [id number] 2.5mg Take 1 [facility] 2.5 mg 9-28 tablet by ity of tablet 00:00: mouth in [place] 00 the Medical morning. Branch lisinopriL 2023-0 Yes [id number] 2.5mg Take 1 [facility] 2.5 mg 9-28 tablet by ity of tablet 00:00: mouth in [place] the Medical morning. Branch lisinopriL 2023-0 Yes [id number] 2.5mg Take 1 [facility] 2.5 mg 9-28 tablet by ity of tablet 00:00: mouth in [place] the Medical morning. Branch lisinopriL 2023-0 Yes [id number] 2.5mg Take 1 [facility] 2.5 mg 9-28 tablet by ity of tablet 00:00: mouth in [place] the Medical morning. Branch lisinopriL 2023-0 Yes [id number] 2.5mg Take 1 [facility] 2.5 mg 9-28 tablet by ity of tablet 00:00: mouth in [place] the Medical morning. Branch lisinopriL 2023-0 2023- No [id number] 2.5mg Take 0.5 [facility] 5 mg tablet 9-28 -28 tablets by i ty of 00:00: 00:00 mouth in [place] 00 :00 the Medical morning. Branch lisinopriL 2023-0 2023- No [id number] 2.5mg Take 0.5 [facility] 5 mg tablet 9-28 09-28 tablets by i ty of 00:00: 00:00 mouth in [place] 00 :00 the Medical morning. Branch lisinopriL 2023-0 Yes [id number] 5mg Take 1 U nivers 5 mg tablet 8-22 tablet by ity of 00:00: mouth in [place] 00 the Medical morning. Branch lisinopriL 2023-0 Yes [id number] 5mg Take 1 U nivers 5 mg tablet 8-22 tablet by ity of 00:00: mouth in [place] 00 the Medical morning. Branch lisinopriL 2023-0 Yes [id number] 5mg Take 1 U nivers 5 mg tablet 8-22 tablet by ity of 00:00: mouth in [place] 00 the Medical morning. Branch lisinopriL 2023-0 Yes [id number] 5mg Take 1 U nivers 5 mg tablet 8-22 tablet by ity of 00:00: mouth in [place] 00 the Medical morning. Branch lisinopriL 2023-0 Yes [id number] 5mg Take 1 U nivers 5 mg tablet 8-22 tablet by ity of 00:00: mouth in [place] 00 the Medical morning. Branch lisinopriL 2023-0 Yes [id number] 5mg Take 1 U nivers 5 mg tablet 8-22 tablet by ity of 00:00: mouth in [place] 00 the Medical morning. Branch lisinopriL 2023-0 Yes [id number] 5mg Take 1 U nivers 5 mg tablet 8-22 tablet by ity of 00:00: mouth in [place] the Medical morning. Branch lisinopriL 2023-0 Yes [id number] 5mg Take 1 U nivers 5 mg tablet 8-22 tablet by ity of 00:00: mouth in [place] the Medical morning. Branch lisinopriL 2023-0 Yes [id number] 5mg Take 1 U nivers 5 mg tablet 8-22 tablet by ity of 00:00: mouth in [place] the Medical morning. Branch lisinopriL 2023-0 Yes [id number] 5mg Take 1 U nivers 5 mg tablet 8-22 tablet by ity of 00:00: mouth in [place] the Medical morning. Branch lisinopriL 2023-0 2023- No [id number] 5mg Take 1 [facility] 5 mg tablet 8-18 04-28 tablet by it y of 00:00: 00:00 mouth in [place] 00 :00 the Medical morning. Branch lisinopriL 2023-0 2023- No [id number] 5mg Take 1 [facility] 5 mg tablet 8-22 -28 tablet by it y of 00:00: 00:00 mouth in [place] 00 :00 the Medical morning. Branch lisinopriL 2023-0 Yes 5mg Take 1 Unive rs 5 mg tablet 3-28 tablet by ity of 00:00: mouth in [place] 00 the Medical morning. Branch lisinopriL 2023-0 Yes 5mg Take 1 Unive rs 5 mg tablet 3-28 tablet by ity of 00:00: mouth in [place] 00 the Medical morning. Branch lisinopriL 2023-0 Yes 5mg Take 1 Unive rs 5 mg tablet 3-28 tablet by ity of 00:00: mouth in [place] 00 the Medical morning. Branch lisinopriL 2023-0 Yes 5mg Take 1 Unive rs 5 mg tablet 3-28 tablet by ity of 00:00: mouth in [place] 00 the Medical morning. Branch lisinopriL 2023-0 Yes 5mg Take 1 Unive rs 5 mg tablet 3-28 tablet by ity of 00:00: mouth in [place] 00 the Medical morning. Branch lisinopriL 2023-0 Yes 5mg Take 1 Unive rs 5 mg tablet 3-28 tablet by ity of 00:00: mouth in [place] 00 the Medical morning. Branch lisinopriL 2023-0 Yes 5mg Take 1 Unive rs 5 mg tablet 3-28 tablet by ity of 00:00: mouth in [place] 00 the Medical morning. Branch lisinopriL 2023-0 Yes 5mg Take 1 Unive rs 5 mg tablet 3-28 tablet by ity of 00:00: mouth in [place] 00 the Medical morning. Branch lisinopriL 2023-0 Yes 5mg Take 1 Unive rs 5 mg tablet 3-28 tablet by ity of 00:00: mouth in [place] 00 the Medical morning. Branch lisinopriL 2023-0 2023- No 5mg Take 1 Univ ers 5 mg tablet 3-28 -22 tablet by it y of 00:00: 00:00 mouth in [place] 00 :00 the Medical morning. Branch lisinopriL 2023-0 2023- No 5mg Take 1 Univ ers 5 mg tablet 3-28 -22 tablet by it y of 00:00: 00:00 mouth in [place] 00 :00 the Medical morning. Branch lisinopriL 2023-0 2023- No 5mg Take 1 Univ ers 5 mg tablet 3-28 - tablet by it y of 00:00: 00:00 mouth in [place] 00 :00 the Medical morning. Branch timolol 2023-0 2023- No PRN, Univers (TIMOPTIC) [id number] Starting ity of 0.5 % 19:34: 19:58 on [facility] ophthalmic 00 :33 3//23 at [facility] katherine solution 1334, Branch Until Leandra 3 at 1358, Routine, Intra-op tetracaine 2022- No PRN, Univer s (PONTOCAINE 09-26 Starting ity of ) 0.5 % 19:34: 19:58 on [place] ophthalmic 00 :33 3/2/23 at [facility] katherine drops 1334, Branch Until [place]andra 09/26/22 at 1358, Routine, Intra-op prednisoLON 2022- No PRN, Unive rs E acetate 09-26 Starting ity o f (PRED-FORTE 19:28: 19:58 on [facility] [place] ) 1 % 00 :33 09/26/23 at [facility] ophthalmic 1328, Branch suspension Until Lenadra drops 09/26/22 at 1358, Routine, Intra-op povidone-io 2022- No PRN, Unive rs dine 09-26 Starting ity of (BETADINE) 19:28: [facility]22 at [facility] ophthalmic 1328, Branch drops Until Leandra 09/26/22 at 1358, Routine, Intra-op moxifloxaci 2022- No PRN, Unive rs n (VIGAMOX) 09-26 Starting ity of 0.5 % 19:27: 19:58 on [facility] [place] ophthalmic 00 :33 23 at [facility] drops 1327, Branch Until [place]andra 09/26/22 at 1358, Routine, Intra-op lidocaine-p 2022- No PRN, Unive rs henylephrin 09-26 Starting ity of -BSS(PF) 19:27: 19:58 on [facility] [place] (COMPOUNDED 00 :33 09/26/22 at [facility] ) 1-1.5 % 1327, Branch ophthalmic Until [place]andra injection 09/26/22 at 1358, Routine, Intra-op EPINEPHrine 2022- No PRN, Unive rs (PF) 09-26 Starting ity of 1:1,000 (1 19:27: 19:58 on [facility] [place] mg/mL) 00 :33 3/23 at Medical (ADRENALIN 1327, Branch (PF)) Until [place] injection 09/26/22 at 1358, Routine, Intra-op chondroitin 2022- No PRN, Unive rs sulf-sod 09-26 Starting ity of hyaluronate 19:27: 19:58 on [place] (DUOVISC 00 :33 /23 at Medica l VISCO 1327, Branch ELASTIC) Until [place] intraocular 09/26/22 at injection 1358, Routine, Intra-op balanced 2022- No PRN, Univers salt soln 09-26 Starting ity o f no.2 irrig. 19:26: 19:58 on [place] (BSS) 00 :33 23 at [facility] ophthalmic 1326, Branch solution Until [place]andra 09/26/22 at 1358, Routine, Intra-op balanced 2022- No PRN, Univers salt irrig 09-26 Starting ity of soln comb1 19:26: 19:58 [place] (BSS PLUS) 00 :33 23 at [facility] ophthalmic 1326, Branch solution Until [place]andra 500 mL bag 09/26/22 at 1358, Routine, Intra-op moxifloxaci 2022- No 1[drp] 1 Drop, Univers n (VIGAMOX) 09-26 Left Eye, it y of 0.5 % 16:51: 17:47 Q5MIN PRN, [place] ophthalmic 00 :00 3 doses, Medic al [...] Branch (MYDRIATIC doses, #5) Starting ophthalmic on [facility] solution 09/26/22 at syringe 1051, 0.25 mL Until Discontinu ed, Routine, Surgery/Pr ocedure, DSU Pre-op LISINOPRIL- 2022-0 Yes [id number] Take 1 Univers HYDROCHLORO 1-27 tablet by ity of THIAZIDE 00:00: mouth once [place] 10-12.5 mg 00 daily Medical per tablet Branch LISINOPRIL- 2022-0 Yes [id number] Take 1 [facility] HYDROCHLORO 1-27 tablet by ity of THIAZIDE 00:00: mouth once [place] 10-12.5 mg 00 daily Medical per tablet Branch LISINOPRIL- 2022-0 Yes [id number] Take 1 [facility] HYDROCHLORO 1-27 tablet by ity of THIAZIDE 00:00: mouth once [place] 10-12.5 mg 00 daily Medical per tablet Branch LISINOPRIL- 2022-0 Yes [id number] Take 1 [facility] HYDROCHLORO 1-27 tablet by ity of THIAZIDE 00:00: mouth once [place] 10-12.5 mg 00 daily Medical per tablet Branch LISINOPRIL- 2022-0 Yes [id number] Take 1 [facility] HYDROCHLORO 1-27 tablet by ity of THIAZIDE 00:00: mouth once [place] 10-12.5 mg 00 daily Medical per tablet Branch LISINOPRIL- 2022-0 Yes [id number] Take 1 [facility] HYDROCHLORO 1-27 tablet by ity of THIAZIDE 00:00: mouth once [place] 10-12.5 mg 00 daily Medical per tablet Branch LISINOPRIL- 2022-0 Yes [id number] Take 1 [facility] HYDROCHLORO 1-27 tablet by ity of THIAZIDE 00:00: mouth once [place] 10-12.5 mg 00 daily Medical per tablet Branch LISINOPRIL- 2022-0 Yes [id number] Take 1 Univers HYDROCHLORO 1-27 tablet by ity of THIAZIDE 00:00: mouth once [place] 10-12.5 mg 00 daily Medical per tablet Branch LISINOPRIL- 2022-0 Yes [id number] Take 1 [facility] HYDROCHLORO 1-27 tablet by ity of THIAZIDE 00:00: mouth once [place] 10-12.5 mg 00 daily Medical per tablet Branch LISINOPRIL- 2022-0 Yes [id number] Take 1 Univers HYDROCHLORO 1-27 tablet by ity of THIAZIDE 00:00: mouth once [place] 10-12.5 mg 00 daily Medical per tablet Branch LISINOPRIL- 2022-0 Yes [id number] Take 1 [facility] HYDROCHLORO 1-27 tablet by ity of THIAZIDE 00:00: mouth once [place] 10-12.5 mg 00 daily Medical per tablet Branch LISINOPRIL- 2022-0 Yes [id number] Take 1 Univers HYDROCHLORO 1-27 tablet by ity of THIAZIDE 00:00: mouth once [place] 10-12.5 mg 00 daily Medical per tablet Branch LISINOPRIL- 2022-0 Yes [id number] Take 1 Univers HYDROCHLORO 1-27 tablet by ity of THIAZIDE 00:00: mouth once [place] 10-12.5 mg 00 daily Medical per tablet Branch LISINOPRIL- 2022-0 Yes [id number] Take 1 Univers HYDROCHLORO 1-27 tablet by ity of THIAZIDE 00:00: mouth once [place] 10-12.5 mg 00 daily Medical per tablet Branch LISINOPRIL- 2022-0 Yes [id number] Take 1 Univers HYDROCHLORO 1-27 tablet by ity of THIAZIDE 00:00: mouth once [place] 10-12.5 mg 00 daily Medical per tablet Branch LISINOPRIL- Yes [id number] Take 1 Univers HYDROCHLORO 1-27 tablet by ity of THIAZIDE 00:00: mouth once [place] 10-12.5 mg 00 daily Medical per tablet Branch LISINOPRIL- 2022- No [id number] Take 1 [facility] HYDROCHLORO 1-27 03-28 tablet by it y of THIAZIDE 00:00: 00:00 mouth [place] 10-12.5 mg 00 :00 daily Medical per tablet Branch LISINOPRIL- 2022- No [id number] Take 1 [facility] HYDROCHLORO 1-27 03-28 tablet by it y of THIAZIDE 00:00: 00:00 mouth [place] 10-12.5 mg 00 :00 daily Medical per tablet Branch LISINOPRIL- 2022- No [id number] Take 1 [facility] HYDROCHLORO 1-27 03-28 tablet by it y of THIAZIDE 00:00: 00:00 mouth [place] 10-12.5 mg 00 :00 daily Medical per tablet Branch prednisoLON Yes [id number] 1[drp] Place 1 Univers E acetate 1 1-06 9108 Drop in ity o f % 00:00: right eye [place] ophthalmic 00 4 (four) Medic al suspension times Branch drops daily. ketorolac Yes [id number] 1[drp] Place 1 Univers 0.4 % 1-06 9108 Drop in ity of ophthalmic 00:00: right eye [place] solution 00 4 (four) Medical times Branch daily. moxifloxaci Yes [id number] 1[drp] Place 1 Univers n (VIGAMOX) 1-06 9108 Drop in ity o f 0.5 % 00:00: right eye [place] ophthalmic 00 4 (four) Medic al drops times Branch daily. prednisoLON 2022-0 Yes [id number] 1[drp] Place 1 Univers E acetate 1 1-06 9108 Drop in ity o f % 00:00: right eye [place] ophthalmic 00 4 (four) Medic al suspension times Branch drops daily. ketorolac Yes [id number] 1[drp] Place 1 Univers 0.4 % 1-06 9108 Drop in ity of ophthalmic 00:00: right eye [place] solution 00 4 (four) Medical times Branch daily. moxifloxaci 2022-0 Yes [id number] 1[drp] Place 1 Univers n (VIGAMOX) 1-06 9108 Drop in ity o f 0.5 % 00:00: right eye [place] ophthalmic 00 4 (four) Medic al drops times Branch daily. prednisoLON 2022-0 Yes [id number] 1[drp] Place 1 Univers E acetate 1 1-06 9108 Drop in ity o f % 00:00: right eye [place] ophthalmic 00 4 (four) Medic al suspension times Branch drops daily. ketorolac 2022-0 Yes [id number] 1[drp] Place 1 Univers 0.4 % 1-06 9108 Drop in ity of ophthalmic 00:00: right eye [place] solution 00 4 (four) Medical times Branch daily. moxifloxaci 2022-0 Yes [id number] 1[drp] Place 1 Univers n (VIGAMOX) 1-06 9108 Drop in ity o f 0.5 % 00:00: right eye [place] ophthalmic 00 4 (four) Medic al drops times Branch daily. prednisoLON 2022-0 Yes [id number] 1[drp] Place 1 Univers E acetate 1 1-06 9108 Drop in ity o f % 00:00: right eye [place] ophthalmic 00 4 (four) Medic al suspension times Branch drops daily. ketorolac 2022-0 Yes [id number] 1[drp] Place 1 Univers 0.4 % 1-06 9108 Drop in ity of ophthalmic 00:00: right eye [place] solution 00 4 (four) Medical times Branch daily. moxifloxaci 2022-0 Yes [id number] 1[drp] Place 1 Univers n (VIGAMOX) 1-06 9108 Drop in ity o f 0.5 % 00:00: right eye [place] ophthalmic 00 4 (four) Medic al drops times Branch daily. prednisoLON 2022-0 Yes [id number] 1[drp] Place 1 Univers E acetate 1 1-06 9108 Drop in ity o f % 00:00: right eye [place] ophthalmic 00 4 (four) Medic al suspension times Branch drops daily. ketorolac 2022-0 Yes [id number] 1[drp] Place 1 Univers 0.4 % 1-06 9108 Drop in ity of ophthalmic 00:00: right eye [place] solution 00 4 (four) Medical times Branch daily. moxifloxaci 2022-0 Yes [id number] 1[drp] Place 1 Univers n (VIGAMOX) 1-06 9108 Drop in ity o f 0.5 % 00:00: right eye [place] ophthalmic 00 4 (four) Medic al drops times Branch daily. prednisoLON 2022-0 Yes [id number] 1[drp] Place 1 Univers E acetate 1 1-06 9108 Drop in ity o f % 00:00: right eye [place] ophthalmic 00 4 (four) Medic al suspension times Branch drops daily. ketorolac 2022-0 Yes [id number] 1[drp] Place 1 Univers 0.4 % 1-06 9108 Drop in ity of ophthalmic 00:00: right eye [place] solution 00 4 (four) Medical times Branch daily. moxifloxaci 2022-0 Yes [id number] 1[drp] Place 1 Univers n (VIGAMOX) 1-06 9108 Drop in ity o f 0.5 % 00:00: right eye [place] ophthalmic 00 4 (four) Medic al drops times Branch daily. prednisoLON 2022-0 Yes [id number] 1[drp] Place 1 Univers E acetate 1 1-06 9108 Drop in ity o f % 00:00: right eye [place] ophthalmic 00 4 (four) Medic al suspension times Branch drops daily. ketorolac 2022-0 Yes [id number] 1[drp] Place 1 Univers 0.4 % 1-06 9108 Drop in ity of ophthalmic 00:00: right eye [place] solution 00 4 (four) Medical times Branch daily. moxifloxaci 2022-0 Yes [id number] 1[drp] Place 1 Univers n (VIGAMOX) 1-06 9108 Drop in ity o f 0.5 % 00:00: right eye [place] ophthalmic 00 4 (four) Medic al drops times Branch daily. prednisoLON 2022-0 Yes [id number] 1[drp] Place 1 Univers E acetate 1 1-06 9108 Drop in ity o f % 00:00: right eye [place] ophthalmic 00 4 (four) Medic al suspension times Branch drops daily. ketorolac 2022-0 Yes [id number] 1[drp] Place 1 Univers 0.4 % 1-06 9108 Drop in ity of ophthalmic 00:00: right eye [place] solution 00 4 (four) Medical times Branch daily. moxifloxaci Yes [id number] 1[drp] Place 1 Univers n (VIGAMOX) 1-06 9108 Drop in ity o f 0.5 % 00:00: right eye [place] ophthalmic 00 4 (four) Medic al drops times Branch daily. prednisoLON Yes [id number] 1[drp] Place 1 Univers E acetate 1 1-06 9108 Drop in ity o f % 00:00: right eye [place] ophthalmic 00 4 (four) Medic al suspension times Branch drops daily. ketorolac 0 Yes [id number] 1[drp] Place 1 Univers 0.4 % 1-06 9108 Drop in ity of ophthalmic 00:00: right eye [place] solution 00 4 (four) Medical times Branch daily. moxifloxaci Yes [id number] 1[drp] Place 1 Univers n (VIGAMOX) 1-06 9108 Drop in ity o f 0.5 % 00:00: right eye [place] ophthalmic 00 4 (four) Medic al drops times Branch daily. prednisoLON Yes [id number] 1[drp] Place 1 Univers E acetate 1 1-06 9108 Drop in ity o f % 00:00: right eye [place] ophthalmic 00 4 (four) Medic al suspension times Branch drops daily. ketorolac 0 Yes [id number] 1[drp] Place 1 Univers 0.4 % 1-06 9108 Drop in ity of ophthalmic 00:00: [place] eye [place] solution 00 4 (four) Medical times Branch daily. moxifloxaci Yes [id number] 1[drp] Place 1 Univers n (VIGAMOX) 1-06 9108 Drop in ity o f 0.5 % 00:00: right eye [place] ophthalmic 00 4 (four) Medic al drops times Branch daily. prednisoLON Yes [id number] 1[drp] Place 1 Univers E acetate 1 1-06 9108 Drop in ity o f % 00:00: right eye [place] ophthalmic 00 4 (four) Medic al suspension times Branch drops daily. ketorolac 2022-0 Yes [id number] 1[drp] Place 1 Univers 0.4 % 1-06 9108 Drop in ity of ophthalmic 00:00: right eye [place] solution 00 4 (four) Medical times Branch daily. moxifloxaci 2022-0 Yes [id number] 1[drp] Place 1 Univers n (VIGAMOX) 1-06 9108 Drop in ity o f 0.5 % 00:00: right eye [place] ophthalmic 00 4 (four) Medic al drops times Branch daily. prednisoLON 2022-0 Yes [id number] 1[drp] Place 1 Univers E acetate 1 1-06 9108 Drop in ity o f % 00:00: right eye [place] ophthalmic 00 4 (four) Medic al suspension times Branch drops daily. ketorolac 2022-0 Yes [id number] 1[drp] Place 1 Univers 0.4 % 1-06 9108 Drop in ity of ophthalmic 00:00: [place] eye [place] solution 00 4 (four) Medical times Branch daily. moxifloxaci 2022-0 Yes [id number] 1[drp] Place 1 Univers n (VIGAMOX) 1-06 9108 Drop in ity o f 0.5 % 00:00: right eye [place] ophthalmic 00 4 (four) Medic al drops times Branch daily. prednisoLON 2022-0 Yes [id number] 1[drp] Place 1 Univers E acetate 1 1-06 9108 Drop in ity o f % 00:00: right eye [place] [facility] 00 4 (four) Medic al suspension times Branch drops daily. ketorolac 2022-0 Yes [id number] 1[drp] Place 1 [facility] 0.4 % 1-06 9108 Drop in ity of ophthalmic 00:00: [place] eye [place] solution 00 4 (four) Medical times Branch daily. moxifloxaci 2022-0 Yes [id number] 1[drp] Place 1 [facility] n (VIGAMOX) 1-06 9108 Drop in ity o f 0.5 % 00:00: right eye [place] [facility] 00 4 (four) Medic al drops times Branch daily. prednisoLON 2022-0 Yes [id number] 1[drp] Place 1 [facility] E acetate 1 1-06 9108 Drop in ity o f % 00:00: right eye [place] [facility] 00 4 (four) Medic al suspension times Branch drops daily. ketorolac 2022-0 Yes [id number] 1[drp] Place 1 [facility] 0.4 % 1-06 9108 Drop in ity of ophthalmic 00:00: [place] eye [place] solution 00 4 (four) Medical times Branch daily. moxifloxaci 2022-0 Yes [id number] 1[drp] Place 1 [facility] n (VIGAMOX) 1-06 9108 Drop in ity o f 0.5 % 00:00: right eye [place] [facility] 00 4 (four) Medic al drops times Branch daily. prednisoLON 2022-0 Yes [id number] 1[drp] Place 1 [facility] E acetate 1 1-06 9108 Drop in ity o f % 00:00: right eye [place] [facility] 00 4 (four) Medic al suspension times Branch drops daily. ketorolac 2022-0 Yes [id number] 1[drp] Place 1 [facility] 0.4 % 1-06 9108 Drop in ity of ophthalmic 00:00: [place] eye [place] solution 00 4 (four) Medical times Branch daily. moxifloxaci 2022-0 Yes [id number] 1[drp] Place 1 [facility] n (VIGAMOX) 1-06 9108 Drop in ity o f 0.5 % 00:00: right eye [place] [facility] 00 4 (four) Medic al drops times Branch daily. prednisoLON 2022-0 Yes [id number] 1[drp] Place 1 [facility] E acetate 1 1-06 9108 Drop in ity o f % 00:00: right eye [place] [facility] 00 4 (four) Medic al suspension times Branch drops daily. ketorolac 2022-0 Yes [id number] 1[drp] Place 1 [facility] 0.4 % 1-06 9108 Drop in ity of ophthalmic 00:00: right eye [place] solution 00 4 (four) Medical times Branch daily. moxifloxaci 2022-0 Yes [id number] 1[drp] Place 1 [facility] n (VIGAMOX) 1-06 9108 Drop in ity o f 0.5 % 00:00: right eye [place] [facility] 00 4 (four) Medic al drops times Branch daily. prednisoLON 2022-0 Yes [id number] 1[drp] Place 1 [facility] E acetate 1 1-06 9108 Drop in ity o f % 00:00: right eye [place] [facility] 00 4 (four) Medic al suspension times Branch drops daily. ketorolac 2022-0 Yes [id number] 1[drp] Place 1 [facility] 0.4 % 1-06 9108 Drop in ity of ophthalmic 00:00: right eye [place] solution 00 4 (four) Medical times Branch daily. moxifloxaci 2022-0 Yes [id number] 1[drp] Place 1 Univers n (VIGAMOX) 1-06 9108 Drop in ity o f 0.5 % 00:00: right eye [place] [facility] 00 4 (four) Medic al drops times Branch daily. prednisoLON 2022-0 Yes [id number] 1[drp] Place 1 [facility] E acetate 1 1-06 9108 Drop in ity o f % 00:00: right eye [place] [facility] 00 4 (four) Medic al suspension times Branch drops daily. ketorolac 2022-0 Yes [id number] 1[drp] Place 1 [facility] 0.4 % 1-06 9108 Drop in ity of ophthalmic 00:00: right eye [place] solution 00 4 (four) Medical times Branch daily. prednisoLON 2022-0 Yes [id number] 1[drp] Place 1 [facility] E acetate 1 1-06 9108 Drop in ity o f % 00:00: right eye [place] [facility] 00 4 (four) Medic al suspension times Branch drops daily. ketorolac 2022-0 Yes [id number] 1[drp] Place 1 [facility] 0.4 % 1-06 9108 Drop in ity of ophthalmic 00:00: right eye [place] solution 00 4 (four) Medical times Branch daily. prednisoLON 2022-0 Yes [id number] 1[drp] Place 1 [facility] E acetate 1 1-06 9108 Drop in ity o f % 00:00: right eye [place] [facility] 00 4 (four) Medic al suspension times Branch drops daily. ketorolac 2022-0 Yes [id number] 1[drp] Place 1 [facility] 0.4 % 1-06 9108 Drop in ity of ophthalmic 00:00: right eye [place] solution 00 4 (four) Medical times Branch daily. prednisoLON 2022-0 Yes [id number] 1[drp] Place 1 [facility] E acetate 1 -06 9108 Drop in ity o f % 00:00: right eye [place] [facility] 00 4 (four) Medic al suspension times Branch drops daily. ketorolac 2022-0 Yes [id number] 1[drp] Place 1 [facility] 0.4 % 1-06 9108 Drop in ity of ophthalmic 00:00: right eye [place] solution 00 4 (four) Medical times Branch daily. prednisoLON 2022-0 Yes [id number] 1[drp] Place 1 [facility] E acetate 1 -06 9108 Drop in ity o f % 00:00: right eye [place] [facility] 00 4 (four) Medic al suspension times Branch drops daily. ketorolac 2022-0 Yes [id number] 1[drp] Place 1 [facility] 0.4 % - 9108 Drop in ity of ophthalmic 00:00: [place] solution 00 4 (four) Medical times Branch daily. prednisoLON 2022-0 Yes [id number] 1[drp] Place 1 [facility] E acetate 1 - 9108 Drop in ity o f % 00:00: right eye [place] [facility] 00 4 (four) Medic al suspension times Branch drops daily. ketorolac 2022-0 Yes [id number] 1[drp] Place 1 [facility] 0.4 % - 9108 Drop in ity of ophthalmic 00:00: [place] solution 00 4 (four) Medical times Branch daily. prednisoLON 2022-0 2023- No [id number] 1[drp] Place 1 [facility] E acetate 1 08-02 9108 Drop in ity of % 00:00: 00:00 right eye [place] [facility] 00 :00 4 (four) Medic al suspension times Branch drops daily. ketorolac 2022-0 2023- No [id number] 1[drp] Place 1 [facility] 0.4 % 08-02 9108 Drop in ity of ophthalmic 00:00: 00:00 [place] solution 00 :00 4 (four) Medical times Branch daily. prednisoLON 2022-0 202- No [id number] 1[drp] Place 1 [facility] E acetate 1 08-02 9108 Drop in ity of % 00:00: 00:00 right eye [place] [facility] 00 :00 4 (four) Medic al suspension times Branch drops daily. ketorolac 2022- No [id number] 1[drp] Place 1 [facility] 0.4 % 08-02 9108 Drop in ity of ophthalmic 00:00: 00:00 [place] solution 00 :00 4 (four) Medical times Branch daily. prednisoLON 2022- No [id number] 1[drp] Place 1 [facility] E acetate 1 08-02 9108 Drop in ity of % 00:00: 00:00 right eye [place] [facility] 00 :00 4 (four) Medic al suspension times Branch drops daily. ketorolac 2022- No [id number] 1[drp] Place 1 Univers 0.4 % 08-02 9108 Drop in ity of ophthalmic 00:00: 00:00 [place] solution 00 :00 4 (four) Medical times Branch daily. moxifloxaci 2022- No [id number] 1[drp] Place 1 Univers n (VIGAMOX) 08-02 9108 Drop in ity of 0.5 % 00:00: 00:00 right eye [place] [facility] 00 :00 4 (four) Medic al drops times Branch daily. moxifloxaci 2022- No [id number] 1[drp] Place 1 Univers n (VIGAMOX) 08-02 9108 Drop in ity of 0.5 % 00:00: 00:00 right eye [place] [facility] 00 :00 4 (four) Medic al drops times Branch daily. HYDROcodone Yes 1{tbl} 1 tablet, Univers -acetaminop 1-05 Oral, PRN, it y of hen ([facility]:48[facility] 15 Starting Medi katherine tablet 1 on [facility] Branch tablet 08/01/22 at 1148, Until Discontinu ed, Routine, Pain (scale 7-10), DSU Recovery acetaminoph Yes 1{tbl} 1 tablet, Univers en-codeine 1-05 Oral, PRN, ity of (TYLENOL 17:48: 1 dose, [place] #3) 300-30 15 Starting Medic al mg tablet 1 on [place] Branch tablet 08/01/22 at 1148, Until Discontinu ed, Routine, Pain (scale 4-6), DSU Recovery acetaminoph Yes 500mg 500 mg, Un kiarra en 05 Oral, PRN, ity of (TYLENOL) 17:48: 1 dose, [place] tablet 500 15 Starting Medic al mg on [place] Branch 08/01/22 at 1148, Until Discontinu ed, Routine, Pain (scale 1-3), DSU Recovery HYDROcodone 2022-2022- No 1{tbl} 1 tablet, Univers -acetaminop 08-01 Oral, PRN, i ty of hen (NORCO 17:48: 00:53 1 dose, [facility] [facility] 5) 5-325 mg 15 :20 Starting Medi katherine tablet 1 on [place] Branch tablet 08/01/22 at 1148, Until [place] 08/01/22 at 1853, Routine, Pain (scale 7-10), DSU Recovery acetaminoph 2022- No 1{tbl} 1 tablet, Univers en-codeine 08-01 Oral, PRN, it y of (TYLENOL 17:48: [...] ity of 0.5 % 17:33: 17:46 on [facility] ophthalmic 00 :15 08/01/22 at [facility] solution 1133, Branch Until [place] 08/01/22 at 1146, Routine, Intra-op tetracaine 2022- No PRN, Univer s (PONTOCAINE 08-01 Starting ity of ) 0.5 % 17:33: 17:46 on [facility] ophthalmic 00 :15 08/01/22 at [facility] katherine drops 1133, Branch Until [place] 08/01/22 at 1146, Routine, Intra-op prednisoLON 2022- No PRN, Unive rs E acetate 08-01 Starting ity o f (PRED-FORTE 17:32: 17:46 on [facility] [place] ) 1 % 00 :15 08/01/22 at [facility] ophthalmic 1132, Branch suspension Until [place] drops 08/01/22 at 1146, Routine, Intra-op povidone-io 2022- No PRN, Unive rs dine 08-01 Starting ity of (BETADINE) 17:32[facility]22 at [facility] ophthalmic 1132, Branch drops Until [place] 08/01/22 at 1146, Routine, Intra-op moxifloxaci 2022- No PRN, Unive rs n (VIGAMOX) 08-01 Starting ity of 0.5 % 17:32: 17:46 on [facility] ophthalmic 00 :15 08/01/22 at [facility] drops 1132, Branch Until [place] 08/01/22 at 1146, Routine, Intra-op lidocaine-p 2022- No PRN, Unive rs henylephrin 08-01 Starting ity of -BSS(PF) 17:31: 17:46 on [facility] (COMPOUNDED 00 :15 08/01/22 at [facility] ) 1-1.5 % 1131, Branch ophthalmic Until [place] injection 08/01/22 at 1146, Routine, Intra-op EPINEPHrine 2022- No PRN, Unive rs (PF) 08-01 Starting ity of 1:1,000 (1 17:31: 17:46 [place] mg/mL[place] 00 :15 08/01/22 at [facility] (ADRENALIN 1131, Branch (PF)) Until [place] injection 08/01/22 at 1146, Routine, Intra-op chondroitin 2022- No PRN, Unive rs sulf-sod 08-01 Starting ity of hyaluronate 17:31: 17:46 on [place] (DUOVISC 00 :15 08/01/22 at [facility] 1131, Branch ELASTIC) Until [place] intraocular 08/01/22 at injection 1146, Routine, Intra-op balanced 2022- No PRN, Univers salt irrig 08-01 Starting ity of soln comb1 17:30: 17:46 [place] (BSS PLUS) 00 :15 08/01/22 at [facility] ophthalmic 1130, Branch solution Until [place] 500 mL bag 08/01/22 at 1146, Routine, Intra-op moxifloxaci 2022- No 1[drp] 1 [...] Surgery/Pr ocedure, DSU Pre-op prednisoLON 2021-07 Yes [id number] 1[drp] Place 1 [facility] E acetate 1 1-17 9108 Drop in ity o f % 00:00: right eye [place] [facility] 00 4 (four) Medic al suspension times Branch drops daily. ketorolac 2021-07 Yes [id number] 1[drp] Place 1 Univers 0.4 % 1-17 9108 Drop in ity of ophthalmic 00:00: [place] solution 00 4 (four) Medical times Branch daily. moxifloxaci 2021-07 Yes [id number] 1[drp] Place 1 Univers n (VIGAMOX) 1-17 9108 Drop in ity o f 0.5 % 00:00: right eye [place] [facility] 00 4 (four) Medic al drops times Branch daily. prednisoLON 2021-07 Yes [id number] 1[drp] Place 1 [facility] E acetate 1 1-17 9108 Drop in ity o f % 00:00: right eye [place] [facility] 00 4 (four) Medic al suspension times Branch drops daily. ketorolac 2021-07 Yes [id number] 1[drp] Place 1 Univers 0.4 % 1-17 9108 Drop in ity of ophthalmic 00:00: [place] solution 00 4 (four) Medical times Branch daily. moxifloxaci 2021-07 Yes [id number] 1[drp] Place 1 Univers n (VIGAMOX) 1-17 9108 Drop in ity o f 0.5 % 00:00: right eye [place] [facility] 00 4 (four) Medic al drops times Branch daily. prednisoLON 2021-07 Yes [id number] 1[drp] Place 1 [facility] E acetate 1 1-17 9108 Drop in ity o f % 00:00: right eye [place] [facility] 00 4 (four) Medic al suspension times Branch drops daily. ketorolac 2021-07 Yes [id number] 1[drp] Place 1 Univers 0.4 % 1-17 9108 Drop in ity of ophthalmic 00:00: [place] solution 00 4 (four) Medical times Branch daily. moxifloxaci 2021-07 Yes [id number] 1[drp] Place 1 Univers n (VIGAMOX) 1-17 9108 Drop in ity o f 0.5 % 00:00: right eye [place] [facility] 00 4 (four) Medic al drops times Branch daily. prednisoLON 2021-07 Yes [id number] 1[drp] Place 1 [facility] E acetate 1 1-17 9108 Drop in ity o f % 00:00: right eye [place] [facility] 00 4 (four) Medic al suspension times Branch drops daily. ketorolac 2021-07 Yes [id number] 1[drp] Place 1 Univers 0.4 % 1-17 9108 Drop in ity of ophthalmic 00:00: [place] solution 00 4 (four) Medical times Branch daily. moxifloxaci 2021-07 Yes [id number] 1[drp] Place 1 Univers n (VIGAMOX) 1-17 9108 Drop in ity o f 0.5 % 00:00: right eye [place] [facility] 00 4 (four) Medic al drops times Branch daily. prednisoLON 2021-07 Yes [id number] 1[drp] Place 1 [facility] E acetate 1 1-17 9108 Drop in ity o f % 00:00: right eye [place] [facility] 00 4 (four) Medic al suspension times Branch drops daily. ketorolac 2021-07 Yes [id number] 1[drp] Place 1 Univers 0.4 % 1-17 9108 Drop in ity of ophthalmic 00:00: [place] solution 00 4 (four) Medical times Branch daily. moxifloxaci 2021-07 Yes [id number] 1[drp] Place 1 Univers n (VIGAMOX) 1-17 9108 Drop in ity o f 0.5 % 00:00: right eye [place] [facility] 00 4 (four) Medic al drops times Branch daily. prednisoLON 2021-07 Yes [id number] 1[drp] Place 1 [facility] E acetate 1 1-17 9108 Drop in ity o f % 00:00: right eye [place] [facility] 00 4 (four) Medic al suspension times Branch drops daily. ketorolac 2021-07 Yes [id number] 1[drp] Place 1 Univers 0.4 % 1-17 9108 Drop in ity of ophthalmic 00:00: [place] solution 00 4 (four) Medical times Branch daily. moxifloxaci 2021-07 Yes [id number] 1[drp] Place 1 Univers n (VIGAMOX) 1-17 9108 Drop in ity o f 0.5 % 00:00: right eye [place] [facility] 00 4 (four) Medic al drops times Branch daily. prednisoLON 2021-07 Yes [id number] 1[drp] Place 1 [facility] E acetate 1 1-17 9108 Drop in ity o f % 00:00: right eye [place] [facility] 00 4 (four) Medic al suspension times Branch drops daily. ketorolac 2021-07 Yes [id number] 1[drp] Place 1 Univers 0.4 % 1-17 9108 Drop in ity of ophthalmic 00:00: [place] solution 00 4 (four) Medical times Branch daily. moxifloxaci 2021-07 Yes [id number] 1[drp] Place 1 Univers n (VIGAMOX) 1-17 9108 Drop in ity o f 0.5 % 00:00: right eye [place] [facility] 00 4 (four) Medic al drops times Branch daily. prednisoLON 2021-07 Yes [id number] 1[drp] Place 1 [facility] E acetate 1 1-17 9108 Drop in ity o f % 00:00: right eye [place] [facility] 00 4 (four) Medic al suspension times Branch drops daily. ketorolac 2021-07 Yes [id number] 1[drp] Place 1 Univers 0.4 % 08-13 9108 Drop in ity of ophthalmic 00:00: [place] solution 00 4 (four) Medical times Branch daily. moxifloxaci 2021-07 Yes [id number] 1[drp] Place 1 Univers n (VIGAMOX) 08-13 9108 Drop in ity o f 0.5 % 00:00: right eye [place] [facility] 00 4 (four) Medic al drops times Branch daily. prednisoLON 2021-07- No [id number] 1[drp] Place 1 [facility] E acetate 1 08-13 9108 Drop in ity of % 00:00: 00:00 right eye [place] [facility] 00 :00 4 (four) Medic al suspension times Branch drops daily. ketorolac 2021-07- No [id number] 1[drp] Place 1 Univers 0.4 % 08-13 9108 Drop in ity of ophthalmic 00:00: 00:00 [place] solution 00 :00 4 (four) Medical times Branch daily. moxifloxaci 2021-07- No [id number] 1[drp] Place 1 Univers n (VIGAMOX) 08-13 9108 Drop in ity of 0.5 % 00:00: 00:00 right eye [place] [facility] 00 :00 4 (four) Medic al drops times Branch daily. prednisoLON 2021-07- No [id number] 1[drp] Place 1 [facility] E acetate 1 08-13 9108 Drop in ity of % 00:00: 00:00 right eye [place] [facility] 00 :00 4 (four) Medic al suspension times Branch drops daily. ketorolac 2021-07- No [id number] 1[drp] Place 1 Univers 0.4 % 08-13 9108 Drop in ity of ophthalmic 00:00: 00:00 [place] solution 00 :00 4 (four) Medical times Branch daily. moxifloxaci 2021-07- No [id number] 1[drp] Place 1 Univers n (VIGAMOX) 08-13 9108 Drop in ity of 0.5 % 00:00: 00:00 right eye [place] [facility] 00 :00 4 (four) Medic al drops times [place] daily. amoxicillin 2021-07 Yes [id number] 500mg Take 1 Univers 500 mg 1-12 capsule by ity of capsule 00:00: mouth in [address] and 1 capsule at noon and 1 capsule in the evening. amoxicillin 2021-07 Yes [id number] 500mg Take 1 [facility] 500 mg 1-12 capsule by ity of capsule 00:00: mouth in [address] and 1 capsule at noon and 1 capsule in the evening. amoxicillin 2021-07 Yes [id number] 500mg Take 1 [facility] 500 mg 1-12 capsule by ity of capsule 00:00: mouth in [address] and 1 capsule at noon and 1 capsule in the evening. amoxicillin 2021-07 Yes [id number] 500mg Take 1 [facility] 500 mg 1-12 capsule by ity of capsule 00:00: mouth in [address] and 1 capsule at noon and 1 capsule in the evening. amoxicillin 2021-07 Yes [id number] 500mg Take 1 [facility] 500 mg 1-12 capsule by ity of capsule 00:00: mouth in [address] and 1 capsule at noon and 1 capsule in the evening. amoxicillin 2021-07 Yes [id number] 500mg Take 1 Univers 500 mg 1-12 capsule by ity of capsule 00:00: mouth in [address] and 1 capsule at noon and 1 capsule in the evening. amoxicillin 2021-07 Yes [id number] 500mg Take 1 Univers 500 mg 1-12 capsule by ity of capsule 00:00: mouth in [address] and 1 capsule at noon and 1 capsule in the evening. amoxicillin 2021-07 Yes [id number] 500mg Take 1 Univers 500 mg 1-12 capsule by ity of capsule 00:00: mouth in [address] and 1 capsule at noon and 1 capsule in the evening. amoxicillin 2021-07 Yes [id number] 500mg Take 1 [facility] 500 mg 1-12 capsule by ity of capsule 00:00: mouth in [address] and 1 capsule at noon and 1 capsule in the evening. amoxicillin 2021-07 Yes [id number] 500mg Take 1 [facility] 500 mg 1-12 capsule by ity of capsule 00:00: mouth in [place] 00 the Medical morning Branch and 1 capsule at noon and 1 capsule in the evening. amoxicillin 2021-07 Yes [id number] 500mg Take 1 [facility] 500 mg 1-12 capsule by ity of capsule 00:00: mouth in [place] [address] the Medical morning [place] and 1 capsule at noon and 1 capsule in the evening. amoxicillin 2021-07 Yes [id number] 500mg Take 1 Univers 500 mg 1-12 capsule by ity of capsule 00:00: mouth in [place] [address] the [facility] morning [place] and 1 capsule at noon and 1 capsule in the evening. amoxicillin 2021-07 Yes [id number] 500mg Take 1 Univers 500 mg 1-12 capsule by ity of capsule 00:00: mouth in [place] [address] the [facility] morning [place] and 1 capsule at noon and 1 capsule in the evening. amoxicillin 2021-07 Yes [id number] 500mg Take 1 Univers 500 mg 1-12 capsule by ity of capsule 00:00: mouth in [place] [address] the [facility] morning [place] and 1 capsule at noon and 1 capsule in the evening. amoxicillin 2021-07 Yes [id number] 500mg Take 1 Univers 500 mg 1-12 capsule by ity of capsule 00:00: mouth in [place] [address] the [facility] morning [place] and 1 capsule at noon and 1 capsule in the evening. amoxicillin 2021-07 Yes [id number] 500mg Take 1 Univers 500 mg 1-12 capsule by ity of capsule 00:00: mouth in [place] [address] the [facility] morning [place] and 1 capsule at noon and 1 capsule in the evening. amoxicillin 2021-07 Yes [id number] 500mg Take 1 Univers 500 mg 1-12 capsule by ity of capsule 00:00: mouth in [place] [address] the [facility] morning [place] and 1 capsule at noon and 1 capsule in the evening. amoxicillin 2021-07 Yes [id number] 500mg Take 1 Univers 500 mg 1-12 capsule by ity of capsule 00:00: mouth in [place] [address] the [facility] morning [place] and 1 capsule at noon and 1 capsule in the evening. amoxicillin 2021- Yes [id number] 500mg Take 1 Univers 500 mg 1-12 capsule by ity of capsule 00:00: mouth in [place] [address] the [facility] morning [place] and 1 capsule at noon and 1 capsule in the evening. amoxicillin 2021- Yes [id number] 500mg Take 1 Univers 500 mg 1-12 capsule by ity of capsule 00:00: mouth in [address] morning Branch and 1 capsule at noon and 1 capsule in the evening. amoxicillin 2021-07 Yes [id number] 500mg Take 1 [facility] 500 mg 1-12 capsule by ity of capsule 00:00: mouth in [place] [address] the Medical morning [place] and 1 capsule at noon and 1 capsule in the evening. amoxicillin 2021-07 Yes [id number] 500mg Take 1 [facility] 500 mg 1-12 capsule by ity of capsule 00:00: mouth in [place] [address] the [facility] morning [place] and 1 capsule at noon and 1 capsule in the evening. amoxicillin 2021-07 Yes [id number] 500mg Take 1 [facility] 500 mg 1-12 capsule by ity of capsule 00:00: mouth in [place] [address] the [facility] morning [place] and 1 capsule at noon and 1 capsule in the evening. amoxicillin 2021-07 Yes [id number] 500mg Take 1 Univers 500 mg 1-12 capsule by ity of capsule 00:00: mouth in [place] [address] the [facility] morning [place] and 1 capsule at noon and 1 capsule in the evening. amoxicillin 2021-07 Yes [id number] 500mg Take 1 Univers 500 mg 1-12 capsule by ity of capsule 00:00: mouth in [place] [address] the [facility] morning [place] and 1 capsule at noon and 1 capsule in the evening. amoxicillin 2021-07 Yes [id number] 500mg Take 1 Univers 500 mg 1-12 capsule by ity of capsule 00:00: mouth in [place] [address] the [facility] morning [place] and 1 capsule at noon and 1 capsule in the evening. amoxicillin 2021-07 Yes [id number] 500mg Take 1 Univers 500 mg 1-12 capsule by ity of capsule 00:00: mouth in [place] [address] the [facility] morning [place] and 1 capsule at noon and 1 capsule in the evening. amoxicillin 2021-07 Yes [id number] 500mg Take 1 Univers 500 mg 1-12 capsule by ity of capsule 00:00: mouth in [place] [address] the [facility] morning [place] and 1 capsule at noon and 1 capsule in the evening. amoxicillin 2021- Yes [id number] 500mg Take 1 [facility] 500 mg 1-12 capsule by ity of capsule 00:00: mouth in [place] [address] the [facility] morning [place] and 1 capsule at noon and 1 capsule in the evening. amoxicillin 2021- Yes [id number] 500mg Take 1 [facility] 500 mg 1-12 capsule by ity of capsule 00:00: mouth in [address] morning Branch and 1 capsule at noon and 1 capsule in the evening. amoxicillin 2021-07 Yes [id number] 500mg Take 1 [facility] 500 mg 1-12 capsule by ity of capsule 00:00: mouth in [place] [address] the Medical morning [place] and 1 capsule at noon and 1 capsule in the evening. amoxicillin 2021-07 Yes [id number] 500mg Take 1 Univers 500 mg 1-12 capsule by ity of capsule 00:00: mouth in [place] [address] the [facility] morning [place] and 1 capsule at noon and 1 capsule in the evening. amoxicillin 2021-07 Yes [id number] 500mg Take 1 [facility] 500 mg 1-12 capsule by ity of capsule 00:00: mouth in [place] [address] the [facility] morning [place] and 1 capsule at noon and 1 capsule in the evening. amoxicillin 2021-07 Yes [id number] 500mg Take 1 [facility] 500 mg 1-12 capsule by ity of capsule 00:00: mouth in [place] [address] the [facility] morning [place] and 1 capsule at noon and 1 capsule in the evening. amoxicillin 2021-07 Yes [id number] 500mg Take 1 [facility] 500 mg 1-12 capsule by ity of capsule 00:00: mouth in [place] [address] the [facility] morning [place] and 1 capsule at noon and 1 capsule in the evening. amoxicillin 2021-07 Yes [id number] 500mg Take 1 Univers 500 mg 1-12 capsule by ity of capsule 00:00: mouth in [place] [address] the [facility] morning [place] and 1 capsule at noon and 1 capsule in the evening. amoxicillin 2021-07 Yes [id number] 500mg Take 1 [facility] 500 mg 1-12 capsule by ity of capsule 00:00: mouth in [place] [address] the [facility] morning [place] and 1 capsule at noon and 1 capsule in the evening. amoxicillin 2021-07 Yes [id number] 500mg Take 1 [facility] 500 mg 1-12 capsule by ity of capsule 00:00: mouth in [place] [address] the [facility] morning [place] and 1 capsule at noon and 1 capsule in the evening. amoxicillin 2021- Yes [id number] 500mg Take 1 [facility] 500 mg 1-12 capsule by ity of capsule 00:00: mouth in [place] [address] the [facility] morning [place] and 1 capsule at noon and 1 capsule in the evening. amoxicillin 2021- Yes [id number] 500mg Take 1 [facility] 500 mg 1-12 capsule by ity of capsule 00:00: mouth in [address] morning Branch and 1 capsule at noon and 1 capsule in the evening. amoxicillin 2021-07 Yes [id number] 500mg Take 1 [facility] 500 mg 1-12 capsule by ity of capsule 00:00: mouth in [place] 00 the Medical morning Branch and 1 capsule at noon and 1 capsule in the evening. amoxicillin 2021-07 Yes [id number] 500mg Take 1 [facility] 500 mg 1-12 capsule by ity of capsule 00:00: mouth in [place] 00 the Medical morning Branch and 1 capsule at noon and 1 capsule in the evening. amoxicillin 2021-07 Yes [id number] 500mg Take 1 [facility] 500 mg 1-12 capsule by ity of capsule 00:00: mouth in [place] 00 the Medical morning Branch and 1 capsule at noon and 1 capsule in the evening. amoxicillin 2021-07 Yes [id number] 500mg Take 1 [facility] 500 mg 1-12 capsule by ity of capsule 00:00: mouth in [place] 00 the Medical morning Branch and 1 capsule at noon and 1 capsule in the evening. amoxicillin 2021-07- No [id number] 500mg Take 1 [facility] 500 mg 1-06 29- capsule by ity of capsule 00:00: 00:00 mouth in [place] 00 :00 the Medical morning Branch and 1 capsule at noon and 1 capsule in the evening. amoxicillin 2021-07- No [id number] 500mg Take 1 [facility] 500 mg 08-08- capsule by ity of capsule 00:00: 00:00 mouth in [place] 00 :00 the Medical morning Branch and 1 capsule at noon and 1 capsule in the evening. amoxicillin 2021-07- No [id number] 500mg Take 1 [facility] 500 mg -12 -03 capsule by ity of capsule 00:00: 00:00 mouth in [place] 00 :00 the Medical morning Branch and 1 capsule at noon and 1 capsule in the evening. amoxicillin 2021-07- No [id number] 500mg Take 1 [facility] 500 mg 1-12 -03 capsule by ity of capsule 00:00: 00:00 mouth in [place] 00 :00 the Medical morning Branch and 1 capsule at noon and 1 capsule in the evening. amoxicillin 2021-07- No [id number] 500mg Take 1 [facility] 500 mg 1-12 -03 capsule by ity of capsule 00:00: 00:00 mouth in [place] 00 :00 the Medical morning Branch and 1 capsule at noon and 1 capsule in the evening. amoxicillin 2021-07- No [id number] 500mg Take 1 [facility] 500 mg 08-08 capsule by ity of capsule 00:00: 00:00 mouth in [place] 00 :00 the Medical morning Branch and 1 capsule at noon and 1 capsule in the evening. amoxicillin 2021-07- No [id number] 500mg Take 1 [facility] 500 mg 08-08 capsule by ity of capsule 00:00: 00:00 mouth in [place] 00 :00 the [facility] morning Branch and 1 capsule at noon and 1 capsule in the evening. amoxicillin 2021-07- No [id number] 500mg Take 1 [facility] 500 mg 08-08 capsule by ity of capsule 00:00: 00:00 mouth in [place] 00 :00 the [facility] morning [place] and 1 capsule at noon and 1 capsule in the evening. naproxen 2021-07- No [id number] 500mg Take 1 Un [facility] 500 mg 08-08 tablet by ity of tablet 00:00: 05:59 mouth in [place] 00 :00 the [facility] and 1 tablet in the evening. Take with meals. Do all this for 10 days. naproxen 2021-07- No [id number] 500mg Take 1 Un [facility] 500 mg 08-08 tablet by ity of tablet 00:00: 05:59 mouth in [place] 00 :00 the [facility] morning [place] and 1 tablet in the evening. Take with meals. Do all this for 10 days. naproxen 2021-07- No [id number] 500mg Take 1 Un [facility] 500 mg 08-08 tablet by ity of tablet 00:00: 05:59 mouth in [place] 00 :00 the [facility] morning [place] and 1 tablet in the evening. Take with meals. Do all this for 10 days. naproxen 2021-07- No [id number] 500mg Take 1 Un [facility] 500 mg 08-08 tablet by ity of tablet 00:00: 05:59 mouth in [place] 00 :00 the [facility] morning [place] and 1 tablet in the evening. Take with meals. Do all this for 10 days. naproxen 2021-07- No [id number] 500mg Take 1 Un [facility] 500 mg 08-08 tablet by ity of tablet 00:00: 05:59 mouth in [place] 00 :00 the Medical morning Branch and 1 tablet in the evening. Take with meals. Do all this for 10 days. naproxen 2021-07- No [id number] 500mg Take 1 Un [facility] 500 mg 08-08 tablet by ity of tablet 00:00: 05:59 mouth in [place] 00 :00 the Medical morning Branch and 1 tablet in the evening. Take with meals. Do all this for 10 days. pravastatin 2021-0 Yes [id number] 40mg Take 1 [facility] 40 mg 8-08 tablet by ity of tablet 00:00: mouth at [place] 00 bedtime. Medical Recommend Branch labs to done as ordered in 2 months. pravastatin 2021-0 Yes [id number] 40mg Take 1 [facility] 40 mg 8-08 tablet by ity of tablet 00:00: mouth at [place] 00 bedtime. Medical Recommend Branch labs to done as ordered in 2 months. pravastatin 2021-0 Yes [id number] 40mg Take 1 [facility] 40 mg 8-08 tablet by ity of tablet 00:00: mouth at [place] 00 bedtime. Medical Recommend Branch labs to done as ordered in 2 months. pravastatin 2021-0 Yes [id number] 40mg Take 1 [facility] 40 mg 8-08 tablet by ity of tablet 00:00: mouth at [place] 00 bedtime. Medical Recommend Branch labs to done as ordered in 2 months. pravastatin 2021-0 Yes [id number] 40mg Take 1 [facility] 40 mg 8-08 tablet by ity of tablet 00:00: mouth at [place] 00 bedtime. Medical Recommend Branch labs to done as ordered in 2 months. pravastatin 2021-0 Yes [id number] 40mg Take 1 [facility] 40 mg 8-08 tablet by ity of tablet 00:00: mouth at [place] 00 bedtime. Medical Recommend Branch labs to done as ordered in 2 months. pravastatin 2021-0 Yes [id number] 40mg Take 1 [facility] 40 mg 8-08 tablet by ity of tablet 00:00: mouth at [place] 00 bedtime. Medical Recommend Branch labs to done as ordered in 2 months. pravastatin 2021-0 Yes [id number] 40mg Take 1 [facility] 40 mg 8-08 tablet by ity of tablet 00:00: mouth at [place] 00 bedtime. Medical Recommend Branch labs to done as ordered in 2 months. pravastatin 2022-0 Yes [id number] 40mg Take 1 [facility] 40 mg 8-08 tablet by ity of tablet 00:00: mouth at [place] 00 bedtime. Medical Recommend Branch labs to done as ordered in 2 months. pravastatin 2022-0 Yes [id number] 40mg Take 1 [facility] 40 mg 8-08 tablet by ity of tablet 00:00: mouth at [place] 00 bedtime. Medical Recommend Branch labs to done as ordered in 2 months. pravastatin 2022-0 Yes [id number] 40mg Take 1 [facility] 40 mg 8-08 tablet by ity of tablet 00:00: mouth at [place] 00 bedtime. Medical Recommend Branch labs to done as ordered in 2 months. pravastatin 2022-0 Yes [id number] 40mg Take 1 [facility] 40 mg 8-08 tablet by ity of tablet 00:00: mouth at [place] 00 bedtime. Medical Recommend Branch labs to done as ordered in 2 months. pravastatin 2022-0 Yes [id number] 40mg Take 1 [facility] 40 mg 8-08 tablet by ity of tablet 00:00: mouth at [place] 00 bedtime. Medical Recommend Branch labs to done as ordered in 2 months. pravastatin 2022-0 Yes [id number] 40mg Take 1 [facility] 40 mg 8-08 tablet by ity of tablet 00:00: mouth at [place] 00 bedtime. Medical Recommend Branch labs to done as ordered in 2 months. pravastatin 2022-0 Yes [id number] 40mg Take 1 [facility] 40 mg 8-08 tablet by ity of tablet 00:00: mouth at [place] 00 bedtime. Medical Recommend Branch labs to done as ordered in 2 months. pravastatin 2022-0 Yes [id number] 40mg Take 1 [facility] 40 mg 8-08 tablet by ity of tablet 00:00: mouth at [place] 00 bedtime. Medical Recommend Branch labs to done as ordered in 2 months. pravastatin 2022-0 Yes [id number] 40mg Take 1 [facility] 40 mg 8-08 tablet by ity of tablet 00:00: mouth at [place] 00 bedtime. Medical Recommend Branch labs to done as ordered in 2 months. pravastatin 2022-0 Yes [id number] 40mg Take 1 [facility] 40 mg 8-08 tablet by ity of tablet 00:00: mouth at [place] 00 bedtime. Medical Recommend Branch labs to done as ordered in 2 months. pravastatin 2022-0 Yes [id number] 40mg Take 1 [facility] 40 mg 8-08 tablet by ity of tablet 00:00: mouth at [place] 00 bedtime. Medical Recommend Branch labs to done as ordered in 2 months. pravastatin 2022-0 Yes [id number] 40mg Take 1 [facility] 40 mg 8-08 tablet by ity of tablet 00:00: mouth at [place] 00 bedtime. Medical Recommend Branch labs to done as ordered in 2 months. pravastatin 2022-0 Yes [id number] 40mg Take 1 [facility] 40 mg 8-08 tablet by ity of tablet 00:00: mouth at [place] 00 bedtime. Medical Recommend Branch labs to done as ordered in 2 months. pravastatin 2022-0 Yes [id number] 40mg Take 1 [facility] 40 mg 8-08 tablet by ity of tablet 00:00: mouth at [place] 00 bedtime. Medical Recommend Branch labs to done as ordered in 2 months. pravastatin 2022-0 Yes [id number] 40mg Take 1 [facility] 40 mg 8-08 tablet by ity of tablet 00:00: mouth at [place] 00 bedtime. Medical Recommend Branch labs to done as ordered in 2 months. pravastatin 2022-0 Yes [id number] 40mg Take 1 [facility] 40 mg 8-08 tablet by ity of tablet 00:00: mouth at [place] 00 bedtime. Medical Recommend Branch labs to done as ordered in 2 months. pravastatin 2022-0 Yes [id number] 40mg Take 1 [facility] 40 mg 8-08 tablet by ity of tablet 00:00: mouth at [place] 00 bedtime. Medical Recommend Branch labs to done as ordered in 2 months. pravastatin 2022-0 Yes [id number] 40mg Take 1 [facility] 40 mg 8-08 tablet by ity of tablet 00:00: mouth at [place] 00 bedtime. Medical Recommend Branch labs to done as ordered in 2 months. pravastatin 2022-0 Yes [id number] 40mg Take 1 [facility] 40 mg 8-08 tablet by ity of tablet 00:00: mouth at [place] 00 bedtime. Medical Recommend Branch labs to done as ordered in 2 months. pravastatin 2022-0 Yes [id number] 40mg Take 1 [facility] 40 mg 8-08 tablet by ity of tablet 00:00: mouth at [place] 00 bedtime. Medical Recommend Branch labs to done as ordered in 2 months. pravastatin 2022-0 Yes [id number] 40mg Take 1 [facility] 40 mg 8-08 tablet by ity of tablet 00:00: mouth at [place] 00 bedtime. Medical Recommend Branch labs to done as ordered in 2 months. pravastatin 2022-0 Yes [id number] 40mg Take 1 [facility] 40 mg 8-08 tablet by ity of tablet 00:00: mouth at [place] 00 bedtime. Medical Recommend Branch labs to done as ordered in 2 months. pravastatin 2022-0 Yes [id number] 40mg Take 1 [facility] 40 mg 8-08 tablet by ity of tablet 00:00: mouth at [place] 00 bedtime. Medical Recommend Branch labs to done as ordered in 2 months. pravastatin 2022-0 Yes [id number] 40mg Take 1 [facility] 40 mg 8-08 tablet by ity of tablet 00:00: mouth at [place] 00 bedtime. Medical Recommend Branch labs to done as ordered in 2 months. pravastatin 2022-0 Yes [id number] 40mg Take 1 [facility] 40 mg 8-08 tablet by ity of tablet 00:00: mouth at [place] 00 bedtime. Medical Recommend Branch labs to done as ordered in 2 months. pravastatin 2022-0 Yes [id number] 40mg Take 1 [facility] 40 mg 8-08 tablet by ity of tablet 00:00: mouth at [place] 00 bedtime. Medical Recommend Branch labs to done as ordered in 2 months. pravastatin 2022-0 Yes [id number] 40mg Take 1 [facility] 40 mg 8-08 tablet by ity of tablet 00:00: mouth at [place] 00 bedtime. Medical Recommend Branch labs to done as ordered in 2 months. pravastatin 2022-0 Yes [id number] 40mg Take 1 [facility] 40 mg 8-08 tablet by ity of tablet 00:00: mouth at [place] 00 bedtime. Medical Recommend Branch labs to done as ordered in 2 months. pravastatin 2022-0 Yes [id number] 40mg Take 1 [facility] 40 mg 8-08 tablet by ity of tablet 00:00: mouth at [place] 00 bedtime. Medical Recommend Branch labs to done as ordered in 2 months. pravastatin 2022-0 Yes [id number] 40mg Take 1 [facility] 40 mg 8-08 tablet by ity of tablet 00:00: mouth at [place] 00 bedtime. Medical Recommend Branch labs to done as ordered in 2 months. pravastatin 2021-0 Yes [id number] 40mg Take 1 [facility] 40 mg 8-08 tablet by ity of tablet 00:00: mouth at [place] 00 bedtime. Medical Recommend Branch labs to done as ordered in 2 months. pravastatin 2021-0 2023- No [id number] 40mg Take 1 [facility] 40 mg 8-08 03-28 tablet by ity of tablet 00:00: 00:00 mouth at [place] 00 :00 bedtime. Medical Recommend Branch labs to done as ordered in 2 months. pravastatin 2021-0 2023- No [id number] 40mg Take 1 [facility] 40 mg 8-08 03-28 tablet by ity of tablet 00:00: 00:00 mouth at [place] 00 :00 bedtime. Medical Recommend Branch labs to done as ordered in 2 months. pravastatin 2021-0 2023- No [id number] 40mg Take 1 [facility] 40 mg 8-08 03-28 tablet by ity of tablet 00:00: 00:00 mouth at [place] 00 :00 bedtime. Medical Recommend Branch labs to done as ordered in 2 months. lisinopriL- 2021-0 Yes [id number] 1{tbl} Take 1 [facility] hydrochloro 4-07 tablet by ity of thiazide 00:00: mouth [place] 10-12.5 mg 00 daily. Medical per tablet Branch lisinopriL- 2021-0 Yes [id number] 1{tbl} Take 1 [facility] hydrochloro 4-07 tablet by ity of thiazide 00:00: mouth [place] 10-12.5 mg 00 daily. Medical per tablet Branch lisinopriL- 2021-0 Yes [id number] 1{tbl} Take 1 [facility] hydrochloro 4-07 tablet by ity of thiazide 00:00: mouth [place] 10-12.5 mg 00 daily. Medical per tablet Branch lisinopriL- 2021-0 Yes [id number] 1{tbl} Take 1 [facility] hydrochloro 4-07 tablet by ity of thiazide 00:00: mouth [place] 10-12.5 mg 00 daily. Medical per tablet Branch lisinopriL- 2021-0 Yes [id number] 1{tbl} Take 1 [facility] hydrochloro 4-07 tablet by ity of thiazide 00:00: mouth [place] 10-12.5 mg 00 daily. Medical per tablet Branch lisinopriL- 2021-0 Yes [id number] 1{tbl} Take 1 [facility] hydrochloro 4-07 tablet by ity of thiazide 00:00: mouth [place] 10-12.5 mg 00 daily. Medical per tablet Branch lisinopriL- 2021-0 Yes [id number] 1{tbl} Take 1 [facility] hydrochloro 4-07 tablet by ity of thiazide 00:00: mouth [place] 10-12.5 mg 00 daily. Medical per tablet Branch lisinopriL- 2021-0 Yes [id number] 1{tbl} Take 1 [facility] hydrochloro 4-07 tablet by ity of thiazide 00:00: mouth [place] 10-12.5 mg 00 daily. Medical per tablet Branch lisinopriL- 2021-0 Yes [id number] 1{tbl} Take 1 [facility] hydrochloro 4-07 tablet by ity of thiazide 00:00: mouth [place] 10-12.5 mg 00 daily. Medical per tablet Branch lisinopriL- 2021-0 Yes [id number] 1{tbl} Take 1 [facility] hydrochloro 4-07 tablet by ity of thiazide 00:00: mouth [place] 10-12.5 mg 00 daily. Medical per tablet Branch lisinopriL- 2021-0 Yes [id number] 1{tbl} Take 1 [facility] hydrochloro 4-07 tablet by ity of thiazide 00:00: mouth [place] 10-12.5 mg 00 daily. Medical per tablet Branch lisinopriL- 2021-0 Yes [id number] 1{tbl} Take 1 [facility] hydrochloro 4-07 tablet by ity of thiazide 00:00: mouth [place] 10-12.5 mg 00 daily. Medical per tablet Branch lisinopriL- 2021-0 Yes [id number] 1{tbl} Take 1 [facility] hydrochloro 4-07 tablet by ity of thiazide 00:00: mouth [place] 10-12.5 mg 00 daily. Medical per tablet Branch lisinopriL- 2021-0 Yes [id number] 1{tbl} Take 1 [facility] hydrochloro 4-07 tablet by ity of thiazide 00:00: mouth [place] 10-12.5 mg 00 daily. Medical per tablet Branch lisinopriL- 2022-0 Yes [id number] 1{tbl} Take 1 [facility] hydrochloro 4-07 tablet by ity of thiazide 00:00: mouth [place] 10-12.5 mg 00 daily. Medical per tablet Branch lisinopriL- Yes [id number] 1{tbl} Take 1 [facility] hydrochloro 4-07 tablet by ity of thiazide 00:00: mouth [place] 10-12.5 mg 00 daily. Medical per tablet Branch lisinopriL- Yes [id number] 1{tbl} Take 1 [facility] hydrochloro 4-07 tablet by ity of thiazide 00:00: mouth [place] 10-12.5 mg 00 daily. Medical per tablet Branch lisinopriL- Yes [id number] 1{tbl} Take 1 [facility] hydrochloro 4-07 tablet by ity of thiazide 00:00: mouth [place] 10-12.5 mg 00 daily. Medical per tablet Branch lisinopriL- Yes [id number] 1{tbl} Take 1 [facility] hydrochloro 4-07 tablet by ity of thiazide 00:00: mouth [place] 10-12.5 mg 00 daily. Medical per tablet Branch lisinopriL- Yes [id number] 1{tbl} Take 1 [facility] hydrochloro 4-07 tablet by ity of thiazide 00:00: mouth [place] 10-12.5 mg 00 daily. Medical per tablet Branch lisinopriL- Yes [id number] 1{tbl} Take 1 [facility] hydrochloro 4-07 tablet by ity of thiazide 00:00: mouth [place] 10-12.5 mg 00 daily. Medical per tablet Branch lisinopriL- 2022- No [id number] 1{tbl} Take 1 [facility] hydrochloro 4-07 01-27 tablet by it y of thiazide 00:00: 00:00 mouth [place] 10-12.5 mg 00 :00 daily. Medical per tablet Branch Immunizations Ordered Filled Date Status Comments Source Immunization Name Immunization Name Influenza High Dose 2022-04-19 Completed Unive rsity of [facility] 00:00:00 [place] [facility] Pneumococcal 20 2022-04-19 Completed Universit y of Conjugate, PCV20 00:00:00 [facility] dical (Prevnar 20) Branch TDAP 2022-04-19 Completed University of 00:00:00 [facility] Zoster Vaccine 2022-04-19 Completed University of Recombinant 00:00:00 [facility] Influenza High Dose 2022-04-19 Completed Unive rsity of Quad 00:00:00 [facility] Pneumococcal 20 2022-04-19 Completed Universit y of Conjugate, PCV20 00:00:00 [place] [facility] (Prevnar 20) Branch [facility] 2022-04-19 Completed University of 00:00:00 [facility] Zoster Vaccine 2022-04-19 Completed University of Recombinant 00:00:00 [facility] Influenza High Dose 2022-04-19 Completed Unive rsity of Quad 00:00:00 [facility] Pneumococcal 20 2022-04-19 Completed Universit y of Conjugate, PCV20 00:00:00 [facility] dical (Prevnar 20) Branch [facility] 2022-04-19 Completed University of 00:00:00 [facility] Zoster Vaccine 2022-04-19 Completed University of Recombinant 00:00:00 [facility] Influenza High Dose 2022-04-19 Completed Unive rsity of Quad 00:00:00 [facility] Pneumococcal 20 2022-04-19 Completed Universit y of Conjugate, PCV20 00:00:00 [facility] dical (Prevnar 20) Branch [facility] 2022-04-19 Completed University of 00:00:00 [facility] Zoster Vaccine 2022-04-19 Completed University of Recombinant 00:00:00 [facility] Influenza High Dose 2022-04-19 Completed Unive rsity of Quad 00:00:00 [facility] Pneumococcal 20 2022-04-19 Completed Universit y of Conjugate, PCV20 00:00:00 [facility] dical (Prevnar 20) Branch [facility] 2022-04-19 Completed University of 00:00:00 [facility] Zoster Vaccine 2022-04-19 Completed University of Recombinant 00:00:00 [facility] Influenza High Dose 2022-04-19 Completed Unive rsity of Quad 00:00:00 [facility] Pneumococcal 20 2022-04-19 Completed Universit y of Conjugate, PCV20 00:00:00 [place] [facility]ical (Prevnar 20) Branch [facility] 2022-04-19 Completed University of 00:00:00 [facility] Zoster Vaccine 2022-04-19 Completed University of Recombinant 00:00:00 [facility] Influenza High Dose 2022-04-19 Completed Unive rsity of Quad 00:00:00 [facility] Pneumococcal 20 2022-04-19 Completed Universit y of Conjugate, PCV20 00:00:00 [place] [facility] dical (Prevnar 20) Branch TDAP 2022-04-19 Completed University of 00:00:00 [facility] Zoster Vaccine 2022-04-19 Completed University of Recombinant 00:00:00 [facility] Influenza High Dose 2022-04-19 Completed Unive rsity of [facility] 00:00:00 [facility] Pneumococcal 20 2022-04-19 Completed Universit y of Conjugate, PCV20 00:00:00 [facility] dical (Prevnar 20) Branch [facility] 2022-04-19 Completed University of 00:00:00 [facility] Zoster Vaccine 2022-04-19 Completed University of Recombinant 00:00:00 [facility] Influenza High Dose 2022-04-19 Completed Unive rsity of Quad 00:00:00 [facility] Pneumococcal 20 2022-04-19 Completed Universit y of Conjugate, PCV20 00:00:00 [facility] dical (Prevnar 20) Branch [facility] 2022-04-19 Completed University of 00:00:00 [facility] Zoster Vaccine 2022-04-19 Completed University of Recombinant 00:00:00 [facility] Influenza High Dose 2022-04-19 Completed Unive rsity of [facility] 00:00:00 [facility] Pneumococcal 20 2022-04-19 Completed Universit y of Conjugate, PCV20 00:00:00 [facility] dical (Prevnar 20) Branch [facility] 2022-04-19 Completed University of 00:00:00 [facility] Zoster Vaccine 2022-04-19 Completed University of Recombinant 00:00:00 [facility] Influenza High Dose 2022-04-19 Completed Unive rsity of [facility] 00:00:00 [facility] Pneumococcal 20 2022-04-19 Completed Universit y of Conjugate, PCV20 00:00:00 [place] [facility] dical (Prevnar 20) Branch [facility] 2022-04-19 Completed University of 00:00:00 [facility] Zoster Vaccine 2022-04-19 Completed University of Recombinant 00:00:00 [facility] Influenza High Dose 2022-04-19 Completed Unive rsity of [facility] 00:00:00 [facility] Pneumococcal 20 2022-04-19 Completed Universit y of Conjugate, PCV20 00:00:00 [place] [facility] dical (Prevnar 20) Branch TDAP 2022-04-19 Completed University of 00:00:00 [facility] Zoster Vaccine 2022-04-19 Completed University of Recombinant 00:00:00 [facility] Influenza High Dose 2022-04-19 Completed Unive rsity of [facility] 00:00:00 [facility] Pneumococcal 20 2022-04-19 Completed Universit y of Conjugate, PCV20 00:00:00 [facility] dical (Prevnar 20) Branch [facility] 2022-04-19 Completed University of 00:00:00 [facility] Zoster Vaccine 2022-04-19 Completed University of Recombinant 00:00:00 [facility] Influenza High Dose 2022-04-19 Completed Unive rsity of [facility] 00:00:00 [facility] Pneumococcal 20 2022-04-19 Completed Universit y of Conjugate, PCV20 00:00:00 [facility] dical (Prevnar 20) Branch [facility] 2022-04-19 Completed University of 00:00:00 [facility] Zoster Vaccine 2022-04-19 Completed University of Recombinant 00:00:00 [facility] Influenza High Dose 2022-04-19 Completed Unive rsity of [facility] 00:00:00 [facility] Pneumococcal 20 2022-04-19 Completed Universit y of Conjugate, PCV20 00:00:00 [facility] dical (Prevnar 20) Branch [facility] 2022-04-19 Completed University of 00:00:00 [facility] Zoster Vaccine 2022-04-19 Completed University of Recombinant 00:00:00 [facility] Influenza High Dose 2022-04-19 Completed Unive rsity of [facility] 00:00:00 [facility] Pneumococcal 20 2022-04-19 Completed Universit y of Conjugate, PCV20 00:00:00 [facility] dical (Prevnar 20) Branch [facility] 2022-04-19 Completed University of 00:00:00 [facility] Zoster Vaccine 2022-04-19 Completed University of Recombinant 00:00:00 [facility] Influenza High Dose 2022-04-19 Completed Unive rsity of [facility] 00:00:00 [facility] Pneumococcal 20 2022-04-19 Completed Universit y of Conjugate, PCV20 00:00:00 [facility] dical (Prevnar 20) Branch [facility] 2022-04-19 Completed University of 00:00:00 [facility] Zoster Vaccine 2022-04-19 Completed University of Recombinant 00:00:00 [facility] Influenza High Dose 2022-04-19 Completed Unive rs[facility] of [facility] 00:00:00 [facility] Pneumococcal 20 2022-04-19 Completed Universit y of Conjugate, PCV20 00:00:00 [facility] dical (Prevnar 20) Branch [facility] 2022-04-19 Completed [facility] 00:00:00 [facility] [facility] Zoster Vaccine 2022-04-19 Completed [facility] Recombinant 00:00:00 [facility] Influenza High Dose 2022-04-19 Completed Unive rsity of Quad 00:00:00 [facility] Pneumococcal 20 2022-04-19 Completed Universit y of Conjugate, PCV20 00:00:00 [facility] dical (Prevnar 20) Branch [facility] 2022-04-19 Completed [facility] 00:00:00 [facility] Zoster Vaccine 2022-04-19 Completed [facility] Recombinant 00:00:00 [facility] Influenza High Dose 2022-04-19 Completed [facility] 00:00:00 [facility] Pneumococcal 20 2022-04-19 Completed Universit y of Conjugate, PCV20 00:00:00 [facility] dical (Prevnar 20) Branch [facility] 2022-04-19 Completed [facility] 00:00:00 [facility] Zoster Vaccine 2022-04-19 Completed [facility] of Recombinant 00:00:00 [facility] Influenza High Dose 2022-04-19 Completed [facility] 00:00:00 [facility] Pneumococcal 20 2022-04-19 Completed Universit y of Conjugate, PCV20 00:00:00 [facility] dical (Prevnar 20) Branch [facility] 2022-04-19 Completed [facility] 00:00:00 [facility] Zoster Vaccine 2022-04-19 Completed [facility] of Recombinant 00:00:00 [facility] Influenza High Dose 2022-04-19 Completed [facility] 00:00:00 [facility] Pneumococcal 20 2022-04-19 Completed [facility]it [facility] Conjugate, PCV20 00:00:00 [place] [facility] (Prevnar 20) Branch [facility] 2022-04-19 Completed [facility] 00:00:00 [facility] Zoster Vaccine 2022-04-19 Completed [facility] Recombinant 00:00:00 [facility] Influenza High Dose 2022-04-19 Completed [facility] 00:00:00 [facility] Pneumococcal 20 2022-04-19 Completed [facility]it y of Conjugate, PCV20 00:00:00 [place] [facility] (Prevnar 20) Branch [facility] 2022-04-19 Completed [facility] 00:00:00 [facility] Zoster Vaccine 2022-04-19 Completed [facility] Recombinant 00:00:00 [facility] Influenza High Dose 2022-04-19 Completed [facility] 00:00:00 [facility] Pneumococcal 20 2022-04-19 Completed Universit y of Conjugate, PCV20 00:00:00 [facility] dical (Prevnar 20) Branch [facility] 2022-04-19 Completed [facility] of 00:00:00 [facility] Zoster Vaccine 2022-04-19 Completed [facility] of Recombinant 00:00:00 [facility] Influenza High Dose 2022-04-19 Completed [facility] 00:00:00 [facility] Pneumococcal 20 2022-04-19 Completed Universit y of Conjugate, PCV20 00:00:00 [facility] dical (Prevnar 20) Branch [facility] 2022-04-19 Completed [facility] of 00:00:00 [facility] Zoster Vaccine 2022-04-19 Completed [facility] of Recombinant 00:00:00 [facility] Influenza High Dose 2022-04-19 Completed [facility] 00:00:00 [facility] Pneumococcal 20 2022-04-19 Completed Universit y of Conjugate, PCV20 00:00:00 [facility] dical (Prevnar 20) Branch [facility] 2022-04-19 Completed [facility] of 00:00:00 [facility] Zoster Vaccine 2022-04-19 Completed [facility] of Recombinant 00:00:00 [facility] Influenza High Dose 2022-04-19 Completed [facility] 00:00:00 [facility] Pneumococcal 20 2022-04-19 Completed [facility]it [facility] of Conjugate, PCV20 00:00:00 [place] [facility] (Prevnar 20) Branch [facility] 2022-04-19 Completed [facility] of 00:00:00 [facility] Zoster Vaccine 2022-04-19 Completed [facility] Recombinant 00:00:00 [facility] Influenza High Dose 2022-04-19 Completed [facility] 00:00:00 [facility] Pneumococcal 20 2022-04-19 Completed Universit y of Conjugate, PCV20 00:00:00 [facility] dical (Prevnar 20) Branch AP 2022-04-19 Completed [facility] of 00:00:00 [facility] Zoster Vaccine 2022-04-19 Completed University of Recombinant 00:00:00 [facility] Influenza High Dose 2022-04-19 Completed [facility] 00:00:00 [facility] Pneumococcal 20 2022-04-19 Completed Universit y of Conjugate, PCV20 00:00:00 [facility] dical (Prevnar 20) Branch [facility] 2022-04-19 Completed [facility] 00:00:00 [facility] Zoster Vaccine 2022-04-19 Completed [facility] of Recombinant 00:00:00 [facility] Influenza High Dose 2022-04-19 Completed [facility] 00:00:00 [facility] Pneumococcal 20 2022-04-19 Completed Universit y of Conjugate, PCV20 00:00:00 [facility] dical (Prevnar 20) Branch [facility] 2022-04-19 Completed University of 00:00:00 [facility] Zoster Vaccine 2022-04-19 Completed [facility] of Recombinant 00:00:00 [facility] Influenza High Dose 2022-04-19 Completed [facility] 00:00:00 [facility] Pneumococcal 20 2022-04-19 Completed Universit y of Conjugate, PCV20 00:00:00 [facility] dical (Prevnar 20) Branch [facility] 2022-04-19 Completed [facility] of 00:00:00 [facility] Zoster Vaccine 2022-04-19 Completed [facility] of Recombinant 00:00:00 [facility] Influenza High Dose 2022-04-19 Completed [facility] 00:00:00 [facility] Pneumococcal 20 2022-04-19 Completed Universit y of Conjugate, PCV20 00:00:00 [facility] dical (Prevnar 20) Branch [facility] 2022-04-19 Completed [facility] of 00:00:00 [facility] Zoster Vaccine 2022-04-19 Completed [facility] of Recombinant 00:00:00 [facility] Influenza High Dose 2022-04-19 Completed [facility] 00:00:00 [facility] Pneumococcal 20 2022-04-19 Completed Universit y of Conjugate, PCV20 00:00:00 [facility] dical (Prevnar 20) Branch [facility] 2022-04-19 Completed [facility] of 00:00:00 [facility] Zoster Vaccine 2022-04-19 Completed University of Recombinant 00:00:00 [facility] Influenza High Dose 2022-04-19 Completed [facility] 00:00:00 [facility] Pneumococcal 20 2022-04-19 Completed Universit y of Conjugate, PCV20 00:00:00 [facility] dical (Prevnar 20) Branch [facility] 2022-04-19 Completed [facility] of 00:00:00 [facility] Zoster Vaccine 2022-04-19 Completed [facility] of Recombinant 00:00:00 [facility] Influenza High Dose 2022-04-19 Completed [facility] 00:00:00 [facility] Pneumococcal 20 2022-04-19 Completed Universit y of Conjugate, PCV20 00:00:00 [facility] dical (Prevnar 20) Branch [facility] 2022-04-19 Completed [facility] of 00:00:00 [facility] Zoster Vaccine 2022-04-19 Completed [facility] of Recombinant 00:00:00 [facility] 2022-03-26 Completed University of 00:00:00 [facility] Pneumococcal 20 2022-03-26 Completed Universit y of Conjugate, PCV20 00:00:00 [facility] dical (Prevnar 20) Branch [facility] 2022-03-26 Completed [facility] of 00:00:00 [facility] Pneumococcal 20 2022-03-26 Completed Universit y of Conjugate, PCV20 00:00:00 [facility] dical (Prevnar 20) Branch [facility] 2022-03-26 Completed [facility] of 00:00:00 [facility] Pneumococcal 20 2022-03-26 Completed Universit y of Conjugate, PCV20 00:00:00 [facility] dical (Prevnar 20) Branch [facility] 2022-03-26 Completed [facility] of 00:00:00 [facility] Pneumococcal 20 2022-03-26 Completed Universit y of Conjugate, PCV20 00:00:00 [facility] dical (Prevnar 20) Branch [facility] 2022-03-26 Completed [facility] of 00:00:00 [facility] Pneumococcal 20 2022-03-26 Completed Universit y of Conjugate, PCV20 00:00:00 [facility] dical (Prevnar 20) Branch [facility] 2022-03-26 Completed [facility] of 00:00:00 [facility] Pneumococcal 20 2022-03-26 Completed Universit y of Conjugate, PCV20 00:00:00 [facility] dical (Prevnar 20) Branch [facility] 2022-03-26 Completed [facility] 00:00:00 [facility] Pneumococcal 20 2022-03-26 Completed Universit y of Conjugate, PCV20 00:00:00 [facility] dical (Prevnar 20) Branch [facility] 2022-03-26 Completed [facility] of 00:00:00 [facility] Pneumococcal 20 2022-03-26 Completed Universit y of Conjugate, PCV20 00:00:00 [facility] dical (Prevnar 20) Branch [facility] 2022-03-26 Completed [facility] 00:00:00 [facility] Pneumococcal 20 2022-03-26 Completed Universit y of Conjugate, PCV20 00:00:00 [facility] dical (Prevnar 20) Branch [facility] 2022-03-26 Completed [facility] of 00:00:00 [facility] Pneumococcal 20 2022-03-26 Completed Universit y of Conjugate, PCV20 00:00:00 [facility] dical (Prevnar 20) Branch [facility] 2022-03-26 Completed [facility] 00:00:00 [facility] Pneumococcal 20 2022-03-26 Completed Universit y of Conjugate, PCV20 00:00:00 [facility] dical (Prevnar 20) Branch [facility] 2022-03-26 Completed [facility] 00:00:00 [facility] Pneumococcal 20 2022-03-26 Completed Universit y of Conjugate, PCV20 00:00:00 [facility] dical (Prevnar 20) Branch [facility] 2022-03-26 Completed [facility] of 00:00:00 [facility] Pneumococcal 20 2022-03-26 Completed Universit y of Conjugate, PCV20 00:00:00 [facility] dical (Prevnar 20) Branch [facility] 2022-03-26 Completed [facility] 00:00:00 [facility] Pneumococcal 20 2022-03-26 Completed Universit y of Conjugate, PCV20 00:00:00 [facility] dical (Prevnar 20) Branch [facility] 2022-03-26 Completed [facility] 00:00:00 [facility] Pneumococcal 20 2022-03-26 Completed Universit y of Conjugate, PCV20 00:00:00 [facility] dical (Prevnar 20) Branch [facility] 2022-03-26 Completed [facility] 00:00:00 [facility] Pneumococcal 20 2022-03-26 Completed Universit y of Conjugate, PCV20 00:00:00 [facility] dical (Prevnar 20) Branch [facility] 2022-03-26 Completed [facility] 00:00:00 [facility] Pneumococcal 20 2022-03-26 Completed Universit y of Conjugate, PCV20 00:00:00 [facility] dical (Prevnar 20) Branch [facility] 2022-03-26 Completed [facility] of 00:00:00 [facility] Pneumococcal 20 2022-03-26 Completed Universit y of Conjugate, PCV20 00:00:00 [facility] dical (Prevnar 20) Branch [facility] 2022-03-26 Completed [facility] of 00:00:00 [facility] Pneumococcal 20 2022-03-26 Completed Universit y of Conjugate, PCV20 00:00:00 [facility] dical (Prevnar 20) Branch [facility] 2022-03-26 Completed [facility] 00:00:00 [facility] Pneumococcal 20 2022-03-26 Completed Universit y of Conjugate, PCV20 00:00:00 [facility] dical (Prevnar 20) Branch [facility] 2022-03-26 Completed [facility] of 00:00:00 [facility] Pneumococcal 20 2022-03-26 Completed Universit y of Conjugate, PCV20 00:00:00 [facility] dical (Prevnar 20) Branch [facility] 2022-03-26 Completed [facility] of 00:00:00 [facility] Pneumococcal 20 2022-03-26 Completed Universit y of Conjugate, PCV20 00:00:00 [facility] dical (Prevnar 20) Branch [facility] 2022-03-26 Completed [facility] of 00:00:00 [facility] Pneumococcal 20 2022-03-26 Completed Universit y of Conjugate, PCV20 00:00:00 [facility] dical (Prevnar 20) Branch [facility] 2022-03-26 Completed [facility] 00:00:00 [facility] Pneumococcal 20 2022-03-26 Completed Universit y of Conjugate, PCV20 00:00:00 [facility] dical (Prevnar 20) Branch [facility] 2022-03-26 Completed [facility] 00:00:00 [facility] Pneumococcal 20 2022-03-26 Completed Universit y of Conjugate, PCV20 00:00:00 [facility] dical (Prevnar 20) Branch [facility] 2022-03-26 Completed [facility] of 00:00:00 [facility] Pneumococcal 20 2022-03-26 Completed Universit y of Conjugate, PCV20 00:00:00 [facility] dical (Prevnar 20) Branch [facility] 2022-03-26 Completed [facility] of 00:00:00 [facility] Pneumococcal 20 2022-03-26 Completed Universit y of Conjugate, PCV20 00:00:00 [facility] dical (Prevnar 20) Branch [facility] 2022-03-26 Completed [facility] of 00:00:00 [facility] Pneumococcal 20 2022-03-26 Completed Universit y of Conjugate, PCV20 00:00:00 [facility] dical (Prevnar 20) Branch [facility] 2022-03-26 Completed [facility] 00:00:00 [facility] Pneumococcal 20 2022-03-26 Completed Universit y of Conjugate, PCV20 00:00:00 [facility] dical (Prevnar 20) Branch [facility] 2022-03-26 Completed [facility] of 00:00:00 [facility] Pneumococcal 20 2022-03-26 Completed Universit y of Conjugate, PCV20 00:00:00 [facility] dical (Prevnar 20) Branch [facility] 2022-03-26 Completed [facility] 00:00:00 [facility] Pneumococcal 20 2022-03-26 Completed Universit y of Conjugate, PCV20 00:00:00 [facility] dical (Prevnar 20) Branch [facility] 2022-03-26 Completed [facility] of 00:00:00 [facility] Pneumococcal 20 2022-03-26 Completed Universit y of Conjugate, PCV20 00:00:00 [facility] dical (Prevnar 20) Branch [facility] 2022-03-26 Completed [facility] of 00:00:00 [facility] Pneumococcal 20 2022-03-26 Completed Universit y of Conjugate, PCV20 00:00:00 [facility] dical (Prevnar 20) Branch [facility] 2022-03-26 Completed [facility] of 00:00:00 [facility] Pneumococcal 20 2022-03-26 Completed Universit y of Conjugate, PCV20 00:00:00 [facility] dical (Prevnar 20) Branch [facility] 2022-03-26 Completed [facility] 00:00:00 [facility] Pneumococcal 20 2022-03-26 Completed Universit y of Conjugate, PCV20 00:00:00 [facility] dical (Prevnar 20) Branch [facility] 2022-03-26 Completed [facility] 00:00:00 [facility] Pneumococcal 20 2022-03-26 Completed [facility]it y of Conjugate, PCV20 00:00:00 [facility] dical (Prevnar 20) Branch [facility] 2022-03-26 Completed [facility] 00:00:00 [facility] Pneumococcal 20 2022-03-26 Completed Universit y of Conjugate, PCV20 00:00:00 [facility] dical (Prevnar 20) Branch [facility] 2022-03-26 Completed [facility] 00:00:00 [facility] Pneumococcal 20 2022-03-26 Completed Universit y of Conjugate, PCV20 00:00:00 [facility] dical (Prevnar 20) Branch [facility] 2022-03-26 Completed [facility] 00:00:00 [facility] Pneumococcal 20 2022-03-26 Completed [facility]it y of Conjugate, PCV20 00:00:00 [facility] dical (Prevnar 20) Branch [facility] 2022-03-26 Completed [facility] 00:00:00 [facility] Pneumococcal 20 2022-03-26 Completed Universit y of Conjugate, PCV20 00:00:00 [facility] dical (Prevnar 20) Branch [facility] 2022-03-26 Completed [facility] 00:00:00 [facility] Pneumococcal 20 2022-03-26 Completed Universit y of Conjugate, PCV20 00:00:00 [facility] dical (Prevnar 20) Branch [facility] 2022-03-26 Completed [facility] 00:00:00 [facility] Pneumococcal 20 2022-03-26 Completed Universit y of Conjugate, PCV20 00:00:00 [facility] dical (Prevnar 20) Branch [facility] 2022-03-26 Completed [facility] 00:00:00 [facility] Pneumococcal 20 2022-03-26 Completed [facility]it y of Conjugate, PCV20 00:00:00 [facility] dical (Prevnar 20) Branch [facility] 2022-03-26 Completed [facility] 00:00:00 [facility] Pneumococcal 20 2022-03-26 Completed [facility]it y of Conjugate, PCV20 00:00:00 [facility] dical (Prevnar 20) Branch [facility] 2022-03-26 Completed [facility] 00:00:00 [facility] Pneumococcal 20 2022-03-26 Completed [facility]it y of Conjugate, PCV20 00:00:00 [facility] dical (Prevnar 20) Branch [facility] 2022-03-26 Completed [facility] 00:00:00 [facility] Pneumococcal 20 2022-03-26 Completed [facility]it y of Conjugate, PCV20 00:00:00 [facility] dical (Prevnar 20) Branch [facility] 2022-03-26 Completed [facility] 00:00:00 [facility] Pneumococcal 20 2022-03-26 Completed [facility] y of Conjugate, PCV20 00:00:00 [facility] dical (Prevnar 20) Branch [facility] 2022-03-26 Completed [facility] 00:00:00 [facility] Pneumococcal 20 2022-03-26 Completed [facility] y of Conjugate, PCV20 00:00:00 [facility] dical (Prevnar 20) Branch [facility] 2022-03-26 Completed [facility] 00:00:00 [facility] Pneumococcal 20 2022-03-26 Completed [facility] y of Conjugate, PCV20 00:00:00 [facility] dical (Prevnar 20) Branch [facility] 2022-03-26 Completed [facility] 00:00:00 [facility] Pneumococcal 20 2022-03-26 Completed [facility] y of Conjugate, PCV20 00:00:00 [facility] dical (Prevnar 20) Branch [facility] 2022-03-26 Completed [facility] 00:00:00 [facility] Pneumococcal 20 2022-03-26 Completed [facility] y of Conjugate, PCV20 00:00:00 [facility] dical (Prevnar 20) Branch [facility] 2022-03-26 Completed [facility] 00:00:00 [facility] Pneumococcal 20 2022-03-26 Completed [facility] y of Conjugate, PCV20 00:00:00 [facility] dical (Prevnar 20) Branch [facility] 2022-03-26 Completed [facility] 00:00:00 [facility] Pneumococcal 20 2022-03-26 Completed [facility] y of Conjugate, PCV20 00:00:00 [facility] dical (Prevnar 20) Branch [facility] 2022-03-26 Completed [facility] 00:00:00 [facility] Pneumococcal 20 2022-03-26 Completed [facility] y of Conjugate, PCV20 00:00:00 [facility] dical (Prevnar 20) Branch AP 2022-03-26 Completed [facility] 00:00:00 [facility] Pneumococcal 20 2022-03-26 Completed Universit y of Conjugate, PCV20 00:00:00 [facility] dical (Prevnar 20) Branch AP 2022-03-26 Completed [facility] 00:00:00 [facility] Pneumococcal 20 2022-03-26 Completed [facility]it [facility] of Conjugate, PCV20 00:00:00 [facility] dical (Prevnar 20) Branch [facility] 2022-03-26 Completed University of 00:00:00 [facility] Pneumococcal 20 2022-03-26 Completed Universit y of Conjugate, PCV20 00:00:00 [facility] dical (Prevnar 20) Branch SARS-COV-2 COVID-19 2020-11-30 Completed Unive rsity of VACCINE - (MODERNA) 00:00:00 [facility] SARS-COV-2 COVID-19 2020-11-30 Completed Unive rsity of VACCINE - (MODERNA) 00:00:00 [facility] SARS-COV-2 COVID-19 2020-11-30 Completed Unive rsity of VACCINE - (MODERNA) 00:00:00 [facility] SARS-COV-2 COVID-19 2020-11-30 Completed Unive rsity of VACCINE - (MODERNA) 00:00:00 [facility] SARS-COV-2 COVID-19 2020-11-30 Completed Unive rsity of VACCINE - (MODERNA) 00:00:00 [facility] SARS-COV-2 COVID-19 2020-11-30 Completed Unive rsity of VACCINE - (MODERNA) 00:00:00 [facility] SARS-COV-2 COVID-19 2020-11-30 Completed Unive rsity of VACCINE - (MODERNA) 00:00:00 [facility] SARS-COV-2 COVID-19 2020-11-30 Completed Unive rsity of VACCINE - (MODERNA) 00:00:00 [facility] SARS-COV-2 COVID-19 2020-11-30 Completed Unive rsity of VACCINE - (MODERNA) 00:00:00 [facility] SARS-COV-2 COVID-19 2020-11-30 Completed Unive rsity of VACCINE - (MODERNA) 00:00:00 [facility] SARS-COV-2 COVID-19 2020-11-30 Completed Unive rsity of VACCINE - (MODERNA) 00:00:00 [facility] SARS-COV-2 COVID-19 2020-11-30 Completed Unive rsity of VACCINE - (MODERNA) 00:00:00 [facility] SARS-COV-2 COVID-19 2020-11-30 Completed Unive rsity of VACCINE - (MODERNA) 00:00:00 [facility] SARS-COV-2 COVID-19 2020-11-30 Completed Unive rsity of VACCINE - (MODERNA) 00:00:00 [facility] SARS-COV-2 COVID-19 2020-11-30 Completed Unive rsity of VACCINE - (MODERNA) 00:00:00 [facility] SARS-COV-2 COVID-19 2020-11-30 Completed Unive rsity of VACCINE - (MODERNA) 00:00:00 [facility] SARS-COV-2 COVID-19 2020-11-30 Completed Unive rsity of VACCINE - (MODERNA) 00:00:00 [facility] SARS-COV-2 COVID-19 2020-11-30 Completed Unive rsity of VACCINE - (MODERNA) 00:00:00 [facility] SARS-COV-2 COVID-19 2020-11-30 Completed Unive rsity of VACCINE - (MODERNA) 00:00:00 [facility] SARS-COV-2 COVID-19 2020-11-30 Completed Unive rsity of VACCINE - (MODERNA) 00:00:00 [facility] SARS-COV-2 COVID-19 2020-11-30 Completed Unive rsity of VACCINE - (MODERNA) 00:00:00 [facility] SARS-COV-2 COVID-19 2020-11-30 Completed Unive rsity of VACCINE - (MODERNA) 00:00:00 [facility] SARS-COV-2 COVID-19 2020-11-30 Completed Unive rsity of VACCINE - (MODERNA) 00:00:00 [facility] SARS-COV-2 COVID-19 2020-11-30 Completed Unive rsity of VACCINE - (MODERNA) 00:00:00 [facility] SARS-COV-2 COVID-19 2020-11-30 Completed Unive rsity of VACCINE - (MODERNA) 00:00:00 [facility] Branch SARS-COV-2 COVID-19 2020-11-30 Completed Unive rsity of VACCINE - (MODERNA) 00:00:00 [facility] Branch SARS-COV-2 COVID-19 2020-11-30 Completed Unive rsity of VACCINE - (MODERNA) 00:00:00 [facility] Branch SARS-COV-2 COVID-19 2020-11-30 Completed Unive rsity of VACCINE - (MODERNA) 00:00:00 [facility] SARS-COV-2 COVID-19 2020-11-30 Completed Unive rsity of VACCINE - (MODERNA) 00:00:00 [facility] SARS-COV-2 COVID-19 2020-11-30 Completed Unive rsity of VACCINE - (MODERNA) 00:00:00 [facility] SARS-COV-2 COVID-19 2020-11-30 Completed Unive rsity of VACCINE - (MODERNA) 00:00:00 [facility] SARS-COV-2 COVID-19 2020-11-30 Completed Unive rsity of VACCINE - (MODERNA) 00:00:00 [facility] Branch SARS-COV-2 COVID-19 2020-11-30 Completed Unive rsity of VACCINE - (MODERNA) 00:00:00 [facility] SARS-COV-2 COVID-19 2020-11-30 Completed Unive rsity of VACCINE - (MODERNA) 00:00:00 [facility] SARS-COV-2 COVID-19 2020-11-30 Completed Unive rsity of VACCINE - (MODERNA) 00:00:00 [facility] SARS-COV-2 COVID-19 2020-11-02 Completed Unive rsity of VACCINE - (MODERNA) 00:00:00 [facility] SARS-COV-2 COVID-19 2020-11-02 Completed Unive rsity of VACCINE - (MODERNA) 00:00:00 [facility] SARS-COV-2 COVID-19 2020-11-02 Completed Unive rsity of VACCINE - (MODERNA) 00:00:00 [facility] SARS-COV-2 COVID-19 2020-11-02 Completed Unive rsity of VACCINE - (MODERNA) 00:00:00 [facility] Branch SARS-COV-2 COVID-19 2020-11-02 Completed Unive rsity of VACCINE - (MODERNA) 00:00:00 [facility] SARS-COV-2 COVID-19 2020-11-02 Completed Unive rsity of VACCINE - (MODERNA) 00:00:00 [facility] Branch SARS-COV-2 COVID-19 2020-11-02 Completed Unive rsity of VACCINE - (MODERNA) 00:00:00 [facility] SARS-COV-2 COVID-19 2020-11-02 Completed Unive rsity of VACCINE - (MODERNA) 00:00:00 [facility] SARS-COV-2 COVID-19 2020-11-02 Completed Unive rsity of VACCINE - (MODERNA) 00:00:00 [facility] SARS-COV-2 COVID-19 2020-11-02 Completed Unive rsity of VACCINE - (MODERNA) 00:00:00 [facility] SARS-COV-2 COVID-19 2020-11-02 Completed Unive rsity of VACCINE - (MODERNA) 00:00:00 [facility] SARS-COV-2 COVID-19 2020-11-02 Completed Unive rsity of VACCINE - (MODERNA) 00:00:00 [facility] SARS-COV-2 COVID-19 2020-11-02 Completed Unive rsity of VACCINE - (MODERNA) 00:00:00 [facility] Branch SARS-COV-2 COVID-19 2020-11-02 Completed Unive rsity of VACCINE - (MODERNA) 00:00:00 [facility] SARS-COV-2 COVID-19 2020-11-02 Completed Unive rsity of VACCINE - (MODERNA) 00:00:00 [facility] Branch SARS-COV-2 COVID-19 2020-11-02 Completed Unive rsity of VACCINE - (MODERNA) 00:00:00 [facility] SARS-COV-2 COVID-19 2020-11-02 Completed Unive rsity of VACCINE - (MODERNA) 00:00:00 [facility] Branch SARS-COV-2 COVID-19 2020-11-02 Completed Unive rsity of VACCINE - (MODERNA) 00:00:00 [facility] SARS-COV-2 COVID-19 2020-11-02 Completed Unive rsity of VACCINE - (MODERNA) 00:00:00 [facility] SARS-COV-2 COVID-19 2020-11-02 Completed Unive rsity of VACCINE - (MODERNA) 00:00:00 [facility] SARS-COV-2 COVID-19 2020-11-02 Completed Unive rsity of VACCINE - (MODERNA) 00:00:00 [facility] SARS-COV-2 COVID-19 2020-11-02 Completed Unive rsity of VACCINE - (MODERNA) 00:00:00 [facility] SARS-COV-2 COVID-19 2020-11-02 Completed Unive rsity of VACCINE - (MODERNA) 00:00:00 [facility] SARS-COV-2 COVID-19 2020-11-02 Completed Unive rsity of VACCINE - (MODERNA) 00:00:00 [facility] SARS-COV-2 COVID-19 2020-11-02 Completed Unive rsity of VACCINE - (MODERNA) 00:00:00 [facility] SARS-COV-2 COVID-19 2020-11-02 Completed Unive rsity of VACCINE - (MODERNA) 00:00:00 [facility] SARS-COV-2 COVID-19 2020-11-02 Completed Unive rsity of VACCINE - (MODERNA) 00:00:00 [facility] SARS-COV-2 COVID-19 2020-11-02 Completed Unive rsity of VACCINE - (MODERNA) 00:00:00 [facility] SARS-COV-2 COVID-19 2020-11-02 Completed Unive rsity of VACCINE - (MODERNA) 00:00:00 [facility] SARS-COV-2 COVID-19 2020-11-02 Completed Unive rsity of VACCINE - (MODERNA) 00:00:00 [facility] SARS-COV-2 COVID-19 2020-11-02 Completed Unive rsity of VACCINE - (MODERNA) 00:00:00 [facility] SARS-COV-2 COVID-19 2020-11-02 Completed Unive rsity of VACCINE - (MODERNA) 00:00:00 [facility] SARS-COV-2 COVID-19 2020-11-02 Completed Unive rsity of VACCINE - (MODERNA) 00:00:00 [facility] SARS-COV-2 COVID-19 2020-11-02 Completed Unive rsity of VACCINE - (MODERNA) 00:00:00 [facility] SARS-COV-2 COVID-19 2020-11-02 Completed Unive rsity of VACCINE - (MODERNA) 00:00:00 [facility] SARS-COV-2 COVID-19 2020-10-26 Completed Unive rsity [...] rsity of MODERNA 12+ YRS 00:00:00 [facility] ical VACCINE Branch SARS-COV-2 COVID-19 2020-09-25 Completed Unive rsity of MODERNA 12+ YRS 00:00:00 [facility] ical VACCINE Branch SARS-COV-2 COVID-19 2020-09-25 Completed Unive rsity of MODERNA 12+ YRS 00:00:00 [facility] ical VACCINE Branch SARS-COV-2 COVID-19 2020-09-25 Completed Unive rsity of MODERNA 12+ YRS 00:00:00 [facility] ical VACCINE Branch SARS-COV-2 COVID-19 2020-09-25 Completed Unive rsity of MODERNA 12+ YRS 00:00:00 [facility] ical VACCINE Branch SARS-COV-2 COVID-19 2020-09-25 Completed Unive rsity of MODERNA 12+ YRS 00:00:00 [facility] ical VACCINE Branch SARS-COV-2 COVID-19 2020-09-25 Completed Unive rsity of MODERNA 12+ YRS 00:00:00 [facility] ical VACCINE Branch SARS-COV-2 COVID-19 2020-09-25 Completed Unive rsity of MODERNA 12+ YRS 00:00:00 [facility] ical VACCINE Branch SARS-COV-2 COVID-19 2020-09-25 Completed Unive rsity of MODERNA 12+ YRS 00:00:00 [facility] ical VACCINE Branch SARS-COV-2 COVID-19 2020-09-25 Completed Unive rsity of MODERNA 12+ YRS 00:00:00 [facility] ical VACCINE Branch SARS-COV-2 COVID-19 2020-09-25 Completed Unive rsity of MODERNA 12+ YRS 00[facility]00:00 [facility] Branch Zoster Vaccine 2019-12-26 Completed University of Recombinant 00:00:00 [facility] Zoster Vaccine 2019-12-26 Completed University of Recombinant 00:00:00 [facility] Zoster Vaccine 2019-12-26 Completed University of Recombinant 00:00:00 [facility] Zoster Vaccine 2019-12-26 Completed University of Recombinant 00:00:00 [facility] Zoster Vaccine 2019-12-26 Completed University of Recombinant 00:00:00 [facility] Zoster Vaccine 2019-12-26 Completed University of Recombinant 00:00:00 [facility] Zoster Vaccine 2019-12-26 Completed University of Recombinant 00:00:00 [facility] Zoster Vaccine 2019-12-26 Completed University of Recombinant 00:00:00 [facility] Zoster Vaccine 2019-12-26 Completed University of Recombinant 00:00:00 [facility] Zoster Vaccine 2019-12-26 Completed University of Recombinant 00:00:00 [facility] Zoster Vaccine 2019-12-26 Completed University of Recombinant 00:00:00 [facility] Zoster Vaccine 2019-12-26 Completed University of Recombinant 00:00:00 [facility] Zoster Vaccine 2019-12-26 Completed University of Recombinant 00:00:00 [facility] Zoster Vaccine 2019-12-26 Completed University of Recombinant 00:00:00 [facility] Zoster Vaccine 2019-12-26 Completed University of Recombinant 00:00:00 [facility] Zoster Vaccine 2019-12-26 Completed University of Recombinant 00:00:00 [facility] Zoster Vaccine 2019-12-26 Completed University of Recombinant 00:00:00 [facility] Zoster Vaccine 2019-12-26 Completed University of Recombinant 00:00:00 [facility] Zoster Vaccine 2019-12-26 Completed University of Recombinant 00:00:00 [facility] Zoster Vaccine 2019-12-26 Completed University of Recombinant 00:00:00 [facility] Zoster Vaccine 2019-12-26 Completed University of Recombinant 00:00:00 [facility] Zoster Vaccine 2019-12-26 Completed University of Recombinant 00:00:00 [facility] Zoster Vaccine 2019-12-26 Completed University of Recombinant 00:00:00 [facility] Zoster Vaccine 2019-12-26 Completed University of Recombinant 00:00:00 [facility] Zoster Vaccine 2019-12-26 Completed University of Recombinant 00:00:00 [facility] Zoster Vaccine 2019-12-26 Completed University of Recombinant 00:00:00 [facility] Zoster Vaccine 2019-12-26 Completed University of Recombinant 00:00:00 [facility] Zoster Vaccine 2019-12-26 Completed University of Recombinant 00:00:00 [facility] Zoster Vaccine 2019-12-26 Completed University of Recombinant 00:00:00 [facility] Zoster Vaccine 2019-12-26 Completed University of Recombinant 00:00:00 [facility] Zoster Vaccine 2019-12-26 Completed University of Recombinant 00:00:00 [facility] Zoster Vaccine 2019-12-26 Completed University of Recombinant 00:00:00 [facility] Zoster Vaccine 2019-12-26 Completed University of Recombinant 00:00:00 [facility] Zoster Vaccine 2019-12-26 Completed University of Recombinant 00:00:00 [facility] Zoster Vaccine 2019-12-26 Completed University of Recombinant 00:00:00 [facility] Zoster Vaccine 2019-12-26 Completed University of Recombinant 00:00:00 [facility] Zoster Vaccine 2019-12-26 Completed University of Recombinant 00:00:00 [facility] Zoster Vaccine 2019-12-26 Completed University of Recombinant 00:00:00 [facility] Zoster Vaccine 2019-12-26 Completed University of Recombinant 00:00:00 [facility] Zoster Vaccine 2019-12-26 Completed University of Recombinant 00:00:00 [facility] Zoster Vaccine 2019-12-26 Completed University of Recombinant 00:00:00 [facility] Zoster Vaccine 2019-12-26 Completed University of Recombinant 00:00:00 [facility] Zoster Vaccine 2019-12-26 Completed University of Recombinant 00:00:00 [facility] Zoster Vaccine 2019-12-26 Completed University of Recombinant 00:00:00 [facility] Zoster Vaccine 2019-12-26 Completed University of Recombinant 00:00:00 [facility] Zoster Vaccine 2019-12-26 Completed University of Recombinant 00:00:00 [facility] Zoster Vaccine 2019-12-26 Completed University of Recombinant 00:00:00 [facility] Zoster Vaccine 2019-12-26 Completed University of Recombinant 00:00:00 [facility] Zoster Vaccine 2019-12-26 Completed University of Recombinant 00:00:00 [facility] Zoster Vaccine 2019-12-26 Completed University of Recombinant 00:00:00 [facility] Zoster Vaccine 2019-12-26 Completed University of Recombinant 00:00:00 [facility] Zoster Vaccine 2019-12-26 Completed University of Recombinant 00:00:00 [facility] Zoster Vaccine 2019-12-26 Completed University of Recombinant 00:00:00 [facility] Zoster Vaccine 2019-12-26 Completed University of Recombinant 00:00:00 [facility] Zoster Vaccine 2019-12-26 Completed University of Recombinant 00:00:00 [facility] Zoster Vaccine 2019-12-26 Completed University of Recombinant 00:00:00 [facility] Zoster Vaccine 2019-12-26 Completed University of Recombinant 00:00:00 [facility] Zoster Vaccine 2019-12-26 Completed [facility] 00:00:00 [facility] Zoster Vaccine Unknown Completed [facility] SARS-COV-2 COVID-19 Unknown Completed Unive rsity of MODERNA 12+ YRS [facility] ical VACCINE Branch SARS-COV-2 COVID-19 Unknown Completed Unive rsity of MODERNA 12+ YRS [facility] ical VACCINE Branch TDAP Unknown Completed [facility] Pneumococcal 20 Unknown Completed [facility] Conjugate, PCV20 [place] [facility] (Prevnar 20) Branch SARS-COV-2 COVID-19 Unknown Completed Unive rsity of VACCINE - (MODERNA) [facility] SARS-COV-2 COVID-19 Unknown Completed Unive rsity of VACCINE - (MODERNA) [facility] Influenza High Dose Unknown Completed Unive rsity of [facility] Pneumococcal 20 Unknown Completed Universit y of Conjugate, PCV20 [facility] dical (Prevnar 20) Branch TDAP Unknown Completed [facility] Zoster Vaccine Unknown Completed [facility] Zoster Vaccine Unknown Completed [facility] SARS-COV-2 COVID-19 Unknown Completed Unive rsity of MODERNA 12+ YRS [facility] ical VACCINE Branch SARS-COV-2 COVID-19 Unknown Completed Unive rsity of MODERNA 12+ YRS [facility] ical VACCINE Branch TDAP Unknown Completed [facility] Pneumococcal 20 Unknown Completed Universit y of Conjugate, PCV20 [facility] dical (Prevnar 20) Branch SARS-COV-2 COVID-19 Unknown Completed Unive rsity of VACCINE - (MODERNA) [facility] SARS-COV-2 COVID-19 Unknown Completed Unive rsity of VACCINE - (MODERNA) [facility] Influenza High Dose Unknown Completed Unive rsity of [facility] Pneumococcal 20 Unknown Completed Universit y of Conjugate, PCV20 [facility] dical (Prevnar 20) Branch TDAP Unknown Completed [facility] Zoster Vaccine Unknown Completed [facility] Zoster Vaccine Unknown Completed [facility] SARS-COV-2 COVID-19 Unknown Completed Unive rsity of MODERNA 12+ YRS [facility] ical VACCINE Branch SARS-COV-2 COVID-19 Unknown Completed Unive rsity of MODERNA 12+ YRS [facility] ical VACCINE Branch TDAP Unknown Completed [facility] Pneumococcal 20 Unknown Completed [facility] Conjugate, PCV20 [place] [facility] (Prevnar 20) Branch SARS-COV-2 COVID-19 Unknown Completed Unive rsity of VACCINE - (MODERNA) [facility] SARS-COV-2 COVID-19 Unknown Completed Unive rsity of VACCINE - (MODERNA) [facility] Influenza High Dose Unknown Completed Unive rsity of [facility] Pneumococcal 20 Unknown Completed [facility] Conjugate, PCV20 [place] [facility] (Prevnar 20) Branch TDAP Unknown Completed [facility] Zoster Vaccine Unknown Completed [facility] Zoster Vaccine Unknown Completed [facility] SARS-COV-2 COVID-19 Unknown Completed Unive rsity of MODERNA 12+ YRS [facility] ical VACCINE Branch SARS-COV-2 COVID-19 Unknown Completed Unive rsity of MODERNA 12+ YRS [facility] ical VACCINE Branch TDAP Unknown Completed [facility] Pneumococcal 20 Unknown Completed [facility] of Conjugate, PCV20 [place] [facility] (Prevnar 20) Branch SARS-COV-2 COVID-19 Unknown Completed Unive rsity of VACCINE - (MODERNA) [facility] SARS-COV-2 COVID-19 Unknown Completed Unive rsity of VACCINE - (MODERNA) [facility] Influenza High Dose Unknown Completed Unive rsity of [facility] Pneumococcal 20 Unknown Completed [facility] of Conjugate, PCV20 [place] [facility] (Prevnar 20) Branch TDAP Unknown Completed [facility] Zoster Vaccine Unknown Completed [facility] Zoster Vaccine Unknown Completed [facility] SARS-COV-2 COVID-19 Unknown Completed Unive rsity of MODERNA 12+ YRS [facility] ical VACCINE Branch SARS-COV-2 COVID-19 Unknown Completed Unive rsity of MODERNA 12+ YRS [facility] ical VACCINE Branch TDAP Unknown Completed [facility] Pneumococcal 20 Unknown Completed [facility] Conjugate, PCV20 [place] [facility] (Prevnar 20) Branch SARS-COV-2 COVID-19 Unknown Completed Unive rsity of VACCINE - (MODERNA) [facility] SARS-COV-2 COVID-19 Unknown Completed Unive rsity of VACCINE - (MODERNA) [facility] Influenza High Dose Unknown Completed Unive rsity of [facility] Pneumococcal 20 Unknown Completed [facility] of Conjugate, PCV20 [place] [facility] (Prevnar 20) Branch TDAP Unknown Completed [facility] Zoster Vaccine Unknown Completed [facility] Zoster Vaccine Unknown Completed [facility] SARS-COV-2 COVID-19 Unknown Completed Unive rsity of MODERNA 12+ YRS [facility] ical VACCINE Branch SARS-COV-2 COVID-19 Unknown Completed Unive rsity of MODERNA 12+ YRS [facility] ical VACCINE Branch TDAP Unknown Completed [facility] Pneumococcal 20 Unknown Completed [facility] Conjugate, PCV20 [place] [facility] (Prevnar 20) Branch SARS-COV-2 COVID-19 Unknown Completed Unive rsity of VACCINE - (MODERNA) [facility] SARS-COV-2 COVID-19 Unknown Completed Unive rsity of VACCINE - (MODERNA) [facility] Influenza High Dose Unknown Completed Unive rsity of [facility] Pneumococcal 20 Unknown Completed Universit y of Conjugate, PCV20 [place] [facility] (Prevnar 20) Branch TDAP Unknown Completed [facility] Zoster Vaccine Unknown Completed [facility] Zoster Vaccine Unknown Completed [facility] SARS-COV-2 COVID-19 Unknown Completed Unive rsity of MODERNA 12+ YRS [facility] ical VACCINE Branch SARS-COV-2 COVID-19 Unknown Completed Unive rsity of MODERNA 12+ YRS [facility] ical VACCINE Branch TDAP Unknown Completed [facility] Pneumococcal 20 Unknown Completed Universit y of Conjugate, PCV20 [facility] dical (Prevnar 20) Branch SARS-COV-2 COVID-19 Unknown Completed Unive rsity of VACCINE - (MODERNA) [facility] SARS-COV-2 COVID-19 Unknown Completed Unive rsity of VACCINE - (MODERNA) [facility] Influenza High Dose Unknown Completed Unive rsity of [facility] Pneumococcal 20 Unknown Completed Universit y of Conjugate, PCV20 [place] [facility] (Prevnar 20) Branch TDAP Unknown Completed [facility] Zoster Vaccine Unknown Completed [facility] Zoster Vaccine Unknown Completed [facility] SARS-COV-2 COVID-19 Unknown Completed Unive rsity of MODERNA 12+ YRS [facility] ical VACCINE Branch SARS-COV-2 COVID-19 Unknown Completed Unive rsity of MODERNA 12+ YRS [facility] ical VACCINE Branch TDAP Unknown Completed [facility] Pneumococcal 20 Unknown Completed Universit y of Conjugate, PCV20 [place] [facility] (Prevnar 20) Branch SARS-COV-2 COVID-19 Unknown Completed Unive rsity of VACCINE - (MODERNA) [facility] SARS-COV-2 COVID-19 Unknown Completed Unive rsity of VACCINE - (MODERNA) [facility] Influenza High Dose Unknown Completed Unive rsity of [facility] Pneumococcal 20 Unknown Completed Universit y of Conjugate, PCV20 [place] [facility] (Prevnar 20) Branch TDAP Unknown Completed [facility] Zoster Vaccine Unknown Completed [facility] Zoster Vaccine Unknown Completed [facility] SARS-COV-2 COVID-19 Unknown Completed Unive rsity of MODERNA 12+ YRS [facility] ical VACCINE Branch SARS-COV-2 COVID-19 Unknown Completed Unive rsity of MODERNA 12+ YRS [facility] ical VACCINE Branch TDAP Unknown Completed [facility] Pneumococcal 20 Unknown Completed Universit y of Conjugate, PCV20 [place] [facility] (Prevnar 20) Branch SARS-COV-2 COVID-19 Unknown Completed Unive rsity of VACCINE - (MODERNA) [facility] SARS-COV-2 COVID-19 Unknown Completed Unive rsity of VACCINE - (MODERNA) [facility] Influenza High Dose Unknown Completed Unive rsity of [facility] Pneumococcal 20 Unknown Completed Universit y of Conjugate, PCV20 [place] [facility] (Prevnar 20) Branch TDAP Unknown Completed [facility] Zoster Vaccine Unknown Completed [facility] Zoster Vaccine Unknown Completed [facility] SARS-COV-2 COVID-19 Unknown Completed Unive rsity of MODERNA 12+ YRS [facility] ical VACCINE Branch SARS-COV-2 COVID-19 Unknown Completed Unive rsity of MODERNA 12+ YRS [facility] ical VACCINE Branch TDAP Unknown Completed [facility] Pneumococcal 20 Unknown Completed Universit y of Conjugate, PCV20 [place] [facility] (Prevnar 20) Branch SARS-COV-2 COVID-19 Unknown Completed Unive rsity of VACCINE - (MODERNA) [facility] SARS-COV-2 COVID-19 Unknown Completed Unive rsity of VACCINE - (MODERNA) [facility] Influenza High Dose Unknown Completed Unive rsity of [facility] Pneumococcal 20 Unknown Completed Universit y of Conjugate, PCV20 [place] [facility] (Prevnar 20) Branch TDAP Unknown Completed [facility] Zoster Vaccine Unknown Completed [facility] Zoster Vaccine Unknown Completed [facility] SARS-COV-2 COVID-19 Unknown Completed Unive rsity of MODERNA 12+ YRS [facility] ical VACCINE Branch SARS-COV-2 COVID-19 Unknown Completed Unive rsity of MODERNA 12+ YRS [facility] ical VACCINE Branch TDAP Unknown Completed [facility] Pneumococcal 20 Unknown Completed Universit y of Conjugate, PCV20 [place] [facility] (Prevnar 20) Branch SARS-COV-2 COVID-19 Unknown Completed Unive rsity of VACCINE - (MODERNA) [facility] SARS-COV-2 COVID-19 Unknown Completed Unive rsity of VACCINE - (MODERNA) [facility] Influenza High Dose Unknown Completed Unive rsity of [facility] Pneumococcal 20 Unknown Completed Universit y of Conjugate, PCV20 [place] [facility] (Prevnar 20) Branch TDAP Unknown Completed [facility] Zoster Vaccine Unknown Completed [facility] Zoster Vaccine Unknown Completed [facility] SARS-COV-2 COVID-19 Unknown Completed Unive rsity of MODERNA 12+ YRS [facility] ical VACCINE Branch SARS-COV-2 COVID-19 Unknown Completed Unive rsity of MODERNA 12+ YRS [facility] ical VACCINE Branch TDAP Unknown Completed [facility] Pneumococcal 20 Unknown Completed Universit y of Conjugate, PCV20 [facility] dical (Prevnar 20) Branch SARS-COV-2 COVID-19 Unknown Completed Unive rsity of VACCINE - (MODERNA) [facility] SARS-COV-2 COVID-19 Unknown Completed Unive rsity of VACCINE - (MODERNA) [facility] Influenza High Dose Unknown Completed Unive rsity of [facility] Pneumococcal 20 Unknown Completed Universit y of Conjugate, PCV20 [place] [facility] (Prevnar 20) Branch TDAP Unknown Completed [facility] Zoster Vaccine Unknown Completed [facility] Zoster Vaccine Unknown Completed [facility] SARS-COV-2 COVID-19 Unknown Completed Unive rsity of MODERNA 12+ YRS [facility] ical VACCINE Branch SARS-COV-2 COVID-19 Unknown Completed Unive rsity of MODERNA 12+ YRS [facility] ical VACCINE Branch TDAP Unknown Completed [facility] Pneumococcal 20 Unknown Completed Universit y of Conjugate, PCV20 [place] [facility] (Prevnar 20) Branch SARS-COV-2 COVID-19 Unknown Completed Unive rsity of VACCINE - (MODERNA) [facility] SARS-COV-2 COVID-19 Unknown Completed Unive rsity of VACCINE - (MODERNA) [facility] Influenza High Dose Unknown Completed Unive rsity of [place] [facility] Pneumococcal 20 Unknown Completed Universit y of Conjugate, PCV20 [place] [facility] (Prevnar 20) Branch TDAP Unknown Completed [facility] Zoster Vaccine Unknown Completed [facility] Vital Signs Vital Name Observation Time Observation Value Comments Source Systolic blood 2023-05-22 15:43:00 139 mm[Hg] Univer sity of [facility] Diastolic blood 2023-05-22 15:43:00 72 mm[Hg] Unive rsity of [facility] Heart rate 2023-05-22 15:43:00 75 /min Universi ty of [facility] Body height 2023-05-22 15:43:00 157.5 [address] [facility] Body weight 2023-05-22 15:43:00 51.[address] [facility] BMI 2023-05-22 15:43:00 20.96 kg/m2 Universi ty [facility] Oxygen saturation in 2023-05-22 15:43:00 100 /min University of Arterial blood by [place] [facility] Pulse oximetry Branch Systolic blood 2023-04-25 20:01:00 128 mm[Hg] Univer sity of pressure [facility] Diastolic blood 2023-04-25 20:01:00 78 mm[Hg] Unive rsity of [facility] Heart rate 2023-04-25 20:01:00 86 /min Universi ty of [facility] Body temperature 2023-04-25 20:01:00 37 Iza Univ ersity of [facility] Body height 2023-04-25 20:01:00 157.[address] [facility] Body weight 2023-04-25 20:01:00 53.071 kg Universi ty of [facility] BMI 2023-04-25 20:01:00 21.40 kg/m2 Universi ty [facility] Oxygen saturation in 2023-04-25 20:01:00 96 /min University of Arterial blood by [facility] Pulse oximetry Branch Systolic blood 2023-04-24 18:22:00 100 mm[Hg] Univer sity of pressure [facility] Diastolic blood 2023-04-24 18:22:00 63 mm[Hg] Unive rsity of pressure [facility] Heart rate 2023-04-24 18:22:00 112 /min Universi ty [facility] Body temperature 2023-04-24 18:20:00 36 Iza Univ ersity of [facility] Body height 2023-04-24 18:20:00 157.5 cm Universi ty [facility] Body weight 2023-04-24 18:20:00 53.343 kg Universi [facility] BMI 2023-04-24 18:20:00 21.51 kg/m2 [facility] Oxygen saturation in 2023-04-24 18:20:00 98 /min University of Arterial blood by [facility] Pulse oximetry Branch Systolic blood 2023-04-01 15:36:00 132 mm[Hg] Univer sity of pressure [facility] Diastolic blood 2023-04-01 15:36:00 72 mm[Hg] Unive rsity of pressure [facility] Heart rate 2023-04-01 15:36:00 95 /min Universi ty [facility] Body temperature 2023-04-01 15:36:00 36.78 Iza Univ ersity of [facility] Respiratory rate 2023-04-01 15:36:00 16 /min Univ ersity of [facility] Body height 2023-04-01 15:36:00 157.5 cm Universi ty [facility] Body weight 2023-04-01 15:36:00 56.7 kg Universi [facility] BMI 2023-04-01 15:36:00 22.86 kg/m2 [facility] Oxygen saturation in 2023-04-01 15:36:00 97 /min University of Arterial blood by [facility] Pulse oximetry Branch Systolic blood 2023-03-24 13:05:00 126 mm[Hg] Univer sity of pressure [facility] Diastolic blood 2023-03-24 13:05:00 71 mm[Hg] Unive rsity of pressure [facility] Heart rate 2023-03-24 13:05:00 84 /min Universi ty [facility] Body height 2023-03-24 13:05:00 157.5 cm Universi ty [facility] Body weight 2023-03-24 13:05:00 57.924 kg Universi ty [facility] BMI 2023-03-24 13:05:00 23.36 kg/m2 [facility] Oxygen saturation in 2023-03-24 13:05:00 99 /min University of Arterial blood by [facility] katherine Pulse oximetry Branch Systolic blood 2023-03-18 21:27:00 164 mm[Hg] Univer sity of pressure [facility] Diastolic blood 2023-03-18 21:27:00 82 mm[Hg] Unive rsity of pressure [facility] Heart rate 2023-03-18 21:27:00 72 /min Universi ty [facility] Body temperature 2023-03-18 21:25:00 35.72 Iza Univ ersity of [facility] Body height 2023-03-18 21:25:00 157.5 cm Universi ty [facility] Body weight 2023-03-18 21:25:00 58.196 kg Universi ty [facility] BMI 2023-03-18 21:25:00 23.47 kg/m2 [facility] ty [facility] Oxygen saturation in 2023-03-18 21:25:00 99 /min University of Arterial blood by [facility] Pulse oximetry Branch Body weight 2022-11-14 15:48:00 60.782 kg Universi ty of [facility] BMI 2022-11-14 15:48:00 24.51 kg/m2 [facility]i [facility] Systolic blood 2022-10-22 20:48:00 144 mm[Hg] Univer sity of pressure [facility] Diastolic blood 2022-10-22 20:48:00 76 mm[Hg] Unive rsity of pressure [facility] Heart rate 2022-10-22 20:48:00 70 /min Universi ty [facility] Body temperature 2022-10-22 19:52:00 36 Iza Univ ersity of [facility] Body height 2022-10-22 19:52:00 157.5 cm Universi ty [facility] Body weight 2022-10-22 19:52:00 61.054 kg [facility]i [facility] BMI 2022-10-22 19:52:00 24.62 kg/m2 [facility] Oxygen saturation in 2022-10-22 19:52:00 100 /min University of Arterial blood by [facility] katherine Pulse oximetry Branch Body weight 2022-10-03 15:48:00 60.328 kg Universi ty of [facility] BMI 2022-10-03 15:48:00 24.33 kg/m2 [facility] Body weight 2022-09-27 15:47:00 60.328 kg Universi ty [facility] BMI 2022-09-27 15:47:00 24.33 kg/m2 [facility] Systolic blood 2022-09-26 19:58:00 128 mm[Hg] Univer sity of pressure [facility] Diastolic blood 2022-09-26 19:58:00 77 mm[Hg] Unive [facility]ity of [facility] Heart rate 2022-09-26 19:58:00 58 /min Universi ty [facility] Body temperature 2022-09-26 19:58:00 34.83 Iza Univ ersity of [facility] Respiratory rate 2022-09-26 19:58:00 18 /min Univ ersity of [facility] Oxygen saturation in 2022-09-26 19:58:00 100 /min University of Arterial blood by [facility] Pulse oximetry Branch Body height 2022-09-26 17:07:00 157.5 cm Universi ty of [facility] Body weight 2022-09-26 17:07:00 60.7 kg Universi ty [facility] BMI 2022-09-26 17:07:00 24.48 kg/m2 [facility] Systolic blood 2022-09-26 17:07:00 141 mm[Hg] Univer sity of pressure [facility] Diastolic blood 2022-09-26 17:07:00 62 mm[Hg] Unive rsity of pressure [facility] Heart rate 2022-09-26 17:07:00 58 /min Universi ty [facility] Body temperature 2022-09-26 17:07:00 35.06 Iza Univ ersity of [facility] Respiratory rate 2022-09-26 17:07:00 18 /min Univ ersity of [facility] Body height 2022-09-26 17:07:00 157.5 cm Universi ty [facility] Body weight 2022-09-26 17:07:00 60.7 kg Universi ty [facility] BMI 2022-09-26 17:07:00 24.48 kg/m2 [facility]i ty [facility] Oxygen saturation in 2022-09-26 17:07:00 100 /min [facility] blood by [place] [facility] Pulse oximetry [facility] Diastolic blood 2022-09-23 16:53:00 77 mm[Hg] Unive rsity of pressure [facility] Heart rate 2022-09-23 16:53:00 74 /min Universi ty [facility] Body height 2022-09-23 16:53:00 157.5 cm Universi ty [facility] Body weight 2022-09-23 16:53:00 61.326 kg Universi ty [facility] BMI 2022-09-23 16:53:00 24.73 kg/m2 [facility] ty [facility] Oxygen saturation in 2022-09-23 16:53:00 97 /min [facility] blood by [place] [facility] Pulse oximetry Branch Systolic blood 2022-09-23 16:53:00 136 mm[Hg] Univer sity of pressure [facility] Body weight 2022-08-08 15:20:00 61.689 kg Universi ty of [facility] BMI 2022-08-08 15:20:00 24.87 kg/m2 [facility] ty [facility] Systolic blood 2022-08-01 17:57:00 125 mm[Hg] Univer sity of pressure [facility] Diastolic blood 2022-08-01 17:57:00 64 mm[Hg] Unive rsity of pressure [facility] Heart rate 2022-08-01 17:57:00 68 /min Universi ty of [facility] Body temperature 2022-08-01 17:57:00 35.67 Iza Univ ersity of [facility] Oxygen saturation in 2022-08-01 17:57:00 99 /min [facility] Arterial blood by [place] [facility] Pulse oximetry Branch Respiratory rate 2022-08-01 15:08:00 16 /min Univ ersity of [facility] Body height 2022-08-01 15:08:00 157.5 cm Universi ty of [facility] Body weight 2022-08-01 15:08:00 62.1 kg Universi ty of [facility] BMI 2022-08-01 15:08:00 25.04 kg/m2 Universi ty of [facility] Branch Systolic blood 2022-08-01 15:08:00 142 mm[Hg] Univer sity of pressure [facility] Diastolic blood 2022-08-01 15:08:00 70 mm[Hg] Unive rsity of pressure [facility] Heart rate 2022-08-01 15:08:00 80 /min Universi ty of [facility] Body temperature 2022-08-01 15:08:00 35.28 Iza Univ ersity of [facility] Respiratory rate 2022-08-01 15:08:00 16 /min Univ ersity of [facility] Body height 2022-08-01 15:08:00 157.5 cm Universi ty of [facility] Body weight 2022-08-01 15:08:00 62.1 kg Universi ty of [facility] BMI 2022-08-01 15:08:00 25.04 kg/m2 Universi ty of [facility] Oxygen saturation in 2022-08-01 15:08:00 99 /min [facility] Arterial blood by [facility] Pulse oximetry Branch Body weight 2022-07-26 15:19:00 61.689 kg Universi ty of [facility] BMI 2022-07-26 15:19:00 24.87 kg/m2 Universi ty of [facility] Body height 2022-06-13 19:08:00 157.5 cm Universi ty of [facility] Body weight 2022-06-13 19:08:00 62.143 kg Universi ty of [facility] BMI 2022-06-13 19:08:00 25.06 kg/m2 Universi ty of [facility] Branch Systolic blood 2022-06-08 20:31:00 160 mm[Hg] Univer sity of pressure [facility] Diastolic blood 2022-06-08 20:31:00 80 mm[Hg] Unive rsity of pressure [facility] Heart rate 2022-06-08 20:31:00 70 /min [facility] ty [facility] Body temperature 2022-06-08 20:31:00 36.67 Iza Univ ersity of [facility] Respiratory rate 2022-06-08 20:31:00 16 /min Univ ersity of [facility] Body height 2022-06-08 20:31:00 157.5 cm Universi ty [facility] Body weight 2022-06-08 20:31:00 62.143 kg [facility]i ty [facility] BMI 2022-06-08 20:31:00 25.06 kg/m2 [facility] ty [facility] Oxygen saturation in 2022-06-08 20:31:00 100 /min University of Arterial blood by [facility] Pulse oximetry Branch Systolic blood 2022-05-08 19:11:00 128 mm[Hg] Univer sity of pressure [facility] Diastolic blood 2022-05-08 19:11:00 74 mm[Hg] Unive rsity of pressure [facility] Heart rate 2022-05-08 19:11:00 63 /min [facility]i ty [facility] Body weight 2022-05-08 19:11:00 63.05 kg Universi ty [facility] BMI 2022-05-08 19:11:00 25.42 kg/m2 [facility] ty [facility] Oxygen saturation in 2022-05-08 19:11:00 99 /min University of Arterial blood by [facility] Pulse oximetry Branch Systolic blood 2022-03-28 19:56:00 123 mm[Hg] Univer sity of pressure [facility] Diastolic blood 2022-03-28 19:56:00 78 mm[Hg] Unive rsity of pressure [facility] Heart rate 2022-03-28 19:56:00 67 /min Universi ty [facility] Body temperature 2022-03-28 19:56:00 36.72 Iza Univ ers[facility] of [facility] Respiratory rate 2022-03-28 19:56:00 18 /min Univ ersity of [facility] Body height 2022-03-28 19:56:00 157.5 cm Universi ty [facility] Body weight 2022-03-28 19:56:00 63.05 kg Universi ty [facility] BMI 2022-03-28 19:56:00 25.42 kg/m2 [facility] ty [facility] Procedures Procedure Date / Time Performing Source Performed Clinician VACCINATIONS - CONSENTS, 2023-04-17 Doctor Ayaz, [facility] ELIGIBILITY, HISTORY 05:01:00 [facility] US RETROPERITONEAL LIMITED 2022-11-05 Uyen Richardson [facility] 17:33:21 Medical Branch PHACOEMULSIFICATION OF 2022-09-26 [facility] CATARACT WITH INTRAOCULAR 19:02:00 [facility] LENS IMPLANT ASSIGNMENT OF BENEFITS 2022-09-26 Doctor Ayaz [facility] 16:36:37 [facility] COMP. METABOLIC PANEL ([id number]) 2022-09-23 Lc Shen [facility] 17:29:00 Medical Branch CBC WITH DIFF 2022-09-23 Lc Shen [facility] 17:29:00 Medical Branch DISCLOSURE AND CONSENT, 2022-08-08 Doctor Jacome [facility] MEDICAL AND SURGICAL 06:01:00 [facility] PROCEDURES DSU PRE-OP 2022-08-08 Doctor Jacome [facility] 06:01:00 [facility] DISCLOSURE AND CONSENT, 2022-08-08 Doctor Jacome [facility] MEDICAL AND SURGICAL 06:01:00 [facility] PROCEDURES DSU PRE-OP 2022-08-08 Doctor Jacome [facility] 06:01:00 [facility] OS IOL CALCULATIONS A SCAN, 2022-08-08 [facility] LEFT EYE 00:00:00 [facility] PHACOEMULSIFICATION OF 2022-08-01 [facility] CATARACT WITH INTRAOCULAR 16:49:00 [facility] LENS IMPLANT ADV BENEFICIARY NOTICE OF 2022-07-26 Doctor Jacome [facility] NONCOVERAGE (ABN) 06:01:00 [facility] DSU PRE-OP 2022-06-13 Doctor Jacome [facility] 06:01:00 [facility] DSU PRE-OP 2022-06-13 Doctor Jacome [facility] 06:01:00 [facility] OD IOL CALCULATIONS A SCAN, 2022-06-13 Timmy Bayleemelissa [facility] RIGHT EYE 00:00:[address] [facility] NOTICE OF PRIVACY PRACTICES 2022-06-08 Doctor Unassigned, [facility] 20:28:52 [facility] CONSENT/REFUSAL FOR DIAGNOSIS 2022-06-08 Doctor Unassigned, [facility] AND TREATMENT 20:27:03 [facility] POCT URINALYSIS W/O SPECIFIC 2022-03-28 Luis Daniel Evans [facility] GRAVITY 00:00:00 [facility] HOME HEALTH [id number] 2020-11-02 Doctor Unassigned, [facility] 05:01:00 [facility] Encounters Start End Encounter Admission Attending Care Care Encounter Source Date/Time Date/Time Type Type Clinicians Facility Department ID 2021-05-27 Inpatient R MANNY [facility] SOR [id number] Univers 08:17:10 CATRINA [facility] 2021-05-24 Emergency [facility] [id number] Univers 20:51:27 [facility] 2024-04-06 2024-04-06 Outpatient R CUCO VALDEZ [facility] B [id number] Univers 10:30:00 10:30:00 CUCO VALDEZ [facility] 2023-06-05 2023-06-05 Outpatient R TIMMY [facility] [id number] Univers 13:30:00 13:30:00 BAYLEECarroll [facility] 2023-05-26 2023-05-26 Outpatient R CUCO VALDEZ [facility] B [id number] Univers 00:00:00 00:00:00 CUCO VALDEZ [facility] 2023-05-23 2023-05-23 Outpatient R HERMELINDA [facility] [id number] Univers 10:15:00 12:08:14 [facility] 2023-05-23 2023-05-23 Journalist Lab, Ang - Db [facility] [id number] Univers 10:15:00 10:30:00 Visit Lc Shen [facility] [id number] ity of [place] [id number] Brig[place] as [place] [id number] shikha DIAZ [address] MEDICAL OFFICE BUILDING 2023-05-23 2023-05-23 Telephone [facility] 1.2.840.114 10 [id number] Univers 00:00:00 00:00:00 Uyen MULTISPEC 350.1.13.10 ity of [place] 4.2.7.2.686 [place] [facility] [id number] [address] [facility] 2023-05-22 2023-05-22 [facility] 1.2.840.114 [id number] Univers 11:00:00 11:30:00 Visit Sullivan García [facility] 350.1.13.10 i ty of [place] 4.2.7.2.686 Brigido as [place] [id number] [address] OFFICE [facility] 2023-05-22 2023-05-[address] [facility] [id number] Univers 11:00:00 11:00:00 [facility] 2023-05-13 2023-05-13 Outpatient R HUNTER [facility] [id number] Univers 11:00:00 11:00:00 LIZZETTE myers o f [facility] 2023-04-28 2023-04-28 Outpatient R CUCO VALDEZ [facility] B [id number] Univers 00:00:00 00:00:00 [facility] 2023-04-25 2023-04-25 Outpatient R BUD [facility] [id number] Univers 15:00:00 16:05:47 [facility]ER [facility] 2023-04-25 2023-04-25 [facility] 1.2.840.114 [id number] Univers 15:00:00 16:05:47 Visit Yenifer Mariano [facility] 350.1.13.10 i ty of [place] 4.2.7.2.686 Brigido as [place] [id number] Ct shikha [facility] [address] MEDICAL OFFICE BUILDING 2023-04-24 2023-04-24 Office DylanUN[facility] 1.2.482.473 [id number] Univers 13:30:00 14:00:00 [facility] 350.1.13.10 ity of IALTY 4.2.7.2.686 [facility] [id number] [address] DIABETES CLINIC 2023-04-24 2023-04-24 Outpatient R DYLAN [facility] [id number] Univers 13:30:00 13:30:00 [facility] 2023-04-21 2023-04-21 Journalist Lab, Ang - Db [facility] 1.2.840.1 14 [id number] Univers 16:00:00 16:15:00 Visit Uyen Richardson [facility] 350.1.13.10 ity [facility] 4.2.7.2.686 Brigido as [place] [phone] [address] MEDICAL OFFICE BUILDING 2023-04-21 2023-04-21 Outpatient R DYLAN [facility] [id number] Univers 16:00:00 13:39:13 [facility] 2023-04-21 2023-04-21 Outpatient [facility] [id number] Univers 13:00:00 13:00:00 [facility] 2023-04-17 2023-04-17 Orders Doctor BLAIR 1.2.840.114 [id number] Univers 00:00:00 00:00:00 Only Unassigned, JENY 350.1.13.10 ity of [place] [facility] 4.2.7.2.686 Brigido as [id number] [place] [address] [address] 2023-04-10 2023-04-10 Telephone [facility] 1.2.840.114 10 [id number] Univers 00:00:00 00:00:00 [facility] 350.1.13.10 ity of IALTY 4.2.7.2.686 [facility] [id number] [facility] AND [address] DIABETES CLINIC 2023-04-01 2023-04-01 Outpatient R CUCO VALDEZ [facility] B [id number] Univers 10:30:00 10:49:[address]AS ity [facility] 2023-04-01 2023-04-01 Office [facility] 1.2.840.114 [id number] Univers 10:30:00 10:49:59 Visit Cuco TREVIÑO 350.1.13.10 it y of WOMEN'S 4.2.7.2.686 [place]ALTH [id number] [facility] [address] 2023-03-24 2023-03-24 Journalist Lab, Ang - Db [facility] 1.2.840.1 14 [id number] Univers 08:45:00 09:00:00 Visit Lc Shen HEALTH 350.1.13.10 ity of [facility] 4.2.7.2.686 Brigido as [place] [id number] [facility] [address] MEDICAL OFFICE [facility] 2023-03-24 2023-03-24 Outpatient R [facility] [id number] Univers 08:45:00 08:45:00 LC ity of [facility] 2023-03-24 2023-03-24 Office HermelindaUNM [facility] 1.2.840.114 [id number] Univers 08:00:00 08:30:00 Visit Lc HEALTH 350.1.13.10 it y of [facility] 4.2.7.2.686 Brigido as [place] [id number] [facility] [address] MEDICAL OFFICE [facility] 2023-03-24 2023-03-24 Outpatient R HERMELINDA [facility] [id number] Univers 08:00:00 08:00:00 LC ity of [facility] 2023-03-18 2023-03-18 Office DylanUN[facility] 1.2.843.330 [id number] Univers 15:00:00 15:30:00 Visit Uyen DILL 350.1.13.10 ity of I[place] 4.2.7.2.686 [facility] [place] [id number] [facility] AND [address] DIABETES CLINIC 2023-03-18 2023-03-18 Outpatient Homar [facility]ON[facility] [id number] Univers 15:00:00 15:00:[address] [facility] 2023-03-14 2023-03-14 Journalist Lab, Ang - Db [facility] 1.2.840.1 14 [id number] Univers 10:45:00 10:45:00 Visit DylanUyen [facility] 350.1.13.10 ity of [place] 4.2.7.2.686 Brigido as [place] [id number] Ct shikha [address] MEDICAL OFFICE BUILDING 2023-03-14 2023-03-14 Outpatient R DYLAN [facility] [id number] Univers 10:45:00 10:35:13 [facility] 2023-03-14 2023-03-14 Outpatient R [facility] [id number] Univers 10:30:00 10:30:00 [facility] 2023-03-06 2023-03-06 Telephone [facility] 1.2.840.114 10 [id number] Univers 00:00:00 00:00:00 [facility] 350.1.13.10 ity of [place]AL[place] 4.2.7.2.686 [place] CENTER [id number] [facility] AND [place] [address] DIABETES CLINIC 2022-12-10 2022-12-10 Outpatient R DYLAN [facility] [id number] Univers 16:00:00 16:00:00 [facility] 2022-11-29 2022-11-29 Telephone [facility] 1.2.840.114 10 [id number] Univers 00:00:00 00:00:00 [facility] 350.1.13.10 ity of [place] 4.2.7.2.686 [place] C[place] [id number] [facility] AND [place] [address] DIABETES CLINIC 2022-11-14 2022-11-14 Outpatient R TIMMY [facility] [id number] Univers 10:15:00 11:47:[address] [facility] 2022-11-14 2022-11-14 Office ANIYAH [place] 1.2.840.114 [id number] Univers 10:15:00 11:47:05 Visit Lindsay Ramey 350.1.13.10 it y of [facility] 4.2.7.2.686 [place] [facility] [id number] [facility] BLDG. [address] 2022-11-08 2022-11-08 Telephone Dylan [facility] 1.2.840.114 10 [id number] Univers 00:00:00 00:00:00 Uyen [facility] 350.1.13.10 ity of IALTY 4.2.7.2.686 [facility] [place] [id number] [address] DIABETES CLINIC 2022-11-05 2022-11-05 Outpatient R [facility] [id number] Univers 11:36:33 23:59:00 UYEN ity of [facility] 2022-11-05 2022-11-05 [facility] 1.2.840.114 101 [id number] Univers 11:36:33 23:59:00 Encounter Uyen BENDER 350.1.13.10 ity of [facility] 4.2.7.2.686 [facility] [id number] [facility] [address] 2022-10-22 2022-10-22 Outpatient R D[address]AN[facility] [id number] Univers 15:00:00 15:47:[address] [facility] 2022-10-22 2022-10-22 Office [facility]UN[facility] 1.2.810.115 [id number] Univers 15:00:00 15:47:14 Visit [facility] 350.1.13.10 ity of [facility] 4.2.7.2.686 [facility] [place] [id number] [address] DIABETES CLINIC 2022-10-17 2022-10-17 Journalist Lab, Ang - Db [facility] 1.2.840.1 14 [id number] Univers 10:00:00 10:15:00 Visit Lc Shen 350.1.13.10 ity of [place] 4.2.7.2.686 Brigido as [place] [id number] Ct rasmarty [address] MEDICAL OFFICE BUILDING 2022-10-17 2022-10-17 Outpatient R HERMELINDA [facility] [id number] Univers 10:00:00 10:00:00 LC ity of [facility] 2022-10-17 2022-10-17 Refill [facility], [facility] 1.2.840.114 [id number] Univers 00:00:00 00:00:00 Aishat Y 350.1.13.10 it y of [place].7.2.686 [place] BANK [id number] [facility]. [address] 2022-10-09 2022-10-09 Telephone [facility] 1.2.840.114 10 [id number] Univers 00:00:00 00:00:00 Uyen MULTISPEC 350.1.13.10 ity of [facility] 4.2.7.2.686 [facility] [phone] [address] DIABETES CLINIC 2022-10-03 2022-10-[address] [facility] 1.2.840.114 [id number] Univers 10:15:00 10:30:00 Visit Aishat Y 350.1.13.10 it y of [place] [facility] 4.2.7.2.686 [place] [id number] [facility]. [address] 2022-10-03 2022-10-03 Outpatient R [facility] [id number] Univers 10:15:00 10:15:00 AISHAT ity of [facility] 2022-09-27 2022-09-27 Outpatient R [facility] [id number] Univers 10:15:00 10:40:13 AISHAT ity of [facility] 2022-09-27 2022-09-27 [facility] 1.2.840.114 [id number] Univers 10:15:00 10:40:13 Visit Aishat Y 350.1.13.10 it y of [place].2.7.2.686 [place] B[place] [id number] [facility] [address] 2022-09-27 2022-09-27 Telephone [facility] 1.2.840.114 10 [id number] Univers 00:00:00 00:00:00 Uyen MULTISPEC 350.1.13.10 ity of I[place] 4.2.7.2.686 [place] [id number] [facility] AND [place] [address] DIABETES CLINIC 2022-09-26 2022-09-26 Outpatient R TIMMY [facility] OPH [id number] Univers 11:02:00 14:33:00 AISHAT ity of [facility] 2022-09-26 2022-09-26 Hospital TERESA [place] 1.2.905.936 [id number] Univers 11:02:00 14:33:00 Encounter Aishat JENY 350.1.13.10 ity of [facility] 4.2.7.2.686 [place] [id number] [facility] [address] 2022-09-26 2022-09-26 Surgery TERESA [place] 1.2.840.114 [id number] Univers 13:13:00 13:51:00 Aishat JENY 350.1.13.10 it y of [facility] 4.2.7.2.686 [place] [id number] [facility] [address] 2022-09-26 2022-09-26 Orders Doctor BLAIR 1.2.840.114 [id number] Univers 00:00:00 00:00:00 Only Unassigned, JENY 350.1.13.10 ity of [place] [facility] 4.2.7.2.686 Brigido as [id number] [facility] [address] 2022-09-23 2022-09-23 Journalist Lab, Alf - [facility] 1.2.840.1 14 [id number] Univers 11:30:00 11:45:00 Visit Lc Shen 350.1.13.10 ity of [place] 4.2.7.2.686 Brigido as [place] [id number] Ct shikha [address] MEDICAL OFFICE BUILDING 2022-09-23 2022-09-23 Outpatient R HERMELINDA [facility] [id number] Univers 11:00:00 11:18:30 LC ity of [facility] 2022-09-23 2022-09-23 Office Hermelinda [facility] 1.2.840.114 [id number] Univers 11:00:00 11:18:30 Visit Lc [facility] 350.1.13.10 it y of [facility] 4.2.7.2.686 Brigido as [place] [id number] Ct dical KNEY [address] MEDICAL OFFICE BUILDING 2022-09-23 2022-09-23 Pre Visit BLAIR Maloney 1.2.435.339 [id number] Univers 00:00:00 00:00:00 Outreach Martha S JENY 350.1.13.10 ity of [facility] 4.2.7.2.686 Brigido as [id number] [facility] [address] 2022-08-22 2022-08-22 Refill [facility] 1.2.840.114 [id number] Univers 00:00:00 00:00:00 Sendsander BENDER 350.1.13.10 ity of [place] 4.2.7.2.686 [place] FAHEEMIO [id number] Ct dical DUC 059 [facility] 2022-08-08 2022-08-08 Outpatient R [facility] [id number] Univers 09:45:00 13:03:49 AISHAT ity of [facility] 2022-08-08 2022-08-[address] [facility] 1.2.840.114 [id number] Univers 09:45:00 13:03:49 Visit Aishat Y 350.1.13.10 it y of [place].7.2.686 [place] [id number] [facility] BLDG. [address] 2022-08-08 2022-08-08 Outpatient R [facility] [id number] Univers 09:15:00 11:04:23 AISHAT ity of [facility] 2022-08-08 2022-08-08 [facility] 1.2.840.114 [id number] Univers 09:15:00 09:30:00 Visit Aishat Y 350.1.13.10 it y of [place].2.7.2.686 [place] [id number] [facility] BLDG. [address] 2022-08-08 2022-08-08 Outpatient R TIMMY [facility] [id number] Univers 09:15:00 09:15:[address] [facility] 2022-08-08 2022-08-08 Outpatient R TIMMY [facility] [id number] Univers 09:15:00 09:15:[address] [facility] 2022-08-02 2022-08-02 Office KAROLINA [place] 1.2.840.114 [id number] Univers 10:00:00 10:15:00 Visit Aishat Y 350.1.13.10 it y of [facility] 4.2.7.2.686 [place] [id number] [facility] BLDG. [address] 2022-08-02 2022-08-02 Outpatient [facility] [id number] Univers 10:00:00 10:00:[address] [facility] 2022-08-01 2022-08-01 Outpatient R [facility] OPH [id number] Univers 09:04:00 12:00:[address] [facility] 2022-08-01 2022-08-01 Hospital Timmy TERESA 1.2.129.023 [id number] Univers 09:04:00 12:00:00 Encounter Aishat JENY 350.1.13.10 ity of [facility] 4.2.7.2.686 [place] [id number] [facility] [address] 2022-08-01 2022-08-01 Surgery Timmy TERESA 1.2.840.114 [id number] Univers 10:53:00 11:33:00 Aishat JENY 350.1.13.10 it y of [facility] 4.2.7.2.686 [place] [id number] [facility] [address] 2022-07-30 2022-07-30 Outpatient R DYLAN [facility] [id number] Univers 09:15:00 09:15:[address] [facility] 2022-07-26 2022-07-26 Office KAROLINA FranceIT 1.2.840.114 [id number] Univers 09:30:00 09:45:00 Visit Aishat Y 350.1.13.10 it y of [facility] 4.2.7.2.686 [place] [id number] [facility] BLDG. [address] 2022-07-26 2022-07-26 Outpatient R [facility] [id number] Univers 09:30:00 09:30:00 AISHAT ity of [facility] 2022-07-26 2022-07-26 Orders Doctor BLAIR 1.2.840.114 [id number] Univers 00:00:00 00:00:00 Only Unassigned, JENY 350.1.13.10 ity of [facility] 4.2.7.2.686 [facility] [id number] [facility] [address] 2022-06-13 2022-06-13 [facility] 1.2.840.114 [id number] Univers 13:15:00 14:28:49 Visit Aishat Y 350.1.13.10 it y of [facility] 4.2.7.2.686 [place] [id number] [facility] [address] 2022-06-13 2022-06-13 [facility] [id number] Univers 13:15:00 13:15:00 AIST ity of [facility] 2022-06-08 2022-06-08 Emergency X [facility] ERT [id number] Univers 14:32:00 15:00:00 STANLEY ity of [facility] 2022-06-08 2022-06-08 Emergency AlfredUN[facility] 1.2.867.842 [id number] Univers 14:32:00 15:00:00 Stanley BENDER 350.1.13.10 i ty of [place] 4.2.7.2.686 [facility] [id number] [facility] [address] 2022-05-14 2022-05-14 Telephone [facility] 1.2.602.115 [id number] Univers 00:00:00 00:00:00 Sebastian BENDER 350.1.13.10 ity of [place] 4.2.7.2.686 [place] PROFESSIO [id number] Ct dicmarty NAL [address] [place] [address] 2022-05-08 2022-05-08 Outpatient R ELIO [facility] [id number] Univers 13:00:00 23:59:[address] [facility] 2022-05-08 2022-05-08 Office Mar[facility] 1.2.840.114 [id number] Univers 14:20:00 14:36:13 Visit Petrona Rich BENDER 350.1.13.10 i ty of [place] 4.2.7.2.686 [place] PROF[place] [id number] [address] 2022-05-08 2022-05-08 [address] [id number] Univers 14:00:00 14:00:[address] [facility] 2022-05-08 2022-05-08 Outpatient R ELIO [facility] [id number] Univers 14:00:00 14:00:[address] [facility] 2022-05-08 2022-05-08 [address] [id number] Univers 14:00:00 14:00:[address] [facility] 2022-04-26 2022-04-26 Telephone [facility] 1.2.136.811 [id number] Univers 00:00:00 00:00:00 Sendil Cindy BENDER 350.1.13.10 ity of [place] 4.2.7.2.686 [place] PROFESS[place] [id number] Ct dicid NAL [address] [place] [address] 2022-04-18 2022-04-18 Outpatient R [facility] [id number] Univers 14:40:55 23:59:[address] [facility] 2022-04-18 2022-04-18 [facility] HermelindaUNM [facility] 1.2.840.114 [id number] Univers 14:00:00 23:59:00 Encounter Lc BENDER 350.1.13.10 ity of [facility] 4.2.7.2.686 [place] [id number] [facility] [address] 2022-03-28 2022-03-28 Office Luis Daniel Evans [facility] 1.2.840.114 [id number] Univers 15:00:00 15:44:27 Visit KAMILA 350.1.13.10 it y of [facility] 4.2.7.2.686 [facility] [id number] [facility] [address] 2022-03-28 2022-03-28 Outpatient R LUIS DANIEL EVANS [facility] [id number] Univers 15:00:00 15:44:[address] [facility] 2022-03-28 2022-03-28 Outpatient LUIS DANIEL GODOY [facility] [id number] Univers 15:00:00 15:00:[address] [facility] 2022-03-26 2022-03-26 Journalist Lab, Alf - Yusef [facility] 1.2.840.1 14 [id number] Univers 10:00:00 10:15:00 Visit Lc Shen [facility] 350.1.13.10 ity of [place] 4.2.7.2.686 Brigido as [place] [id number] Ct [facility] [address] MEDICAL OFFICE BUILDING 2022-03-26 2022-03-26 Outpatient R [facility]IND[facility] [id number] Univers 10:00:00 10:00:[address] [facility] 2022-03-26 2022-03-26 Office HermelindaUN[facility] 1.2.840.114 [id number] Univers 09:00:00 09:48:40 Visit Lc [employer] 350.1.13.10 it y of [place] 4.2.7.2.686 [place] as [place] [id number] [address] MEDICAL OFFICE BUILDING 2022-03-26 2022-03-26 Outpatient R [facility] [id number] Univers 09:00:00 09:48:[address] [facility] 2022-03-01 2022-03-01 Telephone [facility] 1.2.953.121 [id number] Univers 00:00:00 00:00:00 Sendsander BENDER 350.1.13.10 ity of [place]2.7.2.686 [place] [id number] [employer] [facility] 059 [facility] 2022-02-19 2022-02-19 Emergency X [facility] ERT [id number] Univers 08:30:00 10:38:[address] [facility] 2022-02-19 2022-02-19 Emergency [facility] 1.2.840.114 [id number] Univers 08:30:00 10:38:00 Evelyn BENDER 350.1.13.10 ity of [place]2.7.2.686 [place] [id number] [address] 2021-11-20 2021-11-20 Telephone [facility]UN[facility] 1.2.272.328 [id number] Univers 00:00:00 00:00:00 Sendsander White [facility] 350.1.13.10 ity of [place] 4.2.7.2.686 [place] as [place] [id number] [facility] [address] MEDICAL OFFICE [facility] 2021-11-01 2021-11-01 Outpatient [facility] [id number] Univers 10:30:00 11:15:[address] [facility] 2021-11-01 2021-11-01 Office [facility] 1.2.840.114 [id number] Univers 10:30:00 11:15:24 Visit Sebastian BENDER 350.1.13.10 ity of [place]2.7.2.686 [place] [phone] [employer] [facility] 059 [facility] 2021-11-01 2021-11-01 Outpatient [facility] [id number] Univers 10:30:00 11:15:[address] [facility] 2021-11-01 2021-11-01 Orders Doctor PINTO 1.2.840.114 [id number] Univers 00:00:00 00:00:00 Only Unassigned, JENY 350.1.13.10 ity of [facility] 4.2.7.2.686 [place] [id number] [address] 2021-07-12 2021-07-12 Outpatient R TIMMY [facility] [id number] Univers 13:00:00 13:00:[address] [facility] 2021-07-12 2021-07-12 [facility] [id number] Univers 10:15:00 10:15:[address] [facility] 2021-07-03 2021-07-03 [facility] [id number] Univers 13:00:00 13:00:00 [facility] 2021-07-03 [facility] [id number] Univers 10:15:00 10:15:00 [facility] 2021-07-02 2021-07-02 [facility] [id number] Univers 08:29:00 08:29:00 [facility] 2021-05-31 2021-05-31 Out[facility] [id number] Univers 14:15:00 14:15:[address] [facility] 2021-05-03 2021-05-03 [facility] [id number] Univers 14:30:00 14:30:00 SENDIL [facility] 2021-05-03 2021-05-03 Office [facility] 1.2.840.114 [id number] Univers 12:52:40 13:16:27 Visit Sebastian Bender 350.1.13.10 ity [facility] 4.2.7.2.686 Texgarcía Valdesessio [phone] [address] 2021-05-03 2021-05-03 Orders Doctor PINTO 1.2.840.114 [id number] Univers 00:00:00 00:00:00 Only Unassigned, JENY 350.1.13.10 ity of [facility] 4.2.7.2.686 Brigido as [phone] [facility] [address] 2021-03-26 2021-03-26 [facility] 1.2.840.114 [id number] Univers 00:00:00 00:00:00 Aishat Y 350.1.13.10 it y [place] [phone] [facility] BLDG. [address] 2021-03-22 2021-03-22 [facility] 1.2.840.114 [id number] Univers 00:00:00 00:00:00 Aishat Y 350.1.13.10 it y of [facility] [place] 4[place].2.[place] [phone] [facility] BLDG. [address] 2021-03-15 2021-03-15 Office Timmy, [facility] 1.2.840.114 [id number] Univers 14:04:05 14:19:05 Visit Aishat Y 350.1.13.10 it y of [place] 4[place]7.2.[place] [phone] [facility] BLDG. [address] 2021-03-15 2021-03-15 Ancillary Joe [facility] 1.2.840.114 [id number] Univers 13:14:15 14:16:07 Visit Yannick Villanueva Y 350.1.13.10 it y of [employer] 4.2.7.2.686 Brigido as BANK [phone] [facility] BLDG. [address] 2021-03-15 2021-03-15 Outpatient R TIMMY, [facility] [id number] Univers 13:45:00 13:45:00 AISHAT ity of [facility] [place] 2021-03-15 2021-03-15 Office [place] [facility] 1.2.426.702 [id number] Univers 12:53:25 13:23:25 Visit Kelli Y 350.1.13.10 it y of NATIONAL 4.2.7.2.686 Brigido as BANK [phone] [facility] BLDG. [address] 2021-03-15 2021-03-15 Orders Doctor PINTO 1.2.840.114 [id number] Univers 00:00:00 00:00:00 Only Unassigned, JENY 350.1.13.10 ity of [place] [facility] 4.2.7.2.686 Brigido as [phone] [facility] 009 [address] 2021-03-01 2021-03-01 [facility]phone [facility] 1.2.840.114 [id number] Univers 00:00:00 00:00:00 [facility] 350.1.13.10 it y of Surgical 4.2.7.2.686 Brigido as Specialti [phone] Ct dical 198 [facility] 2021-02-21 2021-02-21 [facility] Luis Daniel Evans [facility] 1.2.840.114 [id number] Univers 09:05:03 23:59:00 Encounter [place] 350.1.13.10 ity of [place] 4.2.7.2.686 [facility] [phone] [facility] [address] 2021-02-21 2021-02-21 Outpatient R LUIS DANIEL EVANS [facility] [id number] Univers 00:00:00 00:00:[address] [facility] 2021-02-19 2021-02-19 Outpatient R LUIS DANIEL EVANS [facility] [id number] Univers 10:00:00 10:00:[address] [facility] 2021-02-12 2021-02-12 Outpatient R DONNALUIS DANIEL [facility] [id number] Univers 10:00:00 10:00:[address] [facility] 2021-02-07 2021-02-07 Outpatient R JUAN [facility] [id number] Univers 13:45:00 13:45:[address] [facility] 2021-01-12 2021-01-12 Outpatient R TIMMY [facility] [id number] Univers 13:45:00 13:45:[address] [facility] 2021-01-12 2021-01-12 Orders Doctor PINTO 1.2.840.114 [id number] Univers 00:00:00 00:00:00 Only Unassigned, JENY 350.1.13.10 ity of [place] [facility] 4.2.7.2.686 Brigido as [phone] [address] 2020-12-26 2020-12-26 Orders Doctor BLAIR 1.2.840.114 [id number] Univers 00:00:00 00:00:00 Only Unassigned, JENY 350.1.13.10 ity of [place] [facility] 4.2.7.2.686 Brigido as [phone] [address] 2020-12-15 2020-12-15 Outpatient R TIMMY [facility] [id number] Univers 13:45:00 13:45:00 LINDSAY [facility] 2020-11-29 2020-11-29 [facility] [id number] Univers 11:15:00 11:15:00 [facility] 2020-11-29 2020-11-29 Outpatient R THUAN [facility] [id number] Univers 10:15:00 10:15:00 [facility] 2020-11-24 2020-11-[address] [facility] [address] [id number] Univers 15:00:00 15:00:00 MARK [facility] 2020-11-14 2020-11-14 Hospital [facility] 1.2.840.114 [id number] Univers 09:20:52 23:59:00 Encounter [facility] 350.1.13.10 ity of Surgical 4.2.7.2.686 Brigido as Specialti [phone] Ct dical es 809 [facility] 2020-11-14 2020-11-14 Outpatient [facility] [id number] Univers 10:00:00 10:00:00 [facility] 2020-11-14 2020-11-14 Office [facility] 1.2.840.114 [id number] Univers 09:04:51 09:19:51 Visit [facility] 350.1.13.10 it y of Surgical 4.2.7.2.686 Brigido as Specialti [phone] Ct dical es 198 [facility] 2020-11-02 2020-11-02 Orders Doctor BLAIR 1.2.840.114 [id number] Univers 00:00:00 00:00:00 Only Unassigned, JENY 350.1.13.10 ity of [place] [facility] 4.2.7.2.686 Brigido as [phone] [facility] [address] 2020-10-30 2020-10-31 [facility] 1.2.840.114 [id number] Univers 07:06:00 13:50:00 Encounter Catrina Bender 350.1.13.10 ity of [place]7.2.[place] [phone] [facility] 0[address] 2020-10-30 2020-10-30 Surgery [facility] [id number] [id number] Univers 09:25:00 11:42:00 Catrina Bender 350.1.13.10 i ty of [place]2.7.2.686 [place] [phone] [facility] 020 Branch 2020-10-30 2020-10-30 Orders Doctor BLAIR 1.2.840.114 [id number] Univers 00:00:00 00:00:00 Only Unassigned, JENY 350.1.13.10 ity of [place] [facility] 4.2.7.2.686 Brigido as [phone] [facility] [address] 2020-10-27 2020-10-27 [facility] 1.2.840.114 [id number] Univers 09:48:16 23:59:00 Encounter Catrina Bender 350.1.13.10 ity of [place].2.[place] [phone] [facility] 807 [address] 2020-10-27 2020-10-27 Journalist Brianna, Charmaine Lab Main [facility] 1.2.8 40.114 [id number] Univers 09:45:14 10:00:14 Visit Catrina Bryant 350.1.13.10 it[place] of [place].2.[place] [phone] Ct dical nal 353 [facility] 2020-10-27 2020-10-27 Laboratory Only, Adc Test [facility] 1.2.840. 114 [id number] Univers 09:44:03 09:59:03 Only Catrina [place] 350.1.13.10 ity [facility] 4.2.7.2.686 [place] [phone] [address] 2020-10-27 2020-10-27 Outpatient R MANNY [facility] [id number] Univers 09:45:00 09:45:[address] [facility] 2020-10-26 2020-10-26 Ancillary Robert Ferrell [facility] 1.2.840. 114 [id number] Univers 13:01:42 14:01:42 Visit [facility]13.10 [facility] 4.2.7.2.686 [facility] [phone] Me dical nal 179 [facility] 2020-10-26 2020-10-26 Outpatient R MANNY [facility] [id number] Univers 13:00:00 13:00:[address] [facility] 2020-10-23 2020-10-23 Office Manny [facility] 1.2.368.718 [id number] Univers 13:06:14 16:16:55 Visit Catrina Carrillo 350.1.13.10 it y of Surgical 4.2.7.2.686 Brigido as Specialti [phone] Ct dical es 198 [facility] 2020-10-23 2020-10-23 Outpatient R MANNY [facility] [id number] Univers 14:00:00 14:00:[address] [facility] 2020-10-17 2020-10-17 Prep For Manny [facility] 1.2.840.114 [id number] Univers 00:00:00 00:00:00 Surgery Catrina Carrillo 350.1.13.10 it y of Surgical 4.2.7.2.686 Brigido as Specialti [phone] Me dical es 198 [facility] 2020-10-12 2020-10-12 Telephone Manny [facility] 1.2.840.114 [id number] Univers 00:00:00 00:00:00 Catrina Carrillo 350.1.13.10 it y of Surgical 4.2.7.2.686 Brigido as Specialti [phone] Ct dical es 198 [facility] 2020-09-22 2020-09-22 Hospital [facility] 1.2.840.114 [id number] Univers 10:10:46 23:59:00 Encounter Catrina Carrillo 350.1.13.10 ity of Surgical 4.2.7.2.686 Brigido as Specialti [phone] Ct dical es 809 [facility] 2020-09-22 2020-09-22 Office [facility] 1.2.799.951 [id number] Univers 09:58:57 10:19:25 Visit Catrina Carrillo 350.1.13.10 it y of Surgical 4.2.7.2.686 Brigido as Specialti [phone] Ct dical es 198 [facility] 2020-09-22 2020-09-22 Outpatient R [facility] [id number] Univers 10:00:00 10:00:[address] [facility] 2020-02-14 2020-02-14 Orders Doctor BLAIR 1.2.840.114 [id number] Univers 00:00:00 00:00:00 Only Unassigned, JENY 350.1.13.10 ity of [place] [facility] 4.2.7.2.686 Brigido as [phone] [facility] [address] 2019-12-29 2019-12-29 Office [facility] 1.2.840.114 [id number] Univers 14:16:45 16:05:27 Visit Michelle CARRILLO 350.1.13.10 ity of [place] [facility].2.7.2.686 [facility] [phone] [facility] 2019-12-29 2019-12-29 Outpatient R [facility] [id number] Univers 14:45:00 14:45:[address] [facility] 2019-12-29 2019-12-29 Orders Doctor PINTO 1.2.840.114 [id number] Univers 00:00:00 00:00:00 Only Unassigned, JENY 350.1.13.10 ity of [place] [facility] 4.2.7.2.686 Brigido as [phone] [address] 2019-12-16 2019-12-16 Orders Doctor BLAIR 1.2.840.114 [id number] Univers 00:00:00 00:00:00 Only Unassigned, JENY 350.1.13.10 ity of [place] [facility] 4.2.7.2.686 Brigido as [phone] [address] 2019-12-08 2019-12-08 Emergency [facility] 1.2.840.114 [id number] [facility] 12:57:09 14:49:00 Satnamlurdesarnulfo Mickie [place] 350.1.13.10 ity of [place] 4.2.7.2.686 [place] [facility] [phone] [address] 2019-12-03 2019-12-03 Outpatient Homar ANTONIO [facility] [id number] Univers 16:15:00 16:15:00 MARK ity of [facility] 2019-11-11 2019-11-11 Orders Doctor PINTO 1.2.840.114 [id number] Univers 00:00:00 00:00:00 Only Unassigned, JENY 350.1.13.10 ity of [facility] 4.2.7.2.686 Brigido as [phone] [address] 2019-10-11 2019-10-11 Orders Doctor PINTO 1.2.840.114 [id number] Univers 00:00:00 00:00:00 Only Unassigned, JENY 350.1.13.10 ity of [facility] 4.2.7.2.686 Brigido as [phone] [address] 2019-10-06 2019-10-06 Office Mckenna [facility] 1.2.840.114 [id number] Univers 08:40:50 09:05:22 Visit [facility] 350.1.13.10 it y of Surgical 4.2.7.2.686 Brigido as Specialti [id number] Ct dical 198 [facility] 2019-10-06 2019-10-06 Outpatient [facility] [id number] Univers 09:00:00 09:00:[address] [facility] 2019-09-20 2019-09-20 Orders Doctor BLAIR 1.2.840.114 [id number] Univers 00:00:00 00:00:00 Only Unassigned, JENY 350.1.13.10 ity of [facility] 4.2.7.2.686 Brigido as [phone] [address] 2019-09-07 2019-09-07 Outpatient O [facility] [id number] Univers 14:08:12 23:59:[address] [facility] 2019-09-07 2019-09-07 [facility] 1.2.840.114 [id number] Univers 14:08:00 23:59:00 Encounter [facility] 350.1.13.10 ity of Surgical 4.2.7.2.686 Brigido as Specialti [phone] Ct dical es 809 [facility] 2019-09-07 2019-09-07 Office [facility] 1.2.840.114 [id number] Univers 13:59:33 14:14:33 Visit [facility] 350.1.13.10 it y of Surgical 4.2.7.2.686 Brigido as Specialti [phone] Ct dical es 198 [facility] 2019-08-25 2019-08-25 Orders Doctor BLAIR 1.2.840.114 [id number] Univers 00:00:00 00:00:00 Only Unassigned, JENY 350.1.13.10 ity of [facility] 4.2.7.2.686 Brigido as [phone] [facility] [address] 2019-08-23 2019-08-24 [facility] 1.2.840.114 [id number] Univers 06:44:00 15:30:00 Encounter Catrina Bender 350.1.13.10 ity of [place].2.[place] [phone] [facility] [address] 2019-08-23 2019-08-23 Anesthesia Melvin Koch [facility] 1.2.8 40.114 [id number] Univers 09:23:00 11:10:00 Ledy Veliz 350.1.13.10 ity of [place] 4.2.7.2.686 [facility] Surgical [phone] [facility] [address] 2019-08-23 2019-08-23 Orders Doctor BLAIR 1.2.840.114 [id number] Univers 00:00:00 00:00:00 Only Unassigned, JENY 350.1.13.10 ity of [place] [facility] 4.2.7.2.686 Brigido as [phone] [facility] [address] 2019-08-19 2019-08-19 Outpatient R MANNY, [facility] [id number] Univers 08:45:00 08:45:[address] [facility] 2019-08-19 2019-08-19 Journalist 1, Adc Lab [facility] 1.2.840.114 [id number] Univers 08:23:54 08:38:54 Visit Catrina Bryant 350.1.13.10 ity of [place] 4.2.7.2.686 [facility] [phone] [facility] [address] 2019-08-19 2019-08-19 Hospital Manny [facility] 1.2.840.114 [id number] Univers 08:00:00 08:23:00 Encounter Catrina Bender 350.1.13.10 ity of [place] 4.2.7.2.686 [facility] [phone] [facility] [address] 2019-08-04 2019-08-04 Orders Doctor BLAIR 1.2.840.114 [id number] Univers 00:00:00 00:00:00 Only Unassigned, JENY 350.1.13.10 ity of [facility] 4.2.7.2.686 Brigido as [phone] [facility] [address] 2019-07-29 2019-07-29 Orders Doctor BLAIR 1.2.840.114 [id number] Univers 00:00:00 00:00:00 Only Unassigned, JENY 350.1.13.10 ity of [facility] 4.2.7.2.686 Brigido as [phone] [place] [address] [address] 2019-06-07 2019-06-07 Outpatient R MANNY, [facility] [id number] Univers 10:45:00 10:45:[address] [facility] Results Test Description Test Time Test Comments Results Result Comments Source COMP. METABOLIC PANEL (25744) 2022-09-23 22:46:35 Test Item Value Reference Range Interpretation Comme nts NA (test code = 8254404527) 142 mmol/L 135-145 K (test code = 2677246847) 4.3 mmol/L 3.5-5.0 CL (test code = 5036517156) 110 mmol/L 98-108 H CO2 TOTAL (test code = 5765758945) 26 mmol/L 23-31 AGAP (test code = 0784816821) 6 2-16 BUN (test code = 5788589713) 23 mg/dL 7-23 GLUCOSE (test code = 9211278368) 101 mg/dL 70-110 CREATININE (test code = 1.10 mg/dL 0.50-1.04 H 1099614252) TOTAL BILI (test code = 0.5 mg/dL 0.1-1.6 6129735231) CALCIUM (test code = 4821105034) 9.0 mg/dL 8.6-10.6 T PROTEIN (test code = 9519270738) 7.1 g/dL 6.3-8.2 ALBUMIN (test code = 6365497286) 4.2 g/dL 3.5-5.0 ALK PHOS (test code = 8947905622) 96 U/L 34-122 ALTv (test code = 1742-6) 21 U/L 5-35 AST(SGOT) (test code = 8426326387) 37 U/L 13-40 eGFR (test code = 8656175987) 48.3 mL/min/1.73m2 BROWN (test code = BROWN) [...] tests). Lab Interpretation (test code = Abnormal 46384-0) [facility] WITH [id number] 20:41:06 Test Item Value Reference Range Interpretation Comments WBC (test code = 3.85 See_Comment L [Automated 0272-2) message] The sy stem which generated this result transmitted reference range : 4.30 - 11.10 10*3/?L. The reference range was not used to interpret this result as normal/abnormal . RBC (test code = 4.12 See_Comment [Automated 109-8) message] The sy stem which generated this [...] RDW-SD (test code = 44.5 fL 39.0-49.9 44822-1) RDW-CV (test code = 14.4 % 12.0-15.5 788-0) PLT (test code = 208 See_Comment [Automated 777-3) message] The sy stem which generated this result transmitted reference range : 166 - 358 10*3/ ?L. The reference r shaan was not used to interpret this result as normal/abnormal . MPV (test code = 10.7 fL 9.5-12.9 51798-6) NRBC/100 WBC (test 0.0 See_Comment [Automat ed code = 4541947099) message] The system which generated this result transmitted reference range : 0.0 - 10.0 /100 WBCs. The refer ence range was not u sed to interpret th is result as normal/abnormal . NRBC x10^3 (test code See_Comment [Auto mated = 7606705753) message] The s ystem which generated this result transmitted reference range : 10*3/?L. The reference range was not used to interpret this result as normal/abnormal . GRAN MAT (NEUT) % 56.6 % (test code = 770-8) IMM GRAN % (test code 0.30 % = 8521069570) LYMPH % (test code = 27.0 % 736-9) MONO % (test code = 12.5 % 5905-5) EOS % (test code = 2.6 % 713-8) BASO % (test code = 1.0 % 706-2) GRAN MAT x10^3(ANC) 2.18 10*3/uL 1.88-7.09 (test code = 5758327134) IMM GRAN x10^3 (test 0.00-0.06 code = 7719426684) LYMPH x10^3 (test code 1.04 10*3/uL 1.32-3.29 L = 731-0) MONO x10^3 (test code 0.48 10*3/uL 0.33-0.92 = 742-7) EOS x10^3 (test code = 0.10 10*3/uL 0.03-0.39 711-2) BASO x10^3 (test code 0.04 10*3/uL 0.01-0.07 = 704-7) Lab Interpretation Abnormal (test code = 03672-8) [facility] [id number] 21:02:00 Test Item Value Reference Range Interpretation [...] code = 3257) Negative Negative - Negative [facility]"
--- NOTE | 2023-05-24 22:01 | EDPHYS ---
Physician Documentation [facility] Name: Laila Haddad Age: 77 yrs Sex: Female : 1945 Arrival Date: 05/24/2023 Time: 21:19 Bed DX4 Private MD: ED Physician Albert Otto HPI: 05/25 01:38 This 77 yrs old Black Female presents to ER via Ambulatory with complaints of Back Pain.rt 01:38 Patient presents to the ED with a low back pain that has been off and on for several rt months. Prior to radiation down her left leg, it is worse when she lifts heavy objects. Has not take anything for the symptoms. Denies other acute complaints at this time, symptoms are mild in severity, no other aggravating elevating factors.. Historical: - Allergies: 05/24 21:52 Aspirin; iw - PMHx: 21:52 Hypertension; kidney disease; iw - PSHx: 21:52 section; iw - Immunization history:: Adult Immunizations unknown. - Social history:: Smoking status: . - Family history:: not pertinent. ROS: 05/25 01:38 Constitutional: Negative for fever, chills, and weight loss, Cardiovascular: Negative rt for chest pain, palpitations, and edema, Respiratory: Negative for shortness of breath, cough, wheezing, and pleuritic chest pain, Abdomen/GI: Negative for abdominal pain, nausea, vomiting, diarrhea, and constipation, Skin: Negative for injury, rash, and discoloration, Neuro: Negative for headache, weakness, numbness, tingling, and seizure, Psych: Negative for depression, anxiety, suicide ideation, homicidal ideation, and hallucinations, Back: Positive for pain with movement, Negative for injury or acute deformity, Exam: 01:38 Constitutional: This is a well developed, well nourished patient who is awake, alert, rt and in no acute distress. Chest/axilla: Normal chest wall appearance and motion. Nontender with no deformity. No lesions are appreciated. Cardiovascular: Regular rate and rhythm with a normal S1 and S2. No gallops, murmurs, or rubs. Normal PMI, no JVD. No pulse deficits. Respiratory: Lungs have equal breath sounds bilaterally, clear to auscultation and percussion. No rales, rhonchi or wheezes noted. No increased work of breathing, no retractions or nasal flaring. Abdomen/GI: Soft, non-tender, with normal bowel sounds. No distension or tympany. No guarding or rebound. No evidence of tenderness throughout. Skin: Warm, dry with normal turgor. Normal color with no rashes, no lesions, and no evidence of cellulitis. Neuro: Awake and alert, GCS 15, oriented to person, place, time, and situation. Cranial nerves II-XII grossly intact. Motor strength 5/5 in all extremities. Sensory grossly intact. Cerebellar exam normal. Normal gait. 01:38 Back: Mild tenderness to the lumbar lower lumbar region, no step-offs, Vital Signs: 05/24 21:50 BP 131 / 70; Pulse 80; Resp 16; Temp 97.4; Pulse Ox 100% on R/A; Weight 51.71 kg; iw Height 5 ft. 2 in. ; Pain 3/10; 21:50 Body Mass Index 20.85 (51.71 kg, 157.48 cm) iw 21:50 Pain Scale: Adult iw MDM: 21:58 Patient medically screened. rt 05/25 01:38 Differential diagnosis: Musculoskeletal back pain, disc disease. Data reviewed: vital rt signs, nurses notes. Test considered but Not performed: MRI: No neurologic findings, no acute trauma, no red flag symptoms to suggest cauda equina syndrome, spinal dural abscess, MRIs, CT is not indicated.. ED course: Patient declines any medications, offered to give patient pain medications, states that she does not like to take medications. Instructed patient to follow-up with primary care, possibly to get further imaging if necessary as well as possible PT.. Administered Medications: No medications were administered Disposition Summary: 05/24/23 22:01 Discharge Ordered Notes: Location: Home rt Problem: an acute exacerbation rt Symptoms: are unchanged rt Condition: Stable rt Diagnosis - Low back pain rt Followup: rt - With: Private Physician - When: 2 - 3 days - Reason: Discharge Instructions: - Discharge Summary Sheet rt - Acute Back Pain, Adult rt Forms: - Medication Reconciliation Form rt - Thank You Letter rt - Antibiotic Education rt - Prescription Opioid Use rt - Patient Portal Instructions rt - Leadership Thank You Letter rt Signatures: Lilliana Da Silva RN RN iw Albert Otto MD MD rt Yadira Ramesh RN RN cm10
--- NOTE | 2023-05-24 22:01 | ER ---
Nurse's Notes [facility] Name: Laila Haddad Age: 77 yrs Sex: Female : 1945 Arrival Date: 05/24/2023 Time: 21:19 Bed DX4 Private MD: Diagnosis: Low back pain Presentation: 05/24 21:50 Chief complaint: Patient states: lower back pain X 2 days, denies injury, pain moves iw into her buttock, right is worse than left. Coronavirus screen: At this time, the client does not indicate any symptoms associated with coronavirus-19. Ebola Screen: Patient negative for fever greater than or equal to 101.5 degrees Fahrenheit, and additional compatible Ebola Virus Disease symptoms Patient denies exposure to infectious person. Patient denies travel to an Ebola-affected area in the 21 days before illness onset. No symptoms or risks identified at this time. Initial Sepsis Screen: Does the patient meet any 2 criteria? No. Patient's initial sepsis screen is negative. Does the patient have a suspected source of infection? No. Patient's initial sepsis screen is negative. Risk Assessment: Do you want to hurt yourself or someone else? Patient reports no desire to harm self or others. Onset of symptoms was May 22, 2023. 21:50 Method Of Arrival: Ambulatory iw 21:50 Acuity: HENRY 3 iw Triage Assessment: 22:17 General: Appears in no apparent distress. comfortable, Behavior is calm, cooperative. cm10 Pain: Complains of pain in low back area. EENT: No deficits noted. No signs and/or symptoms were reported regarding the EENT system. Neuro: No deficits noted. Mckenzie Agitation-Sedation Scale (RASS): 0 - Alert and Calm Level of Consciousness is awake, alert, obeys commands, Oriented to person, place, time, situation. Cardiovascular: No deficits noted. Patient's skin is warm and dry. Respiratory: No deficits noted. Airway is patent Respiratory effort is even, unlabored, Respiratory pattern is regular, symmetrical. GI: No deficits noted. No signs and/or symptoms were reported involving the gastrointestinal system. : No deficits noted. No signs and/or symptoms were reported regarding the genitourinary system. Derm: No deficits noted. No signs and/or symptoms reported regarding the dermatologic system. Skin is intact, Skin is pink, warm \T\ dry. Musculoskeletal: Range of motion: intact in all extremities. Historical: - Allergies: 21:52 Aspirin; iw - PMHx: 21:52 Hypertension; kidney disease; iw - PSHx: 21:52 section; iw - Immunization history:: Adult Immunizations unknown. - Social history:: Smoking status: . - Family history:: not pertinent. Screenin:18 [facility] ED Fall Risk Assessment (Adult) History of falling in the last 3 months, cm10 including since admission No falls in past 3 months (0 pts) Confusion or Disorientation No (0 pts) Intoxicated or Sedated No (0 pts) Impaired Gait No (0 pts) Mobility Assist Device Used No (0 pt) Altered Elimination No (0 pt) Score/Fall Risk Level 0 - 2 = Low Risk Oriented to surroundings, Maintained a safe environment, Hourly rounding (assess needs \T\ fall precautionary measures) done. Abuse screen: Denies threats or abuse. Denies injuries from another. Abuse screen:. Nutritional screening: No deficits noted. Tuberculosis screening: No symptoms or risk factors identified. Vital Signs: 21:50 BP 131 / 70; Pulse 80; Resp 16; Temp 97.4; Pulse Ox 100% on R/A; Weight 51.71 kg; iw Height 5 ft. 2 in. ; Pain 3/10; 21:50 Body Mass Index 20.85 (51.71 kg, 157.48 cm) iw 21:50 Pain Scale: Adult ED Course: 21:23 Patient arrived in ED. gm2 21:49 Albert Otto MD is Attending Physician. rt 21:52 Triage completed. iw 21:52 Arm band placed on. iw 22:18 Patient has correct armband on for positive identification. Provided Education on: ER cm10 process and procedures and follow-up plan of care. . 22:19 No provider procedures requiring assistance completed. Patient did not have IV access cm10 during this emergency room visit. Administered Medications: No medications were administered Medication: 22:18 VIS not applicable for this client. cm10 Outcome: 22:01 Discharge ordered by . rt 22:19 Discharged to home ambulatory, cm10 22:19 Condition: good 22:19 Discharge instructions given to patient, Instructed on discharge instructions, follow up and referral plans. Demonstrated understanding of instructions, follow-up care, 22:20 Patient left the ED. cm10 Signatures: Lilliana Da Silva RN RN iw Albert Otto MD MD rt Yadira Ramesh RN RN cm10 Gisele Richardson 2
[2023-05-24 22:47] VITALS: BP 131/70; TEMP 97.4; O2SAT 100
== END 2023-05-24 22:20 | disposition home or self-care (01) ==
LOC: ER 21:19
DX: M54.50 Low back pain, unspecified (principal); Z88.6 Allergy status to analgesic agent
CPT/HCPCS: 99282

== ENCOUNTER 2023-06-02 16:39 | Emergency (ER) | payer MEDICARE ==
--- OUTSIDE RECORDS SUMMARY | 2023-06-02 16:49 | XMS REPORT | Continuity of Care Document ---
:1945 Author Organization [facility] t Address [address] [place] [id number] Care Team Providers Name Role Phone Lc Parekh Primary Care Physician CATRINA BRYANT Attending Clinician Unavailable JEANETTE MCKAY Attending Clinician Unavailable CUCO VALDEZ Attending Clinician Unavailable CUCO VALDEZ Attending Clinician Unavailable UYEN RICHARDSON Attending Clinician Unavailable LC SHEN Attending Clinician Unavailable LIZZETTE HARRISON Attending Clinician Unavailable LINDSAY FRANCE Attending Clinician Unavailable Doctor Unassigned, [place] Attending Clinician Unavailable Lab, Ang - Db Attending Clinician Unavailable Lc Parekh Attending Clinician Uyen Goff Attending Clinician Yenifer Garcia Attending Clinician YENIFER BRIONES Attending Clinician Unavailable PETRONA DONNELLY Attending Clinician Unavailable Lindsay France MD Attending Clinician [phone] Martha Maloney LVN Attending Clinician Unavailable Elio OLVERA, Sendil K.H. Attending Clinician RAMIRO RICHARDSON Attending Clinician Unavailable STNALEY SIMON Attending Clinician Unavailable Stanley Simon MD Attending Clinician SEBASTIAN BALLARD K.H. Attending Clinician Unavailable Petrona Santiago Attending Clinician [...] Test Attending Clinician Unavailable Robert Ferrell PTA Attending Clinician Unavailable Michelle De La Torre OD Attending Clinician MICHELLE DE LA TORRE Attending Clinician Unavailable Stanislav Parson Attending Clinician Melvin Koch CRNA Attending Clinician Ledy Veliz CRNA Attending Clinician 1, [facility] Attending Clinician Unavailable CATRINA BRYANT Admitting Clinician Unavailable UYEN RICHARDSON Admitting Clinician Unavailable LINDSAY FRANCE Admitting Clinician Unavailable Lindsay France MD Admitting Clinician [phone] LC SHEN Admitting Clinician Unavailable Catrina Bryant MD Admitting Clinician Payers Payer Name Policy Type Policy Number Effective Date Expiration Date S edwina MEDICARE PART A [id number] 2010 \\T\\ B 00:00:[address] [facility] [id number] 2019 00:00:00 [facility] [id number] 2022 PPO 00:00:00 Problems Condition Condition Condition [...] Essential Disease Active Uni vers hypertensi hypertensi 828 it y of on on 00:00: Medical Branch Dyslipidem Dyslipidem Disease Active U nivers ia ia 8 ity of 00:00: [place] [facility] Chronic Chronic Disease Active Univers kidney kidney 03-24 ity of disease disease 00:00: [place] (CKD) (CKD) 00 Medical stage stage Branch [...] of age-relate age-relate 00:00: g of this [place] d cataract d cataract 00 note Me dical of both of both might be Branch eyes eyes different from the original. Added automatic ally from request for surgery [id number] Total knee Total knee Disease Active U nivers replacemen replacemen 4-05 it y of t status, t [place], 00:[place] 00 [place] Primary Primary Disease Active Overview: Univ ers osteoarthr osteoarthr 3-24 Formattin ity of itis of itis of 00:00: g of this [place] left knee left knee 00 note Medi katherine might be Branch different from the original. Added automatic ally from request for surgery [id number] Total knee Total knee Disease Active U nivers replacemen replacemen 1-27 it y of t status t status 00:00: [place] [facility] Primary Primary Disease Active 2018-07 Overview: Univ ers osteoarthr osteoarthr 1-11 Formattin ity of itis of itis of 00:00: g of this [place] right knee right knee 00 note Me dical might be Branch different from the original. Added automatic ally from request for surgery [id number] Dental Dental Disease Active Overview: [facility] caries caries 5-13 Formattin ity of 00:00: g of this [place] 00 note Medical might be Branch different from the original. ICD10 Diagnosis Term Smoke Inspector Utility Allergies, Adverse Reactions, Alerts Allergy Allergy Status Severity Reaction(s) Onset Inactive Treating Comm ents Source Name Type Date Date Clinician NO KNOWN Drug Active Univers ALLERGIE Class ity of S [facility] Social History Social Habit Start Date Stop Date Quantity Comments Source Gender identity [facility]it y [facility] intake 2023-05-22 2023-05-22 Current University of 00:00:00 00:00:00 non-drinker of [facility] alcohol Siren (finding) Exposure to 2022-10-12 2022-10-22 Not sure [facility] SARS-CoV-2 (event) 00:00:00 14:41:00 [facility] History of Social 2022-09-26 2022-09-26 Univers ity of function 00:00:00 00:00:00 [facility] Tobacco use and 2022-03-26 2022-03-26 Smokeless Universit y of exposure 00:00:00 00:00:00 tobacco non-user [facility] Sex [birth year] Universit y of 00:00:00 00:00:00 [facility] Smoking Status Start Date Stop Date Source Never smoked tobacco [facility] Medications Ordered Filled Start Stop Current Ordering Indication Dosage Frequency Signature Comments Components Source Medication Medication Date Date Medication? Clinician (SIG) Name Name lisinopriL Yes [id number] 2.5mg Take 1 Univers 2.5 mg 9-28 tablet by ity of tablet 00:00: mouth in [place] 00 the Medical morning. Branch lisinopriL Yes [id number] 2.5mg Take 1 Univers 2.5 mg 9-28 tablet by ity of tablet 00:00: mouth in [place] [address] the Medical morning. Branch lisinopriL Yes [id number] 2.5mg Take 1 Univers 2.5 mg 9-28 tablet by ity of tablet 00:00: mouth in [place] [address] the Medical morning. Branch lisinopriL 2023-0 Yes [id number] 2.5mg Take 1 Univers 2.5 mg 9-28 tablet by ity of tablet 00:00: mouth in [place] 00 the Medical morning. Branch lisinopriL 2023-0 Yes [id number] 2.5mg Take 1 Univers 2.5 mg 9-28 tablet by ity of tablet 00:00: mouth in [place] 00 the Medical morning. Branch lisinopriL 2023-0 Yes [id number] 2.5mg Take 1 Univers 2.5 mg 9-28 tablet by ity of tablet 00:00: mouth in [place] 00 the Medical morning. Branch lisinopriL 2023-0 Yes [id number] 2.5mg Take 1 Univers 2.5 mg 9-28 tablet by ity of tablet 00:00: mouth in [place] 00 the Medical morning. Branch lisinopriL 2023-0 Yes [id number] 2.5mg Take 1 Univers 2.5 mg 9-28 tablet by ity of tablet 00:00: mouth in [place] 00 the Medical morning. Branch lisinopriL 2023-0 Yes [id number] 2.5mg Take 1 Univers 2.5 mg 9-28 tablet by ity of tablet 00:00: mouth in [place] 00 the Medical morning. Branch lisinopriL 2023-0 Yes [id number] 2.5mg Take 1 Univers 2.5 mg 9-28 tablet by ity of tablet 00:00: mouth in [place] 00 the Medical morning. Branch lisinopriL 2023-0 Yes [id number] 2.5mg Take 1 Univers 2.5 mg 9-28 tablet by ity of tablet 00:00: mouth in [place] 00 the Medical morning. Branch lisinopriL 2023-0 2023- No [id number] 2.5mg Take 0.5 Univers 5 mg tablet 9-28 -28 tablets by i ty of 00:00: 00:00 mouth in [place] 00 :00 the Medical morning. Branch lisinopriL 2023-0 2023- No [id number] 2.5mg Take 0.5 Univers 5 mg tablet 9-28 -28 tablets by i ty of 00:00: 00:00 mouth in [place] 00 :00 the Medical morning. Branch lisinopriL 2023-0 Yes [id number] 5mg Take 1 U nivers 5 mg tablet 8-22 tablet by ity of 00:00: mouth in [place] 00 the Medical morning. Branch lisinopriL 2023-0 Yes [id number] 5mg Take 1 U nivers 5 mg tablet 8-22 tablet by ity of 00:00: mouth in [place] the Medical morning. Branch lisinopriL 2023-0 Yes [id number] 5mg Take 1 U nivers 5 mg tablet 8-22 tablet by ity of 00:00: mouth in [place] 00 the Medical morning. Branch lisinopriL 2023-0 Yes [id number] 5mg Take 1 U nivers 5 mg tablet 8-22 tablet by ity of 00:00: mouth in [place] 00 the Medical morning. Branch lisinopriL 2023-0 Yes [id number] 5mg Take 1 U nivers 5 mg tablet 8-22 tablet by ity of 00:00: mouth in [place] the Medical morning. Branch lisinopriL 2023-0 Yes [id number] 5mg Take 1 U nivers 5 mg tablet 8-22 tablet by ity of 00:00: mouth in [place] the Medical morning. Branch lisinopriL 2023-0 Yes [id number] 5mg Take 1 U nivers 5 mg tablet 8-22 tablet by ity of 00:00: mouth in [place] the Medical morning. Branch lisinopriL 2023-0 Yes [id number] 5mg Take 1 U nivers 5 mg tablet 8-22 tablet by ity of 00:00: mouth in [place] the Medical morning. Branch lisinopriL 2023-0 Yes [id number] 5mg Take 1 U nivers 5 mg tablet 8-22 tablet by ity of 00:00: mouth in [place] the Medical morning. Branch lisinopriL 2023-0 Yes [id number] 5mg Take 1 U nivers 5 mg tablet 8-22 tablet by ity of 00:00: mouth in [place] 00 the Medical morning. Branch lisinopriL 2023-0 2023- No [id number] 5mg Take 1 Univers 5 mg tablet 8-04-24 tablet by it y of 00:00: 00:00 mouth in [place] 00 :00 the Medical morning. Branch lisinopriL 2023-0 2023- No [id number] 5mg Take 1 Univers 5 mg tablet 8-04-24 tablet by it y of 00:00: 00:00 mouth in [place] 00 :00 the Medical morning. Branch lisinopriL 2023-0 Yes 5mg Take 1 Unive rs 5 mg tablet 3-28 tablet by ity of 00:00: mouth in [place] 00 the Medical morning. Branch lisinopriL 2023-0 Yes 5mg Take 1 Unive rs 5 mg tablet 3-28 tablet by ity of 00:00: mouth in [place] 00 the Medical morning. Branch lisinopriL 2023-0 Yes 5mg Take 1 Unive rs 5 mg tablet 3-28 tablet by ity of 00:00: mouth in [place] 00 the Medical morning. Branch lisinopriL 2023-0 Yes 5mg Take 1 Unive rs 5 mg tablet 3-28 tablet by ity of 00:00: mouth in [place] 00 the Medical morning. Branch lisinopriL 2023-0 Yes 5mg Take 1 Unive rs 5 mg tablet 3-28 tablet by ity of 00:00: mouth in [place] 00 the Medical morning. Branch lisinopriL 2023-0 Yes 5mg Take 1 Unive rs 5 mg tablet 3-28 tablet by ity of 00:00: mouth in [place] 00 the Medical morning. Branch lisinopriL 2023-0 Yes 5mg Take 1 Unive rs 5 mg tablet 3-28 tablet by ity of 00:00: mouth in [place] 00 the Medical morning. Branch lisinopriL 2023-0 Yes 5mg Take 1 Unive rs 5 mg tablet 3-28 tablet by ity of 00:00: mouth in [place] 00 the Medical morning. Branch lisinopriL 2023-0 Yes 5mg Take 1 Unive rs 5 mg tablet 3-28 tablet by ity of 00:00: mouth in [place] 00 the Medical morning. Branch lisinopriL 2023-0 2023- No 5mg Take 1 Univ ers 5 mg tablet 3-28 08-22 tablet by it y of 00:00: 00:00 mouth in [place] 00 :00 the Medical morning. Branch lisinopriL 2023-0 2023- No 5mg Take 1 Univ ers 5 mg tablet 3-28 08-22 tablet by it y of 00:00: 00:00 mouth in [place] 00 :00 the Medical morning. Branch lisinopriL 2023-0 2023- No 5mg Take 1 Univ ers 5 mg tablet 3-28 08-22 tablet by it y of 00:00: 00:00 mouth in [place] 00 :00 the Medical morning. Branch timolol 2022- No PRN, Univers (TIMOPTIC) 09-26 Starting ity of 0.5 % 19:34: 19:58 on [place] ophthalmic 00 :33 3/2/23 at [facility] katherine solution 1334, Branch Until [place] 3//23 at 1358, Routine, Intra-op tetracaine 2022- No PRN, Univer s (PONTOCAINE 09-26 Starting ity of ) 0.5 % 19:34: 19:58 on [place] ophthalmic 00 :33 3/2/23 at [facility] katherine drops 1334, Branch Until [place] 3/23 at 1358, Routine, Intra-op prednisoLON 2022- No PRN, Unive rs E acetate 09-26 Starting ity o f (PRED-FORTE 19:28: 19:58 on [place] ) 1 % 00 :33 3//23 at [facility] ophthalmic 1328, Branch suspension Until [place] drops 09/26/23 at 1358, Routine, Intra-op povidone-io 2022- No PRN, Unive rs dine 09-26 Starting ity of (BETADINE) 19:28: [facility] at [facility] ophthalmic 1328, Branch drops Until [place] 3/23 at 1358, Routine, Intra-op moxifloxaci 2022- No PRN, Unive rs n (VIGAMOX) 09-26 Starting ity of 0.5 % 19:27: 19:58 on [facility] ophthalmic 00 :33 3/2/23 at [facility] katherine drops 1327, Branch Until [place] 3/23 at 1358, Routine, Intra-op lidocaine-p 2022- No PRN, Unive rs henylephrin 09-26 Starting ity of -BSS(PF) 19:27: 19:58 on [facility] [place] (COMPOUNDED 00 :33 09/26/[address] [facility] ica ) 1-1.5 % 1327, Branch ophthalmic Until [place] injection 3/2/23 at 1358, Routine, Intra-op EPINEPHrine 2022- No PRN, Unive rs (PF) 09-26 Starting ity of 1:1,000 (1 19:27: 19:58 [place] mg/mL[place] 00 :33 3/2/23 at [facility] (ADRENALIN 1327, Branch (PF)) Until [place] injection //23 at 1358, Routine, Intra-op chondroitin 2022- No PRN, Unive rs sulf-sod 09-26 Starting ity of hyaluronate 19:27: 19:58 on [place] (DUOVISC 00 :33 //23 at [facility] l VISCO 1327, Branch ELASTIC) Until [place] intraocular 09/26/22 at injection 1358, Routine, Intra-op balanced 2022- No PRN, Univers salt soln 09-26 Starting ity o f no.2 irrig. 19:26: 19:58 on [place] (BSS) 00 :33 //23 at [facility] ophthalmic 1326, Branch solution Until Leandra 323 at 1358, Routine, Intra-op balanced 2022- No PRN, Univers salt irrig 09-26 Starting ity of soln comb1 19:26: 19:58 [place] (BSS PLUS) 00 :33 3//23 at [facility] ophthalmic 1326, Branch solution Until [place]andra 500 mL bag //23 at 1358, Routine, Intra-op moxifloxaci 2022- No 1[drp] 1 Drop, Univers n (VIGAMOX) 09-26 Left Eye, it y of 0.5 % 16:51: 17:47 Q5MIN PRN, [place] ophthalmic 00 :00 3 doses, Medic al [...] ed, Routine, Surgery/Pr ocedure, DSU Pre-op LISINOPRIL- 0 Yes [id number] Take 1 Univers HYDROCHLORO 1-27 tablet by ity of THIAZIDE 00:00: mouth once [place] 10-12.5 mg 00 daily Medical per tablet Branch LISINOPRIL- 2022-0 Yes [id number] Take 1 Univers HYDROCHLORO 1-27 tablet by ity of THIAZIDE 00:00: mouth once [place] 10-12.5 mg 00 daily Medical per tablet Branch LISINOPRIL- 0 Yes [id number] Take 1 Univers HYDROCHLORO 1-27 tablet by ity of THIAZIDE 00:00: mouth once [place] 10-12.5 mg 00 daily Medical per tablet Branch LISINOPRIL- 0 Yes [id number] Take 1 Univers HYDROCHLORO 1-27 tablet by ity of THIAZIDE 00:00: mouth once [place] 10-12.5 mg 00 daily Medical per tablet Branch LISINOPRIL- 2022-0 Yes [id number] Take 1 Univers HYDROCHLORO 1-27 tablet by ity of THIAZIDE 00:00: mouth once [place] 10-12.5 mg 00 daily Medical per tablet Branch LISINOPRIL- 2022-0 Yes [id number] Take 1 Univers HYDROCHLORO 1-27 tablet by ity of THIAZIDE 00:00: mouth once [place] 10-12.5 mg 00 daily Medical per tablet Branch LISINOPRIL- 2022-0 Yes [id number] Take 1 Univers HYDROCHLORO 1-27 tablet by ity of THIAZIDE 00:00: mouth once [place] 10-12.5 mg 00 daily Medical per tablet Branch LISINOPRIL- 2022-0 Yes [id number] Take 1 Univers HYDROCHLORO 1-27 tablet by ity of THIAZIDE 00:00: mouth once [place] 10-12.5 mg 00 daily Medical per tablet Branch LISINOPRIL- 2022-0 Yes [id number] Take 1 Univers HYDROCHLORO 1-27 tablet by ity of THIAZIDE 00:00: mouth once [place] 10-12.5 mg 00 daily Medical per tablet Branch LISINOPRIL- 2022-0 Yes [id number] Take 1 Univers HYDROCHLORO 1-27 tablet by ity of THIAZIDE 00:00: mouth once [place] 10-12.5 mg 00 daily Medical per tablet Branch LISINOPRIL- 2022-0 Yes [id number] Take 1 Univers HYDROCHLORO 1-27 tablet by ity of THIAZIDE 00:00: mouth once [place] 10-12.5 mg 00 daily Medical per tablet Branch LISINOPRIL- 2022-0 Yes [id number] Take 1 Univers HYDROCHLORO 1-27 tablet by ity of THIAZIDE 00:00: mouth once [place] 10-12.5 mg 00 daily Medical per tablet Branch LISINOPRIL- 2022-0 Yes [id number] Take 1 Univers HYDROCHLORO 1-27 tablet by ity of THIAZIDE 00:00: mouth once [place] 10-12.5 mg 00 daily Medical per tablet Branch LISINOPRIL- 2022-0 Yes [id number] Take 1 Univers HYDROCHLORO 1-27 tablet by ity of THIAZIDE 00:00: mouth once [place] 10-12.5 mg 00 daily Medical per tablet Branch LISINOPRIL- 2022-0 Yes [id number] Take 1 Univers HYDROCHLORO 1-27 tablet by ity of THIAZIDE 00:00: mouth once [place] 10-12.5 mg 00 daily Medical per tablet Branch LISINOPRIL- 0 Yes [id number] Take 1 Univers HYDROCHLORO 1-27 tablet by ity of THIAZIDE 00:00: mouth once [place] 10-12.5 mg 00 daily Medical per tablet Branch LISINOPRIL- 0 202- No [id number] Take 1 Univers HYDROCHLORO 1-27 03-28 tablet by it y of THIAZIDE 00:00: 00:00 mouth once [place] 10-12.5 mg 00 :00 daily Medical per tablet Branch LISINOPRIL- 0 2022- No [id number] Take 1 Univers HYDROCHLORO 1-27 03-28 tablet by it y of THIAZIDE 00:00: 00:00 mouth once [place] 10-12.5 mg 00 :00 daily Medical per tablet Branch LISINOPRIL- 0 2022- No [id number] Take 1 Univers HYDROCHLORO 1-27 03-28 tablet by it y of THIAZIDE 00:00: 00:00 mouth once [place] 10-12.5 mg 00 :00 daily Medical per tablet Branch prednisoLON Yes [id number] 1[drp] Place 1 Univers E acetate 1 08-02 9108 Drop in ity o f % 00:00: right eye [place] ophthalmic 00 4 (four) Medic al suspension times Branch drops daily. ketorolac Yes [id number] 1[drp] Place 1 Univers 0.4 % 08-02 9108 Drop in ity of ophthalmic 00:00: right eye [place] solution 00 4 (four) Medical times Branch daily. moxifloxaci Yes [id number] 1[drp] Place 1 Univers n (VIGAMOX) 08-02 9108 Drop in ity o f 0.5 % 00:00: right eye [place] ophthalmic 00 4 (four) Medic al drops times Branch daily. prednisoLON Yes [id number] 1[drp] Place 1 Univers E acetate 1 - 9108 Drop in ity o f % 00:00: right eye [place] ophthalmic 00 4 (four) Medic al suspension times Branch drops daily. ketorolac 2022-0 Yes [id number] 1[drp] Place 1 Univers 0.4 % 1-06 9108 Drop in ity of ophthalmic 00:00: right eye [place] solution 00 4 (four) Medical times Branch daily. moxifloxaci 2022-0 Yes [id number] 1[drp] Place 1 Univers n (VIGAMOX) 1-06 9108 Drop in ity o f 0.5 % 00:00: right eye [place] ophthalmic 00 4 (four) Medic al drops times Branch daily. prednisoLON 2022-0 Yes [id number] 1[drp] Place 1 Univers E acetate 1 1-06 9108 Drop in ity o f % 00:00: right eye [place] ophthalmic 00 4 (four) Medic al suspension times Branch drops daily. ketorolac 2022-0 Yes [id number] 1[drp] Place 1 Univers 0.4 % 1-06 9108 Drop in ity of ophthalmic 00:00: right eye [place] solution 00 4 (four) Medical times Branch daily. moxifloxaci 2022-0 Yes [id number] 1[drp] Place 1 Univers n (VIGAMOX) 1-06 9108 Drop in ity o f 0.5 % 00:00: right eye [place] ophthalmic 00 4 (four) Medic al drops times Branch daily. prednisoLON 2022-0 Yes [id number] 1[drp] Place 1 Univers E acetate 1 1-06 9108 Drop in ity o f % 00:00: right eye [place] ophthalmic 00 4 (four) Medic al suspension times Branch drops daily. ketorolac 2022-0 Yes [id number] 1[drp] Place 1 Univers 0.4 % 1-06 9108 Drop in ity of ophthalmic 00:00: right eye [place] solution 00 4 (four) Medical times Branch daily. moxifloxaci 2022-0 Yes [id number] 1[drp] Place 1 Univers n (VIGAMOX) 1-06 9108 Drop in ity o f 0.5 % 00:00: right eye [place] ophthalmic 00 4 (four) Medic al drops times Branch daily. prednisoLON 2022-0 Yes [id number] 1[drp] Place 1 Univers E acetate 1 1-06 9108 Drop in ity o f % 00:00: right eye [place] ophthalmic 00 4 (four) Medic al suspension times Branch drops daily. ketorolac 2022-0 Yes [id number] 1[drp] Place 1 Univers 0.4 % 1-06 9108 Drop in ity of ophthalmic 00:00: right eye [place] solution 00 4 (four) Medical times Branch daily. moxifloxaci 2022-0 Yes [id number] 1[drp] Place 1 Univers n (VIGAMOX) 1-06 9108 Drop in ity o f 0.5 % 00:00: right eye [place] ophthalmic 00 4 (four) Medic al drops times Branch daily. prednisoLON 2022-0 Yes [id number] 1[drp] Place 1 Univers E acetate 1 1-06 9108 Drop in ity o f % 00:00: right eye [place] ophthalmic 00 4 (four) Medic al suspension times Branch drops daily. ketorolac 2022-0 Yes [id number] 1[drp] Place 1 Univers 0.4 % 1-06 9108 Drop in ity of ophthalmic 00:00: right eye [place] solution 00 4 (four) Medical times Branch daily. moxifloxaci 2022-0 Yes [id number] 1[drp] Place 1 Univers n (VIGAMOX) 1-06 9108 Drop in ity o f 0.5 % 00:00: right eye [place] ophthalmic 00 4 (four) Medic al drops times Branch daily. prednisoLON 2022-0 Yes [id number] 1[drp] Place 1 Univers E acetate 1 1-06 9108 Drop in ity o f % 00:00: right eye [place] ophthalmic 00 4 (four) Medic al suspension times Branch drops daily. ketorolac 2022-0 Yes [id number] 1[drp] Place 1 Univers 0.4 % 1-06 9108 Drop in ity of ophthalmic 00:00: right eye [place] solution 00 4 (four) Medical times Branch daily. moxifloxaci 2022-0 Yes [id number] 1[drp] Place 1 Univers n (VIGAMOX) 1-06 9108 Drop in ity o f 0.5 % 00:00: right eye [place] ophthalmic 00 4 (four) Medic al drops times Branch daily. prednisoLON 2023-0 Yes [id number] 1[drp] Place 1 Univers E acetate 1 1-06 9108 Drop in ity o f % 00:00: right eye [place] ophthalmic 00 4 (four) Medic al suspension times Branch drops daily. ketorolac 2022-0 Yes [id number] 1[drp] Place 1 Univers 0.4 % 1-06 9108 Drop in ity of ophthalmic 00:00: right eye [place] solution 00 4 (four) Medical times Branch daily. moxifloxaci 2022-0 Yes [id number] 1[drp] Place 1 Univers n (VIGAMOX) 1-06 9108 Drop in ity o f 0.5 % 00:00: right eye [place] ophthalmic 00 4 (four) Medic al drops times Branch daily. prednisoLON 2022-0 Yes [id number] 1[drp] Place 1 Univers E acetate 1 1-06 9108 Drop in ity o f % 00:00: right eye [place] ophthalmic 00 4 (four) Medic al suspension times Branch drops daily. ketorolac 2022-0 Yes [id number] 1[drp] Place 1 Univers 0.4 % 1-06 9108 Drop in ity of ophthalmic 00:00: right eye [place] solution 00 4 (four) Medical times Branch daily. moxifloxaci 2022-0 Yes [id number] 1[drp] Place 1 Univers n (VIGAMOX) 1-06 9108 Drop in ity o f 0.5 % 00:00: right eye [place] ophthalmic 00 4 (four) Medic al drops times Branch daily. prednisoLON 2022-0 Yes [id number] 1[drp] Place 1 Univers E acetate 1 1-06 9108 Drop in ity o f % 00:00: right eye [place] ophthalmic 00 4 (four) Medic al suspension times Branch drops daily. ketorolac 2022-0 Yes [id number] 1[drp] Place 1 Univers 0.4 % 1-06 9108 Drop in ity of ophthalmic 00:00: right eye [place] solution 00 4 (four) Medical times Branch daily. moxifloxaci 2022-0 Yes [id number] 1[drp] Place 1 Univers n (VIGAMOX) 1-06 9108 Drop in ity o f 0.5 % 00:00: right eye [place] ophthalmic 00 4 (four) Medic al drops times Branch daily. prednisoLON 2022-0 Yes [id number] 1[drp] Place 1 Univers E acetate 1 1-06 9108 Drop in ity o f % 00:00: right eye [place] ophthalmic 00 4 (four) Medic al suspension times Branch drops daily. ketorolac 2022-0 Yes [id number] 1[drp] Place 1 Univers 0.4 % 1-06 9108 Drop in ity of ophthalmic 00:00: right eye [place] solution 00 4 (four) Medical times Branch daily. moxifloxaci 2022-0 Yes [id number] 1[drp] Place 1 Univers n (VIGAMOX) 1-06 9108 Drop in ity o f 0.5 % 00:00: right eye [place] ophthalmic 00 4 (four) Medic al drops times Branch daily. prednisoLON 2022-0 Yes [id number] 1[drp] Place 1 Univers E acetate 1 1-06 9108 Drop in ity o f % 00:00: right eye [place] ophthalmic 00 4 (four) Medic al suspension times Branch drops daily. ketorolac 2022-0 Yes [id number] 1[drp] Place 1 Univers 0.4 % 1-06 9108 Drop in ity of ophthalmic 00:00: right eye [place] solution 00 4 (four) Medical times Branch daily. moxifloxaci 2022-0 Yes [id number] 1[drp] Place 1 Univers n (VIGAMOX) 1-06 9108 Drop in ity o f 0.5 % 00:00: right eye [place] ophthalmic 00 4 (four) Medic al drops times Branch daily. prednisoLON 2022-0 Yes [id number] 1[drp] Place 1 Univers E acetate 1 1-06 9108 Drop in ity o f % 00:00: right eye [place] ophthalmic 00 4 (four) Medic al suspension times Branch drops daily. ketorolac 2022-0 Yes [id number] 1[drp] Place 1 Univers 0.4 % 1-06 9108 Drop in ity of ophthalmic 00:00: right eye [place] solution 00 4 (four) Medical times Branch daily. moxifloxaci 2022-0 Yes [id number] 1[drp] Place 1 Univers n (VIGAMOX) 1-06 9108 Drop in ity o f 0.5 % 00:00: right eye [place] ophthalmic 00 4 (four) Medic al drops times Branch daily. prednisoLON 2022-0 Yes [id number] 1[drp] Place 1 Univers E acetate 1 1-06 9108 Drop in ity o f % 00:00: right eye [place] ophthalmic 00 4 (four) Medic al suspension times Branch drops daily. ketorolac 2022-0 Yes [id number] 1[drp] Place 1 Univers 0.4 % 1-06 9108 Drop in ity of ophthalmic 00:00: right eye [place] solution 00 4 (four) Medical times Branch daily. moxifloxaci 2022-0 Yes [id number] 1[drp] Place 1 [facility] n (VIGAMOX) 1-06 9108 Drop in ity o f 0.5 % 00:00: right eye [place] [facility] 00 4 (four) Medic al drops times Branch daily. prednisoLON 2022-0 Yes [id number] 1[drp] Place 1 [facility] E acetate 1 1-06 9108 Drop in ity o f % 00:00: right eye [place] [facility] 00 4 (four) Medic al suspension times Branch drops daily. ketorolac 2022-0 Yes [id number] 1[drp] Place 1 [facility] 0.4 % 1-06 9108 Drop in ity of ophthalmic 00:00: right eye [place] solution 00 4 (four) Medical times Branch daily. moxifloxaci 2022-0 Yes [id number] 1[drp] Place 1 [facility] n (VIGAMOX) 1-06 9108 Drop in ity o f 0.5 % 00:00: right eye [place] [facility] 00 4 (four) Medic al drops times Branch daily. prednisoLON 2022-0 Yes [id number] 1[drp] Place 1 [facility] E acetate 1 1-06 9108 Drop in ity o f % 00:00: right eye [place] [facility] 00 4 (four) Medic al suspension times Branch drops daily. ketorolac 2022-0 Yes [id number] 1[drp] Place 1 [facility] 0.4 % 1-06 9108 Drop in ity of ophthalmic 00:00: right eye [place] solution 00 4 (four) Medical times Branch daily. moxifloxaci 2022-0 Yes [id number] 1[drp] Place 1 [facility] n (VIGAMOX) 1-06 9108 Drop in ity o f 0.5 % 00:00: right eye [place] [facility] 00 4 (four) Medic al drops times Branch daily. prednisoLON 2022-0 Yes [id number] 1[drp] Place 1 [facility] E acetate 1 1-06 9108 Drop in ity o f % 00:00: right eye [place] [facility] 00 4 (four) Medic al suspension times Branch drops daily. ketorolac 2022-0 Yes [id number] 1[drp] Place 1 [facility] 0.4 % 1-06 9108 Drop in ity of ophthalmic 00:00: right eye [place] solution 00 4 (four) Medical times Branch daily. moxifloxaci 2022-0 Yes [id number] 1[drp] Place 1 [facility] n (VIGAMOX) 1-06 9108 Drop in ity o f 0.5 % 00:00: right eye [place] [facility] 00 4 (four) Medic al drops times Branch daily. prednisoLON 2022-0 Yes [id number] 1[drp] Place 1 [facility] E acetate 1 1-06 9108 Drop in ity o f % 00:00: right eye [place] [facility] 00 4 (four) Medic al suspension times Branch drops daily. ketorolac 2022-0 Yes [id number] 1[drp] Place 1 [facility] 0.4 % 1-06 9108 Drop in ity of ophthalmic 00:00: right eye [place] solution 00 4 (four) Medical times Branch daily. prednisoLON 2022-0 Yes [id number] 1[drp] Place 1 [facility] E acetate 1 1-06 9108 Drop in ity o f % 00:00: right eye [place] [facility] 00 4 (four) Medic al suspension times Branch drops daily. ketorolac 2022-0 Yes [id number] 1[drp] Place 1 [facility] 0.4 % 1-06 9108 Drop in ity of ophthalmic 00:00: right eye [place] solution 00 4 (four) Medical times Branch daily. prednisoLON 2022-0 Yes [id number] 1[drp] Place 1 [facility] E acetate 1 1-06 9108 Drop in ity o f % 00:00: right eye [place] [facility] 00 4 (four) Medic al suspension times Branch drops daily. ketorolac 2022-0 Yes [id number] 1[drp] Place 1 [facility] 0.4 % 1-06 9108 Drop in ity of ophthalmic 00:00: right eye [place] solution 00 4 (four) Medical times Branch daily. prednisoLON 2022-0 Yes [id number] 1[drp] Place 1 [facility] E acetate 1 1-06 9108 Drop in ity o f % 00:00: right eye [place] [facility] 00 4 (four) Medic al suspension times Branch drops daily. ketorolac 2022-0 Yes [id number] 1[drp] Place 1 [facility] 0.4 % 1-06 9108 Drop in ity of ophthalmic 00:00: right eye [place] solution 00 4 (four) Medical times Branch daily. prednisoLON 2022-0 Yes [id number] 1[drp] Place 1 [facility] E acetate 1 -06 9108 Drop in ity o f % 00:00: right eye [place] [facility] 00 4 (four) Medic al suspension times Branch drops daily. ketorolac 2022-0 Yes [id number] 1[drp] Place 1 [facility] 0.4 % 1-06 9108 Drop in ity of ophthalmic 00:00: right eye [place] solution 00 4 (four) Medical times Branch daily. prednisoLON 2022-0 Yes [id number] 1[drp] Place 1 [facility] E acetate 1 -06 9108 Drop in ity o f % 00:00: right eye [place] [facility] 00 4 (four) Medic al suspension times Branch drops daily. ketorolac 3-0 Yes [id number] 1[drp] Place 1 [facility] 0.4 % 1-06 9108 Drop in ity of ophthalmic 00:00: right eye [place] solution 00 4 (four) Medical times Branch daily. prednisoLON 2022-0 2023- No [id number] 1[drp] Place 1 [facility] E acetate 1 08-02 9108 Drop in ity of % 00:00: 00:00 right eye [place] [facility] 00 :00 4 (four) Medic al suspension times Branch drops daily. ketorolac 2023-0 2023- No [id number] 1[drp] Place 1 [facility] 0.4 % 08-02- 9108 Drop in ity of ophthalmic 00:00: 00:00 right eye [place] solution 00 :00 4 (four) Medical times Branch daily. prednisoLON 2022- No [id number] 1[drp] Place 1 [facility] E acetate 1 08-02 9108 Drop in ity of % 00:00: 00:00 right eye [place] [facility] 00 :00 4 (four) Medic al suspension times Branch drops daily. ketorolac 2022- No [id number] 1[drp] Place 1 [facility] 0.4 % 08-02 9108 Drop in ity of ophthalmic 00:00: 00:00 right eye [place] solution 00 :00 4 (four) Medical times Branch daily. prednisoLON 2022- No [id number] 1[drp] Place 1 [facility] E acetate 1 08-02 9108 Drop in ity of % 00:00: 00:00 right eye [place] [facility] 00 :00 4 (four) Medic al suspension times Branch drops daily. ketorolac 2022- No [id number] 1[drp] Place 1 [facility] 0.4 % 08-02 9108 Drop in ity of ophthalmic 00:00: 00:00 [place] eye [place] solution 00 :00 4 (four) Medical times Branch daily. moxifloxaci 2022- No [id number] 1[drp] Place 1 [facility] n (VIGAMOX) 08-02 9108 Drop in ity of 0.5 % 00:00: 00:00 right eye [place] [facility] 00 :00 4 (four) Medic al drops times Branch daily. moxifloxaci 2022- No [id number] 1[drp] Place 1 [facility] n (VIGAMOX) 08-02 [...] Routine, Pain (scale 7-10), DSU Recovery acetaminoph 2022-0 Yes 1{tbl} 1 tablet, Univers en-codeine 08-01 Oral, PRN, ity of (TYLENOL 17:48: 1 dose, [place] #3) 300-30 15 Starting Medic al mg tablet 1 on [place] Branch tablet 08/01/22 at 1148, Until Discontinu ed, Routine, Pain (scale 4-6), DSU Recovery acetaminoph 0 Yes 500mg 500 mg, Un kiarra en 08-01 Oral, PRN, ity of (TYLENOL) 17:48: 1 dose, [place] tablet 500 15 Starting Medic al mg on [place] Branch 08/01/22 at 1148, Until Discontinu ed, Routine, Pain (scale 1-3), DSU Recovery HYDROcodone 2022- No 1{tbl} 1 tablet, Univers -acetaminop 08-01 [...] y of (TYLENOL 17:48: 00:53 1 dose, [place] #3) 300-30 15 :20 Starting Medic al mg tablet 1 on [place] Branch tablet 08/01/22 at 1148, Until [place]andra 08/01/22 at 1853, Routine, Pain (scale 4-6), DSU Recovery acetaminoph 2022-0 2022- No 500mg 500 mg, U nivers [...] [place] 08/01/22 at 1146, Routine, Intra-op timolol 2022-2022- No PRN, Univers (TIMOPTIC) 08-01 Starting ity of 0.5 % 17:33: 17:46 on [place] [facility] 00 :15 08/01/22 at [facility] solution 1133, Branch Until [place] 08/01/22 at 1146, Routine, Intra-op tetracaine 2022- No PRN, Univer s (PONTOCAINE 08-01 Starting ity of ) 0.5 % 17:33: 17:46 on [place] [facility] 00 :15 08/01/22 at [facility] drops 1133, Branch Until [place] 08/01/22 at 1146, Routine, Intra-op prednisoLON 2022-2022- No PRN, Unive rs E acetate 08-01 Starting ity o f (PRED-FORTE 17:32: 17:46 on Leandra [place] ) 1 % 00 :15 08/01/22 at [facility] ophthalmic 1132, Branch suspension Until [place] drops 08/01/22 at 1146, Routine, Intra-op povidone-io 2022- No PRN, Unive rs dine 08-01 Starting ity of (BETADINE) 17:32: 17:46 [place] 5 % 00 :15 08/01/22 at [facility] ophthalmic 1132, Branch drops Until [place] 08/01/22 at 1146, Routine, Intra-op moxifloxaci 2022- No PRN, Unive rs n (VIGAMOX) 08-01 Starting ity of 0.5 % 17:32: 17:46 on [place] [facility] 00 :15 08/01/22 at [facility] drops 1132, Branch Until [place] 08/01/22 at 1146, Routine, Intra-op lidocaine-p 2022- No PRN, Unive rs henylephrin 08-01 Starting ity of -BSS(PF) 17:31: 17:46 on [place] (COMPOUNDED 00 :15 08/01/22 at Med ical ) 1-1.5 % 1131, Branch ophthalmic Until [place] injection 08/01/22 at 1146, Routine, Intra-op EPINEPHrine 2022- No PRN, Unive rs (PF) 08-01 Starting ity of 1:1,000 (1 17:31: 17:46 [place] mg/mL) 00 :15 08/01/22 at [facility] (ADRENALIN 1131, Branch (PF)) Until Leandra injection [...] s (BSS PLUS) 00 :15 08/01/22 at [facility] ophthalmic 1130, Branch solution Until [place] 500 mL bag 08/01/22 at 1146, Routine, Intra-op moxifloxaci 2022- No 1[drp] 1 Drop, Univers n (VIGAMOX) 08-01 Right Eye, i ty of 0.5 % 15:06: 15:29 Q5MIN PRN, [place] ophthalmic 16 :00 3 doses, Medic al [...] Surgery/Pr ocedure, DSU Pre-op prednisoLON 2021-07 Yes [id number] 1[drp] Place 1 [facility] E acetate 1 -17 9108 Drop in ity o f % 00:00: right eye [place] [facility] 00 4 (four) Medic al suspension times Branch drops daily. ketorolac 2021-07 Yes [id number] 1[drp] Place 1 [facility] 0.4 % -17 9108 Drop in ity of ophthalmic 00:00: right eye [place] solution 00 4 (four) Medical times Branch daily. moxifloxaci 2021-07 Yes [id number] 1[drp] Place 1 [facility] n (VIGAMOX) 1-17 9108 Drop in ity o f 0.5 % 00:00: right eye [place] [facility] 00 4 (four) Medic al drops times Branch daily. prednisoLON 2021-07 Yes [id number] 1[drp] Place 1 [facility] E acetate 1 -17 9108 Drop in ity o f % 00:00: right eye [place] [facility] 00 4 (four) Medic al suspension times Branch drops daily. ketorolac 2021-07 Yes [id number] 1[drp] Place 1 [facility] 0.4 % 1-17 9108 Drop in ity of ophthalmic 00:00: right eye [place] solution 00 4 (four) Medical times Branch daily. moxifloxaci 2021-07 Yes [id number] 1[drp] Place 1 [facility] n (VIGAMOX) 1-17 9108 Drop in ity o f 0.5 % 00:00: right eye [place] [facility] 00 4 (four) Medic al drops times Branch daily. prednisoLON 2021-07 Yes [id number] 1[drp] Place 1 [facility] E acetate 1 1-17 9108 Drop in ity o f % 00:00: right eye [place] [facility] 00 4 (four) Medic al suspension times Branch drops daily. ketorolac 2021-07 Yes [id number] 1[drp] Place 1 [facility] 0.4 % 1-17 9108 Drop in ity of ophthalmic 00:00: right eye [place] solution 00 4 (four) Medical times Branch daily. moxifloxaci 2021-07 Yes [id number] 1[drp] Place 1 [facility] n (VIGAMOX) 1-17 9108 Drop in ity o f 0.5 % 00:00: right eye [place] [facility] 00 4 (four) Medic al drops times Branch daily. prednisoLON 2021-07 Yes [id number] 1[drp] Place 1 [facility] E acetate 1 1-17 9108 Drop in ity o f % 00:00: right eye [place] [facility] 00 4 (four) Medic al suspension times Branch drops daily. ketorolac 2021-07 Yes [id number] 1[drp] Place 1 [facility] 0.4 % 1-17 9108 Drop in ity of ophthalmic 00:00: right eye [place] solution 00 4 (four) Medical times Branch daily. moxifloxaci 2021-07 Yes [id number] 1[drp] Place 1 [facility] n (VIGAMOX) 1-17 9108 Drop in ity o f 0.5 % 00:00: right eye [place] [facility] 00 4 (four) Medic al drops times Branch daily. prednisoLON 2021-07 Yes [id number] 1[drp] Place 1 [facility] E acetate 1 1-17 9108 Drop in ity o f % 00:00: right eye [place] [facility] 00 4 (four) Medic al suspension times Branch drops daily. ketorolac 2021-07 Yes [id number] 1[drp] Place 1 [facility] 0.4 % 1-17 9108 Drop in ity of ophthalmic 00:00: right eye [place] solution 00 4 (four) Medical times Branch daily. moxifloxaci 2021-07 Yes [id number] 1[drp] Place 1 [facility] n (VIGAMOX) 1-17 9108 Drop in ity o f 0.5 % 00:00: right eye [place] [facility] 00 4 (four) Medic al drops times Branch daily. prednisoLON 2021-07 Yes [id number] 1[drp] Place 1 [facility] E acetate 1 1-17 9108 Drop in ity o f % 00:00: right eye [place] [facility] 00 4 (four) Medic al suspension times Branch drops daily. ketorolac 2021-07 Yes [id number] 1[drp] Place 1 [facility] 0.4 % 1-17 9108 Drop in ity of ophthalmic 00:00: right eye [place] solution 00 4 (four) Medical times Branch daily. moxifloxaci 2021-07 Yes [id number] 1[drp] Place 1 [facility] n (VIGAMOX) 1-17 9108 Drop in ity o f 0.5 % 00:00: right eye [place] [facility] 00 4 (four) Medic al drops times Branch daily. prednisoLON 2021-07 Yes [id number] 1[drp] Place 1 [facility] E acetate 1 1-17 9108 Drop in ity o f % 00:00: right eye [place] [facility] 00 4 (four) Medic al suspension times Branch drops daily. ketorolac 2021-07 Yes [id number] 1[drp] Place 1 [facility] 0.4 % 1-17 9108 Drop in ity of ophthalmic 00:00: right eye [place] solution 00 4 (four) Medical times Branch daily. moxifloxaci 2021-07 Yes [id number] 1[drp] Place 1 [facility] n (VIGAMOX) 1-17 9108 Drop in ity o f 0.5 % 00:00: right eye [place] [facility] 00 4 (four) Medic al drops times Branch daily. prednisoLON 2021-07 Yes [id number] 1[drp] Place 1 [facility] E acetate 1 08-13 9108 Drop in ity o f % 00:00: right eye [place] [facility] 00 4 (four) Medic al suspension times Branch drops daily. ketorolac 2021-07 Yes [id number] 1[drp] Place 1 [facility] 0.4 % 08-13 9108 Drop in ity of ophthalmic 00:00: right eye [place] solution 00 4 (four) Medical times Branch daily. moxifloxaci 2021-07 Yes [id number] 1[drp] Place 1 [facility] n (VIGAMOX) 08-13 9108 Drop in ity o f 0.5 % 00:00: right eye [place] [facility] 00 4 (four) Medic al drops times Branch daily. prednisoLON 2021-07- No [id number] 1[drp] Place 1 [facility] E acetate 1 08-13 9108 Drop in ity of % 00:00: 00:00 right eye [place] [facility] 00 :00 4 (four) Medic al suspension times Branch drops daily. ketorolac 2021-07- No [id number] 1[drp] Place 1 [facility] 0.4 % 08-13 9108 Drop in ity of ophthalmic 00:00: 00:00 [place] solution 00 :00 4 (four) Medical times Branch daily. moxifloxaci 2021-07- No [id number] 1[drp] Place 1 [facility] n (VIGAMOX) 08-13 9108 Drop in ity of 0.5 % 00:00: 00:00 right eye [place] [facility] 00 :00 4 (four) Medic al drops times Branch daily. prednisoLON 2021-07- No [id number] 1[drp] Place 1 [facility] E acetate 1 08-13 9108 Drop in ity of % 00:00: 00:00 right eye [place] ophthal[facility] 00 :00 4 (four) Medic al suspension times Branch drops daily. ketorolac 2021-07- No [id number] 1[drp] Place 1 [facility] 0.4 % 08-13 9108 Drop in ity of ophthalmic 00:00: 00:00 [place] eye [place] solution 00 :00 4 (four) Medical times Branch daily. moxifloxaci 2021-07- No [id number] 1[drp] Place 1 [facility] n (VIGAMOX) 17 08-02 9108 Drop in ity of 0.5 % 00:00: 00:00 right eye [place] ophthalmic 00 :00 4 (four) Medic al drops times [place] daily. amoxicillin 2021-07 Yes [id number] 500mg Take 1 [facility] 500 mg 1-12 capsule by ity of capsule 00:00: mouth in [address] and 1 capsule at noon and 1 capsule in the evening. amoxicillin 2021-07 Yes [id number] 500mg Take 1 [facility] 500 mg 1-12 capsule by ity of capsule 00:00: mouth in [address] and 1 capsule at noon and 1 capsule in the evening. amoxicillin 2021-07 Yes [id number] 500mg Take 1 [facility] 500 mg 1-12 capsule by ity of capsule 00:00: mouth in [address] and 1 capsule at noon and 1 capsule in the evening. amoxicillin 2021-07 Yes [id number] 500mg Take 1 [facility] 500 mg 1-12 capsule by ity of capsule 00:00: mouth in [address] and 1 capsule at noon and 1 capsule in the evening. amoxicillin 2021-07 Yes [id number] 500mg Take 1 [facility] 500 mg 1-12 capsule by ity of capsule 00:00: mouth in [address] and 1 capsule at noon and 1 capsule in the evening. amoxicillin 2021-07 Yes [id number] 500mg Take 1 [facility] 500 mg 1-12 capsule by ity of capsule 00:00: mouth in [address] and 1 capsule at noon and 1 capsule in the evening. amoxicillin 2021-07 Yes [id number] 500mg Take 1 [facility] 500 mg 1-12 capsule by ity of capsule 00:00: mouth in [address] and 1 capsule at noon and 1 capsule in the evening. amoxicillin 2021-07 Yes [id number] 500mg Take 1 [facility] 500 mg 1-12 capsule by ity of capsule 00:00: mouth in [address] and 1 capsule at noon and 1 capsule in the evening. amoxicillin 2021-07 Yes [id number] 500mg Take 1 [facility] 500 mg 1-12 capsule by ity of capsule 00:00: mouth in [address] morning [place] and 1 capsule at noon and 1 capsule in the evening. amoxicillin 2021-07 Yes [id number] 500mg Take 1 [facility] 500 mg 1-12 capsule by ity of capsule 00:00: mouth in [place] [address] the [facility] morning [place] and 1 capsule at noon and 1 capsule in the evening. amoxicillin 2021-07 Yes [id number] 500mg Take 1 [facility] 500 mg 1-12 capsule by ity of capsule 00:00: mouth in [place] [address] the [facility] morning [place] and 1 capsule at noon and 1 capsule in the evening. amoxicillin 2021-07 Yes [id number] 500mg Take 1 [facility] 500 mg 1-12 capsule by ity of capsule 00:00: mouth in [place] [address] the [facility] morning [place] and 1 capsule at noon and 1 capsule in the evening. amoxicillin 2021-07 Yes [id number] 500mg Take 1 [facility] 500 mg 1-12 capsule by ity of capsule 00:00: mouth in [place] [address] the [facility] morning [place] and 1 capsule at noon and 1 capsule in the evening. amoxicillin 2021-07 Yes [id number] 500mg Take 1 [facility] 500 mg 1-12 capsule by ity of capsule 00:00: mouth in [address] morning [place] and 1 capsule at noon and 1 capsule in the evening. amoxicillin 2021-07 Yes [id number] 500mg Take 1 [facility] 500 mg 1-12 capsule by ity of capsule 00:00: mouth in [place] [address] the [facility] morning [place] and 1 capsule at noon and 1 capsule in the evening. amoxicillin 2021-07 Yes [id number] 500mg Take 1 [facility] 500 mg 1-12 capsule by ity of capsule 00:00: mouth in [address] morning [place] and 1 capsule at noon and 1 capsule in the evening. amoxicillin 2021-07 Yes [id number] 500mg Take 1 [facility] 500 mg 1-12 capsule by ity of capsule 00:00: mouth in [address] morning [place] and 1 capsule at noon and 1 capsule in the evening. amoxicillin 2021- Yes [id number] 500mg Take 1 [facility] 500 mg 1-12 capsule by ity of capsule 00:00: mouth in [address] morning [place] and 1 capsule at noon and 1 capsule in the evening. amoxicillin 2021- Yes [id number] 500mg Take 1 [facility] 500 mg 1-12 capsule by ity of capsule 00:00: mouth in [address] morning [place] and 1 capsule at noon and 1 capsule in the evening. amoxicillin 2021-07 Yes [id number] 500mg Take 1 [facility] 500 mg 1-12 capsule by ity of capsule 00:00: mouth in [place] [address] the [facility] morning [place] and 1 capsule at noon and 1 capsule in the evening. amoxicillin 2021-07 Yes [id number] 500mg Take 1 [facility] 500 mg 1-12 capsule by ity of capsule 00:00: mouth in [place] [address] the [facility] morning [place] and 1 capsule at noon and 1 capsule in the evening. amoxicillin 2021-07 Yes [id number] 500mg Take 1 [facility] 500 mg 1-12 capsule by ity of capsule 00:00: mouth in [place] [address] the [facility] morning [place] and 1 capsule at noon and 1 capsule in the evening. amoxicillin 2021-07 Yes [id number] 500mg Take 1 [facility] 500 mg 1-12 capsule by ity of capsule 00:00: mouth in [place] [address] the [facility] morning [place] and 1 capsule at noon and 1 capsule in the evening. amoxicillin 2021-07 Yes [id number] 500mg Take 1 [facility] 500 mg 1-12 capsule by ity of capsule 00:00: mouth in [address] morning [place] and 1 capsule at noon and 1 capsule in the evening. amoxicillin 2021-07 Yes [id number] 500mg Take 1 [facility] 500 mg 1-12 capsule by ity of capsule 00:00: mouth in [place] [address] the [facility] morning [place] and 1 capsule at noon and 1 capsule in the evening. amoxicillin 2021-07 Yes [id number] 500mg Take 1 [facility] 500 mg 1-12 capsule by ity of capsule 00:00: mouth in [address] morning [place] and 1 capsule at noon and 1 capsule in the evening. amoxicillin 2021-07 Yes [id number] 500mg Take 1 [facility] 500 mg 1-12 capsule by ity of capsule 00:00: mouth in [address] morning [place] and 1 capsule at noon and 1 capsule in the evening. amoxicillin 2021- Yes [id number] 500mg Take 1 [facility] 500 mg 1-12 capsule by ity of capsule 00:00: mouth in [address] morning [place] and 1 capsule at noon and 1 capsule in the evening. amoxicillin 2021- Yes [id number] 500mg Take 1 [facility] 500 mg 1-12 capsule by ity of capsule 00:00: mouth in [address] morning [place] and 1 capsule at noon and 1 capsule in the evening. amoxicillin 2021-07 Yes [id number] 500mg Take 1 [facility] 500 mg 1-12 capsule by ity of capsule 00:00: mouth in [place] [address] the [facility] morning [place] and 1 capsule at noon and 1 capsule in the evening. amoxicillin 2021-07 Yes [id number] 500mg Take 1 [facility] 500 mg 1-12 capsule by ity of capsule 00:00: mouth in [place] [address] the [facility] morning [place] and 1 capsule at noon and 1 capsule in the evening. amoxicillin 2021-07 Yes [id number] 500mg Take 1 [facility] 500 mg 1-12 capsule by ity of capsule 00:00: mouth in [place] [address] the [facility] morning [place] and 1 capsule at noon and 1 capsule in the evening. amoxicillin 2021-07 Yes [id number] 500mg Take 1 [facility] 500 mg 1-12 capsule by ity of capsule 00:00: mouth in [place] [address] the [facility] morning [place] and 1 capsule at noon and 1 capsule in the evening. amoxicillin 2021-07 Yes [id number] 500mg Take 1 [facility] 500 mg 1-12 capsule by ity of capsule 00:00: mouth in [address] morning [place] and 1 capsule at noon and 1 capsule in the evening. amoxicillin 2021-07 Yes [id number] 500mg Take 1 [facility] 500 mg 1-12 capsule by ity of capsule 00:00: mouth in [place] [address] the [facility] morning [place] and 1 capsule at noon and 1 capsule in the evening. amoxicillin 2021-07 Yes [id number] 500mg Take 1 [facility] 500 mg 1-12 capsule by ity of capsule 00:00: mouth in [address] morning [place] and 1 capsule at noon and 1 capsule in the evening. amoxicillin 2021-07 Yes [id number] 500mg Take 1 [facility] 500 mg 1-12 capsule by ity of capsule 00:00: mouth in [address] morning [place] and 1 capsule at noon and 1 capsule in the evening. amoxicillin 2021- Yes [id number] 500mg Take 1 [facility] 500 mg 1-12 capsule by ity of capsule 00:00: mouth in [address] morning [place] and 1 capsule at noon and 1 capsule in the evening. amoxicillin 2021- Yes [id number] 500mg Take 1 [facility] 500 mg 1-12 capsule by ity of capsule 00:00: mouth in [place] 00 the Medical morning Branch and 1 capsule at noon and 1 capsule in the evening. amoxicillin 2021-07 Yes [id number] 500mg Take 1 [facility] 500 mg 1-12 capsule by ity of capsule 00:00: mouth in [place] 00 the Medical morning Branch and 1 capsule at noon and 1 capsule in the evening. amoxicillin 2021-07 Yes [id number] 500mg Take 1 [facility] 500 mg 1-12 capsule by ity of capsule 00:00: mouth in [place] 00 the Medical morning Branch and 1 capsule at noon and 1 capsule in the evening. amoxicillin 2021-07 Yes [id number] 500mg Take 1 [facility] 500 mg 1-12 capsule by ity of capsule 00:00: mouth in [place] 00 the Medical morning Branch and 1 capsule at noon and 1 capsule in the evening. amoxicillin 2021-07 Yes [id number] 500mg Take 1 [facility] 500 mg 1-12 capsule by ity of capsule 00:00: mouth in [place] 00 the Medical morning Branch and 1 capsule at noon and 1 capsule in the evening. amoxicillin 2021-07 Yes [id number] 500mg Take 1 [facility] 500 mg 1-12 capsule by ity of capsule 00:00: mouth in [place] 00 the Medical morning [place] and 1 capsule at noon and 1 capsule in the evening. amoxicillin 2021-07- No [id number] 500mg Take 1 [facility] 500 mg 1-12 -03 capsule by ity of capsule 00:00: 00:00 mouth in [place] 00 :00 the Medical morning [place] and 1 capsule at noon and 1 capsule in the evening. amoxicillin 2021-07- No [id number] 500mg Take 1 [facility] 500 mg 1-12 -03 capsule by ity of capsule 00:00: 00:00 mouth in [place] 00 :00 the Medical morning Branch and 1 capsule at noon and 1 capsule in the evening. amoxicillin 2021-07- No [id number] 500mg Take 1 [facility] 500 mg 1-12 -03 capsule by ity of capsule 00:00: 00:00 mouth in [place] 00 :00 the Medical morning Branch and 1 capsule at noon and 1 capsule in the evening. amoxicillin 2021-07- No [id number] 500mg Take 1 [facility] 500 mg 1-12 -03 capsule by ity of capsule 00:00: 00:00 mouth in [place] 00 :00 the Medical morning [place] and 1 capsule at noon and 1 capsule in the evening. amoxicillin 2021-07- No [id number] 500mg Take 1 [facility] 500 mg 08-08 capsule by ity of capsule 00:00: 00:00 mouth in [place] 00 :[address] [facility] and 1 capsule at noon and 1 capsule in the evening. amoxicillin 2021-07- No [id number] 500mg Take 1 [facility] 500 mg 08-08 capsule by [facility] of capsule 00:00: 00:00 mouth in [place] 00 :[address] [facility] and 1 capsule at noon and 1 capsule in the evening. amoxicillin 2021-07- No [id number] 500mg Take 1 [facility] 500 mg 08-08 capsule by ity of capsule 00:00: 00:00 mouth in [place] 00 :[address] [facility] and 1 capsule at noon and 1 capsule in the evening. amoxicillin 2021-07- No [id number] 500mg Take 1 [facility] 500 mg 08-08 capsule by ity of capsule 00:00: 00:00 mouth in [place] 00 :[address] [facility] and 1 capsule at noon and 1 capsule in the evening. naproxen 2021-07- No [id number] 500mg Take 1 [facility] 500 mg 08-08-23 tablet by ity of tablet 00:00: 05:59 mouth in [place] 00 :[address] [facility] and 1 tablet in the evening. Take with meals. Do all this for 10 days. naproxen 2021-07- No [id number] 500mg Take 1 [facility] 500 mg 08-08 tablet by ity of tablet 00:00: 05:59 mouth in [place] 00 :00 [facility] and 1 tablet in the evening. Take with meals. Do all this for 10 days. naproxen 2021-07- No [id number] 500mg Take 1 [facility] 500 mg 08-08- tablet by ity of tablet 00:00: 05:59 mouth in [place] 00 :00 [facility] and 1 tablet in the evening. Take with meals. Do all this for 10 days. naproxen 2021-07- No [id number] 500mg Take 1 [facility] 500 mg -07 07-23 tablet by ity of tablet 00:00: 05:59 mouth in [place] 00 :00 the [facility] and 1 tablet in the evening. Take with meals. Do all this for 10 days. naproxen 2021-07- No [id number] 500mg Take 1 [facility] 500 mg 08-08 tablet by ity of tablet 00:00: 05:59 mouth in [place] 00 :00 the [facility] morning [facility] and 1 tablet in the evening. Take with meals. Do all this for 10 days. naproxen 2021-07- No [id number] 500mg Take 1 [facility] 500 mg 08-08 tablet by ity of tablet 00:00: 05:59 mouth in [place] 00 :00 the Medical morning Branch and 1 tablet in the evening. Take with meals. Do all this for 10 days. pravastatin 2021-0 Yes [id number] 40mg Take 1 [facility] 40 mg 8-08 tablet by ity of tablet 00:00: mouth at [place] 00 bedtime. Medical Recommend Branch labs to done as ordered in 2 months. pravastatin 2021-0 Yes [id number] 40mg Take 1 [facility] 40 mg 8-08 tablet by ity of tablet 00:00: mouth at [place] 00 bedtime. Medical Recommend Branch labs to done as ordered in 2 months. pravastatin 2021-0 Yes [id number] 40mg Take 1 [facility] 40 mg 8-08 tablet by ity of tablet 00:00: mouth at [place] 00 bedtime. Medical Recommend Branch labs to done as ordered in 2 months. pravastatin 2-0 Yes [id number] 40mg Take 1 [facility] 40 mg 8-08 tablet by ity of tablet 00:00: mouth at [place] 00 bedtime. Medical Recommend Branch labs to done as ordered in 2 months. pravastatin 2-0 Yes [id number] 40mg Take 1 [facility] 40 mg 8-08 tablet by ity of tablet 00:00: mouth at [place] 00 bedtime. Medical Recommend Branch labs to done as ordered in 2 months. pravastatin 2022-0 Yes [id number] 40mg Take 1 [facility] 40 mg 8-08 tablet by ity of tablet 00:00: mouth at [place] 00 bedtime. Medical Recommend Branch labs to done as ordered in 2 months. pravastatin 2022-0 Yes [id number] 40mg Take 1 [facility] 40 mg 8-08 tablet by ity of tablet 00:00: mouth at [place] 00 bedtime. Medical Recommend Branch labs to done as ordered in 2 months. pravastatin 2022-0 Yes [id number] 40mg Take 1 [facility] 40 mg 8-08 tablet by ity of tablet 00:00: mouth at [place] 00 bedtime. Medical Recommend Branch labs to done as ordered in 2 months. pravastatin 2022-0 Yes [id number] 40mg Take 1 [facility] 40 mg 8-08 tablet by ity of tablet 00:00: mouth at [place] 00 bedtime. Medical Recommend Branch labs to done as ordered in 2 months. pravastatin 2022-0 Yes [id number] 40mg Take 1 [facility] 40 mg 8-08 tablet by ity of tablet 00:00: mouth at [place] 00 bedtime. Medical Recommend Branch labs to done as ordered in 2 months. pravastatin 2022-0 Yes [id number] 40mg Take 1 [facility] 40 mg 8-08 tablet by ity of tablet 00:00: mouth at [place] 00 bedtime. Medical Recommend Branch labs to done as ordered in 2 months. pravastatin 2022-0 Yes [id number] 40mg Take 1 [facility] 40 mg 8-08 tablet by ity of tablet 00:00: mouth at [place] 00 bedtime. Medical Recommend Branch labs to done as ordered in 2 months. pravastatin 2022-0 Yes [id number] 40mg Take 1 [facility] 40 mg 8-08 tablet by ity of tablet 00:00: mouth at [place] 00 bedtime. Medical Recommend Branch labs to done as ordered in 2 months. pravastatin 2022-0 Yes [id number] 40mg Take 1 [facility] 40 mg 8-08 tablet by ity of tablet 00:00: mouth at [place] 00 bedtime. Medical Recommend Branch labs to done as ordered in 2 months. pravastatin 2022-0 Yes [id number] 40mg Take 1 [facility] 40 mg 8-08 tablet by ity of tablet 00:00: mouth at [place] 00 bedtime. Medical Recommend Branch labs to done as ordered in 2 months. pravastatin 2022-0 Yes [id number] 40mg Take 1 [facility] 40 mg 8-08 tablet by ity of tablet 00:00: mouth at [place] 00 bedtime. Medical Recommend Branch labs to done as ordered in 2 months. pravastatin 2022-0 Yes [id number] 40mg Take 1 [facility] 40 mg 8-08 tablet by ity of tablet 00:00: mouth at [place] 00 bedtime. Medical Recommend Branch labs to done as ordered in 2 months. pravastatin 2022-0 Yes [id number] 40mg Take 1 [facility] 40 mg 8-08 tablet by ity of tablet 00:00: mouth at [place] 00 bedtime. Medical Recommend Branch labs to done as ordered in 2 months. pravastatin 2022-0 Yes [id number] 40mg Take 1 [facility] 40 mg 8-08 tablet by ity of tablet 00:00: mouth at [place] 00 bedtime. Medical Recommend Branch labs to done as ordered in 2 months. pravastatin 2022-0 Yes [id number] 40mg Take 1 [facility] 40 mg 8-08 tablet by ity of tablet 00:00: mouth at [place] 00 bedtime. Medical Recommend Branch labs to done as ordered in 2 months. pravastatin 2022-0 Yes [id number] 40mg Take 1 [facility] 40 mg 8-08 tablet by ity of tablet 00:00: mouth at [place] 00 bedtime. Medical Recommend Branch labs to done as ordered in 2 months. pravastatin 2022-0 Yes [id number] 40mg Take 1 [facility] 40 mg 8-08 tablet by ity of tablet 00:00: mouth at [place] 00 bedtime. Medical Recommend Branch labs to done as ordered in 2 months. pravastatin 2022-0 Yes [id number] 40mg Take 1 [facility] 40 mg 8-08 tablet by ity of tablet 00:00: mouth at [place] 00 bedtime. Medical Recommend Branch labs to done as ordered in 2 months. pravastatin 2022-0 Yes [id number] 40mg Take 1 [facility] 40 mg 8-08 tablet by ity of tablet 00:00: mouth at [place] 00 bedtime. Medical Recommend Branch labs to done as ordered in 2 months. pravastatin 2022-0 Yes [id number] 40mg Take 1 [facility] 40 mg 8-08 tablet by ity of tablet 00:00: mouth at [place] 00 bedtime. Medical Recommend Branch labs to done as ordered in 2 months. pravastatin 2022-0 Yes [id number] 40mg Take 1 [facility] 40 mg 8-08 tablet by ity of tablet 00:00: mouth at [place] 00 bedtime. Medical Recommend Branch labs to done as ordered in 2 months. pravastatin 2022-0 Yes [id number] 40mg Take 1 [facility] 40 mg 8-08 tablet by ity of tablet 00:00: mouth at [place] 00 bedtime. Medical Recommend Branch labs to done as ordered in 2 months. pravastatin 2022-0 Yes [id number] 40mg Take 1 [facility] 40 mg 8-08 tablet by ity of tablet 00:00: mouth at [place] 00 bedtime. Medical Recommend Branch labs to done as ordered in 2 months. pravastatin 2022-0 Yes [id number] 40mg Take 1 [facility] 40 mg 8-08 tablet by ity of tablet 00:00: mouth at [place] 00 bedtime. Medical Recommend Branch labs to done as ordered in 2 months. pravastatin 2022-0 Yes [id number] 40mg Take 1 [facility] 40 mg 8-08 tablet by ity of tablet 00:00: mouth at [place] 00 bedtime. Medical Recommend Branch labs to done as ordered in 2 months. pravastatin 2022-0 Yes [id number] 40mg Take 1 [facility] 40 mg 8-08 tablet by ity of tablet 00:00: mouth at [place] 00 bedtime. Medical Recommend Branch labs to done as ordered in 2 months. pravastatin 2022-0 Yes [id number] 40mg Take 1 [facility] 40 mg 8-08 tablet by ity of tablet 00:00: mouth at [place] 00 bedtime. Medical Recommend Branch labs to done as ordered in 2 months. pravastatin 2022-0 Yes [id number] 40mg Take 1 [facility] 40 mg 8-08 tablet by ity of tablet 00:00: mouth at [place] 00 bedtime. Medical Recommend Branch labs to done as ordered in 2 months. pravastatin 2022-0 Yes [id number] 40mg Take 1 [facility] 40 mg 8-08 tablet by ity of tablet 00:00: mouth at [place] 00 bedtime. Medical Recommend Branch labs to done as ordered in 2 months. pravastatin 2022-0 Yes [id number] 40mg Take 1 [facility] 40 mg 8-08 tablet by ity of tablet 00:00: mouth at [place] 00 bedtime. Medical Recommend Branch labs to done as ordered in 2 months. pravastatin 2022-0 Yes [id number] 40mg Take 1 [facility] 40 mg 8-08 tablet by ity of tablet 00:00: mouth at [place] 00 bedtime. Medical Recommend Branch labs to done as ordered in 2 months. pravastatin 2022-0 Yes [id number] 40mg Take 1 [facility] 40 mg 8-08 tablet by ity of tablet 00:00: mouth at [place] 00 bedtime. Medical Recommend Branch labs to done as ordered in 2 months. pravastatin 2022-0 Yes [id number] 40mg Take 1 [facility] 40 mg 8-08 tablet by ity of tablet 00:00: mouth at [place] 00 bedtime. Medical Recommend Branch labs to done as ordered in 2 months. pravastatin 2022-0 Yes [id number] 40mg Take 1 [facility] 40 mg 8-08 tablet by ity of tablet 00:00: mouth at [place] 00 bedtime. Medical Recommend Branch labs to done as ordered in 2 months. pravastatin 2022-0 2023- No [id number] 40mg Take 1 [facility] 40 mg 8-08 03-28 tablet by ity of tablet 00:00: 00:00 mouth at [place] 00 :00 bedtime. Medical Recommend Branch labs to done as ordered in 2 months. pravastatin 2-0 2023- No [id number] 40mg Take 1 [facility] 40 mg 8-08 03-28 tablet by ity of tablet 00:00: 00:00 mouth at [place] 00 :00 bedtime. Medical Recommend Branch labs to done as ordered in 2 months. pravastatin 2-0 2023- No [id number] 40mg Take 1 [facility] 40 mg 8-08 03-28 tablet by ity of tablet 00:00: 00:00 mouth at [place] 00 :00 bedtime. Medical Recommend Branch labs to done as ordered in 2 months. lisinopriL- 2-0 Yes [id number] 1{tbl} Take 1 [facility] hydrochloro 4-07 tablet by ity of thiazide 00:00: mouth [place] 10-12.5 mg 00 daily. Medical per tablet Branch lisinopriL- 2022-0 Yes [id number] 1{tbl} Take 1 [facility] hydrochloro 4-07 tablet by ity of thiazide 00:00: mouth [place] 10-12.5 mg 00 daily. Medical per tablet Branch lisinopriL- 2022-0 Yes [id number] 1{tbl} Take 1 [facility] hydrochloro 4-07 tablet by ity of thiazide 00:00: mouth [place] 10-12.5 mg 00 daily. Medical per tablet Branch lisinopriL- 2022-0 Yes [id number] 1{tbl} Take 1 [facility] hydrochloro 4-07 tablet by ity of thiazide 00:00: mouth [place] 10-12.5 mg 00 daily. Medical per tablet Branch lisinopriL- 2021-0 Yes [id number] 1{tbl} Take 1 [facility] hydrochloro 4-07 tablet by ity of thiazide 00:00: mouth [place] 10-12.5 mg 00 daily. Medical per tablet Branch lisinopriL- 2021-0 Yes [id number] 1{tbl} Take 1 [facility] hydrochloro 4-07 tablet by ity of thiazide 00:00: mouth [place] 10-12.5 mg 00 daily. Medical per tablet Branch lisinopriL- 0 Yes [id number] 1{tbl} Take 1 [facility] hydrochloro 4-07 tablet by ity of thiazide 00:00: mouth [place] 10-12.5 mg 00 daily. Medical per tablet Branch lisinopriL- 0 Yes [id number] 1{tbl} Take 1 [facility] hydrochloro 4-07 tablet by ity of thiazide 00:00: mouth [place] 10-12.5 mg 00 daily. Medical per tablet Branch lisinopriL- 2021-0 Yes [id number] 1{tbl} Take 1 [facility] hydrochloro 4-07 tablet by ity of thiazide 00:00: mouth [place] 10-12.5 mg 00 daily. Medical per tablet Branch lisinopriL- 0 Yes [id number] 1{tbl} Take 1 [facility] hydrochloro 4-07 tablet by ity of thiazide 00:00: mouth [place] 10-12.5 mg 00 daily. Medical per tablet Branch lisinopriL- 2021-0 Yes [id number] 1{tbl} Take 1 [facility] hydrochloro 4-07 tablet by ity of thiazide 00:00: mouth [place] 10-12.5 mg 00 daily. Medical per tablet Branch lisinopriL- 2021-0 Yes [id number] 1{tbl} Take 1 [facility] hydrochloro 4-07 tablet by ity of thiazide 00:00: mouth [place] 10-12.5 mg 00 daily. Medical per tablet Branch lisinopriL- 2021-0 Yes [id number] 1{tbl} Take 1 [facility] hydrochloro 4-07 tablet by ity of thiazide 00:00: mouth [place] 10-12.5 mg 00 daily. Medical per tablet Branch lisinopriL- Yes [id number] 1{tbl} Take 1 [facility] hydrochloro 4-07 tablet by ity of thiazide 00:00: mouth [place] 10-12.5 mg 00 daily. Medical per tablet Branch lisinopriL- Yes [id number] 1{tbl} Take 1 [facility] hydrochloro 4-07 tablet by ity of thiazide 00:00: mouth [place] 10-12.5 mg 00 daily. Medical per tablet Branch lisinopriL- Yes [id number] 1{tbl} Take 1 [facility] hydrochloro 4-07 tablet by ity of thiazide 00:00: mouth [place] 10-12.5 mg 00 daily. Medical per tablet Branch lisinopriL- Yes [id number] 1{tbl} Take 1 [facility] hydrochloro 4-07 tablet by ity of thiazide 00:00: mouth [place] 10-12.5 mg 00 daily. Medical per tablet Branch lisinopriL- Yes [id number] 1{tbl} Take 1 [facility] hydrochloro 4-07 tablet by ity of thiazide 00:00: mouth [place] 10-12.5 mg 00 daily. Medical per tablet Branch lisinopriL- Yes [id number] 1{tbl} Take 1 [facility] hydrochloro 4-07 tablet by ity of thiazide 00:00: mouth [place] 10-12.5 mg 00 daily. Medical per tablet Branch lisinopriL- Yes [id number] 1{tbl} Take 1 [facility] hydrochloro 4-07 tablet by ity of thiazide 00:00: mouth [place] 10-12.5 mg 00 daily. Medical per tablet Branch lisinopriL- Yes [id number] 1{tbl} Take 1 [facility] hydrochloro 4-07 tablet by ity of thiazide 00:00: mouth [place] 10-12.5 mg 00 daily. Medical per tablet Branch lisinopriL- 2022- No [id number] 1{tbl} Take 1 [facility] hydrochloro 4-07 01-27 tablet by it y of thiazide 00:00: 00:00 mouth [place] 10-12.5 mg 00 :00 daily. Medical per tablet Branch Immunizations Ordered Filled Date Status Comments Source Immunization Name Immunization Name Influenza High Dose 2022-04-19 Completed Unive rsity of Quad 00:00:00 [facility] Pneumococcal 20 2022-04-19 Completed Universit y of Conjugate, PCV20 00:00:00 [facility] dical (Prevnar 20) Branch TDAP 2022-04-19 Completed University of 00:00:00 [facility] Zoster Vaccine 2022-04-19 Completed University of Recombinant 00:00:00 [facility] Influenza High Dose 2022-04-19 Completed Unive rsity of Quad 00:00:00 [facility] Pneumococcal 20 2022-04-19 Completed Universit y of Conjugate, PCV20 00:00:00 [facility] dical (Prevnar 20) Branch AP 2022-04-19 Completed University of 00:00:00 [facility] Zoster Vaccine 2022-04-19 Completed University of Recombinant 00:00:00 [facility] Influenza High Dose 2022-04-19 Completed Unive rsity of Quad 00:00:00 [facility] Pneumococcal 20 2022-04-19 Completed Universit y of Conjugate, PCV20 00:00:00 [facility] dical (Prevnar 20) Branch [facility] 2022-04-19 Completed University of 00:00:00 [facility] Zoster Vaccine 2022-04-19 Completed University of Recombinant 00:00:00 [facility] Influenza High Dose 2022-04-19 Completed Unive rsity of Quad 00:00:00 [facility] Pneumococcal 20 2022-04-19 Completed Universit y of Conjugate, PCV20 00:00:00 [facility] dical (Prevnar 20) Branch [facility] 2022-04-19 Completed University of 00:00:00 [facility] Zoster Vaccine 2022-04-19 Completed University of Recombinant 00:00:00 [facility] Influenza High Dose 2022-04-19 Completed Unive rsity of Quad 00:00:00 [facility] Pneumococcal 20 2022-04-19 Completed Universit y of Conjugate, PCV20 00:00:00 [facility] dical (Prevnar 20) Branch [facility] 2022-04-19 Completed University of 00:00:00 [facility] Zoster Vaccine 2022-04-19 Completed University of Recombinant 00:00:00 [facility] Influenza High Dose 2022-04-19 Completed Unive rsity of Quad 00:00:00 [facility] Pneumococcal 20 2022-04-19 Completed Universit y of Conjugate, PCV20 00:00:00 [place] [facility] dical (Prevnar 20) Branch [facility] 2022-04-19 Completed University of 00:00:00 [facility] Zoster Vaccine 2022-04-19 Completed University of Recombinant 00:00:00 [facility] Influenza High Dose 2022-04-19 Completed Unive rsity of [facility] 00:00:00 [facility] Pneumococcal 20 2022-04-19 Completed Universit y of Conjugate, PCV20 00:00:00 [facility] dical (Prevnar 20) Branch [facility] 2022-04-19 Completed University of 00:00:00 [facility] Zoster Vaccine 2022-04-19 Completed University of Recombinant 00:00:00 [facility] Influenza High Dose 2022-04-19 Completed Unive rsity of Quad 00:00:00 [facility] Pneumococcal 20 2022-04-19 Completed Universit y of Conjugate, PCV20 00:00:00 [facility] dical (Prevnar 20) Branch [facility] 2022-04-19 Completed University of 00:00:00 [facility] Zoster Vaccine 2022-04-19 Completed University of Recombinant 00:00:00 [facility] Influenza High Dose 2022-04-19 Completed Unive rsity of [facility] 00:00:00 [facility] Pneumococcal 20 2022-04-19 Completed Universit y of Conjugate, PCV20 00:00:00 [facility] dical (Prevnar 20) Branch [facility] 2022-04-19 Completed University of 00:00:00 [facility] Zoster Vaccine 2022-04-19 Completed University of Recombinant 00:00:00 [facility] Influenza High Dose 2022-04-19 Completed Unive rsity of [facility] 00:00:00 [facility] Pneumococcal 20 2022-04-19 Completed Universit y of Conjugate, PCV20 00:00:00 [facility] dical (Prevnar 20) Branch [facility] 2022-04-19 Completed University of 00:00:00 [facility] Zoster Vaccine 2022-04-19 Completed University of Recombinant 00:00:00 [facility] Influenza High Dose 2022-04-19 Completed Unive rs[facility] of [facility] 00:00:00 [facility] Pneumococcal 20 2022-04-19 Completed Universit y of Conjugate, PCV20 00:00:00 [place] [facility] dical (Prevnar 20) Branch [facility] 2022-04-19 Completed University of 00:00:00 [facility] Zoster Vaccine 2022-04-19 Completed University of Recombinant 00:00:00 [facility] Influenza High Dose 2022-04-19 Completed Unive rs[facility] of [facility] 00:00:00 [facility] Pneumococcal 20 2022-04-19 Completed Universit y of Conjugate, PCV20 00:00:00 [facility] dical (Prevnar 20) Branch [facility] 2022-04-19 Completed University of 00:00:00 [facility] Zoster Vaccine 2022-04-19 Completed University of Recombinant 00:00:00 [facility] Influenza High Dose 2022-04-19 Completed Unive rs[facility] of [facility] 00:00:00 [facility] Pneumococcal 20 2022-04-19 Completed Universit y of Conjugate, PCV20 00:00:00 [facility] dical (Prevnar 20) Branch [facility] 2022-04-19 Completed University of 00:00:00 [facility] Zoster Vaccine 2022-04-19 Completed University of Recombinant 00:00:00 [facility] Influenza High Dose 2022-04-19 Completed [facility]ive rs[facility] of [facility] 00:00:00 [facility] Pneumococcal 20 2022-04-19 Completed Universit y of Conjugate, PCV20 00:00:00 [facility] dical (Prevnar 20) Branch [facility] 2022-04-19 Completed University of 00:00:00 [facility] Zoster Vaccine 2022-04-19 Completed University of Recombinant 00:00:00 [facility] Influenza High Dose 2022-04-19 Completed [facility] of [facility] 00:00:00 [facility] Pneumococcal 20 2022-04-19 Completed Universit y of Conjugate, PCV20 00:00:00 [facility] dical (Prevnar 20) Branch [facility] 2022-04-19 Completed University of 00:00:00 [facility] Zoster Vaccine 2022-04-19 Completed University of Recombinant 00:00:00 [facility] Influenza High Dose 2022-04-19 Completed [facility] of [facility] 00:00:00 [facility] Pneumococcal 20 2022-04-19 Completed Universit y of Conjugate, PCV20 00:00:00 [facility] dical (Prevnar 20) Branch [facility] 2022-04-19 Completed University of 00:00:00 [facility] Zoster Vaccine 2022-04-19 Completed University of Recombinant 00:00:00 [facility] Influenza High Dose 2022-04-19 Completed [facility] of [facility] 00:00:00 [facility] Pneumococcal 20 2022-04-19 Completed Universit y of Conjugate, PCV20 00:00:00 [place] [facility] dical (Prevnar 20) Branch TDAP 2022-04-19 Completed University of 00:00:00 [facility] Zoster Vaccine 2022-04-19 Completed University of Recombinant 00:00:00 [facility] Influenza High Dose 2022-04-19 Completed [facility] of [facility] 00:00:00 [facility] Pneumococcal 20 2022-04-19 Completed Universit y of Conjugate, PCV20 00:00:00 [facility] dical (Prevnar 20) Branch [facility] 2022-04-19 Completed University of 00:00:00 [facility] Zoster Vaccine 2022-04-19 Completed University of Recombinant 00:00:00 [facility] Influenza High Dose 2022-04-19 Completed [facility] of [facility] 00:00:00 [facility] Pneumococcal 20 2022-04-19 Completed Universit y of Conjugate, PCV20 00:00:00 [facility] dical (Prevnar 20) Branch [facility] 2022-04-19 Completed University of 00:00:00 [facility] Zoster Vaccine 2022-04-19 Completed University of Recombinant 00:00:00 [facility] Influenza High Dose 2022-04-19 Completed Unive [facility] of [facility] 00:00:00 [facility] Pneumococcal 20 2022-04-19 Completed Universit y of Conjugate, PCV20 00:00:00 [facility] dical (Prevnar 20) Branch [facility] 2022-04-19 Completed University of 00:00:00 [facility] Zoster Vaccine 2022-04-19 Completed University of Recombinant 00:00:00 [facility] Influenza High Dose 2022-04-19 Completed [facility] of [facility] 00:00:00 [facility] Pneumococcal 20 2022-04-19 Completed Universit y of Conjugate, PCV20 00:00:00 [place] [facility] dical (Prevnar 20) Branch [facility] 2022-04-19 Completed University of 00:00:00 [facility] Zoster Vaccine 2022-04-19 Completed University of Recombinant 00:00:00 [facility] Influenza High Dose 2022-04-19 Completed Un[facility] rs[facility] of [facility] 00:00:00 [facility] Pneumococcal 20 2022-04-19 Completed Universit y of Conjugate, PCV20 00:00:00 [place] [facility] dical (Prevnar 20) Branch [facility] 2022-04-19 Completed University of 00:00:00 [facility] Zoster Vaccine 2022-04-19 Completed University of Recombinant 00:00:00 [facility] Influenza High Dose 2022-04-19 Completed [facility] of [facility] 00:00:00 [facility] Pneumococcal 20 2022-04-19 Completed Universit y of Conjugate, PCV20 00:00:00 [place] [facility]ical (Prevnar 20) [facility] [facility] 2022-04-19 Completed [facility] 00:00:00 [facility] Zoster Vaccine 2022-04-19 Completed University of Recombinant 00:00:00 [facility] Influenza High Dose 2022-04-19 Completed Unive rsity of Quad 00:00:00 [facility] Pneumococcal 20 2022-04-19 Completed Universit y of Conjugate, PCV20 00:00:00 [place] [facility] (Prevnar 20) [facility] 2022-04-19 Completed University of 00:00:00 [facility] Zoster Vaccine 2022-04-19 Completed University of Recombinant 00:00:00 [facility] Influenza High Dose 2022-04-19 Completed [facility]ive [facility] 00:00:00 [facility] Pneumococcal 20 2022-04-19 Completed Universit y of Conjugate, PCV20 00:00:00 [facility] dical (Prevnar 20) [facility] 2022-04-19 Completed University of 00:00:00 [facility] Zoster Vaccine 2022-04-19 Completed University of Recombinant 00:00:00 [facility] Influenza High Dose 2022-04-19 Completed [facility]ive [facility] 00:00:00 [facility] Pneumococcal 20 2022-04-19 Completed Universit y of Conjugate, PCV20 00:00:00 [place] [facility] (Prevnar 20) [facility] 2022-04-19 Completed University of 00:00:00 [facility] Zoster Vaccine 2022-04-19 Completed University of Recombinant 00:00:00 [facility] Influenza High Dose 2022-04-19 Completed [facility]ive [facility] of [facility] 00:00:00 [facility] Pneumococcal 20 2022-04-19 Completed Universit y of Conjugate, PCV20 00:00:00 [facility] dical (Prevnar 20) [facility] 2022-04-19 Completed University of 00:00:00 [facility] Zoster Vaccine 2022-04-19 Completed University of Recombinant 00:00:00 [facility] Influenza High Dose 2022-04-19 Completed [facility]ive [facility] of [facility] 00:00:00 [facility] Pneumococcal 20 2022-04-19 Completed Universit y of Conjugate, PCV20 00:00:00 [facility] dical (Prevnar 20) [facility] 2022-04-19 Completed University of 00:00:00 [facility] Zoster Vaccine 2022-04-19 Completed University of Recombinant 00:00:00 [facility] Influenza High Dose 2022-04-19 Completed [facility]ive [facility] of [facility] 00:00:00 [facility] Pneumococcal 20 2022-04-19 Completed Universit y of Conjugate, PCV20 00:00:00 [facility] dical (Prevnar 20) [facility] 2022-04-19 Completed University of 00:00:00 [facility] Zoster Vaccine 2022-04-19 Completed University of Recombinant 00:00:00 [facility] Influenza High Dose 2022-04-19 Completed [facility]ive [facility] 00:00:00 [facility] Pneumococcal 20 2022-04-19 Completed Universit y of Conjugate, PCV20 00:00:00 [facility] dical (Prevnar 20) [facility] 2022-04-19 Completed University of 00:00:00 [facility] Zoster Vaccine 2022-04-19 Completed University of Recombinant 00:00:00 [facility] Influenza High Dose 2022-04-19 Completed [facility]ive [facility] of [facility] 00:00:00 [facility] Pneumococcal 20 2022-04-19 Completed Universit y of Conjugate, PCV20 00:00:00 [facility] dical (Prevnar 20) [facility] 2022-04-19 Completed University of 00:00:00 [facility] Zoster Vaccine 2022-04-19 Completed University of Recombinant 00:00:00 [facility] Influenza High Dose 2022-04-19 Completed [facility] 00:00:00 [facility] Pneumococcal 20 2022-04-19 Completed Universit y of Conjugate, PCV20 00:00:00 [facility] dical (Prevnar 20) [facility] 2022-04-19 Completed University of 00:00:00 [facility] Zoster Vaccine 2022-04-19 Completed University of Recombinant 00:00:00 [facility] Influenza High Dose 2022-04-19 Completed [facility]ive [facility] of [facility] 00:00:00 [facility] Pneumococcal 20 2022-04-19 Completed Universit y of Conjugate, PCV20 00:00:00 [facility] dical (Prevnar 20) Branch [facility] 2022-04-19 Completed University of 00:00:00 [facility] Zoster Vaccine 2022-04-19 Completed University of Recombinant 00:00:00 [facility] Influenza High Dose 2022-04-19 Completed [facility]ive [facility] of [facility] 00:00:00 [facility] Pneumococcal 20 2022-04-19 Completed Universit y of Conjugate, PCV20 00:00:00 [facility] dical (Prevnar 20) Branch [facility] 2022-04-19 Completed University of 00:00:00 [facility] Zoster Vaccine 2022-04-19 Completed University of Recombinant 00:00:00 [facility] Influenza High Dose 2022-04-19 Completed [facility] of [facility] 00:00:00 [facility] Pneumococcal 20 2022-04-19 Completed Universit y of Conjugate, PCV20 00:00:00 [facility] dical (Prevnar 20) Branch [facility] 2022-04-19 Completed University of 00:00:00 [facility] Zoster Vaccine 2022-04-19 Completed University of Recombinant 00:00:00 [facility] 2022-03-26 Completed University of 00:00:00 [facility] Pneumococcal 20 2022-03-26 Completed Universit y of Conjugate, PCV20 00:00:00 [facility] dical (Prevnar 20) Branch [facility] 2022-03-26 Completed University of 00:00:00 [facility] Pneumococcal 20 2022-03-26 Completed Universit y of Conjugate, PCV20 00:00:00 [facility] dical (Prevnar 20) Branch [facility] 2022-03-26 Completed University of 00:00:00 [facility] Pneumococcal 20 2022-03-26 Completed Universit y of Conjugate, PCV20 00:00:00 [facility] dical (Prevnar 20) Branch [facility] 2022-03-26 Completed University of 00:00:00 [facility] Pneumococcal 20 2022-03-26 Completed Universit y of Conjugate, PCV20 00:00:00 [facility] dical (Prevnar 20) Branch [facility] 2022-03-26 Completed University of 00:00:00 [facility] Pneumococcal 20 2022-03-26 Completed Universit y of Conjugate, PCV20 00:00:00 [facility] dical (Prevnar 20) Branch [facility] 2022-03-26 Completed University of 00:00:00 [facility] Pneumococcal 20 2022-03-26 Completed Universit y of Conjugate, PCV20 00:00:00 [facility] dical (Prevnar 20) Branch [facility] 2022-03-26 Completed University of 00:00:00 [facility] Pneumococcal 20 2022-03-26 Completed Universit y of Conjugate, PCV20 00:00:00 [facility] dical (Prevnar 20) Branch [facility] 2022-03-26 Completed University of 00:00:00 [facility] Pneumococcal 20 2022-03-26 Completed Universit y of Conjugate, PCV20 00:00:00 [facility] dical (Prevnar 20) Branch [facility] 2022-03-26 Completed University of 00:00:00 [facility] Pneumococcal 20 2022-03-26 Completed Universit y of Conjugate, PCV20 00:00:00 [facility] dical (Prevnar 20) Branch [facility] 2022-03-26 Completed University of 00:00:00 [facility] Pneumococcal 20 2022-03-26 Completed Universit y of Conjugate, PCV20 00:00:00 [facility] dical (Prevnar 20) Branch [facility] 2022-03-26 Completed University of 00:00:00 [facility] Pneumococcal 20 2022-03-26 Completed Universit y of Conjugate, PCV20 00:00:00 [facility] dical (Prevnar 20) Branch [facility] 2022-03-26 Completed University of 00:00:00 [facility] Pneumococcal 20 2022-03-26 Completed Universit y of Conjugate, PCV20 00:00:00 [facility] dical (Prevnar 20) Branch [facility] 2022-03-26 Completed University of 00:00:00 [facility] Pneumococcal 20 2022-03-26 Completed Universit y of Conjugate, PCV20 00:00:00 [facility] dical (Prevnar 20) Branch [facility] 2022-03-26 Completed University of 00:00:00 [facility] Pneumococcal 20 2022-03-26 Completed Universit y of Conjugate, PCV20 00:00:00 [facility] dical (Prevnar 20) Branch [facility] 2022-03-26 Completed University of 00:00:00 [facility] Pneumococcal 20 2022-03-26 Completed Universit y of Conjugate, PCV20 00:00:00 [facility] dical (Prevnar 20) Branch [facility] 2022-03-26 Completed University of 00:00:00 [facility] Pneumococcal 20 2022-03-26 Completed Universit y of Conjugate, PCV20 00:00:00 [facility] dical (Prevnar 20) Branch [facility] 2022-03-26 Completed University of 00:00:00 [facility] Pneumococcal 20 2022-03-26 Completed Universit y of Conjugate, PCV20 00:00:00 [facility] dical (Prevnar 20) Branch [facility] 2022-03-26 Completed University of 00:00:00 [facility] Pneumococcal 20 2022-03-26 Completed Universit y of Conjugate, PCV20 00:00:00 [facility] dical (Prevnar 20) Branch [facility] 2022-03-26 Completed University of 00:00:00 [facility] Pneumococcal 20 2022-03-26 Completed Universit y of Conjugate, PCV20 00:00:00 [facility] dical (Prevnar 20) Branch [facility] 2022-03-26 Completed University of 00:00:00 [facility] Pneumococcal 20 2022-03-26 Completed Universit y of Conjugate, PCV20 00:00:00 [facility] dical (Prevnar 20) Branch [facility] 2022-03-26 Completed University of 00:00:00 [facility] Pneumococcal 20 2022-03-26 Completed Universit y of Conjugate, PCV20 00:00:00 [facility] dical (Prevnar 20) Branch [facility] 2022-03-26 Completed [facility] of 00:00:00 [facility] Pneumococcal 20 2022-03-26 Completed Universit y of Conjugate, PCV20 00:00:00 [facility] dical (Prevnar 20) Branch [facility] 2022-03-26 Completed [facility] of 00:00:00 [facility] Pneumococcal 20 2022-03-26 Completed Universit y of Conjugate, PCV20 00:00:00 [facility] dical (Prevnar 20) Branch [facility] 2022-03-26 Completed University of 00:00:00 [facility] Pneumococcal 20 2022-03-26 Completed Universit y of Conjugate, PCV20 00:00:00 [facility] dical (Prevnar 20) Branch [facility] 2022-03-26 Completed [facility] of 00:00:00 [facility] Pneumococcal 20 2022-03-26 Completed Universit y of Conjugate, PCV20 00:00:00 [facility] dical (Prevnar 20) Branch [facility] 2022-03-26 Completed [facility] of 00:00:00 [facility] Pneumococcal 20 2022-03-26 Completed Universit y of Conjugate, PCV20 00:00:00 [facility] dical (Prevnar 20) Branch [facility] 2022-03-26 Completed [facility] of 00:00:00 [facility] Pneumococcal 20 2022-03-26 Completed Universit y of Conjugate, PCV20 00:00:00 [facility] dical (Prevnar 20) Branch [facility] 2022-03-26 Completed University of 00:00:00 [facility] Pneumococcal 20 2022-03-26 Completed Universit y of Conjugate, PCV20 00:00:00 [facility] dical (Prevnar 20) Branch [facility] 2022-03-26 Completed University of 00:00:00 [facility] Pneumococcal 20 2022-03-26 Completed Universit y of Conjugate, PCV20 00:00:00 [facility] dical (Prevnar 20) Branch [facility] 2022-03-26 Completed University of 00:00:00 [facility] Pneumococcal 20 2022-03-26 Completed Universit y of Conjugate, PCV20 00:00:00 [facility] dical (Prevnar 20) Branch [facility] 2022-03-26 Completed University of 00:00:00 [facility] Pneumococcal 20 2022-03-26 Completed Universit y of Conjugate, PCV20 00:00:00 [facility] dical (Prevnar 20) Branch [facility] 2022-03-26 Completed University of 00:00:00 [facility] Pneumococcal 20 2022-03-26 Completed Universit y of Conjugate, PCV20 00:00:00 [facility] dical (Prevnar 20) Branch [facility] 2022-03-26 Completed University of 00:00:00 [facility] Pneumococcal 20 2022-03-26 Completed Universit y of Conjugate, PCV20 00:00:00 [facility] dical (Prevnar 20) Branch [facility] 2022-03-26 Completed [facility] of 00:00:00 [facility] Pneumococcal 20 2022-03-26 Completed Universit y of Conjugate, PCV20 00:00:00 [facility] dical (Prevnar 20) Branch [facility] 2022-03-26 Completed [facility] of 00:00:00 [facility] Pneumococcal 20 2022-03-26 Completed Universit y of Conjugate, PCV20 00:00:00 [facility] dical (Prevnar 20) Branch [facility] 2022-03-26 Completed [facility] of 00:00:00 [facility] Pneumococcal 20 2022-03-26 Completed Universit y of Conjugate, PCV20 00:00:00 [facility] dical (Prevnar 20) Branch [facility] 2022-03-26 Completed [facility] of 00:00:00 [facility] Pneumococcal 20 2022-03-26 Completed Universit y of Conjugate, PCV20 00:00:00 [facility] dical (Prevnar 20) Branch [facility] 2022-03-26 Completed [facility] of 00:00:00 [facility] Pneumococcal 20 2022-03-26 Completed Universit y of Conjugate, PCV20 00:00:00 [facility] dical (Prevnar 20) Branch [facility] 2022-03-26 Completed University of 00:00:00 [facility] Pneumococcal 20 2022-03-26 Completed Universit y of Conjugate, PCV20 00:00:00 [facility] dical (Prevnar 20) Branch [facility] 2022-03-26 Completed University of 00:00:00 [facility] Pneumococcal 20 2022-03-26 Completed Universit y of Conjugate, PCV20 00:00:00 [facility] dical (Prevnar 20) Branch [facility] 2022-03-26 Completed University of 00:00:00 [facility] Pneumococcal 20 2022-03-26 Completed Universit y of Conjugate, PCV20 00:00:00 [facility] dical (Prevnar 20) Branch [facility] 2022-03-26 Completed University of 00:00:00 [facility] Pneumococcal 20 2022-03-26 Completed Universit y of Conjugate, PCV20 00:00:00 [facility] dical (Prevnar 20) Branch [facility] 2022-03-26 Completed University of 00:00:00 [facility] Pneumococcal 20 2022-03-26 Completed Universit y of Conjugate, PCV20 00:00:00 [facility] dical (Prevnar 20) Branch [facility] 2022-03-26 Completed University of 00:00:00 [facility] Pneumococcal 20 2022-03-26 Completed Universit y of Conjugate, PCV20 00:00:00 [facility] dical (Prevnar 20) Branch [facility] 2022-03-26 Completed University of 00:00:00 [facility] Pneumococcal 20 2022-03-26 Completed Universit y of Conjugate, PCV20 00:00:00 [facility] dical (Prevnar 20) Branch [facility] 2022-03-26 Completed University of 00:00:00 [facility] Pneumococcal 20 2022-03-26 Completed Universit y of Conjugate, PCV20 00:00:00 [facility] dical (Prevnar 20) Branch [facility] 2022-03-26 Completed University of 00:00:00 [facility] Pneumococcal 20 2022-03-26 Completed Universit y of Conjugate, PCV20 00:00:00 [facility] dical (Prevnar 20) Branch [facility] 2022-03-26 Completed [facility] of 00:00:00 [facility] Pneumococcal 20 2022-03-26 Completed Universit y of Conjugate, PCV20 00:00:00 [facility] dical (Prevnar 20) Branch [facility] 2022-03-26 Completed University of 00:00:00 [facility] Pneumococcal 20 2022-03-26 Completed Universit y of Conjugate, PCV20 00:00:00 [facility] dical (Prevnar 20) Branch [facility] 2022-03-26 Completed [facility] of 00:00:00 [facility] Pneumococcal 20 2022-03-26 Completed Universit y of Conjugate, PCV20 00:00:00 [facility] dical (Prevnar 20) Branch [facility] 2022-03-26 Completed [facility] of 00:00:00 [facility] Pneumococcal 20 2022-03-26 Completed Universit y of Conjugate, PCV20 00:00:00 [facility] dical (Prevnar 20) Branch [facility] 2022-03-26 Completed [facility] of 00:00:00 [facility] Pneumococcal 20 2022-03-26 Completed Universit y of Conjugate, PCV20 00:00:00 [facility] dical (Prevnar 20) [facility] 2022-03-26 Completed [facility] 00:00:00 [facility] Pneumococcal 20 2022-03-26 Completed Universit y of Conjugate, PCV20 00:00:00 [facility] dical (Prevnar 20) [facility] 2022-03-26 Completed [facility] of 00:00:00 [facility] Pneumococcal 20 2022-03-26 Completed Universit y of Conjugate, PCV20 00:00:00 [facility] dical (Prevnar 20) [facility] 2022-03-26 Completed University of 00:00:00 [facility] Pneumococcal 20 2022-03-26 Completed Universit y of Conjugate, PCV20 00:00:00 [facility] dical (Prevnar 20) [facility] 2022-03-26 Completed [facility] of 00:00:00 [facility] Pneumococcal 20 2022-03-26 Completed [facility]it y of Conjugate, PCV20 00:00:00 [facility] dical (Prevnar 20) Branch [facility] 2022-03-26 Completed [facility] of 00:00:00 [facility] Pneumococcal 20 2022-03-26 Completed Universit y of Conjugate, PCV20 00:00:00 [facility] dical (Prevnar 20) Branch SARS-COV-2 COVID-19 2020-11-30 Completed Unive rsity of VACCINE - (MODERNA) 00:00:00 [facility] SARS-COV-2 COVID-19 2020-11-30 Completed Unive rsity of VACCINE - (MODERNA) 00:00:00 [facility] SARS-COV-2 COVID-19 2020-11-30 Completed Unive rsity of VACCINE - (MODERNA) 00:00:00 [facility] SARS-COV-2 COVID-19 2020-11-30 Completed Unive rsity of VACCINE - (MODERNA) 00:00:00 [facility] SARS-COV-2 COVID-19 2020-11-30 Completed [facility]ive rsity of VACCINE - (MODERNA) 00:00:00 [facility] SARS-COV-2 COVID-19 2020-11-30 Completed [facility]ive [facility]ity of VACCINE - (MODERNA) 00:00:00 [facility] SARS-COV-2 COVID-19 2020-11-30 Completed [facility]ive rsity of VACCINE - (MODERNA) 00:00:00 [facility] SARS-COV-2 COVID-19 2020-11-30 Completed [facility]ive rsity of VACCINE - (MODERNA) 00:00:00 [facility] SARS-COV-2 COVID-19 2020-11-30 Completed [facility]ive rsity of VACCINE - (MODERNA) 00:00:00 [facility] SARS-COV-2 COVID-19 2020-11-30 Completed Unive rsity of VACCINE - (MODERNA) 00:00:00 [facility] SARS-COV-2 COVID-19 2020-11-30 Completed Unive rsity of VACCINE - (MODERNA) 00:00:00 [facility] SARS-COV-2 COVID-19 2020-11-30 Completed [facility]ive [facility]ity of VACCINE - (MODERNA) 00:00:00 [facility] SARS-COV-2 COVID-19 2020-11-30 Completed [facility]ive [facility]ity of VACCINE - (MODERNA) 00:00:00 [facility] SARS-COV-2 COVID-19 2020-11-30 Completed [facility]ive [facility]ity of VACCINE - (MODERNA) 00:00:00 [facility] SARS-COV-2 COVID-19 2020-11-30 Completed [facility]ive [facility]ity of VACCINE - (MODERNA) 00:00:00 [facility] SARS-COV-2 COVID-19 2020-11-30 Completed [facility]ive rsity of VACCINE - (MODERNA) 00:00:00 [facility] SARS-COV-2 COVID-19 2020-11-30 Completed [facility]ive [facility]ity of VACCINE - (MODERNA) 00:00:00 [facility] SARS-COV-2 COVID-19 2020-11-30 Completed [facility]ive [facility]ity of VACCINE - (MODERNA) 00:00:00 [facility] SARS-COV-2 COVID-19 2020-11-30 Completed [facility]ive [facility] of VACCINE - (MODERNA) 00:00:00 [facility] SARS-COV-2 COVID-19 2020-11-30 Completed [facility]ive [facility]ity of VACCINE - (MODERNA) 00:00:00 [facility] SARS-COV-2 COVID-19 2020-11-30 Completed [facility] of VACCINE - (MODERNA) 00:00:00 [facility] SARS-COV-2 COVID-19 2020-11-30 Completed [facility] of VACCINE - (MODERNA) 00:00:00 [facility] SARS-COV-2 COVID-19 2020-11-30 Completed [facility] of VACCINE - (MODERNA) 00:00:00 [facility] SARS-COV-2 COVID-19 2020-11-30 Completed [facility] of VACCINE - (MODERNA) 00:00:00 [facility] SARS-COV-2 COVID-19 2020-11-30 Completed [facility] VACCINE - (MODERNA) 00:00:00 [facility] SARS-COV-2 COVID-19 2020-11-30 Completed [facility] of VACCINE - (MODERNA) 00:00:00 [facility] SARS-COV-2 COVID-19 2020-11-30 Completed [facility] of VACCINE - (MODERNA) 00:00:00 [facility] SARS-COV-2 COVID-19 2020-11-30 Completed [facility] of VACCINE - (MODERNA) 00:00:00 [facility] SARS-COV-2 COVID-19 2020-11-30 Completed [facility] of VACCINE - (MODERNA) 00:00:00 [facility] SARS-COV-2 COVID-19 2020-11-30 Completed [facility] of VACCINE - (MODERNA) 00:00:00 [facility] SARS-COV-2 COVID-19 2020-11-30 Completed [facility] of VACCINE - (MODERNA) 00:00:00 [facility] SARS-COV-2 COVID-19 2020-11-30 Completed [facility] of VACCINE - (MODERNA) 00:00:00 [facility] SARS-COV-2 COVID-19 2020-11-30 Completed [facility] of VACCINE - (MODERNA) 00:00:00 [facility] SARS-COV-2 COVID-19 2020-11-30 Completed [facility] VACCINE - (MODERNA) 00:00:00 [facility] SARS-COV-2 COVID-19 2020-11-30 Completed [facility] of VACCINE - (MODERNA) 00:00:00 [facility] SARS-COV-2 COVID-19 2020-11-02 Completed [facility] of VACCINE - (MODERNA) 00:00:00 [facility] SARS-COV-2 COVID-19 2020-11-02 Completed [facility] of VACCINE - (MODERNA) 00:00:00 [facility] SARS-COV-2 COVID-19 2020-11-02 Completed [facility] of VACCINE - (MODERNA) 00:00:00 [facility] SARS-COV-2 COVID-19 2020-11-02 Completed [facility] of VACCINE - (MODERNA) 00:00:00 [facility] SARS-COV-2 COVID-19 2020-11-02 Completed [facility] of VACCINE - (MODERNA) 00:00:00 [facility] SARS-COV-2 COVID-19 2020-11-02 Completed [facility] of VACCINE - (MODERNA) 00:00:00 [facility] SARS-COV-2 COVID-19 2020-11-02 Completed [facility] of VACCINE - (MODERNA) 00:00:00 [facility] SARS-COV-2 COVID-19 2020-11-02 Completed [facility] of VACCINE - (MODERNA) 00:00:00 [facility] SARS-COV-2 COVID-19 2020-11-02 Completed [facility] of VACCINE - (MODERNA) 00:00:00 [facility] SARS-COV-2 COVID-19 2020-11-02 Completed [facility] of VACCINE - (MODERNA) 00:00:00 [facility] SARS-COV-2 COVID-19 2020-11-02 Completed [facility] of VACCINE - (MODERNA) 00:00:00 [facility] SARS-COV-2 COVID-19 2020-11-02 Completed [facility] of VACCINE - (MODERNA) 00:00:00 [facility] SARS-COV-2 COVID-19 2020-11-02 Completed [facility] of VACCINE - (MODERNA) 00:00:00 [facility] SARS-COV-2 COVID-19 2020-11-02 Completed [facility] of VACCINE - (MODERNA) 00:00:00 [facility] SARS-COV-2 COVID-19 2020-11-02 Completed [facility] of VACCINE - (MODERNA) 00:00:00 [facility] SARS-COV-2 COVID-19 2020-11-02 Completed [facility] of VACCINE - (MODERNA) 00:00:00 [facility] SARS-COV-2 COVID-19 2020-11-02 Completed [facility] of VACCINE - (MODERNA) 00:00:00 [facility] SARS-COV-2 COVID-19 2020-11-02 Completed [facility] of VACCINE - (MODERNA) 00:00:00 [facility] SARS-COV-2 COVID-19 2020-11-02 Completed [facility] of VACCINE - (MODERNA) 00:00:00 [facility] SARS-COV-2 COVID-19 2020-11-02 Completed [facility] of VACCINE - (MODERNA) 00:00:00 [facility] SARS-COV-2 COVID-19 2020-11-02 Completed [facility] of VACCINE - (MODERNA) 00:00:00 [facility] SARS-COV-2 COVID-19 2020-11-02 Completed [facility] of VACCINE - (MODERNA) 00:00:00 [facility] SARS-COV-2 COVID-19 2020-11-02 Completed [facility] of VACCINE - (MODERNA) 00:00:00 [facility] SARS-COV-2 COVID-19 2020-11-02 Completed [facility] of VACCINE - (MODERNA) 00:00:00 [facility] SARS-COV-2 COVID-19 2020-11-02 Completed [facility] of VACCINE - (MODERNA) 00:00:00 [facility] SARS-COV-2 COVID-19 2020-11-02 Completed [facility] VACCINE - (MODERNA) 00:00:00 [facility] SARS-COV-2 COVID-19 2020-11-02 Completed [facility] of VACCINE - (MODERNA) 00:00:00 [facility] SARS-COV-2 COVID-19 2020-11-02 Completed [facility] of VACCINE - (MODERNA) 00:00:00 [facility] SARS-COV-2 COVID-19 2020-11-02 Completed [facility] of VACCINE - (MODERNA) 00:00:00 [facility] SARS-COV-2 COVID-19 2020-11-02 Completed [facility] of VACCINE - (MODERNA) 00:00:00 [facility] SARS-COV-2 COVID-19 2020-11-02 Completed [facility] of VACCINE - (MODERNA) 00:00:00 [facility] SARS-COV-2 COVID-19 2020-11-02 Completed [facility] of VACCINE - (MODERNA) 00:00:00 [facility] SARS-COV-2 COVID-19 2020-11-02 Completed [facility] of VACCINE - (MODERNA) 00:00:00 [facility] SARS-COV-2 COVID-19 2020-11-02 Completed [facility] of VACCINE - (MODERNA) 00:00:00 [facility] SARS-COV-2 COVID-19 2020-11-02 Completed [facility] of VACCINE - (MODERNA) 00:00:00 [facility] SARS-COV-2 COVID-19 2020-10-26 Completed Unive rsity [...] rsity of MODERNA 12+ YRS 00:00:[address] [facility] ical VACCINE Branch SARS-COV-2 COVID-19 2020-09-25 [...] rsity of MODERNA 12+ YRS 00:00:[address] [facility] ical VACCINE Branch SARS-COV-2 COVID-19 2020-09-25 Completed Unive [facility]ity of MODERNA 12+ YRS 00:00:00 [facility] ical VACCINE Branch Zoster Vaccine 2019-12-26 Completed University of Recombinant 00:00:00 [facility] Zoster Vaccine 2019-12-26 Completed University of Recombinant 00:00:00 [facility] Zoster Vaccine 2019-12-26 Completed [facility] of Recombinant 00:00:00 [facility] Zoster Vaccine 2019-12-26 Completed University of Recombinant 00:00:00 [facility] Zoster Vaccine 2019-12-26 Completed University of Recombinant 00:00:00 [facility] Zoster Vaccine 2019-12-26 Completed [facility] of Recombinant 00:00:00 [facility] Zoster Vaccine 2019-12-26 Completed [facility] of Recombinant 00:00:00 [facility] Zoster Vaccine 2019-12-26 Completed [facility] of Recombinant 00:00:00 [facility] Zoster Vaccine 2019-12-26 Completed [facility] of Recombinant 00:00:00 [facility] Zoster Vaccine 2019-12-26 Completed [facility] of Recombinant 00:00:00 [facility] Zoster Vaccine 2019-12-26 Completed [facility] of Recombinant 00:00:00 [facility] Zoster Vaccine 2019-12-26 Completed [facility] of Recombinant 00:00:00 [facility] Zoster Vaccine 2019-12-26 Completed [facility] of Recombinant 00:00:00 [facility] Zoster Vaccine 2019-12-26 Completed [facility] Recombinant 00:00:00 [facility] Zoster Vaccine 2019-12-26 Completed [facility] of Recombinant 00:00:00 [facility] Zoster Vaccine 2019-12-26 Completed [facility] of Recombinant 00:00:00 [facility] Zoster Vaccine 2019-12-26 Completed [facility] of Recombinant 00:00:00 [facility] Zoster Vaccine 2019-12-26 Completed [facility] of Recombinant 00:00:00 [facility] Zoster Vaccine 2019-12-26 Completed [facility] of Recombinant 00:00:00 [facility] Zoster Vaccine 2019-12-26 Completed [facility] of Recombinant 00:00:00 [facility] Zoster Vaccine 2019-12-26 Completed [facility] of Recombinant 00:00:00 [facility] Zoster Vaccine 2019-12-26 Completed [facility] of Recombinant 00:00:00 [facility] Zoster Vaccine 2019-12-26 Completed [facility] of Recombinant 00:00:00 [facility] Zoster Vaccine 2019-12-26 Completed [facility] of Recombinant 00:00:00 [facility] Zoster Vaccine 2019-12-26 Completed [facility] of Recombinant 00:00:00 [facility] Zoster Vaccine 2019-12-26 Completed [facility] of Recombinant 00:00:00 [facility] Zoster Vaccine 2019-12-26 Completed [facility] of Recombinant 00:00:00 [facility] Zoster Vaccine 2019-12-26 Completed [facility] of Recombinant 00:00:00 [facility] Zoster Vaccine 2019-12-26 Completed [facility] of Recombinant 00:00:00 [facility] Zoster Vaccine 2019-12-26 Completed [facility] of Recombinant 00:00:00 [facility] Zoster Vaccine 2019-12-26 Completed [facility] of Recombinant 00:00:00 [facility] Zoster Vaccine 2019-12-26 Completed [facility] of Recombinant 00:00:00 [facility] Zoster Vaccine 2019-12-26 Completed [facility] Recombinant 00:00:00 [facility] Zoster Vaccine 2019-12-26 Completed [facility] of Recombinant 00:00:00 [facility] Zoster Vaccine 2019-12-26 Completed [facility] of Recombinant 00:00:00 [facility] Zoster Vaccine 2019-12-26 Completed [facility] Recombinant 00:00:00 [facility] Zoster Vaccine 2019-12-26 Completed [facility] of Recombinant 00:00:00 [facility] Zoster Vaccine 2019-12-26 Completed [facility] Recombinant 00:00:00 [facility] Zoster Vaccine 2019-12-26 Completed [facility] of Recombinant 00:00:00 [facility] Zoster Vaccine 2019-12-26 Completed [facility] Recombinant 00:00:00 [facility] Zoster Vaccine 2019-12-26 Completed [facility] Recombinant 00:00:00 [facility] Zoster Vaccine 2019-12-26 Completed [facility] Recombinant 00:00:00 [facility] Zoster Vaccine 2019-12-26 Completed [facility] Recombinant 00:00:00 [facility] Zoster Vaccine 2019-12-26 Completed [facility] Recombinant 00:00:00 [facility] Zoster Vaccine 2019-12-26 Completed [facility] of Recombinant 00:00:00 [facility] Zoster Vaccine 2019-12-26 Completed [facility] Recombinant 00:00:00 [facility] Zoster Vaccine 2019-12-26 Completed [facility] Recombinant 00:00:00 [facility] Zoster Vaccine 2019-12-26 Completed [facility] Recombinant 00:00:00 [facility] Zoster Vaccine 2019-12-26 Completed [facility] Recombinant 00:00:00 [facility] Zoster Vaccine 2019-12-26 Completed [facility] Recombinant 00:00:00 [facility] Zoster Vaccine 2019-12-26 Completed [facility] Recombinant 00:00:00 [facility] Zoster Vaccine 2019-12-26 Completed [facility] of Recombinant 00:00:00 [facility] Zoster Vaccine 2019-12-26 Completed [facility] of Recombinant 00:00:00 [facility] Zoster Vaccine 2019-12-26 Completed [facility] of Recombinant 00:00:00 [facility] Zoster Vaccine 2019-12-26 Completed [facility] of Recombinant 00:00:00 [facility] Zoster Vaccine 2019-12-26 Completed [facility] of Recombinant 00:00:00 [facility] Zoster Vaccine 2019-12-26 Completed [facility] Recombinant 00:00:00 [facility] Zoster Vaccine 2019-12-26 Completed [facility] Recombinant 00:00:00 [facility] Zoster Vaccine Unknown Completed [facility] SARS-COV-2 COVID-19 Unknown Completed Unive rsity of MODERNA 12+ YRS [facility] ical VACCINE Branch SARS-COV-2 COVID-19 Unknown Completed Unive rsity of MODERNA 12+ YRS [facility] ical VACCINE Branch TDAP Unknown Completed [facility] Pneumococcal 20 Unknown Completed Univers[facility] y of Conjugate, PCV20 [place] [facility] (Prevnar 20) Branch SARS-COV-2 COVID-19 Unknown Completed [facility] of VACCINE - (MODERNA) [facility] SARS-COV-2 COVID-19 Unknown Completed [facility] of VACCINE - (MODERNA) [facility] Influenza High Dose Unknown Completed [facility] of [facility] Pneumococcal 20 Unknown Completed [facility] y of Conjugate, PCV20 [place] [facility] (Prevnar 20) Branch TDAP Unknown Completed [facility] Zoster Vaccine Unknown Completed [facility] Zoster Vaccine Unknown Completed [facility] SARS-COV-2 COVID-19 Unknown Completed Unive rsity of MODERNA 12+ YRS [facility] ical VACCINE Branch SARS-COV-2 COVID-19 Unknown Completed Unive rs[facility] of MODERNA 12+ YRS [facility] ical VACCINE Branch TDAP Unknown Completed [facility] Pneumococcal 20 Unknown Completed [facility] Conjugate, PCV20 [place] [facility] (Prevnar 20) Branch SARS-COV-2 COVID-19 Unknown Completed [facility] of VACCINE - (MODERNA) [facility] SARS-COV-2 COVID-19 Unknown Completed [facility] of VACCINE - (MODERNA) [facility] Influenza High Dose Unknown Completed [facility] of [facility] Pneumococcal 20 Unknown Completed [facility] Conjugate, PCV20 [place] [facility] (Prevnar 20) Branch TDAP Unknown Completed [facility] Zoster Vaccine Unknown Completed [facility] Zoster Vaccine Unknown Completed [facility] SARS-COV-2 COVID-19 Unknown Completed Unive rsity of MODERNA 12+ YRS [facility] ical VACCINE Branch SARS-COV-2 COVID-19 Unknown Completed Unive rs[facility] of MODERNA 12+ YRS [facility] ical VACCINE Branch TDAP Unknown Completed [facility] Pneumococcal 20 Unknown Completed [facility] Conjugate, PCV20 [place] [facility] (Prevnar 20) Branch SARS-COV-2 COVID-19 Unknown Completed [facility] VACCINE - (MODERNA) [facility] SARS-COV-2 COVID-19 Unknown Completed [facility] of VACCINE - (MODERNA) [facility] Influenza High Dose Unknown Completed [facility] of [facility] Pneumococcal 20 Unknown Completed [facility] Conjugate, PCV20 [place] [facility] (Prevnar 20) Branch TDAP Unknown Completed [facility] Zoster Vaccine Unknown Completed [facility] Zoster Vaccine Unknown Completed [facility] SARS-COV-2 COVID-19 Unknown Completed Unive rsity of MODERNA 12+ YRS [facility] ical VACCINE Branch SARS-COV-2 COVID-19 Unknown Completed Unive rsity of MODERNA 12+ YRS [facility] ical VACCINE Branch TDAP Unknown Completed [facility] Pneumococcal 20 Unknown Completed Universit y of Conjugate, PCV20 [facility] dical (Prevnar 20) Branch SARS-COV-2 COVID-19 Unknown Completed [facility]ive [facility] of VACCINE - (MODERNA) [facility] SARS-COV-2 COVID-19 Unknown Completed [facility] of VACCINE - (MODERNA) [facility] Influenza High Dose Unknown Completed [facility] of [facility] Pneumococcal 20 Unknown Completed [facility] of Conjugate, PCV20 [place] [facility] (Prevnar 20) Branch TDAP Unknown Completed [facility] Zoster Vaccine Unknown Completed [facility] Zoster Vaccine Unknown Completed [facility] SARS-COV-2 COVID-19 Unknown Completed Unive rsity of MODERNA 12+ YRS [facility] ical VACCINE Branch SARS-COV-2 COVID-19 Unknown Completed Unive rsity of MODERNA 12+ YRS [facility] ical VACCINE Branch TDAP Unknown Completed [facility] Pneumococcal 20 Unknown Completed [facility] Conjugate, PCV20 [place] [facility] (Prevnar 20) Branch SARS-COV-2 COVID-19 Unknown Completed [facility] of VACCINE - (MODERNA) [facility] SARS-COV-2 COVID-19 Unknown Completed [facility]ive [facility] of VACCINE - (MODERNA) [facility] Influenza High Dose Unknown Completed [facility]ive [facility] of [facility] Pneumococcal 20 Unknown Completed [facility] of Conjugate, PCV20 [place] [facility] (Prevnar 20) Branch TDAP Unknown Completed [facility] Zoster Vaccine Unknown Completed [facility] Zoster Vaccine Unknown Completed [facility] SARS-COV-2 COVID-19 Unknown Completed Unive rsity of MODERNA 12+ YRS [facility] ical VACCINE Branch SARS-COV-2 COVID-19 Unknown Completed Unive rsity of MODERNA 12+ YRS [facility] ical VACCINE Branch TDAP Unknown Completed [facility] Pneumococcal 20 Unknown Completed [facility] Conjugate, PCV20 [place] [facility] (Prevnar 20) Branch SARS-COV-2 COVID-19 Unknown Completed [facility]ive [facility] of VACCINE - (MODERNA) [facility] SARS-COV-2 COVID-19 Unknown Completed Unive [facility] of VACCINE - (MODERNA) [facility] Influenza High Dose Unknown Completed [facility]ive [facility] of [facility] Pneumococcal 20 Unknown Completed [facility] of Conjugate, PCV20 [place] [facility] (Prevnar 20) Branch TDAP Unknown Completed [facility] Zoster Vaccine Unknown Completed [facility] Zoster Vaccine Unknown Completed [facility] SARS-COV-2 COVID-19 Unknown Completed Unive rsity of MODERNA 12+ YRS [facility] ical VACCINE Branch SARS-COV-2 COVID-19 Unknown Completed Unive rsity of MODERNA 12+ YRS [facility] ical VACCINE Branch TDAP Unknown Completed [facility] Pneumococcal 20 Unknown Completed [facility] of Conjugate, PCV20 [place] [facility] (Prevnar 20) Branch SARS-COV-2 COVID-19 Unknown Completed [facility]ive [facility] of VACCINE - (MODERNA) [facility] SARS-COV-2 COVID-19 Unknown Completed Unive [facility] of VACCINE - (MODERNA) [facility] Influenza High Dose Unknown Completed [facility] of [facility] Pneumococcal 20 Unknown Completed [facility] of Conjugate, PCV20 [place] [facility] (Prevnar 20) Branch TDAP Unknown Completed [facility] Zoster Vaccine Unknown Completed [facility] Zoster Vaccine Unknown Completed [facility] SARS-COV-2 COVID-19 Unknown Completed Unive rsity of MODERNA 12+ YRS [facility] ical VACCINE Branch SARS-COV-2 COVID-19 Unknown Completed Unive rsity of MODERNA 12+ YRS [facility] ical VACCINE Branch TDAP Unknown Completed [facility] Pneumococcal 20 Unknown Completed [facility] of Conjugate, PCV20 [place] [facility] (Prevnar 20) Branch SARS-COV-2 COVID-19 Unknown Completed [facility] of VACCINE - (MODERNA) [facility] SARS-COV-2 COVID-19 Unknown Completed [facility] of VACCINE - (MODERNA) [facility] Influenza High Dose Unknown Completed [facility] of [facility] Pneumococcal 20 Unknown Completed [facility] of Conjugate, PCV20 [place] [facility] (Prevnar 20) Branch TDAP Unknown Completed [facility] Zoster Vaccine Unknown Completed [facility] Zoster Vaccine Unknown Completed [facility] SARS-COV-2 COVID-19 Unknown Completed Unive rsity of MODERNA 12+ YRS [facility] ical VACCINE Branch SARS-COV-2 COVID-19 Unknown Completed Unive rsity of MODERNA 12+ YRS [facility] ical VACCINE Branch TDAP Unknown Completed [facility] Pneumococcal 20 Unknown Completed [facility]it y of Conjugate, PCV20 [facility] dical (Prevnar 20) Branch SARS-COV-2 COVID-19 Unknown Completed Unive rsity of VACCINE - (MODERNA) [facility] SARS-COV-2 COVID-19 Unknown Completed [facility]ive [facility] of VACCINE - (MODERNA) [facility] Influenza High Dose Unknown Completed [facility] of [facility] Pneumococcal 20 Unknown Completed [facility] of Conjugate, PCV20 [place] [facility] (Prevnar 20) Branch TDAP Unknown Completed [facility] Zoster Vaccine Unknown Completed [facility] Zoster Vaccine Unknown Completed [facility] SARS-COV-2 COVID-19 Unknown Completed Unive rsity of MODERNA 12+ YRS [facility] ical VACCINE Branch SARS-COV-2 COVID-19 Unknown Completed Unive rsity of MODERNA 12+ YRS [facility] ical VACCINE Branch TDAP Unknown Completed [facility] Pneumococcal 20 Unknown Completed [facility] of Conjugate, PCV20 [place] [facility] (Prevnar 20) Branch SARS-COV-2 COVID-19 Unknown Completed [facility]ive [facility] of VACCINE - (MODERNA) [facility] SARS-COV-2 COVID-19 Unknown Completed Unive rsity of VACCINE - (MODERNA) [facility] Influenza High Dose Unknown Completed [facility]ive [facility] of [facility] Pneumococcal 20 Unknown Completed [facility] y of Conjugate, PCV20 [place] [facility] (Prevnar 20) Branch TDAP Unknown Completed [facility] Zoster Vaccine Unknown Completed [facility] Zoster Vaccine Unknown Completed [facility] SARS-COV-2 COVID-19 Unknown Completed Unive rsity of MODERNA 12+ YRS [facility] ical VACCINE Branch SARS-COV-2 COVID-19 Unknown Completed Unive rsity of MODERNA 12+ YRS [facility] ical VACCINE Branch TDAP Unknown Completed [facility] Pneumococcal 20 Unknown Completed [facility] of Conjugate, PCV20 [place] [facility] (Prevnar 20) Branch SARS-COV-2 COVID-19 Unknown Completed Unive [facility]ity of VACCINE - (MODERNA) [facility] SARS-COV-2 COVID-19 Unknown Completed Unive rsity of VACCINE - (MODERNA) [facility] Influenza High Dose Unknown Completed [facility]ive [facility] of [facility] Pneumococcal 20 Unknown Completed [facility] of Conjugate, PCV20 [place] [facility] (Prevnar 20) Branch TDAP Unknown Completed [facility] Zoster Vaccine Unknown Completed [facility] Zoster Vaccine Unknown Completed [facility] SARS-COV-2 COVID-19 Unknown Completed Unive rsity of MODERNA 12+ YRS [facility] ical VACCINE Branch SARS-COV-2 COVID-19 Unknown Completed Unive rsity of MODERNA 12+ YRS [facility] ical VACCINE Branch TDAP Unknown Completed [facility] Pneumococcal 20 Unknown Completed [facility] of Conjugate, PCV20 [place] [facility] (Prevnar 20) Branch SARS-COV-2 COVID-19 Unknown Completed [facility]ive [facility]ity of VACCINE - (MODERNA) [facility] SARS-COV-2 COVID-19 Unknown Completed Unive [facility]ity of VACCINE - (MODERNA) [facility] Influenza High Dose Unknown Completed [facility] of [facility] Pneumococcal 20 Unknown Completed [facility] of Conjugate, PCV20 [place] [facility] (Prevnar 20) Branch TDAP Unknown Completed [facility] Zoster Vaccine Unknown Completed [facility] Zoster Vaccine Unknown Completed [facility] SARS-COV-2 COVID-19 Unknown Completed Unive rsity of MODERNA 12+ YRS [facility] ical VACCINE Branch SARS-COV-2 COVID-19 Unknown Completed Unive rsity of MODERNA 12+ YRS [facility] VACCINE Branch TDAP Unknown Completed [facility] Pneumococcal 20 Unknown Completed Universit y of Conjugate, PCV20 [facility] dical (Prevnar 20) Branch SARS-COV-2 COVID-19 Unknown Completed Unive rsity of VACCINE - (MODERNA) [facility] SARS-COV-2 COVID-19 Unknown Completed Unive rsity of VACCINE - (MODERNA) [facility] Influenza High Dose Unknown Completed Unive rsity of [facility] Pneumococcal 20 Unknown Completed Universit y of Conjugate, PCV20 [facility] dical (Prevnar 20) Branch TDAP Unknown Completed [facility] Zoster Vaccine Unknown Completed [facility] Zoster Vaccine Unknown Completed [facility] SARS-COV-2 COVID-19 Unknown Completed Unive rsity of MODERNA 12+ YRS [facility] VACCINE Branch SARS-COV-2 COVID-19 Unknown Completed Unive rsity of MODERNA 12+ YRS [facility] ical VACCINE Branch TDAP Unknown Completed [facility] Pneumococcal 20 Unknown Completed Universit y of Conjugate, PCV20 [facility] dical (Prevnar 20) Branch SARS-COV-2 COVID-19 Unknown Completed Unive rsity of VACCINE - (MODERNA) [facility] SARS-COV-2 COVID-19 Unknown Completed Unive rsity of VACCINE - (MODERNA) [facility] Influenza High Dose Unknown Completed Unive rsity of [facility] Pneumococcal 20 Unknown Completed Universit y of Conjugate, PCV20 [facility] dical (Prevnar 20) Branch TDAP Unknown Completed [facility] Zoster Vaccine Unknown Completed [facility] Vital Signs Vital Name Observation Time Observation Value Comments Source Systolic blood 2023-05-22 15:43:00 139 mm[Hg] Univer sity of pressure [facility] Diastolic blood 2023-05-22 15:43:00 72 mm[Hg] Unive rsity of pressure [facility] Heart rate 2023-05-22 15:43:00 75 /min [facility] Body height 2023-05-22 15:43:00 157.5 cm [facility] Body weight 2023-05-22 15:43:00 51.982 kg [facility] BMI 2023-05-22 15:43:00 20.96 kg/m2 [facility] Oxygen saturation in 2023-05-22 15:43:00 100 /min University of Arterial blood by [facility] Pulse oximetry Branch Systolic blood 2023-04-25 20:01:00 128 mm[Hg] Univer sity of pressure [facility] Diastolic blood 2023-04-25 20:01:00 78 mm[Hg] Unive rsity of pressure [facility] Heart rate 2023-04-25 20:01:00 86 /min [facility] Body temperature 2023-04-25 20:01:00 37 Iza Univ ersity of [facility] Body height 2023-04-25 20:01:00 157.5 cm [facility] Body weight 2023-04-25 20:01:00 53.071 kg [facility] BMI 2023-04-25 20:01:00 21.40 kg/m2 [facility] Oxygen saturation in 2023-04-25 20:01:00 96 /min University of Arterial blood by [facility] Pulse oximetry Branch Systolic blood 2023-04-24 18:22:00 100 mm[Hg] Univer sity of pressure [facility] Diastolic blood 2023-04-24 18:22:00 63 mm[Hg] Unive rsity of pressure [facility] Heart rate 2023-04-24 18:22:00 112 /min [facility] Body temperature 2023-04-24 18:20:00 36 Iza Univ ersity of [facility] Body height 2023-04-24 18:20:00 157.5 cm [facility] Body weight 2023-04-24 18:20:00 53.343 kg [facility] BMI 2023-04-24 18:20:00 21.51 kg/m2 [facility] Oxygen saturation in 2023-04-24 18:20:00 98 /min University of Arterial blood by [facility] katherine Pulse oximetry Branch Systolic blood 2023-04-01 15:36:00 132 mm[Hg] Univer sity of pressure [facility] Diastolic blood 2023-04-01 15:36:00 72 mm[Hg] Unive rsity of pressure [facility] Heart rate 2023-04-01 15:36:00 95 /min [facility] Body temperature 2023-04-01 15:36:00 36.78 Iza Univ ersity of [facility] Respiratory rate 2023-04-01 15:36:00 16 /min Univ ersity of [facility] Body height 2023-04-01 15:36:00 157.5 cm [facility] Body weight 2023-04-01 15:36:00 56.7 kg [facility] BMI 2023-04-01 15:36:00 22.86 kg/m2 [facility] Oxygen saturation in 2023-04-01 15:36:00 97 /min University of [facility]terial blood by [facility] katherine Pulse oximetry Branch Systolic blood 2023-03-24 13:05:00 126 mm[Hg] Univer sity of pressure [facility] Diastolic blood 2023-03-24 13:05:00 71 mm[Hg] Unive rsity of pressure [facility] Heart rate 2023-03-24 13:05:00 84 /min [facility] Body height 2023-03-24 13:05:00 157.5 cm [facility] Body weight 2023-03-24 13:05:00 57.924 kg [facility] BMI 2023-03-24 13:05:00 23.36 kg/m2 [facility] Oxygen saturation in 2023-03-24 13:05:00 99 /min University of Arterial blood by [employer] katherine Pulse oximetry Branch Systolic blood 2023-03-18 21:27:00 164 mm[Hg] Univer sity of pressure [facility] Diastolic blood 2023-03-18 21:27:00 82 mm[Hg] Unive rsity of pressure [facility] Heart rate 2023-03-18 21:27:00 72 /min [facility] Body temperature 2023-03-18 21:25:00 35.72 Iza Univ ersity of [facility] Body height 2023-03-18 21:25:00 157.5 cm [facility] [place] [facility] Body weight 2023-03-18 21:25:00 58.196 kg [facility] BMI 2023-03-18 21:25:00 23.47 kg/m2 [facility] Oxygen saturation in 2023-03-18 21:25:00 99 /min [facility] Arterial blood by [facility] Pulse oximetry Branch Body weight 2022-11-14 15:48:00 60.782 kg [facility] BMI 2022-11-14 15:48:00 24.51 kg/m2 [facility] Systolic blood 2022-10-22 20:48:00 144 mm[Hg] Univer sity of pressure [facility] Diastolic blood 2022-10-22 20:48:00 76 mm[Hg] Unive rsity of pressure [facility] Heart rate 2022-10-22 20:48:00 70 /min [facility] Body temperature 2022-10-22 19:52:00 36 Iza Univ ers[facility] Body height 2022-10-22 19:52:00 157.5 cm [facility] Body weight 2022-10-22 19:52:00 61.054 kg [facility] BMI 2022-10-22 19:52:00 24.62 kg/m2 [facility] Oxygen saturation in 2022-10-22 19:52:00 100 /min University of Arterial blood by [facility] katherine Pulse oximetry Branch Body weight 2022-10-03 15:48:00 60.328 kg [facility] BMI 2022-10-03 15:48:00 24.33 kg/m2 [facility] Body weight 2022-09-27 15:47:00 60.328 kg [facility] BMI 2022-09-27 15:47:00 24.33 kg/m2 [facility] Systolic blood 2022-09-26 19:58:00 128 mm[Hg] Univer sity of pressure [facility] Diastolic blood 2022-09-26 19:58:00 77 mm[Hg] Unive rsity of pressure [facility] Heart rate 2022-09-26 19:58:00 58 /min [facility] Body temperature 2022-09-26 19:58:00 34.83 Iza Univ ersity of [facility] Respiratory rate 2022-09-26 19:58:00 18 /min Univ ersity of [facility] Oxygen saturation in 2022-09-26 19:58:00 100 /min University of Arterial blood by [facility] katherine Pulse oximetry Branch Body height 2022-09-26 17:07:00 157.5 cm [facility]ren Body weight 2022-09-26 17:07:00 60.7 kg [facility] BMI 2022-09-26 17:07:00 24.48 kg/m2 Universi ty of [facility] Body temperature 2022-09-26 17:07:00 35.06 Iza Univ ersity of [facility] Respiratory rate 2022-09-26 17:07:00 18 /min Univ ersity of [facility] Body height 2022-09-26 17:07:00 157.5 cm [facility] Body weight 2022-09-26 17:07:00 60.7 kg [facility] BMI 2022-09-26 17:07:00 24.48 kg/m2 [facility] Oxygen saturation in 2022-09-26 17:07:00 100 /min University of Arterial blood by [facility] katherine Pulse oximetry Branch Systolic blood 2022-09-26 17:07:00 141 mm[Hg] Univer sity of pressure [facility] Diastolic blood 2022-09-26 17:07:00 62 mm[Hg] Unive rsity of pressure [facility] Heart rate 2022-09-26 17:07:00 58 /min [facility] Systolic blood 2022-09-23 16:53:00 136 mm[Hg] Univer sity of pressure [facility] Diastolic blood 2022-09-23 16:53:00 77 mm[Hg] Unive rsity of pressure [facility] Heart rate 2022-09-23 16:53:00 74 /min [facility] Body height 2022-09-23 16:53:00 157.5 cm [facility] Body weight 2022-09-23 16:53:00 61.326 kg [facility] BMI 2022-09-23 16:53:00 24.73 kg/m2 [facility] Oxygen saturation in 2022-09-23 16:53:00 97 /min University of Arterial blood by [facility] Pulse oximetry Branch Body weight 2022-08-08 15:20:00 61.689 kg Universi ty of [facility] BMI 2022-08-08 15:20:00 24.87 kg/m2 [facility] Systolic blood 2022-08-01 17:57:00 125 mm[Hg] Univer sity of pressure [facility] Diastolic blood 2022-08-01 17:57:00 64 mm[Hg] Unive rsity of pressure [facility] Heart rate 2022-08-01 17:57:00 68 /min Universi ty of [facility] Body temperature 2022-08-01 17:57:00 35.67 Iza Univ ersity of [facility] Oxygen saturation in 2022-08-01 17:57:00 99 /min University of Arterial blood by [facility] Pulse oximetry Branch Respiratory rate 2022-08-01 15:08:00 16 /min Univ ersity [facility] Body height 2022-08-01 15:08:00 157.5 cm [facility] Body weight 2022-08-01 15:08:00 62.1 kg [facility] BMI 2022-08-01 15:08:00 25.04 kg/m2 Universi ty of [facility] Branch Systolic blood 2022-08-01 15:08:00 142 mm[Hg] Univer sity of pressure [facility] Diastolic blood 2022-08-01 15:08:00 70 mm[Hg] Unive rsity of pressure [facility] Heart rate 2022-08-01 15:08:00 80 /min [facility] Body temperature 2022-08-01 15:08:00 35.28 Iza Univ ers[facility] Respiratory rate 2022-08-01 15:08:00 16 /min Univ ersity [facility] Body height 2022-08-01 15:08:00 157.5 cm [facility] Body weight 2022-08-01 15:08:00 62.1 kg [facility] BMI 2022-08-01 15:08:00 25.04 kg/m2 [facility] Oxygen saturation in 2022-08-01 15:08:00 99 /min University of Arterial blood by [facility] Pulse oximetry Branch Body weight 2022-07-26 15:19:00 61.689 kg [facility] BMI 2022-07-26 15:19:00 24.87 kg/m2 [facility] Body height 2022-06-13 19:08:00 157.5 cm [facility] Body weight 2022-06-13 19:08:00 62.143 kg [facility] BMI 2022-06-13 19:08:00 25.06 kg/m2 [facility] Systolic blood 2022-06-08 20:31:00 160 mm[Hg] Univer sity of [facility] Diastolic blood 2022-06-08 20:31:00 80 mm[Hg] Unive rsity of pressure [facility] Heart rate 2022-06-08 20:31:00 70 /min [facility] Body temperature 2022-06-08 20:31:00 36.67 Iza Univ ers[facility] Respiratory rate 2022-06-08 20:31:00 16 /min Univ ersity [facility] Body height 2022-06-08 20:31:00 157.5 cm [facility] Body weight 2022-06-08 20:31:00 62.143 kg [facility] BMI 2022-06-08 20:31:00 25.06 kg/m2 [facility] Oxygen saturation in 2022-06-08 20:31:00 100 /min University of Arterial blood by [facility] Pulse oximetry Branch Systolic blood 2022-05-08 19:11:00 128 mm[Hg] Univer sity of [facility] Diastolic blood 2022-05-08 19:11:00 74 mm[Hg] Unive rsity of pressure [facility] Heart rate 2022-05-08 19:11:00 63 /min [facility] Body weight 2022-05-08 19:11:00 63.05 kg Universi [facility] BMI 2022-05-08 19:11:00 25.42 kg/m2 [facility] Oxygen saturation in 2022-05-08 19:11:00 99 /min [facility] Arterial blood by [facility] Pulse oximetry Branch Systolic blood 2022-03-28 19:56:00 123 mm[Hg] Univer sity of pressure [facility] Diastolic blood 2022-03-28 19:56:00 78 mm[Hg] [facility] Heart rate 2022-03-28 19:56:00 67 /min [facility] Body temperature 2022-03-28 19:56:00 36.72 Iza [facility] Respiratory rate 2022-03-28 19:56:00 18 /min [facility] Body height 2022-03-28 19:56:00 157.5 cm [facility] Body weight 2022-03-28 19:56:00 63.05 kg [facility] BMI 2022-03-28 19:56:00 25.42 kg/m2 [facility] Procedures Procedure Date / Time Performing Source Performed Clinician VACCINATIONS - CONSENTS, 2023-04-17 Doctor Unassigned, [facility] ELIGIBILITY, HISTORY 05:01:00 [facility] US RETROPERITONEAL LIMITED 2022-11-05 Uyen Richardson [facility] 17:33:21 [facility] PHACOEMULSIFICATION OF 2022-09-26 Timmy [facility] CATARACT WITH INTRAOCULAR 19:02:00 [facility] LENS IMPLANT ASSIGNMENT OF BENEFITS 2022-09-26 Doctor Unassigned, [facility] 16:36:37 [facility] COMP. METABOLIC PANEL (80917) 2022-09-23 [facility] 17:29[facility]00 [facility] CBC WITH DIFF 2022-09-23 Lc Shen [facility] 17:29:00 [facility] DISCLOSURE AND CONSENT, 2022-08-08 Doctor Unassigned, [facility] MEDICAL AND SURGICAL 06:01:00 [facility] PROCEDURES DSU PRE-OP 2022-08-08 Doctor Ayaz, [facility] 06:01:00 [facility] DISCLOSURE AND CONSENT, 2022-08-08 Doctor Ayaz [facility] MEDICAL AND SURGICAL 06:01:00 [facility] PROCEDURES DSU PRE-OP 2022-08-08 Doctor Ayaz, [facility] 06:01:00 [facility] OS IOL CALCULATIONS A SCAN, 2022-08-08 [facility] LEFT EYE 00:00:00 [facility] PHACOEMULSIFICATION OF 2022-08-01 [facility] CATARACT WITH INTRAOCULAR 16:49:00 [facility] LENS IMPLANT ADV BENEFICIARY NOTICE OF 2022-07-26 Doctor Jacome, [facility] NONCOVERAGE (ABN) 06:01:00 [facility] DSU PRE-OP 2022-06-13 Doctor Ayaz [facility] 06:01:00 [facility] DSU PRE-OP 2022-06-13 Doctor Ayaz, [facility] 06:01:00 [facility] OD IOL CALCULATIONS A SCAN, 2022-06-13 [facility] RIGHT EYE 00:00:00 [facility] NOTICE OF PRIVACY PRACTICES 2022-06-08 Doctor Ayaz, [facility] 20:28:52 [facility] CONSENT/REFUSAL FOR DIAGNOSIS 2022-06-08 Doctor Ayaz, [facility] AND TREATMENT 20:27:03 [facility] POCT URINALYSIS W/O SPECIFIC 2022-03-28 Nathan Luis Daniel [facility] GRAVITY 00:00:00 Medical Si[facility] HOME HEALTH [id number] 2020-11-02 Doctor Ayaz, [facility] 05:01:00 [facility] Encounters Start End Encounter Admission Attending Care Care Encounter Source Date/Time Date/Time Type Type Clinicians Facility Department ID 2021-05-27 Inpatient Homar [facility] [id number] Univers 08:17[facility]10 [facility]-24 Emergency [facility] [id number] Univers [facility] 2024-04-06 2024-04-06 Outpatient R CUCO VALDEZ [facility] B [id number] Univers 10:30:00 10:30:00 CUCO VALDEZ josef [facility] 2023-06-05 2023-06-05 Outpatient R TIMMY [facility] [id number] Univers 13:30:00 13:30:00 AISDEMETRIUS josef [facility] 2023-06-02 2023-06-02 Outpatient R DYLAN [facility] [id number] Univers 09:30:00 09:30:00 UYEN georgejosef [facility] 2023-05-28 2023-05-28 Letter Doctor BLAIR 1.2.840.114 [id number] Univers 00:00:00 00:00:00 (Out) Unassigned, JENY 350.1.13.10 ity of [facility] [id number] Brigido as [phone] [place] [address] Branch 2023-05-26 2023-05-26 Outpatient R CUCO VALDEZ [facility] B [id number] Univers 00:00:00 00:00:00 CUCO VALDEZ josef [facility] 2023-05-23 2023-05-23 Outpatient R HERMELINDA [facility] [id number] Univers 10:15:00 12:08:14 LC [facility] 2023-05-23 2023-05-23 [facility], Ang - Db [facility] 1.2.840.1 [id number] Univers 10:15:00 10:30:00 Visit Lc Shen [facility] 350.1.13.10 ity of [place] 4.2.7.2.686 Brigido as [place] [id number] La shikha DIAZ [address] [place] [address] MEDICAL OFFICE BUILDING 2023-05-23 2023-05-23 Telephone Dylan [facility] 1.2.840.114 [id number] Univers 00:00:00 00:00:00 Uyen MULTISPEC 350.1.13.10 ity of [place] [id number] Medi [address] DIABETES CLINIC 2023-05-22 2023-05-22 Office [facility] [id number] [id number] Univers 11:00:00 11:30:00 Visit Yenifer Mariano HEALTH 350.1.13.10 i ty [facility] 4.2.7.2.686 [place] as [place] [id number] [address] OFFICE [facility] 2023-05-22 2023-05-22 [facility] [id number] Univers 11:00:00 11:00:00 [facility] 2023-05-13 2023-05-13 Outpatient R [facility] [id number] Univers 11:00:00 11:00:00 LIZZETTE myers o f [facility] 2023-04-28 2023-04-28 Outpatient R CUCO VALDEZ [facility] B [id number] Univers 00:00:00 00:00:00 CUCO VALDEZ [facility] 2023-04-25 2023-04-25 Outpatient [facility] [id number] Univers 15:00:00 16:05:47 [facility] 2023-04-25 2023-04-25 Office [facility] 1.2.840.114 [id number] Univers 15:00:00 16:05:47 Visit Yenifer Mariano HEALTH 350.1.13.10 i ty of [place] 4.2.7.2.686 Brigido as [place] [id number] [address] OFFICE [facility] 2023-04-24 2023-04-24 Office [facility] [id number] Univers 13:30:00 14:00:00 [facility] 350.1.13.10 ity of [place] 4.2.7.2.686 [place] [facility] [id number] [address] DIABETES CLINIC 2023-04-24 2023-04-24 Outpatient [facility] [id number] Univers 13:30:00 13:30:00 UYEN myers [facility] 2023-04-21 2023-04-21 [facility], Ang - Db [facility] 1.2.840.1 14 [id number] Univers 16:00:00 16:15:00 Visit Uyen Richardson [facility] 350.1.13.10 ity of [place] 4.2.7.2.686 Brig[place] as [place] [id number] [address] MEDICAL OFFICE BUILDING 2023-04-21 2023-04-21 Outpatient R DYLAN [facility] [id number] Univers 16:00:00 13:39:13 UYEN ity [facility] 2023-04-21 2023-04-21 [facility] [id number] Univers 13:00:00 13:00:00 [facility] 2023-04-17 2023-04-17 Orders Doctor BLAIR 1.2.840.114 [id number] Univers 00:00:00 00:00:00 Only Unassigned, JENY 350.1.13.10 [facility] 4.2.7.2.686 Brigido as [id number] [facility] 009 Branch 2023-04-10 2023-04-10 Telephone Dylan [facility] 1.2.840.114 [id number] Univers 00:00:00 00:00:00 [facility] 350.1.13.10 ity of [place] [id number] [facility] AND DEPAUW [address] Branch DIABETES CLINIC 2023-04-01 2023-04-01 Outpatient R CUCO VALDEZ [facility] B [id number] Univers 10:30:00 10:49:59 CUCO VALDEZ ity [facility] 2023-04-01 2023-04-01 Office Dimitrios [facility] 1.2.840.114 [id number] Univers 10:30:00 10:49:59 Visit Cuco TREVIÑO 350.1.13.10 it y of WOMEN'S 4.2.7.2.686 [facility] [id number] [facility] 134 Branch 2023-03-24 2023-03-24 [facility], Ang - Db [facility] 1.2.840.1 14 [id number] Univers 08:45:00 09:00:00 Visit Lc Shen HEALTH 350.1.13.10 ity of [place] 4.2.7.2.686 Brigido as [place] [id number] La shikha DIAZ 353 [facility] OFFICE [facility] 2023-03-24 2023-03-24 Outpatient R [facility] [id number] Univers 08:45:00 08:45:00 LC ity [facility] 2023-03-24 2023-03-24 Office [facility] 1.2.840.114 [id number] Univers 08:00:00 08:30:00 Visit Lc [facility] 350.1.13.10 it y of [place] 4.2.7.2.686 Brigido as [place] [id number] [facility] 044 [facility] OFFICE [facility] 2023-03-24 2023-03-24 Outpatient R HERMELINDA [facility] [id number] Univers 08:00:00 08:00:00 LC ity [facility] 2023-03-18 2023-03-18 Office [facility] [id number] Univers 15:00:00 15:30:00 Visit Uyen [facility] 350.1.13.10 it[place] [id number] [address] DIABETES CLINIC 2023-03-18 2023-03-18 Outpatient [facility] [id number] Univers 15:00:00 15:00:00 UYEN ity [facility] 2023-03-14 2023-03-14 [facility], Ang - Yusef [facility] 1.2.840.1 14 [id number] Univers 10:45:00 10:45:00 Visit Uyen Richardson [facility] 350.1.13.10 ity of [place] 4.2.7.2.686 Brigido as [place] [id number] La shikha PRICE 353 [facility] OFFICE [facility] 2023-03-14 2023-03-14 Outpatient R DYLAN [facility] [id number] Univers 10:45:00 10:35:13 UYEN ity [facility] 2023-03-14 2023-03-14 [facility] [id number] Univers 10:30:00 10:30:00 UYEN ity [facility] 2023-03-06 2023-03-06 Telephone [facility] 1.2.840.114 10 [id number] Univers 00:00:00 00:00:00 [facility] 350.1.13.10 ity of [place] [phone] [address] [facility] 2022-12-10 2022-12-10 [facility] [id number] Univers 16:00:00 16:00:00 UYEN ity [facility] 2022-11-29 2022-11-29 Telephone [facility] 1..840.114 10 [id number] Univers 00:00:00 00:00:00 [facility] 350.1.13.10 ity of [place] 4.2.7.2.686 [facility] [id number] [address] [facility]IC 2022-11-14 2022-11-14 Outpatient R TIMMY [facility] [id number] Univers 10:15:00 11:47:05 AISHAT ity of [facility] 2022-11-14 2022-11-14 Office ANIYAH [place] ..840.114 101 [id number] Univers 10:15:00 11:47:05 Visit Aishat Y 350.1.13.10 it y of [facility] 4.2.7.2.686 [place] [facility] [id number] [facility] BLDG. [address] 2022-11-08 2022-11-08 Telephone [facility] 1.2.840.114 10 [id number] Univers 00:00:00 00:00:00 Uyen MULTISPEC 350.1.13.10 ity of [place] 4.2.7.2.686 [facility] [id number] [address] DI[facility]IC 2022-11-05 2022-11-05 Outpatient R DYLAN [facility] [id number] Univers 11:36:33 23:59:00 UYEN ity [facility] 2022-11-05 2022-11-05 [facility] 1.2.840.114 [id number] Univers 11:36:33 23:59:00 Encounter Uyen [place] 350.1.13.10 ity of [place] 4.2.7.2.686 [facility] [phone] [facility] [address] 2022-10-22 2022-10-22 Outpatient [facility] [id number] Univers 15:00:00 15:47:14 UYEN ity [facility] 2022-10-22 2022-10-22 Office [facility] 1.2.718.572 [id number] Univers 15:00:00 15:47:14 Visit [facility]yen [facility] 350.1.13.10 ity of [facility] 4.2.7.2.686 [facility] [id number] [address] DIABETES CLINIC 2022-10-17 2022-10-17 [facility], Ang - Db [facility] 1.2.840.1 14 [id number] Univers 10:00:00 10:15:00 Visit Lc Shen [facility] 350.1.13.10 ity of [place] 4.2.7.2.686 Brigido as [place] [id number] La shikha DIAZ [address] MEDICAL OFFICE BUILDING 2022-10-17 2022-10-17 Outpatient R HERMELINDA [facility] [id number] Univers 10:00:00 10:00:00 LC ity [facility] 2022-10-17 2022-10-17 RefANIYAH Waggoner 1.2.840.114 101 [id number] Univers 00:00:00 00:00:00 Aishat Y 350.1.13.10 it y of [place].2.7.2.686 [place] BANK [phone] [facility] BLDG. [address] 2022-10-09 2022-10-09 Telephone [facility] 1.2.840.114 10 [id number] Univers 00:00:00 00:00:00 Uyen MULTISPEC 350.1.13.10 ity of [place] 4.2.7.2.686 [facility] [id number] [address] DIABETES CLINIC 2022-10-03 2022-10-03 Office Timmy, UNIVERSIT 1.2.840.114 [id number] Univers 10:15:00 10:30:00 Visit Aishat Y 350.1.13.10 it y of [place].2.7.2.686 [place] BANK [phone] [facility]. [address] 2022-10-03 2022-10-03 Outpatient R [facility] [id number] Univers 10:15:00 10:15:00 AISHAT ity [facility] 2022-09-27 2022-09-27 Outpatient R [facility] [id number] Univers 10:15:00 10:40:13 AISHAT ity of [facility] 2022-09-27 2022-09-27 Office [facility] 1.2.840.114 [id number] Univers 10:15:00 10:40:13 Visit Aishat Y 350.1.13.10 it y of [facility] NATIONAL 4.2.7.2.686 [place] BANK [phone] [facility]. [address] 2022-09-27 2022-09-27 Telephone [facility] 1.2.840.114 10 [id number] Univers 00:00:00 00:00:00 Uyen MULTISPEC 350.1.13.10 ity of [place] 4.2.7.2.686 [facility] [id number] [address] DIABETES CLINIC 2022-09-26 2022-09-[address] [facility] OPH [id number] Univers 11:02:00 14:33:00 AISHAT ity [facility] 2022-09-26 2022-09-26 [facility] TERESA [place] 1.2.046.879 [id number] Univers 11:02:00 14:33:00 Encounter Aishat JENY 350.1.13.10 ity of [facility] 4.2.7.2.686 [place] [id number] [facility] [address] 2022-09-26 2022-09-26 Surgery TERESA [place] 1.2.840.114 [id number] Univers 13:13:00 13:51:00 Aishat JENY 350.1.13.10 it y of [facility] 4.2.7.2.686 [place] [phone] [facility] [address] 2022-09-26 2022-09-26 Orders Doctor BLAIR 1.2.840.114 [id number] Univers 00:00:00 00:00:00 Only Unassigned, JENY 350.1.13.10 ity of [place] [facility] 4.2.7.2.686 Brigido as [phone] [facility] [address] 2022-09-23 2022-09-23 [facility], Ang - [facility] 1.2.840.1 14 [id number] Univers 11:30:00 11:45:00 Visit Hermelinda Lc Tvoop 350.1.13.10 ity of [place] 4.2.7.2.686 Brigido as [place]A [phone] [facility] [address] MEDICAL OFFICE BUILDING 2022-09-23 2022-09-23 Outpatient R HERMELINDA [facility] [id number] Univers 11:00:00 11:18:30 LC ity of [facility] 2022-09-23 2022-09-23 Office [facility] 1.2.840.114 [id number] Univers 11:00:00 11:18:30 Visit Lc HEALTH 350.1.13.10 it y of [place] 4.2.7.2.686 Brigido as [place]A [phone] [facility] [address] MEDICAL OFFICE BUILDING 2022-09-23 2022-09-23 Pre Visit BLAIR Maloney 1.2.005.647 [id number] Univers 00:00:00 00:00:00 Outreach Martha S JENY 350.1.13.10 ity of [facility] 4.2.7.2.686 Brigido as [id number] [facility] [address] 2022-08-22 2022-08-22 [facility] 1.2.840.114 [id number] Univers 00:00:00 00:00:00 Sebastian WanZoey BENDER 350.1.13.10 ity [facility] 4.2.7.2.686 [place] [phone] La dical [facility] 059 [facility] 2022-08-08 2022-08-08 Outpatient R [facility] [id number] Univers 09:45:00 13:03:49 AISHAT ity [facility] 2022-08-08 2022-08-08 [facility] 1.2.840.114 [id number] Univers 09:45:00 13:03:49 Visit Aist Y 350.1.13.10 it y of [facility] 4.2.7.2.686 [place] BANK [phone] [facility] [address] 2022-08-08 2022-08-08 Outpatient R [facility] [id number] Univers 09:15:00 11:04:23 AISHAT ity [facility] 2022-08-08 2022-08-08 Office [facility] 1.2.840.114 [id number] Univers 09:15:00 09:30:00 Visit Aishat Y 350.1.13.10 it y of [facility] 4.2.7.2.686 [place] B[place] [phone] [facility] [address] 2022-08-08 2022-08-08 Outpatient R [facility] [id number] Univers 09:15:00 09:15:00 AISHAT ity [facility] 2022-08-08 2022-08-08 Outpatient R [facility] [id number] Univers 09:15:00 09:15:00 AISHAT ity [facility] 2022-08-02 2022-08-02 Office [facility], UNIVERSIT 1.2.840.114 [id number] Univers 10:00:00 10:15:00 Visit Aishat Y 350.1.13.10 it y of [facility] 4.2.7.2.686 [place] [phone] [facility] [address] 2022-08-02 2022-08-02 Out[facility] [id number] Univers 10:00:00 10:00:00 AISHAT ity of [facility] 2022-08-01 2022-08-[address] [facility] OPH [id number] Univers 09:04:00 12:00:00 AISHAT ity [facility] 2022-08-01 2022-08-01 Hospital TERESA [place] 1.2.788.811 [id number] Univers 09:04:00 12:00:00 Encounter Aishat JENY 350.1.13.10 ity of [facility] 4.2.7.2.686 [place] [phone] [facility] [address] 2022-08-01 2022-08-01 Surgery TERESA [place] 1.2.840.114 [id number] Univers 10:53:00 11:33:00 Aishat JENY 350.1.13.10 it y of [facility] 4.2.7.2.686 [place] [phone] [facility] [address] 2022-07-30 2022-07-30 Out[facility] [id number] Univers 09:15:00 09:15:00 RAMIRO ity of [facility] 2022-07-26 2022-07-26 Office KAROLINA France[place] 1.2.840.114 [id number] Univers 09:30:00 09:45:00 Visit Aishat Y 350.1.13.10 it y of [facility] 4.2.7.2.686 [place] [phone] [facility]. [address] 2022-07-26 2022-07-26 Outpatient [facility] [id number] Univers 09:30:00 09:30:00 AISHAT ity of [facility] 2022-07-26 2022-07-26 Orders Doctor BLAIR 1.2.840.114 [id number] Univers 00:00:00 00:00:00 Only Unassigned, JENY 350.1.13.10 [facility] 4.2.7.2.686 Brigido as [phone] [facility] [address] 2022-06-13 2022-06-13 Office ANIYAH [place] 1.2.840.114 [id number] Univers 13:15:00 14:28:49 Visit Aismarinchanel Ramey 350.1.13.10 it y of [facility] 4.2.7.2.686 Te [facility] [phone] [facility] BLDG. [address] 2022-06-13 2022-06-13 Outpatient R TIMMY [facility] [id number] Univers 13:15:00 13:15:00 AISHAT ity [facility] 2022-06-08 2022-06-08 Emergency X [facility] ERT [id number] Univers 14:32:00 15:00:00 STANLEY [facility] 2022-06-08 2022-06-08 Emergency [facility] 1.2.856.667 [id number] Univers 14:32:00 15:00:00 Stanley BENDER 350.1.13.10 i ty [facility] 4.2.7.2.686 [place] [id number] [facility] [address] 2022-05-14 2022-05-14 Telephone [facility] 1.2.401.659 [id number] Univers 00:00:00 00:00:00 Sendsander BENDER 350.1.13.10 ity [facility] 4.2.7.2.686 [place] [phone] La dical NAL 059 [facility] 2022-05-08 2022-05-08 Outpatient R ELIO [facility] [id number] Univers 13:00:00 23:59:00 SENDIL ity [facility] 2022-05-08 2022-05-08 Office [facility] 1.2.840.114 [id number] Univers 14:20:00 14:36:13 Visit Petrona Villanueva [place] 350.1.13.10 i ty of [place] 4.2.7.2.686 [place] [phone] La dical NAL 059 [facility] 2022-05-08 2022-05-08 Outpatient [facility] [id number] Univers 14:00:00 14:00:00 SENDIL ity [facility] 2022-05-08 2022-05-08 Out[facility] [id number] Univers 14:00:00 14:00:00 SENDIL ity [facility] 2022-05-08 2022-05-08 Outpatient [facility] [id number] Univers 14:00:00 14:00:00 SENDIL ity [facility] 2022-04-26 2022-04-26 Telephone [facility] 1.2.162.452 [id number] Univers 00:00:00 00:00:00 Sendil Cindy BENDER 350.1.13.10 ity of [place] 4.2.7.2.686 [place] [phone] La dical NAL [address] [place] [address] 2022-04-18 2022-04-18 Outpatient [facility] [id number] Univers 14:40:55 23:59:00 LC ity [facility] 2022-04-18 2022-04-18 [facility] 1.2.840.114 [id number] Univers 14:00:00 23:59:00 Encounter Lc BENDER 350.1.13.10 ity of [place] 4.2.7.2.686 [place] [phone] [facility] [address] 2022-03-28 2022-03-28 Office Luis Daniel Evans [facility] LOZADA 1.2.840.114 [id number] Univers 15:00:00 15:44:27 Visit KAMILA 350.1.13.10 it y of [facility] 4.2.7.2.[place] HE[place] [phone] [facility] [address] 2022-03-28 2022-03-28 Outpatient R LUIS DANIEL EVANS [facility] [id number] Univers 15:00:00 15:44:27 ity of [facility] 2022-03-28 2022-03-28 Outpatient R LUIS DANIEL EVANS [facility] [id number] Univers 15:00:00 15:00:00 ity of [facility] 2022-03-26 2022-03-26 [facility], Ang - Db [facility] 1.2.840.1 14 [id number] Univers 10:00:00 10:15:00 Visit Lc Shen [facility] 350.1.13.10 ity of [place] 4.2.7.2.686 Brigido as [place] [phone] La shikha PRICE [address] MEDICAL OFFICE [facility] 2022-03-26 2022-03-26 Outpatient [facility] [id number] Univers 10:00:00 10:00:00 LC ity [facility] 2022-03-26 2022-03-26 Office [facility] 1.2.840.114 [id number] Univers 09:00:00 09:48:40 [facility] 350.1.13.10 it y of [place] 4.2.7.2.686 Brigido as [place] [phone] [facility] [address] MEDICAL OFFICE [facility] 2022-03-26 2022-03-26 Outpatient R [facility] [id number] Univers 09:00:00 09:48:40 LC ity [facility] 2022-03-01 2022-03-01 Telephone [facility] 1.2.149.501 [id number] Univers 00:00:00 00:00:00 Sendsander BENDER 350.1.13.10 ity of [place]2.7.2.686 [place] [phone] La shikha [facility] 059 [facility] 2022-02-19 2022-02-19 Emergency X MORTEZA [facility] ERT [id number] Univers 08:30:00 10:38:00 EVELYN itjosef [facility] 2022-02-19 2022-02-19 Emergency [facility] 1.2.840.114 [id number] Univers 08:30:00 10:38:00 Evelyn BENDER 350.1.13.10 ity of [place] 4.2.7.2.686 [place] [phone] [facility] [address] 2021-11-20 2021-11-20 [facility] 1.2.955.048 [id number] Univers 00:00:00 00:00:00 Sendor Cindy [facility] 350.1.13.10 ity of [place] 4.2.7.2.686 Brigido as [place] [phone] La dicmarty KNEY [address] MEDICAL OFFICE BUILDING 2021-11-01 2021-11-01 Outpatient [facility] [id number] Univers 10:30:00 11:15:24 SENDIL ity of [facility] 2021-11-01 2021-11-01 Office [facility] 1.2.840.114 [id number] Univers 10:30:00 11:15:24 Visit Sendsander BENDER 350.1.13.10 ity of [place] 4.2.7.2.686 [place] [facility] [phone] La shikha XAVIER 059 [facility] 2021-11-01 2021-11-01 Outpatient [facility] [id number] Univers 10:30:00 11:15:24 SENDIL ity [facility] 2021-11-01 2021-11-01 Orders Doctor PINTO 1.2.840.114 [id number] Univers 00:00:00 00:00:00 Only Unassigned, JENY 350.1.13.10 ity of [place] [facility] 4.2.7.2.686 Brigido as [phone] [facility] [address] 2021-07-12 2021-07-12 Outpatient R TIMMY [facility] [id number] Univers 13:00:00 13:00:00 AISHAT ity of [facility] 2021-07-12 2021-07-12 Outpatient R TIMMY [facility] [id number] Univers 10:15:00 10:15:00 AISHAT ity [facility] 2021-07-03 2021-07-03 Out[facility] [id number] Univers 13:00:00 13:00:00 AISHAT ity [facility] 2021-07-03 2021-07-03 Outpatient [facility] [id number] Univers 10:15:00 10:15:00 AISHAT ity [facility] 2021-07-02 2021-07-02 Outpatient R [facility] OPH [id number] Univers 08:29:00 08:29:00 AISHAT ity [facility] 2021-05-31 2021-05-31 Outpatient [facility] [id number] Univers 14:15:00 14:15:00 KELLI [facility] 2021-05-03 2021-05-03 Outpatient [facility] [id number] Univers 14:30:00 14:30:00 SENDIL [facility] 2021-05-03 2021-05-03 Office [facility] 1.2.840.114 [id number] Univers 12:52:40 13:16:27 Visit Sebastian Bender 350.1.13.10 ity of [place].2.686 [place] [phone] La dical nal 059 [facility] 2021-05-03 2021-05-03 Orders Doctor BLAIR 1.2.840.114 [id number] Univers 00:00:00 00:00:00 Only Unassigned, JENY 350.1.13.10 ity of [place] [facility] 4.2.7.2.686 Brigido as [id number] [facility] [address] 2021-03-26 2021-03-26 Telephone KAROLINA France[place] 1.2.840.114 [id number] Univers 00:00:00 00:00:00 Aishat Y 350.1.13.10 it y of [facility] 4.2.7.2.686 [place] B[place] [phone] [facility] BLDG. [address] 2021-03-222021-03-22 Telephone Timmy, [facility] 1.2.840.114 [id number] Univers 00:00:00 00:00:00 Aishat Y 350.1.13.10 it y of [place] 4.2.7.2.686 [place] [phone] [facility] [address] 2021-03-15 2021-03-15 Office Timmy, UNIVERSIT 1.2.840.114 [id number] Univers 14:04:05 14:19:05 Visit Lindsay Y 350.1.13.10 it y of [facility] 4.2.7.2.686 [place] [id number] [facility] [address] 2021-03-15 2021-03-[address] [facility] 1.2.840.114 [id number] Univers 13:14:15 14:16:07 Visit Yannick Villanueva Josef 350.1.13.10 it y of [facility] 4.2.7.2.686 Brigido as BANK [phone] [facility] [address] 2021-03-15 2021-03-15 Out[facility] [id number] Univers 13:45:00 13:45:00 AISHAT ity of [facility] 2021-03-15 2021-03-[address] [facility] 1.2.550.573 [id number] Univers 12:53:25 13:23:25 Visit Kelli Ramey 350.1.13.10 it y of [place] 4.2.7.2.686 Brigido as BANK [phone] [facility] [address] 2021-03-15 2021-03-15 Orders Doctor BLAIR 1.2.840.114 [id number] Univers 00:00:00 00:00:00 Only Unassigned, JENY 350.1.13.10 ity of [place] [facility] 4.2.7.2.686 Brigido as [phone] [facility] [address] 2021-03-01 2021-03-01 Telephone [facility] 1.2.840.114 [id number] Univers 00:00:00 00:00:00 [facility] 350.1.13.10 it y of Surgical 4.2.7.2.686 Brig[place] as Specialti [phone] La dical es 198 [facility] 2021-02-21 2021-02-21 [facility] Luis Daniel Evans [facility] 1.2.840.114 [id number] Univers 09:05:03 23:59:00 Encounter Napoleon 350.1.13.10 ity of [place] 4[place]2.7.2.686 [place] [facility] [phone] [facility] [address] 2021-02-21 2021-02-21 Outpatient R LUIS DANIEL EVANS [facility] [id number] Univers 00:00:00 00:00:00 ity of [facility] 2021-02-19 2021-02-19 Outpatient R NATHAN LUIS DANIEL [facility] [id number] Univers 10:00:00 10:00:00 ity of [facility] 2021-02-12 2021-02-12 Outpatient R NATHAN LUIS DANIEL [facility] [id number] Univers 10:00:00 10:00:00 ity of [facility] 2021-02-07 2021-02-07 Outpatient R JUAN, [facility] [id number] Univers 13:45:00 13:45:00 NAWAF ity of [facility] 2021-01-12 2021-01-12 Outpatient R TIMMY, [facility] [id number] Univers 13:45:00 13:45:00 AISHAT ity [facility] 2021-01-12 2021-01-12 Orders Doctor BLAIR 1.2.840.114 [id number] Univers 00:00:00 00:00:00 Only Unassigned, JENY 350.1.13.10 ity of [place] [facility] 4.2.7.2.686 Brigido as [id number] [facility] [address] 2020-12-26 2020-12-26 Orders Doctor PINTO 1.2.840.114 [id number] Univers 00:00:00 00:00:00 Only Unassigned, JENY 350.1.13.10 ity of [place] [facility] 4.2.7.2.686 Brigido as [phone] [facility] [address] 2020-12-15 2020-12-15 Outpatient R TIMMY, [facility] [id number] Univers 13:45:00 13:45:00 AISDEMETRIUS josef [facility] 2020-11-29 2020-11-29 Outpatient R JOSAFAT [facility] [id number] Univers 11:15:00 11:15:00 KELLI josef [facility] 2020-11-29 2020-11-29 Outpatient R JOSAFAT [facility] [id number] Univers 10:15:00 10:15:00 KELLI [facility] 2020-11-24 2020-11-24 [facility] [id number] Univers 15:00:00 15:00:00 MARK [facility] 2020-11-14 2020-11-14 [facility] 1.2.840.114 [id number] Univers 09:20:52 23:59:00 Encounter [facility] 350.1.13.10 ity of Surgical 4.2.7.2.686 [place] as Specialti [phone] La dical es 809 [facility] 2020-11-14 2020-11-14 Outpatient [facility] [id number] Univers 10:00:00 10:00:00 MITESH [facility] 2020-11-14 2020-11-14 Office [facility] 1.2.840.114 [id number] Univers 09:04:51 09:19:51 Visit [facility] 350.1.13.10 it y of Surgical 4.2.7.2.686 Brigido as Specialti [phone] Me dical es 198 [facility] 2020-11-02 2020-11-02 Orders Doctor BLAIR 1.2.840.114 [id number] Univers 00:00:00 00:00:00 Only Unassigned, JENY 350.1.13.10 [facility]y [facility] [place] [facility] 4.2.7.2.686 Brigido as [phone] Medi katherine 009 Siren 2020-10-30 2020-10-31 [facility] 1.2.840.114 [id number] Univers 07:06:00 13:50:00 Encounter Catrina L [place] 350.1.13.10 [place] [phone] [facility] [address] 2020-10-30 2020-10-30 Surgery Manny [facility] 1.2.201.089 [id number] Univers 09:25:00 11:42:00 Catrinabrady [place] 350.1.13.10 i [place] [phone] [facility] [address] 2020-10-30 2020-10-30 Orders Doctor BLAIR 1.2.840.114 [id number] Univers 00:00:00 00:00:00 Only Unassigned, JENY 350.1.13.10 ity [facility] [place] [facility] 4.2.7.2.686 Brigido as [phone] [facility] [address] 2020-10-27 2020-10-27 [facility] 1.2.840.114 [id number] Univers 09:48:16 23:59:00 Encounter Catrina [place] 350.1.13.10 [place] [phone] [facility] [address] 2020-10-27 2020-10-27 Cutter Hand Brianna, Charmaine Lab Main [facility] 1.2.8 40.114 [id number] Univers 09:45:14 10:00:14 Visit Manny Catrina Rich [place] 350.1.13.10 [place] [phone] La dical [facility] [address] 2020-10-27 2020-10-27 Laboratory Only, Adc Test [facility] 1.2.840. 114 [id number] Univers 09:44:03 09:59:03 Only Catrina Bryant Napoleon 350.1.13.10 [place] [phone] [facility] [address] 2020-10-27 2020-10-27 [facility] [id number] Univers 09:45:00 09:45:00 CATRINA [facility]ers [facility] 2020-10-26 2020-10-26 Ancillary Robert Ferrell [facility] 1.2.840. 114 [id number] Univers 13:01:42 14:01:42 Visit Catrina Bryant 350.1.13.10 [place] [phone] La dical nal 179 [facility] 2020-10-26 2020-10-26 [facility] [id number] Univers 13:00:00 13:00:00 CATRINA myers [facility] 2020-10-23 2020-10-23 Office [facility] [id number] Univers 13:06:14 16:16:55 Visit Catrina Carrillo 350.1.13.10 it y of Surgical 4.2.7.2.686 Brigido as Specialti [phone] La dical es 198 [facility] 2020-10-23 2020-10-23 [facility] [id number] Univers 14:00:00 14:00:00 CATRINA myers [facility] 2020-10-17 2020-10-17 [facility] 1.2.840.114 [id number] Univers 00:00:00 00:00:00 Surgery Catrina Carrillo 350.1.13.10 it y of Surgical 4.2.7.2.686 Brigido as Specialti [phone] La dical es 198 [facility] 2020-10-12 2020-10-12 Telephone [facility] 1.2.840.114 [id number] Univers 00:00:00 00:00:00 Catrina [facility] 350.1.13.10 it y of Surgical 4.2.7.2.686 Brig[place] as Specialti [phone] La dical es 198 [facility] 2020-09-22 2020-09-22 [facility] 1.2.840.114 [id number] Univers 10:10:46 23:59:00 Encounter Catrina [facility] 350.1.13.10 ity of Surgical 4.2.7.2.686 Brigido as Specialti [phone] La dical es 809 [facility] 2020-09-22 2020-09-22 [facility] [id number] Univers 09:58:57 10:19:25 Visit Catrinabrady Carrillo 350.1.13.10 it y of Surgical 4.2.7.2.686 Brig[place] as Specialti [phone] La dical es 198 [facility] 2020-09-22 2020-09-22 [facility] [id number] Univers 10:00:00 10:00:00 CATRINA myers [facility] 2020-02-14 2020-02-14 Orders Doctor BLAIR 1.2.840.114 [id number] Univers 00:00:00 00:00:00 Only Unassigned, JENY 350.1.13.10 ity of [place] [facility] 4.2.7.2.686 Brigido as [phone] [address] 2019-12-29 2019-12-29 Office [facility] 1.2.840.114 [id number] Univers 14:16:45 16:05:27 Visit Michelle Hoffman ULYSSES 350.1.13.10 it[place] of [place] 4[place]2.7.2.686 [place] [facility] [phone] [facility] 2019-12-29 2019-12-29 Outpatient R [facility] [id number] Univers 14:45:00 14:45:00 MICHELLE [facility] 2019-12-29 2019-12-29 Orders Doctor PINTO 1.2.840.114 [id number] Univers 00:00:00 00:00:00 Only Unassigned, JENY 350.1.13.10 ity of [place] [facility] 4.2.7.2.686 Brigido as [phone] [address] 2019-12-16 2019-12-16 Orders Doctor PINTO 1.2.840.114 [id number] Univers 00:00:00 00:00:00 Only Unassigned, JENY 350.1.13.10 ity of [place] [facility] 4.2.7.2.686 Brigido as [phone] [address] 2019-12-08 2019-12-08 Emergency [facility] 1.2.840.114 [id number] Univers 12:57:09 14:49:00 Stanislav Corado [place] 350.1.13.10 it[place] of [place]7.2.686 [place] [facility] [phone] [facility] [address] 2019-12-03 2019-12-03 Outpatient Homar ANTONIO [facility] [id number] Univers 16:15:00 16:15:00 MARK itjosef of [facility] 2019-11-11 2019-11-11 Orders Doctor BLAIR 1.2.840.114 [id number] Univers 00:00:00 00:00:00 Only Unassigned, JENY 350.1.13.10 ity of [place] [facility] 4.2.7.2.686 Brigido as [phone] [address] 2019-10-11 2019-10-11 Orders Doctor PINTO 1.2.840.114 [id number] Univers 00:00:00 00:00:00 Only Unassigned, JENY 350.1.13.10 ity of [place] [facility] 4.2.7.2.686 Brigido as [phone] [address] 2019-10-06 2019-10-06 Office [facility] 1.2.840.114 [id number] Univers 08:40:50 09:05:22 Visit [facility] 350.1.13.10 it y of Surgical 4.2.7.2.686 Brigido as Specialti [phone] [facility] 198 [facility] 2019-10-06 2019-10-06 [facility] [id number] Univers 09:00:00 09:00:00 MITESH [facility] 2019-09-20 2019-09-20 Orders Doctor PINTO 1.2.840.114 [id number] Univers 00:00:00 00:00:00 Only Unassigned, JENY 350.1.13.10 ity of [place] [facility] 4.2.7.2.686 Brigido as [phone] [address] 2019-09-07 2019-09-07 Outpatient O [facility] [id number] Univers 14:08:12 23:59:00 MITESH ity of [facility] 2019-09-07 2019-09-07 [facility] 1.2.840.114 [id number] Univers 14:08:00 23:59:00 Encounter Mitesh [facility] 350.1.13.10 ity of Surgical 4.2.7.2.686 [place] as Specialti [phone] La dical es 809 [facility] 2019-09-07 2019-09-07 Office [facility] 1.2.840.114 [id number] Univers 13:59:33 14:14:33 Visit Mitesh [facility] 350.1.13.10 it y of Surgical 4.2.7.2.686 Brigido as Specialti [phone] La dical es 198 [facility] 2019-08-25 2019-08-25 Orders Doctor BLAIR 1.2.840.114 [id number] Univers 00:00:00 00:00:00 Only Unassigned, JENY 350.1.13.10 ity of [place] [facility] 4.2.7.2.686 Brigido as [phone] [facility] [address] 2019-08-23 2019-08-24 [facility] 1.2.840.114 [id number] Univers 06:44:00 15:30:00 Encounter Catrina Bender 350.1.13.10 [place] [phone] [facility] [address] 2019-08-23 2019-08-23 Anesthesia KochMelvin siegel [facility] 1.2.8 40.114 [id number] Univers 09:23:00 11:10:00 Ledy Veliz 350.1.13.10 [place]2.[place] [phone] [facility] [address] 2019-08-23 2019-08-23 Orders Doctor BLAIR 1.2.840.114 [id number] Univers 00:00:00 00:00:00 Only Unassigned, JENY 350.1.13.10 ity of [place] [facility] 4.2.7.2.686 Brigido as [phone] [facility] [address] 2019-08-19 2019-08-19 Outpatient R MANNY [facility] [id number] Univers 08:45:00 08:45:00 CATRINA myers [facility] 2019-08-19 2019-08-19 [place] 1, Adc Lab [facility] 1.2.840.114 [id number] Univers 08:23:54 08:38:54 Visit Catrina Bryant Napoleon 350.1.13.10 ity of [place] 4.2.7.2.[address] [facility] [phone] [facility] [address] 2019-08-19 2019-08-19 Hospital Manny [facility] 1.2.840.114 [id number] Univers 08:00:00 08:23:00 Encounter Catrina Bender 350.1.13.10 ity of [place] 4.2.7.2.[address] [facility] [phone] [facility] [address] 2019-08-04 2019-08-04 Orders Doctor BLAIR 1.2.840.114 [id number] Univers 00:00:00 00:00:00 Only Unassigned, JENY 350.1.13.10 ity of [place] [facility] 4.2.7.2.686 Brigido as [phone] [facility] [address] 2019-07-29 2019-07-29 Orders Doctor BLAIR 1.2.840.114 [id number] Univers 00:00:00 00:00:00 Only Unassigned, JENY 350.1.13.10 ity of [place] [facility] 4.2.7.2.686 Brigido as [phone] [address] 2019-06-07 2019-06-07 Outpatient R MANNY [facility] [id number] Univers 10:45:00 10:45:00 CATRINA myers [facility] Results Test Description Test Time Test Comments Results Result Comments Source COMP. METABOLIC PANEL (02190) 2022-09-23 22:46:35 Test Item Value Reference Range Interpretation Comme nts NA (test code = 0148834336) 142 mmol/L 135-145 K (test code = 4778939009) 4.3 mmol/L 3.5-5.0 CL (test code = 5135851670) 110 mmol/L 98-108 H CO2 TOTAL (test code = 9003117716) 26 mmol/L 23-31 AGAP (test code = 3670496031) 6 2-16 BUN (test code = 2283052315) 23 mg/dL 7-23 GLUCOSE (test code = 3094520080) 101 mg/dL 70-110 CREATININE (test code = 1.10 mg/dL 0.50-1.04 H 6988414876) TOTAL BILI (test code = 0.5 mg/dL 0.1-1.6 6335681903) CALCIUM (test code = 8628375481) 9.0 mg/dL 8.6-10.6 T PROTEIN (test code = 7347602612) 7.1 g/dL 6.3-8.2 ALBUMIN (test code = 4785784634) 4.2 g/dL 3.5-5.0 ALK PHOS (test code = 1901714747) 96 U/L 34-122 ALTv (test code = 1742-6) 21 U/L 5-35 AST(SGOT) (test code = 9540813714) 37 U/L 13-40 eGFR (test code = 2796822163) 48.3 mL/min/1.73m2 BROWN (test code = BROWN) [...] tests). Lab Interpretation (test code = Abnormal 31413-9) [facility] WITH [id number] 20:41:06 Test Item Value Reference Range Interpretation Comments WBC (test code = 3.85 See_Comment L [Automated 5340-2) message] The sy stem which generated this result transmitted reference range : 4.30 - 11.10 10*3/?L. The reference range was not used to interpret this result as normal/abnormal . RBC (test code = 4.12 See_Comment [Automated 139-8) message] The sy stem which generated this [...] RDW-SD (test code = 44.5 fL 39.0-49.9 75259-2) RDW-CV (test code = 14.4 % 12.0-15.5 788-0) PLT (test code = 208 See_Comment [Automated 607-3) message] The sy stem which generated this result transmitted reference range : 166 - 358 10*3/ ?L. The reference r shaan was not used to interpret this result as normal/abnormal . MPV (test code = 10.7 fL 9.5-12.9 63763-2) NRBC/100 WBC (test 0.0 See_Comment [Automat ed code = 5531837419) message] The system which generated this result transmitted reference range : 0.0 - 10.0 /100 WBCs. The refer ence range was not u sed to interpret th is result as normal/abnormal . NRBC x10^3 (test code See_Comment [Auto mated = 4301176852) message] The s ystem which generated this result transmitted reference range : 10*3/?L. The reference range was not used to interpret this result as normal/abnormal . GRAN MAT (NEUT) % 56.6 % (test code = 770-8) IMM GRAN % (test code 0.30 % = 5705880959) LYMPH % (test code = 27.0 % 736-9) MONO % (test code = 12.5 % 5905-5) EOS % (test code = 2.6 % 713-8) BASO % (test code = 1.0 % 706-2) GRAN MAT x10^3(ANC) 2.18 10*3/uL 1.88-7.09 (test code = 8111704223) IMM GRAN x10^3 (test 0.00-0.06 code = 9469376310) LYMPH x10^3 (test code 1.04 10*3/uL 1.32-3.29 L = 731-0) MONO x10^3 (test code 0.48 10*3/uL 0.33-0.92 = 742-7) EOS x10^3 (test code = 0.10 10*3/uL 0.03-0.39 711-2) BASO x10^3 (test code 0.04 10*3/uL 0.01-0.07 = 704-7) Lab Interpretation Abnormal (test code = 81803-8) [facility] [id number] 21:02:00 Test Item Value Reference Range Interpretation [...] code = 3257) Negative Negative - Negative [facility]"
--- NOTE | 2023-06-02 18:18 | RAD REPORT ---
EXAM DESCRIPTION: RADChest Single View06/02/2023 5:14 pm CLINICAL HISTORY: COUGH COMPARISON: Chest Single View dated 04/29/2023; Chest Pa And Lat (2 Views) dated 04/16/2016; CHEST PA AND LAT 2 VIEW dated 08/20/2011; CHEST PA AND LAT 2 VIEW dated 07/10/2010 TECHNIQUE: Portable AP view of the chest. FINDINGS: The lungs are clear. No pneumothorax or effusion. The cardiomediastinal contours are unre markable. IMPRESSION: No acute cardiopulmonary process.
--- NOTE | 2023-06-02 18:32 | EDPHYS ---
Physician Documentation [facility] Name: Laila Haddad Age: 77 yrs Sex: Female : 1945 Arrival Date: 06/02/2023 Time: 16:39 Bed IW1 Private MD: ED Physician Robert Horton HPI: 06/02 17:01 This 77 yrs old Black Female presents to ER via Unassigned with complaints of Cough, kb Fever. 17:01 Patient is a 77-year-old female with a history of hypertension and chronic kidney kb disease who presents for cough and fever that started this afternoon. States she felt completely fine and asymptomatic upon waking this morning. Denies shortness of breath, chest pain.. Historical: - Allergies: 17:03 No Known Allergies; iw - PMHx: 17:03 Hypertension; kidney disease; iw ROS: 17:01 Abdomen/GI: Negative for abdominal pain, nausea, vomiting, diarrhea, and constipation, kb 17:01 Constitutional: Positive for fever, 17:01 Respiratory: Positive for cough, 17:01 All other systems are negative, Exam: 17:01 Constitutional: This is a well developed, well nourished patient who is awake, alert, kb and in no acute distress. Head/Face: Normocephalic, atraumatic. ENT: Moist Mucous membranes Cardiovascular: Regular rate Respiratory: Respirations even and unlabored. No increased work of breathing. Talking in full sentences Skin: Warm, dry with normal turgor. Normal color. MS/ Extremity: Pulses equal, no cyanosis. Neurovascular intact. Full, normal range of motion. Neuro: Awake and alert, GCS 15, oriented to person, place, time, and situation. Moves all extremities. Normal gait. Vital Signs: 17:03 BP 151 / 70; Pulse 88; Resp 16; Temp 100.2; Pulse Ox 98% on R/A; Weight 49.9 kg; Height iw 5 ft. 2 in. ; 17:03 Body Mass Index 20.12 (49.90 kg, 157.48 cm) iw MDM: 16:45 Patient medically screened. kb 17:02 Data reviewed: vital signs, nurses notes. kb 18:30 Differential Diagnosis: Other flu, covid, uri, pneumonia. Counseling: I had a detailed kb discussion with the patient and/or guardian regarding the historical points, exam findings, and any diagnostic results supporting the discharge/admit diagnosis, lab results, radiology results, the need for outpatient follow up, a family practitioner, to return to the emergency department if symptoms worsen or persist or if there are any questions or concerns that arise at home. 06/02 17:01 Order name: Flu; Complete Time: 18:01 kb 06/02 17:01 Order name: SARS-COV-2 RT PCR; Complete Time: 18:30 kb 06/02 17:01 Order name: Chest Single View XRAY; Complete Time: 18:22 kb Administered Medications: No medications were administered Disposition Summary: 06/02/23 18:31 Discharge Ordered Notes: Location: Home kb Condition: Stable kb Diagnosis - SARS-associated coronavirus as the cause of diseases classified elsewhere kb Followup: kb - With: Emergency Department - When: As needed - Reason: Worsening of condition Followup: kb - With: Private Physician - When: 2 - 3 days - Reason: Recheck today's complaints, Continuance of care, Re-evaluation by your physician Discharge Instructions: - Discharge Summary Sheet kb - COVID-19 kb - Viral Illness, Adult kb Forms: - Medication Reconciliation Form kb - Thank You Letter kb - Antibiotic Education kb - Prescription Opioid Use kb - Patient Portal Instructions kb - Leadership Thank You Letter kb Addendum: 06/07/2023 07:58 I was immediately available for consultation during this patient's visit. I did not e c2 personally see the patient or guide the patient's care. . Signatures: Dispatcher [employer] Michaela Laguerre, FABIAN ASHTON-Lilliana Schneider RN RN Robert Hays MD MD ec2 Corrections: (The following items were deleted from the chart) 06/02 17:03 17:03 Allergies: Aspirin; iw iw
--- NOTE | 2023-06-02 18:32 | ER ---
Nurse's Notes [facility] Name: Laila Haddad Age: 77 yrs Sex: Female : 1945 Arrival Date: 06/02/2023 Time: 16:39 Bed IW1 Private MD: Diagnosis: SARS-associated coronavirus as the cause of diseases classified elsewhere Presentation: 06/02 17:02 Chief complaint: Patient states: cough, fever, runny nose started today. Coronavirus iw screen: Client presents with at least one sign or symptom that may indicate coronavirus-19. Ebola Screen: Patient negative for fever greater than or equal to 101.5 degrees Fahrenheit, and additional compatible Ebola Virus Disease symptoms Patient denies exposure to infectious person. Patient denies travel to an Ebola-affected area in the 21 days before illness onset. No symptoms or risks identified at this time. Initial Sepsis Screen: Does the patient meet any 2 criteria? No. Patient's initial sepsis screen is negative. Does the patient have a suspected source of infection? No. Patient's initial sepsis screen is negative. Risk Assessment: Do you want to hurt yourself or someone else? Patient reports no desire to harm self or others. Onset of symptoms was June 02, 2023. 17:02 Method Of Arrival: Ambulatory iw 17:02 Acuity: HENRY 4 iw Triage Assessment: 17:03 General: Appears in no apparent distress. Behavior is calm, cooperative. iw Historical: - Allergies: 17:03 No Known Allergies; iw - PMHx: 17:03 Hypertension; kidney disease; iw Screenin:41 [facility] ED Fall Risk Assessment (Adult) Score/Fall Risk Level 0 - 2 = Low Risk. Abuse iw screen: Denies threats or abuse. Denies injuries from another. Nutritional screening: No deficits noted. Tuberculosis screening: No symptoms or risk factors identified. Assessment: 18:40 General: Appears in no apparent distress. Behavior is calm, cooperative. Pain: iw Complains of pain in body aches. Neuro: Level of Consciousness is awake, alert, obeys commands, Oriented to person, place, time, situation, Moves all extremities. Full function. Cardiovascular: Patient's skin is warm and dry. Respiratory: Respiratory effort is even, unlabored, Respiratory pattern is regular. GI: Abdomen is. Derm: Skin is intact, is healthy with good turgor. Musculoskeletal: Range of motion: intact in all extremities. Vital Signs: 17:03 BP 151 / 70; Pulse 88; Resp 16; Temp 100.2; Pulse Ox 98% on R/A; Weight 49.9 kg; Height iw 5 ft. 2 in. ; 17:03 Body Mass Index 20.12 (49.90 kg, 157.48 cm) iw ED Course: 16:42 Patient arrived in ED. im 16:45 Michaela Echevarria FNP-C [facility] kb 16:45 Robert Horton MD is Attending Physician. kb 17:03 Triage completed. iw 17:08 SARS-COV-2 RT PCR Sent. iw 17:08 Flu Sent. iw 17:16 Chest Single View XRAY In Process Unspecified. EDMS 18:40 Lilliana Da Silva, RN is Primary Nurse. iw 18:41 Patient has correct armband on for positive identification. Provided Education on: . iw 18:44 No provider procedures requiring assistance completed. Patient did not have IV access iw during this emergency room visit. Administered Medications: No medications were administered Medication: 18:41 VIS not applicable for this client. iw Outcome: 18:31 Discharge ordered by MD. kb 18:44 Discharged to home ambulatory, iw 18:44 Condition: good 18:44 Discharge instructions given to patient, Instructed on discharge instructions, follow up and referral plans. Demonstrated understanding of instructions, follow-up care, 18:45 Patient left the ED. iw Signatures: Dispatcher [employer] EDKS Michaela Echevarria FNP-C FNP-Ckb Williams, Irene, RN RN iw Rachel Alvarez im Corrections: (The following items were deleted from the chart) 17:03 17:03 Allergies: Aspirin; iw iw
[2023-06-02 19:10] VITALS: BP 151/70; TEMP 100.2; O2SAT 98
== END 2023-06-02 18:45 | disposition home or self-care (01) ==
LOC: ER 16:39
DX: U07.1 COVID-19 (principal); I12.9 Hypertensive chronic kidney disease with stage 1 through stage 4 chronic kidney disease, or unspecified chronic kidney disease; N18.9 Chronic kidney disease, unspecified
CPT/HCPCS: 71045; 87635; 87804; 99283